=== PATIENT | male | born 1960 | race Caucasian/White ===

== ENCOUNTER 2023-06-11 11:56 | Emergency (ER) | payer BC, OTHER ==
--- OUTSIDE RECORDS SUMMARY | 2023-06-11 12:15 | XMS REPORT | Continuity of Care Document ---
:1960 Author Organization [facility] t Address [address] [place] [address] Care Team Providers Name Role Phone SCOTT VALLE Attending Clinician Unavailable NATHALIA HARRIS Attending Clinician Unavailable JORGE HANSON Attending Clinician Unavailable MD REYNA Attending Clinician Unavailable BETHANY PORTILLO Attending Clinician Unavailable CATRACHO VALADEZ Attending Clinician Unavailable FREDRICK CAMACHO Attending Clinician Unavailable IJEOMA VIZCARRA Attending Clinician Unavailable [id number] Attending Clinician Unavailable [id number] Attending Clinician Unavailable NERET Attending Clinician Unavailable Myrna Rucker Attending Clinician Maximiliano Connolly Attending Clinician NERET Admitting Clinician Unavailable Maximiliano Connolly Admitting Clinician Payers Payer Name Policy Type Policy Number Effective Date Expiration Date S karthik AETNA MP CVS 9 [id number] 2022 BRONZE: HMO ON 00:00:00 [place] [id number] 2016 [place] (PPO) 00:00:00 [facility] [id number] Problems Condition Condition Condition Status Onset Resolution Last Treating Co mments Source Name Details Category Date Date Treatment Clinician Date DANIELLE DANIELLE Disease Active Taty (obstructi (obstructi 5-31 Se ybold ve sleep ve sleep 00:00: - apnea) apnea) 00 Externa l H/O aortic H/O aortic Disease Active Overview : Taty valve valve 2-20 Formattin Seybold replacemen replacemen 00:00: g of note Externa might be l different from the original. 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 Surgery for removal of right testicle and Chemo. Chronic Chronic Disease Active Overview: Sally ey anticoagul anticoagul 2-20 Formattin Seybold ation ation 00:00: g of note Externa might be l different from the original. Xarelto Primary Primary Disease Active Taty hypertensi hypertensi 2-20 Se ybold on on 00:00: - 00 Externa l Seasonal Seasonal Disease Active Kelse y allergic allergic 2-20 Seybol d rhinitis rhinitis 00:00: - due to due to 00 Externa pollen pollen l Low Low Disease Active Taty testostero testostero 2-20 Se ybold ne in male ne in male 00:00: - 00 Externa l Class 3 Class 3 Disease Active Taty severe severe 2-20 Seybold obesity obesity 00:00: - due to due to 00 Externa excess excess l calories calories with with serious serious comorbidit comorbidit y and body y and body mass index mass index (BMI) of (BMI) of 40.0 to 40.0 to 44.9 in 44.9 in adult adult Essential Essential Problem Active Mat agor hypertensi Hypertensi 2-24 da on on 00:00: Medical 00 Group Atopic Atopic Problem Active Mat[place]or dermatitis Dermatitis 2-24 da 00:00: Medical 00 Group SEPTIC SEPTIC Diagnosis Active 2015-04-13 [facility] THROMBOPHL THROMBOPHL 04-07 21:58:00 l EBITIS EBITIS 00:00: [place] Active 00 04/07/2015 [facility] NECK NECK Diagnosis Active 2015-04-08 [facility] martha ABCANNEMARIE ABCESS 04-07 00:45:00 l Active 00:00: [place] 04/07/2015 00 [facility] History of History of Disease Active Overview : Taty surgical surgical 11-02 [place] bold removal of removal of 00:00: g of this - testicle 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 Right testicle removed Morbid Morbid Problem Active 2020-04-27 Danis steve obesity obesity 23:59:28 l (disorder) (disorder) He rmann Active Problem 04/27/2020 [facility] Malignant Malignant Problem Active 2020-04-27 Memoria tumor of tumor of 23:59:28 l testis testis Danie (disorder) (disorder) Active Problem 04/27/2020 [facility] THROMBOPHL THROMBOPH Diagnosis Active 2015-04-13 Memoria EBITIS NOS LEBITIS 21:58:00 l NOS Active Calderon lopez [facility] Hypertensi Hypertens Problem Resolve 2020-04-27 Memoria ve emerson d 23:59:28 l disorder, disorder, Herm césar systemic systemic arterial arterial (disorder) (disorder) Resolved Problem 04/27/2020 [facility] Allergies, Adverse Reactions, Alerts Allergy Allergy Status Severity Reaction(s) Onset Inactive Treating Comm ents Source Name Type Date Date Clinician Adhesive Propensi Active Rash Taty ty to 630 Seybold adverse 00:00: - reaction 00 Externa s l Buspiron Propensi Active Itching Kelse y e ty to 3-09 Seybold adverse 00:00: - reaction 00 Externa s l No Known No Known Active Memori a Medicati Medicati l on on [place] Allergie Allergie s s Social History Social Habit Start Date Stop Date Quantity Comments Source History SDOH Taty Echols ld Alcohol Binge - External Gender identity Taty de jesus - External Sexual orientation Taty Smith - External History of tobacco Snuff User Taty Seybold use - External History SDOH Taty ybo ld Alcohol Frequency - Exter nal History SDOH Taty Dupontybo ld Alcohol Std Drinks - Exte rnal Alcohol intake 2023-05-04 2023-05-04 Current drinker Sonya celestin Seybjoshua 00:00:00 00:00:00 of alcohol - External (finding) Alcohol Comment 2022-12-22 2022-12-22 rarely Taty de jesus 00:00:00 00:00:00 - External Education 2022-12-22 2022-12-22 15 Taty Dupontybold 00:00:00 00:00:00 - External Tobacco use and 2022-12-22 2022-12-22 User of smokeless Ke kyle Seybold exposure 00:00:00 00:00:00 tobacco - External History of Social 2022-12-22 2022-12-22 Taty Dupontybold function 00:00:00 00:00:00 - External Social History 2015-04-08 2015-04-08 [facility] 09:53:15 09:53:15 [place] Sex [birth year] At [birth year] Taty de jesus 00:00:00 00:00:00 - External Smoking Status Start Date Stop Date Source Never smoked tobacco Taty Dupontyb old - External Medications Ordered Filled Start Stop Current Ordering Indication Dosage Frequency Signature Comments Components Source Medication Medication Date Date Medication? Clinician (SIG) Name Name Azelastine 2022- No azelastine Taty HCl 0.1 % 05-04 137 mcg Seybol d nasal 13:50: 00:00 (0.1 %) - Solution 47 :00 nasal Externa spray l aerosol [place] 2 sprays twice a day by intranasal route. FLUTICASONE Yes 50ug QD Use 1 Kelse y PROPIONATE, 05-04 spray (50 Sey bold NASAL, 50 13:25: mcg total) - MCG/ACT 40 in each Externa nasal nostril l Suspension daily as needed Desoximetas Yes desoximeta Taty one 0.05 % 05-04 sone 0.05 Seyb old apply 13:25: % topical - externally 40 gel Apply Exte rna Gel 1 l applicatio n twice a day by topical route as directed for 30 days. Triamcinolo Yes triamcinol Taty ne 05-04 one Seybold Acetonide 13:25: acetonide - 0.1 % apply 40 0.1 % Externa externally topical l Cream cream Multiple Yes 1{tbl} Take 1 Kelse y Vitamin 7-03 tablet by Seybold (Daily 13:25: mouth - Vites) oral 40 daily Externa Tablet l Loratadine Yes daily Taty (CLARITIN) 05-04 Seybold 10 MG oral 13:25: - tablet 40 Externa l Amoxicillin Yes [id number] 1{tbl} Take 1 Taty -Pot 05-04 tablet by Seybold Clavulanate 00:00: mouth 2 - 875-125 MG 00 times Externa oral Tablet daily l Azelastine Yes [id number] azelastine Taty HCl 0.1 % 05-04 137 mcg Seybold nasal 00:00: (0.1 %) - Solution 00 nasal Externa spray l aerosol Wingate 2 sprays twice a day by intranasal route. FLUTICASONE Yes 50ug QD Use 1 Kelse y PROPIONATE, 6-26 spray (50 Sey bold NASAL, 50 13:38: mcg total) - MCG/ACT 44 in each Externa nasal nostril l Suspension daily as needed Azelastine Yes azelastine K elsey HCl 0.1 % - 137 mcg Seybold nasal 13:38: (0.1 %) - Solution 44 nasal Externa spray l aerosol Wingate 2 sprays twice a day by intranasal route. Desoximetas Yes desoximeta Taty one 0.05 % - sone 0.05 Seyb old apply 13:38: % topical - externally 44 gel Apply Exte rna Gel 1 l applicatio n twice a day by topical route as directed for 30 days. Triamcinolo Yes triamcinol Taty ne 6- one Seybold Acetonide 13:38: acetonide - 0.1 % apply 44 0.1 % Externa externally topical l Cream cream Multiple Yes 1{tbl} Take 1 Kelse y Vitamin 6-26 tablet by Seybjoshua (Daily 13:38: mouth - Vites) oral 44 daily Externa Tablet l Loratadine Yes daily Taty (CLARITIN) 6- Seybold 10 MG oral 13:38: - tablet 44 Externa l Testosteron 2022- Yes [id number] 200mg Taty e Cypionate 5-31 - Seybold (DEPO-TESTO 19:45: 20:44 - STERONE) 00 :00 Externa 200 mg/mL - l Every 14 Days Testosteron 2022- Yes [id number] 200mg Taty e Cypionate 5-31 10-28 Seybold (DEPO-TESTO 19:45: 20:44 - STERONE) 00 :00 Externa 200 mg/mL - l Every 14 Days Testosteron 2022- Yes [id number] 200mg 200 mg, Taty e Cypionate 5-31 10-28 intramuscu S eybold (DEPO-TESTO 19:45: 20:44 lar, EVERY - STERONE) 00 :00 14 DAYS, Externa 200 mg/mL - 15 doses, l Every 14 First dose Days on Thu04/01/23 at 1445, Last dose on Thu10/14/23 at 1445 FLUTICASONE Yes 50ug QD Use 1 Kelse y PROPIONATE, 5-31 spray (50 Sey bold NASAL, 50 13:37: mcg total) - MCG/ACT 48 in each Externa nasal nostril l Suspension daily as needed Triamcinolo Yes triamcinol Taty ne 5-31 one Seybold Acetonide 13:37: acetonide - 0.1 % apply 48 0.1 % Externa externally topical l Cream cream Multiple Yes 1{tbl} Take 1 Kelse y Vitamin 5-31 tablet by ybjoshua (Daily 13:37: mouth - Vites) oral 48 daily Externa Tablet l Loratadine Yes daily Taty (CLARITIN) 5-31 Seybold 10 MG oral 13:37: - tablet 48 Externa l Desoximetas Yes desoximeta Taty one 0.05 % 5-31 sone 0.05 Seyb old apply 13:37: % topical - externally 47 gel Apply Exte rna Gel 1 l applicatio n twice a day by topical route as directed for 30 days. Azelastine 0 Yes azelastine K elsey HCl 0.1 % 5-31 137 mcg Seybold nasal 13:37: (0.1 %) - Solution 47 nasal Externa spray l aerosol Wingate 2 sprays twice a day by intranasal route. LISINOPRIL- 2022-0 Yes 1{tbl} Take 1 Ke lsey HCTZ 4-14 tablet by Seybold 10-12.5 MG 00:00: mouth - oral Tablet 00 daily Exte rna DIRECTED l Metoprolol 2022-0 Yes 25mg Take 1 Kelse y Tartrate 4-14 tablet (25 Seybo ld (LOPRESSOR) 00:00: mg total) - 25 MG oral 00 by mouth 2 Ext liana Tablet times l daily LISINOPRIL- 2022-0 Yes 1{tbl} Take 1 Ke lsey HCTZ 4-14 tablet by Seybold 10-12.5 MG 00:00: mouth - oral Tablet 00 daily Exte rna DIRECTED l Metoprolol 2022-0 Yes 25mg Take 1 Kelse y Tartrate 4-14 tablet (25 Seybo ld (LOPRESSOR) 00:00: mg total) - 25 MG oral 00 by mouth 2 Ext liana Tablet times l daily LISINOPRIL- 2022-0 Yes 1{tbl} Take 1 Ke lsey HCTZ 4-14 tablet by Seybold 10-12.5 MG 00:00: mouth - oral Tablet 00 daily Exte rna DIRECTED l Metoprolol 2022-0 Yes 25mg Take 1 Kelse y Tartrate 4-14 tablet (25 Seybo ld (LOPRESSOR) 00:00: mg total) - 25 MG oral 00 by mouth 2 Ext liana Tablet times l daily FLUTICASONE 2022-0 Yes 50ug QD Use 1 Kelse y PROPIONATE, 4-07 spray (50 Sey bold NASAL, 50 11:01: mcg total) - MCG/ACT 32 in each Externa nasal nostril l Suspension daily as needed Alprazolam 2022-0 2023- No .25mg Take 0.25 Taty 0.25 MG 2-20 02-20 mg by Seybold oral Tablet 15:01: 00:00 mouth as - 06 :00 needed for Externa sleep Take l 1 tablet by mouth as needed. FLUTICASONE 2022-0 Yes 1{spray QD Use 1 Ke lsey PROPIONATE, 2-20 } spray in Seyb old NASAL, 50 14:53: each - MCG/ACT 08 nostril Externa nasal daily as l Suspension needed Rivaroxaban 2022-0 Yes [id number] 20mg Take 1 Taty 20 MG oral 2-20 tablet (20 Sey bold Tablet 00:00: mg total) - 00 by mouth Externa daily l Rivaroxaban 2022-0 Yes [id number] 20mg Take 1 Taty 20 MG oral 2-20 tablet (20 Sey bold Tablet 00:00: mg total) - 00 by mouth Externa daily l Rivaroxaban 2022-0 Yes [id number] 20mg Take 1 Taty 20 MG oral 2-20 tablet (20 Sey bold Tablet 00:00: mg total) - 00 by mouth Externa daily l Rivaroxaban 2022-0 Yes [id number] 20mg Take 1 Taty 20 MG oral 2-20 tablet (20 Sey bold Tablet 00:00: mg total) - 00 by mouth Externa daily l Rivaroxaban 2022-0 Yes [id number] 20mg Take 1 Taty 20 MG oral 2-20 tablet (20 Sey bold Tablet 00:00: mg total) - 00 by mouth Externa daily l LISINOPRIL- 3-0 Yes 1{tbl} Take 1 Ke lsey HCTZ 2-03 tablet by Seybold 10-12.5 MG 00:00: mouth - oral Tablet 00 daily Exte rna DIRECTED l LISINOPRIL- 3-0 Yes 1{tbl} Take 1 Ke lsey HCTZ 2-03 tablet by Seybold 10-12.5 MG 00:00: mouth - oral Tablet 00 daily Exte rna DIRECTED l Metoprolol 2022-0 Yes 1{tbl} Take 1 Sukhdev sey Tartrate 1-31 tablet by Seybol d (LOPRESSOR) 00:00: mouth 2 - 50 MG oral 00 times Externa Tablet daily l Metoprolol 3-0 Yes 50mg Take 1 Kelse y Tartrate 1-31 tablet (50 Seybo ld (LOPRESSOR) 00:00: mg total) - 50 MG oral 00 by mouth 2 Ext liana Tablet times l daily Rivaroxaban 0 2022- No 20mg Take 20 mg Taty 20 MG oral 11-04-20 by mouth Seyb old Tablet 00:00: 00:00 daily - 00 :00 Externa l Testosteron 2021-11 Yes deon reyes Cypionate 1-17 ne Seybold (DEPO-TESTO 00:00: cypionate - STERONE) 00 200 mg/mL 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 200 MG/ML intramuscu l intramuscul lar oil ar Solution INJECT 0.5 ML IN THE MUSCLE EVERY WEEK DIRECTED FOR 30 DAYS Testoster2021 Yes deon Posey e Cypionate 1-17 ne Seybold (DEPO-TESTO 00:00: cypionate - STERONE) 00 200 mg/mL 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 200 MG/ML intramuscu l intramuscul lar oil ar Solution INJECT 0.5 ML IN THE MUSCLE EVERY WEEK DIRECTED FOR 30 DAYS Testoster2021 Yes deon Posey e Cypionate 1-17 ne Seybold (DEPO-TESTO 00:00: cypionate - STERONE) 00 200 mg/mL 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 200 MG/ML intramuscu l intramuscul lar oil ar Solution INJECT 0.5 ML IN THE MUSCLE EVERY WEEK DIRECTED FOR 30 DAYS Fluorometho 2021-11 Yes 1[drp] 1 drop at Taty lone 0.1 % 0-17 bedtime Seybol d ophthalmic 00:00: - Suspension 00 Externa l Fluorometho 2021-11 Yes 1[drp] 1 drop at Taty lone 0.1 % 0-17 bedtime Seybol d ophthalmic 00:00: - Suspension 00 Externa l Fluorometho 2021-11 Yes 1[drp] 1 drop at Taty lone 0.1 % 0-17 bedtime Seybol d ophthalmic 00:00: - Suspension 00 Externa l Meclizine Yes meclizine Sukhdev sey HCl 25 MG 4-26 25 mg Seybold oral Tablet 00:00: tablet - 00 Externa l Meclizine 0 Yes meclizine Sukhdev sey HCl 25 MG 4-26 25 mg Seybold oral Tablet 00:00: tablet - 00 Externa l Meclizine 2021-0 Yes meclizine Sukhdev sey HCl 25 MG 4-26 25 mg Seybold oral Tablet 00:00: tablet - 00 Externa l Ciprofloxac 2019-0 Yes 4 drp, Danis steve in 3 MG/ML 6-24 Each l / 21:38: Affected Danie Dexamethaso 00 Ear, Q12H, ne 1 MG/ML X 5 day, # Otic 1 ea, 0 Suspension Refill(s), Pharmacy: [facility] #[id number], 182.88, cm, 04/25/20 13:07:00 CDT, Height, 122.727, kg, 04/25/20 13:22:00 CDT, Weight Ciprofloxac 2019-0 Yes 4 drp, Danis steve in 3 MG/ML 6-24 Each l / 21:38: Affected Danie Dexamethaso 00 Ear, Q12H, ne 1 MG/ML X 5 day, # Otic 1 ea, 0 Suspension Refill(s), Pharmacy: [facility] #[id number], 182.88, cm, 04/25/20 13:07:00 CDT, Height, 122.727, kg, 04/25/20 13:22:00 CDT, Weight Ciprofloxac 2019-0 Yes 4 drp, Danis steve in 3 MG/ML 6-24 Each l / :38: Affected [place] Dexamethaso 00 Ear, Q12H, ne 1 MG/ML X 5 day, # Otic 1 ea, 0 Suspension Refill(s), Pharmacy: [facility] #[id number], 182.88, cm, 04/25/20 13:07:00 CDT, Height, 122.727, kg, 04/25/20 13:22:00 CDT, Weight Ciprofloxac 2019-0 Yes 4 drp, Danis steve in 3 MG/ML 6-24 Each l / :38: Affected Danie Dexamethaso 00 Ear, Q12H, ne 1 MG/ML X 5 day, # Otic 1 ea, 0 Suspension Refill(s), Pharmacy: [facility] #[id number], 182.88, cm, 04/25/20 13:07:00 CDT, Height, 122.727, kg, 04/25/20 13:22:00 CDT, Weight Ciprofloxac 2020-0 Yes 4 drp, Danis steve in 3 MG/ML 6-24 Each l :38: Affected [place] Dexamethaso 00 Ear, Q12H, ne 1 MG/ML X 5 day, # Otic 1 ea, 0 Suspension Refill(s), Pharmacy: [facility] #[id number], 182.88, cm, 04/25/20 13:07:00 CDT, Height, 122.727, kg, 04/25/20 13:22:00 CDT, Weight Ciprofloxac 2019-0 Yes 4 drp, Danis steve in 3 MG/ML 6-24 Each l :38: Affected [place] Dexamethaso 00 Ear, Q12H, ne 1 MG/ML X 5 day, # Otic 1 ea, 0 Suspension Refill(s), Pharmacy: [facility] #[id number], 182.88, cm, 04/25/20 13:07:00 CDT, Height, 122.727, kg, 04/25/20 13:22:00 CDT, Weight Ciprofloxac 2019-0 Yes 4 drp, Danis steve in 3 MG/ML 6-24 Each l :38: Affected [place] Dexamethaso 00 Ear, Q12H, ne 1 MG/ML X 5 day, # Otic 1 ea, 0 Suspension Refill(s), Pharmacy: [facility] #[id number], 182.88, cm, 04/25/20 13:07:00 CDT, Height, 122.727, kg, 04/25/20 13:22:00 CDT, Weight Ciprofloxac 2019-0 Yes 4 drp, Danis steve in 3 MG/ML 6-24 Each l :38: Affected Danie Dexamethaso 00 Ear, Q12H, ne 1 MG/ML X 5 day, # Otic 1 ea, 0 Suspension Refill(s), Pharmacy: [facility] #[id number], 182.88, cm, 04/25/20 13:07:00 CDT, Height, 122.727, kg, 04/25/20 13:22:00 CDT, Weight Ciprofloxac 2020-0 Yes 4 drp, Danis steve in 3 MG/ML 6-24 Each l / 21:38: Affected [place] Dexamethaso 00 Ear, Q12H, ne 1 MG/ML X 5 day, # Otic 1 ea, 0 Suspension Refill(s), Pharmacy: [facility] #[id number], 182.88, cm, 04/25/20 13:07:00 CDT, Height, 122.727, kg, 04/25/20 13:22:00 CDT, Weight Ciprofloxac 2020-0 Yes 4 drp, Danis steve in 3 MG/ML 6-24 Each l / :38: Affected [place] Dexamethaso 00 Ear, Q12H, ne 1 MG/ML X 5 day, # Otic 1 ea, 0 Suspension Refill(s), Pharmacy: [facility] #[id number], 182.88, cm, 04/25/20 13:07:00 CDT, Height, 122.727, kg, 04/25/20 13:22:00 CDT, Weight Ciprofloxac 2020-0 Yes 4 drp, Danis steve in 3 MG/ML 6-24 Each l / :38: Affected [place] Dexamethaso 00 Ear, Q12H, ne 1 MG/ML X 5 day, # Otic 1 ea, 0 Suspension Refill(s), Pharmacy: [facility] #[id number], 182.88, cm, 04/25/20 13:07:00 CDT, Height, 122.727, kg, 04/25/20 13:22:00 CDT, Weight Fluticasone 2020-0 Yes NASAL, Danis steve propionate 6-24 Daily, 0 l 0.05 18:17: Refill(s) [place] MG/ACTUAT 00 Metered Dose Nasal Wing[place] [Flonase] Fluticasone 2020-0 Yes NASAL, Danis steve propionate 6-24 Daily, 0 l 0.05 18:17: Refill(s) [place] MG/ACTUAT 00 Metered Dose Nasal [place] [Flonase] Fluticasone 2020-0 Yes NASAL, Danis steve propionate 6-24 Daily, 0 l 0.05 18:17: Refill(s) [place] MG/ACTUAT 00 Metered Dose Nasal [place] [Flonase] Fluticasone 2020-0 Yes NASAL, Danis steve propionate 6-24 Daily, 0 l 0.05 18:17: Refill(s) [place] MG/ACTUAT 00 Metered Dose Nasal [place] [Flonase] Fluticasone 2020-0 Yes NASAL, Danis steve propionate 6-24 Daily, 0 l 0.05 18:17: Refill(s) [place] MG/ACTUAT 00 Metered Dose Nasal [place] [Flonase] Fluticasone 2020-0 Yes NASAL, Danis steve propionate 6-24 Daily, 0 l 0.05 18:17: Refill(s) Danie MG/ACTUAT 00 Metered Dose Nasal [place] [Flonase] Fluticasone 2020-0 Yes NASAL, Danis steve propionate 6-24 Daily, 0 l 0.05 18:17: Refill(s) Danie MG/ACTUAT 00 Metered Dose Nasal [place] [Flonase] Fluticasone 2020-0 Yes NASAL, Danis steve propionate 6-24 Daily, 0 l 0.05 18:17: Refill(s) Danie MG/ACTUAT 00 Metered Dose Nasal [place] [Flonase] Fluticasone 2020-0 Yes NASAL, Danis steve propionate 6-24 Daily, 0 l 0.05 18:17: Refill(s) Danie MG/ACTUAT 00 Metered Dose Nasal [place] [Flonase] Fluticasone 2020-0 Yes NASAL, Danis steve propionate 6-24 Daily, 0 l 0.05 18:17: Refill(s) [place] MG/ACTUAT 00 Metered Dose Nasal [place] [Flonase] Fluticasone 2020-0 Yes NASAL, Danis steve propionate 6-24 Daily, 0 l 0.05 18:17: Refill(s) [place] MG/ACTUAT 00 Metered Dose Nasal [place] [Flonase] heparin, No Notes: Memoria porcine 6- (Same as: l 21:23: Heparin Danie 00 Lock Flush) heparin, No Notes: Memoria porcine 6- (Same as: l 21:23: Heparin Danie 00 Lock Flush) heparin, No Notes: Memoria porcine 6-09 (Same as: l 21:23: Heparin Danie 00 Lock Flush) heparin, No Notes: Memoria porcine 6-09 (Same as: l 21:23: Heparin Danie 00 Lock Flush) heparin, No Notes: Memoria porcine 6-09 (Same as: l 21:23: Heparin Danie 00 Lock Flush) heparin, No Notes: Memoria porcine 6-09 (Same as: l 21:23: Heparin [place] 00 Lock Flush) heparin, No Notes: Memoria porcine 6-09 (Same as: l 21:23: Heparin Adnie 00 Lock Flush) heparin, No Notes: Memoria porcine 6-09 (Same as: l 21:23: Heparin [place] 00 Lock Flush) heparin, No Notes: Memoria porcine 6-09 (Same as: l 21:23: Heparin Danie 00 Lock Flush) heparin, No Notes: Memoria porcine 6-09 (Same as: l 21:23: Heparin Danie 00 Lock Flush) heparin, No Notes: Memoria porcine 6-09 (Same as: l 21:23: Heparin Danie 00 Lock Flush) {42 Yes Special Memoria (rivaroxaba - Instructio l n 15 MG 20:15: ns: Take Calderon n Oral Tablet 00 15 mg [Xarelto]) tablets / 9 twice (rivaroxaba daily with n 20 MG food for Oral Tablet 21 days. [Xarelto]) Beginning } day [Xarelto 22,take Kit] one 20 mg tablet daily with food for the remainder of therapy. Amoxicillin Yes 875 mg = 1 Memoria 875 MG / 04-10 tab, PO, l Clavulanate 20:15: Q12H, X 14 [place] 125 MG Oral 00 day, # 28 Tablet tab, 0 [Augmentin Refill(s) 875-mg] {42 Yes Special Memoria (rivaroxaba - Instructio l n 15 MG 20:15: ns: Take Calderon n Oral Tablet 00 15 mg [Xarelto]) tablets / 9 twice (rivaroxaba daily with n 20 MG food for Oral Tablet 21 days. [Xarelto]) Beginning } Pack day [Xarelto 22,take Kit] one 20 mg tablet daily with food for the remainder of therapy. Amoxicillin Yes 875 mg = 1 Memoria 875 MG / 6-09 tab, PO, l Clavulanate 20:15: Q12H, X 14 [place] 125 MG Oral 00 day, # 28 Tablet tab, 0 [Augmentin Refill(s) 875-mg] { Yes Special Memoria (rivaroxaba 6-09 Instructio l n 15 MG 20:15: ns: Take Calderon n Oral Tablet 00 15 mg [Xarelto]) tablets / 9 twice (rivaroxaba daily with n 20 MG food for Oral Tablet 21 days. [Xarelto]) Beginning } Pack day [Xarelto 22,take Kit] one 20 mg tablet daily with food for the remainder of therapy. Amoxicillin Yes 875 mg = 1 Memoria 875 MG / 6-09 tab, PO, l Clavulanate 20:15: Q12H, X 14 [place] 125 MG Oral 00 day, # 28 Tablet tab, 0 [Augmentin Refill(s) 875-mg] { Yes Special Memoria (rivaroxaba 6-09 Instructio l n 15 MG 20:15: ns: Take Calderon n Oral Tablet 00 15 mg [Xarelto]) tablets / 9 twice (rivaroxaba daily with n 20 MG food for Oral Tablet 21 days. [Xarelto]) Beginning } Pack day [Xarelto 22,take Kit] one 20 mg tablet daily with food for the remainder of therapy. { Yes Special Memoria (rivaroxaba 6-09 Instructio l n 15 MG 20:15: ns: Take Calderon n Oral Tablet 00 15 mg [Xarelto]) tablets / 9 twice (rivaroxaba daily with n 20 MG food for Oral Tablet 21 days. [Xarelto]) Beginning } Pack day [Xarelto 22,take Kit] one 20 mg tablet daily with food for the remainder of therapy. Amoxicillin Yes 875 mg = 1 Memoria 875 MG / 6-09 tab, PO, l Clavulanate 20:15: Q12H, X 14 Danie 125 MG Oral 00 day, # 28 Tablet tab, 0 [Augmentin Refill(s) 875-mg] Amoxicillin Yes 875 mg = 1 Memoria 875 MG / 6-09 tab, PO, l Clavulanate 20:15: Q12H, X 14 [place] 125 MG Oral 00 day, # 28 Tablet tab, 0 [Augmentin Refill(s) 875-mg] { Yes Special Memoria (rivaroxaba 6-09 Instructio l n 15 MG 20:15: ns: Take Calderon n Oral Tablet 00 15 mg [Xarelto]) tablets / 9 twice (rivaroxaba daily with n 20 MG food for Oral Tablet 21 days. [Xarelto]) Beginning } Pack day [Xarelto 22,take Kit] one 20 mg tablet daily with food for the remainder of therapy. Amoxicillin Yes 875 mg = 1 Memoria 875 MG / 6-09 tab, PO, l Clavulanate 20:15: Q12H, X 14 Danie 125 MG Oral 00 day, # 28 Tablet tab, 0 [Augmentin Refill(s) 875-mg] { Yes Special Memoria (rivaroxaba 6-09 Instructio l n 15 MG 20:15: ns: Take Calderon n Oral Tablet 00 15 mg [Xarelto]) tablets / 9 twice (rivaroxaba daily with n 20 MG food for Oral Tablet 21 days. [Xarelto]) Beginning } Pack day [Xarelto 22,take Kit] one 20 mg tablet daily with food for the remainder of therapy. Amoxicillin Yes 875 mg = 1 Memoria 875 MG / 6-09 tab, PO, l Clavulanate 20:15: Q12H, X 14 [place] 125 MG Oral 00 day, # 28 Tablet tab, 0 [Augmentin Refill(s) 875-mg] { Yes Special Memoria (rivaroxaba 6-09 Instructio l n 15 MG 20:15: ns: Take Calderon n Oral Tablet 00 15 mg [Xarelto]) tablets / 9 twice (rivaroxaba daily with n 20 MG food for Oral Tablet 21 days. [Xarelto]) Beginning } Pack day [Xarelto 22,take Kit] one 20 mg tablet daily with food for the remainder of therapy. Amoxicillin Yes 875 mg = 1 Memoria 875 MG / 6-09 tab, PO, l Clavulanate 20:15: Q12H, X 14 [place] 125 MG Oral 00 day, # 28 Tablet tab, 0 [Augmentin Refill(s) 875-mg] { Yes Special Memoria (rivaroxaba 6-09 Instructio l n 15 MG 20:15: ns: Take Calderon n Oral Tablet 00 15 mg [Xarelto]) tablets / 9 twice (rivaroxaba daily with n 20 MG food for Oral Tablet 21 days. [Xarelto]) Beginning } Pack day [Xarelto 22,take Kit] one 20 mg tablet daily with food for the remainder of therapy. Amoxicillin Yes 875 mg = 1 Memoria 875 MG / 6-09 tab, PO, l Clavulanate 20:15: Q12H, X 14 [place] 125 MG Oral 00 day, # 28 Tablet tab, 0 [Augmentin Refill(s) 875-mg] { Yes Special Memoria (rivaroxaba 6-09 Instructio l n 15 MG 20:15: ns: Take Calderon n Oral Tablet 00 15 mg [Xarelto]) tablets / 9 twice (rivaroxaba daily with n 20 MG food for Oral Tablet 21 days. [Xarelto]) Beginning } Pack day [Xarelto 22,take Kit] one 20 mg tablet daily with food for the remainder of therapy. Amoxicillin Yes 875 mg = 1 Memoria 875 MG / 6-09 tab, PO, l Clavulanate 20:15: Q12H, X 14 [place] 125 MG Oral 00 day, # 28 Tablet tab, 0 [Augmentin Refill(s) 875-mg] { Yes Special Memoria (rivaroxaba 6-09 Instructio l n 15 MG 20:15: ns: Take Calderon n Oral Tablet 00 15 mg [Xarelto]) tablets / 9 twice (rivaroxaba daily with n 20 MG food for Oral Tablet 21 days. [Xarelto]) Beginning } Pack day [Xarelto 22,take Kit] one 20 mg tablet daily with food for the remainder of therapy. Amoxicillin Yes 875 mg = 1 Memoria 875 MG / 6-09 tab, PO, l Clavulanate 20:15: Q12H, X 14 Danie 125 MG Oral 00 day, # 28 Tablet tab, 0 [Augmentin Refill(s) 875-mg] Protonix No Notes: Memoria 6-08 Tablet l 16:30: should not [place] 00 be chewed or crushed. (Same as: Protonix) Protonix No Notes: Memoria 6-08 Tablet l 16:30: should not [place] 00 be chewed or crushed. (Same as: Protonix) Protonix No Notes: Memoria 6-08 Tablet l 16:30: should not [place] 00 be chewed or crushed. (Same as: Protonix) Protonix No Notes: Memoria 6-08 Tablet l 16:30: should not [place] 00 be chewed or crushed. (Same as: Protonix) Protonix No Notes: Memoria 6-08 Tablet l 16:30: should not [place] 00 be chewed or crushed. (Same as: Protonix) Protonix No Notes: Memoria 6-08 Tablet l 16:30: should not [place] 00 be chewed or crushed. (Same as: Protonix) Protonix No Notes: Memoria 6-08 Tablet l 16:30: should not [place] 00 be chewed or crushed. (Same as: Protonix) Protonix No Notes: Memoria 6-08 Tablet l 16:30: should not [place] 00 be chewed or crushed. (Same as: Protonix) Protonix No Notes: Memoria 6-08 Tablet l 16:30: should not [place] 00 be chewed or crushed. (Same as: Protonix) Protonix No Notes: Memoria 6-08 Tablet l 16:30: should not [place] 00 be chewed or crushed. (Same as: Protonix) Protonix No Notes: Memoria 6-08 Tablet l 16:30: should not [place] 00 be chewed or crushed. (Same as: Protonix) heparin No Route: Memoria sodium, 6-07 IVP, PRN, l porcine 23:13: 3,700 [place] 1000 UNT/ML 00 unit, 3.7 Injectable mL, Drug Solution form: INJ, PRN, Heparin Protocol, Start date: 04/08/15 18:13:00 Stop date: 05/08/15 18:12:00, 30 day heparin 0 No 500 mL, Memoria additive 6-07 Rate: l 25,000 unit 23:13: 33.65 Shaina nn [18 00 ml/hr, unit/kg/hr] Infuse + Premix over: 14.9 Diluent hr, Route: Dextrose 5% IV, Dosing 500 mL Weight 93.47 kg, Total Volume: 500 mL, Start date: 04/08/15 18:13:00, Duration: 30 day, Stop date: 05/08/15 18:12:00 heparin 0 No Route: Mem[facility] sodium, 6-07 IVP, PRN, l porcine 23:13: 3,700 [place] 1000 UNT/ML 00 unit, 3.7 Injectable mL, Drug Solution form: INJ, PRN, Heparin Protocol, Start date: 04/08/15 18:13:00 Stop date: 05/08/15 18:12:00, 30 day heparin 0 No 500 mL, Memoria additive 6-07 Rate: l 25,000 unit 23:13: 33.65 Shaina nn [18 00 ml/hr, unit/kg/hr] Infuse + Premix over: 14.9 Diluent hr, Route: Dextrose 5% IV, Dosing 500 mL Weight 93.47 kg, Total Volume: 500 mL, Start date: 04/08/15 18:13:00, Duration: 30 day, Stop date: 05/08/15 18:12:00 heparin 0 No Route: Memoria sodium, 6-07 IVP, PRN, l porcine 23:13: 3,700 [place] 1000 UNT/ML 00 unit, 3.7 Injectable mL, Drug Solution form: INJ, PRN, Heparin Protocol, Start date: 04/08/15 18:13:00 Stop date: 05/08/15 18:12:00, 30 day heparin 0 No 500 mL, Memoria additive 6-07 Rate: l 25,000 unit 23:13: 33.65 Shaina nn [18 00 ml/hr, unit/kg/hr] Infuse + Premix over: 14.9 Diluent hr, Route: Dextrose 5% IV, Dosing 500 mL Weight 93.47 kg, Total Volume: 500 mL, Start date: 04/08/15 18:13:00, Duration: 30 day, Stop date: 05/08/15 18:12:00 heparin No Route: [facility] sodium, 6-07 IVP, PRN, l porcine 23:13: 3,700 [place] 1000 UNT/ML 00 unit, 3.7 Injectable mL, Drug Solution form: INJ, PRN, Heparin Protocol, Start date: 04/08/15 18:13:00 Stop date: 05/08/15 18:12:00, 30 day heparin No 500 mL, Mem[facility] additive 6-07 Rate: l 25,000 unit 23:13: 33.65 Shaina nn [18 00 ml/hr, unit/kg/hr] Infuse + Premix over: 14.9 Diluent hr, Route: Dextrose 5% IV, Dosing 500 mL Weight 93.47 kg, Total Volume: 500 mL, Start date: 04/08/15 18:13:00, Duration: 30 day, Stop date: 05/08/15 18:12:00 heparin No Route: Mem[facility] sodium, 6-07 IVP, PRN, l porcine 23:13: 3,700 [place] 1000 UNT/ML 00 unit, 3.7 Injectable mL, Drug Solution form: INJ, PRN, Heparin Protocol, Start date: 04/08/15 18:13:00 Stop date: 05/08/15 18:12:00, 30 day heparin 0 No 500 mL, Mem[facility] additive 6-07 Rate: l 25,000 unit 23:13: 33.65 Shaina nn [18 00 ml/hr, unit/kg/hr] Infuse + Premix over: 14.9 Diluent hr, Route: Dextrose 5% IV, Dosing 500 mL Weight 93.47 kg, Total Volume: 500 mL, Start date: 04/08/15 18:13:00, Duration: 30 day, Stop date: 05/08/15 18:12:00 heparin No Route: Mem[facility] sodium, 6-07 IVP, PRN, l porcine 23:13: 3,700 [place] 1000 UNT/ML 00 unit, 3.7 Injectable mL, Drug Solution form: INJ, PRN, Heparin Protocol, Start date: 04/08/15 18:13:00 Stop date: 05/08/15 18:12:00, 30 day heparin 2014-0 No 500 mL, [facility] additive 6-07 Rate: l 25,000 unit 23:13: 33.65 Shaina nn [18 00 ml/hr, unit/kg/hr] Infuse + Premix over: 14.9 Diluent hr, Route: Dextrose 5% IV, Dosing 500 mL Weight 93.47 kg, Total Volume: 500 mL, Start date: 04/08/15 18:13:00, Duration: 30 day, Stop date: 05/08/15 18:12:00 heparin 2015-0 No Route: [facility] sodium, 6-07 IVP, PRN, l porcine 23:13: 3,700 [place] 1000 UNT/ML 00 unit, 3.7 Injectable mL, Drug Solution form: INJ, PRN, Heparin Protocol, Start date: 04/08/15 18:13:00 Stop date: 05/08/15 18:12:00, 30 day heparin 2014-0 No 500 mL, [facility] additive 6-07 Rate: l 25,000 unit 23:13: 33.65 Shaina nn [18 00 ml/hr, unit/kg/hr] Infuse + Premix over: 14.9 Diluent hr, Route: Dextrose 5% IV, Dosing 500 mL Weight 93.47 kg, Total Volume: 500 mL, Start date: 04/08/15 18:13:00, Duration: 30 day, Stop date: 05/08/15 18:12:00 heparin 2015-0 No Route: [facility] sodium, 6-07 IVP, PRN, l porcine 23:13: 3,700 [place] 1000 UNT/ML 00 unit, 3.7 Injectable mL, Drug Solution form: INJ, PRN, Heparin Protocol, Start date: 04/08/15 18:13:00 Stop date: 05/08/15 18:12:00, 30 day heparin 2015-0 No 500 mL, Mem[facility] additive 6-07 Rate: l 25,000 unit 23:13: 33.65 Shaina nn [18 00 ml/hr, unit/kg/hr] Infuse + Premix over: 14.9 Diluent hr, Route: Dextrose 5% IV, Dosing 500 mL Weight 93.47 kg, Total Volume: 500 mL, Start date: 04/08/15 18:13:00, Duration: 30 day, Stop date: 05/08/15 18:12:00 heparin No Route: [facility] sodium, 6-07 IVP, PRN, l porcine 23:13: 3,700 [place] 1000 UNT/ML 00 unit, 3.7 Injectable mL, Drug Solution form: INJ, PRN, Heparin Protocol, Start date: 04/08/15 18:13:00 Stop date: 05/08/15 18:12:00, 30 day heparin No 500 mL, [facility] additive 6-07 Rate: l 25,000 unit 23:13: 33.65 Shaina nn [18 00 ml/hr, unit/kg/hr] Infuse + Premix over: 14.9 Diluent hr, Route: Dextrose 5% IV, Dosing 500 mL Weight 93.47 kg, Total Volume: 500 mL, Start date: 04/08/15 18:13:00, Duration: 30 day, Stop date: 05/08/15 18:12:00 heparin No Route: [facility] sodium, 6-07 IVP, PRN, l porcine 23:13: 3,700 [place] 1000 UNT/ML 00 unit, 3.7 Injectable mL, Drug Solution form: INJ, PRN, Heparin Protocol, Start date: 04/08/15 18:13:00 Stop date: 05/08/15 18:12:00, 30 day heparin 0 No 500 mL, Mem[facility] additive 6-07 Rate: l 25,000 unit 23:13: 33.65 Shaina nn [18 00 ml/hr, unit/kg/hr] Infuse + Premix over: 14.9 Diluent hr, Route: Dextrose 5% IV, Dosing 500 mL Weight 93.47 kg, Total Volume: 500 mL, Start date: 04/08/15 18:13:00, Duration: 30 day, Stop date: 05/08/15 18:12:00 heparin 0 No Route: [facility] sodium, 6-07 IVP, PRN, l porcine 23:13: 3,700 [place] 1000 UNT/ML 00 unit, 3.7 Injectable mL, Drug Solution form: INJ, PRN, Heparin Protocol, Start date: 04/08/15 18:13:00 Stop date: 05/08/15 18:12:00, 30 day heparin 2014-0 No 500 mL, Memoria additive 6 Rate: l 25,000 unit 23:13: 33.65 Shaina nn [18 00 ml/hr, unit/kg/hr] Infuse + Premix over: 14.9 Diluent hr, Route: Dextrose 5% IV, Dosing 500 mL Weight 93.47 kg, Total Volume: 500 mL, Start date: 04/08/15 18:13:00, Duration: 30 day, Stop date: 05/08/15 18:12:00 lisinopril 2014-0 Yes 5 mg = 1 Mem oria 5 mg oral 6-07 tab, PO, l tablet 17:53: Daily, # Danie 00 30 tab, 0 Refill(s) cephalexin 2014-0 No 250 mg = 1 M emoria 250 mg oral 6-07 cap, PO, l capsule 17:53: QID, # 56 Shaina nn 00 cap, 0 Refill(s) Hydrochloro 2014-0 Yes 25 mg, PO, Memoria thiazide 6-07 Daily, 0 l 17:53: Refill(s) [place] 00 lisinopril 2014-0 Yes 5 mg = 1 Mem oria 5 mg oral 6-07 tab, PO, l tablet 17:53: Daily, # Danie 00 30 tab, 0 Refill(s) cephalexin 2014-0 No 250 mg = 1 M emoria 250 mg oral 6-07 cap, PO, l capsule 17:53: QID, # 56 Shaina nn 00 cap, 0 Refill(s) Hydrochloro 2014-0 Yes 25 mg, PO, Memoria thiazide 6-07 Daily, 0 l 17:53: Refill(s) [place] 00 lisinopril 2014-0 Yes 5 mg = 1 Mem oria 5 mg oral 6-07 tab, PO, l tablet 17:53: Daily, # Danie 00 30 tab, 0 Refill(s) cephalexin 2014-0 No 250 mg = 1 M emoria 250 mg oral 6-07 cap, PO, l capsule 17:53: QID, # 56 Shaina nn 00 cap, 0 Refill(s) Hydrochloro 2014-0 Yes 25 mg, PO, Memoria thiazide 6-07 Daily, 0 l 17:53: Refill(s) Danie 00 lisinopril Yes 5 mg = 1 Mem oria 5 mg oral 6-07 tab, PO, l tablet 17:53: Daily, # [place] 00 30 tab, 0 Refill(s) cephalexin No 250 mg = 1 M emoria 250 mg oral 6-07 cap, PO, l capsule 17:53: QID, # 56 Shaina nn 00 cap, 0 Refill(s) Hydrochloro 2014-0 Yes 25 mg, PO, Memoria thiazide 607 Daily, 0 l 17:53: Refill(s) [place]ie 00 lisinopril Yes 5 mg = 1 Mem oria 5 mg oral 6-07 tab, PO, l tablet 17:53: Daily, # Danie 00 30 tab, 0 Refill(s) cephalexin No 250 mg = 1 M emoria 250 mg oral 6-07 cap, PO, l capsule 17:53: QID, # 56 Shaina nn 00 cap, 0 Refill(s) Hydrochloro Yes 25 mg, PO, Memoria thiazide 607 Daily, 0 l 17:53: Refill(s) Danie 00 lisinopril Yes 5 mg = 1 Mem oria 5 mg oral 6-07 tab, PO, l tablet 17:53: Daily, # Danie 00 30 tab, 0 Refill(s) cephalexin No 250 mg = 1 M emoria 250 mg oral 6-07 cap, PO, l capsule 17:53: QID, # 56 Shaina nn 00 cap, 0 Refill(s) Hydrochloro 2014-0 Yes 25 mg, PO, Memoria thiazide 607 Daily, 0 l 17:53: Refill(s) [place] 00 lisinopril 0 Yes 5 mg = 1 Mem oria 5 mg oral 6-07 tab, PO, l tablet 17:53: Daily, # [place] 00 30 tab, 0 Refill(s) cephalexin No 250 mg = 1 M emoria 250 mg oral 6-07 cap, PO, l capsule 17:53: QID, # 56 Shaina nn 00 cap, 0 Refill(s) Hydrochloro 2014-0 Yes 25 mg, PO, [facility] thiazide 6-07 Daily, 0 l 17:53: Refill(s) [place] 00 lisinopril Yes 5 mg = 1 Mem oria 5 mg oral 6-07 tab, PO, l tablet 17:53: Daily, # [place] 00 30 tab, 0 Refill(s) cephalexin No 250 mg = 1 M emoria 250 mg oral 6-07 cap, PO, l capsule 17:53: QID, # 56 Shaina nn 00 cap, 0 Refill(s) Hydrochloro Yes 25 mg, PO, [facility] thiazide 6-07 Daily, 0 l 17:53: Refill(s) Danie 00 lisinopril Yes 5 mg = 1 Mem oria 5 mg oral 6-07 tab, PO, l tablet 17:53: Daily, # Danie 00 30 tab, 0 Refill(s) cephalexin No 250 mg = 1 M emoria 250 mg oral 6-07 cap, PO, l capsule 17:53: QID, # 56 Shaina nn 00 cap, 0 Refill(s) Hydrochloro Yes 25 mg, PO, [facility] thiazide 6-07 Daily, 0 l 17:53: Refill(s) [place] 00 lisinopril Yes 5 mg = 1 Mem oria 5 mg oral 6-07 tab, PO, l tablet 17:53: Daily, # Danie 00 30 tab, 0 Refill(s) cephalexin No 250 mg = 1 M emoria 250 mg oral 6-07 cap, PO, l capsule 17:53: QID, # 56 Shaina nn 00 cap, 0 Refill(s) Hydrochloro Yes 25 mg, PO, [facility] thiazide 6-07 Daily, 0 l 17:53: Refill(s) [place] 00 lisinopril Yes 5 mg = 1 Mem oria 5 mg oral 6-07 tab, PO, l tablet 17:53: Daily, # [place] 00 30 tab, 0 Refill(s) cephalexin No 250 mg = 1 M emoria 250 mg oral 6-07 cap, PO, l capsule 17:53: QID, # 56 Shaina nn 00 cap, 0 Refill(s) Hydrochloro Yes 25 mg, PO, [facility] thiazide 6-07 Daily, 0 l 17:53: Refill(s) [place] 00 Simethicone No Notes: Danis steve 6-07 (Same as: l 15:33: Mylicon, Danie 00 Phazyme, Genasyme) Codeine No Notes: Memoria Phosphate 2 6-07 (Same As: l MG/ML / 15:33: Robitussin Herm césar Guaifenesin 00 AC) 20 MG/ML Oral Solution Diphenhydra No Notes: Danis steve mine 6-07 (Same as: l 15:33: Benadryl) Temazepam No Notes: Memori a 6-07 (Same As: l 15:33: Restoril) [place] Milk of No Notes: Memoria Magnesia 6-07 (Same as: l 15:33: Milk of [place] 00 Magnesia, MOM) Simethicone No Notes: Danis steve 6-07 (Same as: l 15:33: Mylicon, [place] 00 Phazyme, Genasyme) Codeine No Notes: [facility] Phosphate 2 6-07 (Same As: l MG/ML / 15:33: Robitussin Herm césar Guaifenesin 00 AC) 20 MG/ML Oral Solution Diphenhydra No Notes: Danis steve mine 6-07 (Same as: l 15:33: Benadryl) Temazepam No Notes: Memori a 6-07 (Same As: l 15:33: Restoril) Danie Milk of No Notes: Memoria Magnesia 6-07 (Same as: l 15:33: Milk of Danie 00 Magnesia, MOM) Simethicone No Notes: Danis steve 6-07 (Same as: l 15:33: Mylicon, [place] 00 Phazyme, Genasyme) Codeine No Notes: [facility] Phosphate 2 6-07 (Same As: l MG/ML / 15:33: Robitussin Herm césar Guaifenesin 00 AC) 20 MG/ML Oral Solution Diphenhydra No Notes: Danis steve mine 6-07 (Same as: l 15:33: Benadryl) [place] 00 Temazepam No Notes: Memori a 6-07 (Same As: l 15:33: Restoril) Danie Milk of No Notes: Memoria Magnesia 6-07 (Same as: l 15:33: Milk of [place] 00 Magnesia, MOM) Simethicone No Notes: Danis steve 6-07 (Same as: l 15:33: Mylicon, [place] 00 Phazyme, Genasyme) Codeine No Notes: [facility] Phosphate 2 6-07 (Same As: l MG/ML / 15:33: Robitussin Herm césar Guaifenesin 00 AC) 20 MG/ML Oral Solution Diphenhydra No Notes: Danis steve mine 6-07 (Same as: l 15:33: Benadryl) Temazepam No Notes: Memori a 6-07 (Same As: l 15:33: Restoril) [place] Milk of No Notes: Memoria Magnesia 6-07 (Same as: l 15:33: Milk of Danie 00 Magnesia, MOM) Simethicone No Notes: Danis steve 6-07 (Same as: l 15:33: Mylicon, [place] 00 Phazyme, Genasyme) Codeine No Notes: [facility] Phosphate 2 6-07 (Same As: l MG/ML / 15:33: Robitussin Herm césar Guaifenesin 00 AC) 20 MG/ML Oral Solution Diphenhydra No Notes: Danis steve mine 6-07 (Same as: l 15:33: Benadryl) [place] 00 Simethicone No Notes: Danis steve 6-07 (Same as: l 15:33: Mylicon, [place] 00 Phazyme, Genasyme) Temazepam No Notes: Memori a 6-07 (Same As: l 15:33: Restoril) [place] Milk of No Notes: Memoria Magnesia 6-07 (Same as: l 15:33: Milk of Danie 00 Magnesia, MOM) Codeine No Notes: [facility] Phosphate 2 6-07 (Same As: l MG/ML / 15:33: Robitussin Herm césar Guaifenesin 00 AC) 20 MG/ML Oral Solution Diphenhydra No Notes: Danis steve mine 6-07 (Same as: l 15:33: Benadryl) [place]ie 00 Temazepam No Notes: Memori a 6-07 (Same As: l 15:33: Restoril) [place] 00 Milk of No Notes: Memoria Magnesia 6-07 (Same as: l 15:33: Milk of [place]ie 00 Magnesia, MOM) Simethicone No Notes: Danis steve 6-07 (Same as: l 15:33: Mylicon, [place] 00 Phazyme, Genasyme) Codeine No Notes: [facility] Phosphate 2 6-07 (Same As: l MG/ML / 15:33: Robitussin Herm césar Guaifenesin 00 AC) 20 MG/ML Oral Solution Diphenhydra No Notes: Danis steve mine 6-07 (Same as: l 15:33: Benadryl) [place] 00 Temazepam No Notes: Memori a 6-07 (Same As: l 15:33: Restoril) [place] 00 Milk of No Notes: Memoria Magnesia 6-07 (Same as: l 15:33: Milk of [place] 00 Magnesia, MOM) Simethicone No Notes: Danis steve 6-07 (Same as: l 15:33: Mylicon, Danie 00 Phazyme, Genasyme) Codeine No Notes: [facility] Phosphate 2 6-07 (Same As: l MG/ML / 15:33: Robitussin Herm césar Guaifenesin 00 AC) 20 MG/ML Oral Solution Diphenhydra No Notes: Danis steve mine 6-07 (Same as: l 15:33: Benadryl) Danie Temazepam No Notes: Memori a 6-07 (Same As: l 15:33: Restoril) Danie 00 Milk of No Notes: Memoria Magnesia 6-07 (Same as: l 15:33: Milk of Danie 00 Magnesia, MOM) Simethicone No Notes: Danis steve 6-07 (Same as: l 15:33: Mylicon, [place] 00 Phazyme, Genasyme) Codeine No Notes: [facility] Phosphate 2 6-07 (Same As: l MG/ML / 15:33: Robitussin Herm césar Guaifenesin 00 AC) 20 MG/ML Oral Solution Diphenhydra No Notes: Danis steve mine 6-07 (Same as: l 15:33: Benadryl) [place] Temazepam No Notes: Memori a 6-07 (Same As: l 15:33: Restoril) [place]ie 00 Milk of No Notes: Memoria Magnesia 6-07 (Same as: l 15:33: Milk of [place] 00 Magnesia, MOM) Simethicone No Notes: Danis steve 6-07 (Same as: l 15:33: Mylicon, [place] 00 Phazyme, Genasyme) Codeine No Notes: [facility] Phosphate 2 6-07 (Same As: l MG/ML / 15:33: Robitussin Herm césar Guaifenesin 00 AC) 20 MG/ML Oral Solution Diphenhydra No Notes: Danis steve mine 6-07 (Same as: l 15:33: Benadryl) Danie Temazepam No Notes: Memori a 6-07 (Same As: l 15:33: Restoril) Danie Milk of No Notes: Memoria Magnesia 6-07 (Same as: l 15:33: Milk of Danie 00 Magnesia, MOM) Simethicone No Notes: Danis steve 6-07 (Same as: l 15:33: Mylicon, Danie 00 Phazyme, Genasyme) Codeine No Notes: [facility] Phosphate 2 6-07 (Same As: l MG/ML / 15:33: Robitussin Herm césar Guaifenesin 00 AC) 20 MG/ML Oral Solution Diphenhydra No Notes: Danis steve mine 6-07 (Same as: l 15:33: Benadryl) [place] Temazepam No Notes: Memori a 6-07 (Same As: l 15:33: Restoril) [place] 00 Milk of 2015-0 No Notes: Memoria Magnesia 6-07 (Same as: l 15:33: Milk of [place], MOM) Zofran 2015-0 No 4 mg, Memoria 6-07 Route: IV, l 15:32: Drug form: Danie 00 INJ, Q8H, Dosing Weight 117.273, kg, PRN Nausea, Start date: 04/08/15 10:32:00, Duration: 30 day, Stop date: 05/08/15 10:31:00 Zofran 2015-0 No 4 mg, Memoria 6- Route: IV, l 15:32: Drug form: [place] 00 INJ, Q8H, Dosing Weight 117.273, kg, PRN Nausea, Start date: 04/08/15 10:32:00, Duration: 30 day, Stop date: 05/08/15 10:31:00 Zofran 2015-0 No 4 mg, Memoria 6- Route: IV, l 15:32: Drug form: Danie 00 INJ, Q8H, Dosing Weight 117.273, kg, PRN Nausea, Start date: 04/08/15 10:32:00, Duration: 30 day, Stop date: 05/08/15 10:31:00 Zofran 2015-0 No 4 mg, Memoria 6- Route: IV, l 15:32: Drug form: [place]ie 00 INJ, Q8H, Dosing Weight 117.273, kg, PRN Nausea, Start date: 04/08/15 10:32:00, Duration: 30 day, Stop date: 05/08/15 10:31:00 Zofran 2015-0 No 4 mg, Memoria 6-07 Route: IV, l 15:32: Drug form: [place] 00 INJ, Q8H, Dosing Weight 117.273, kg, PRN Nausea, Start date: 04/08/15 10:32:00, Duration: 30 day, Stop date: 05/08/15 10:31:00 Zofran 2015-0 No 4 mg, Memoria 6-07 Route: IV, l 15:32: Drug form: [place] 00 INJ, Q8H, Dosing Weight 117.273, kg, PRN Nausea, Start date: 04/08/15 10:32:00, Duration: 30 day, Stop date: 05/08/15 10:31:00 Zofran 2015-0 No 4 mg, Memoria 6-07 Route: IV, l 15:32: Drug form: [place] 00 INJ, Q8H, Dosing Weight 117.273, kg, PRN Nausea, Start date: 04/08/15 10:32:00, Duration: 30 day, Stop date: 05/08/15 10:31:00 Zofran 2015-0 No 4 mg, Memoria 6-07 Route: IV, l 15:32: Drug form: [place] 00 INJ, Q8H, Dosing Weight 117.273, kg, PRN Nausea, Start date: 04/08/15 10:32:00, Duration: 30 day, Stop date: 05/08/15 10:31:00 Zofran 2015-0 No 4 mg, Memoria 6-07 Route: IV, l 15:32: Drug form: [place] 00 INJ, Q8H, Dosing Weight 117.273, kg, PRN Nausea, Start date: 04/08/15 10:32:00, Duration: 30 day, Stop date: 05/08/15 10:31:00 Zofran 2015-0 No 4 mg, Memoria 6-07 Route: IV, l 15:32: Drug form: [place]ie 00 INJ, Q8H, Dosing Weight 117.273, kg, PRN Nausea, Start date: 04/08/15 10:32:00, Duration: 30 day, Stop date: 05/08/15 10:31:00 Zofran 2015-0 No 4 mg, Memoria 6-07 Route: IV, l 15:32: Drug form: Danie 00 INJ, Q8H, Dosing Weight 117.273, kg, PRN Nausea, Start date: 04/08/15 10:32:00, Duration: 30 day, Stop date: 05/08/15 10:31:00 Morphine 2015-0 No Notes: Memoria 6-07 (Same l 15:16: as:MORPhin [place] 00 e Sulfate) Morphine 2014-0 No Notes: Memoria 6-07 (Same l 15:16: as:MORPhin Danie 00 e Sulfate) Morphine 2014-0 No Notes: [facility] 6-07 (Same l 15:16: as:MORPhin [place] 00 e Sulfate) Morphine 2015-0 No Notes: [facility] 6-07 (Same l 15:16: as:MORPhin [place] 00 e Sulfate) Morphine No Notes: [facility]oria 6-07 (Same l 15:16: as:MORPhin [place]ie 00 e Sulfate) Morphine No Notes: [facility] 6-07 (Same l 15:16: as:MORPhin [place] 00 e Sulfate) Morphine No Notes: [facility] 6-07 (Same l 15:16: as:MORPhin [place] 00 e Sulfate) Morphine No Notes: [facility] 6-07 (Same l 15:16: as:MORPhin [place] 00 e Sulfate) Morphine No Notes: [facility]oria 6-07 (Same l 15:16: as:MORPhin [place] 00 e Sulfate) Morphine No Notes: [facility] 6-07 (Same l 15:16: as:MORPhin [place] 00 e Sulfate) Morphine No Notes: [facility] 6-07 (Same l 15:16: as:MORPhin [place] 00 e Sulfate) Zosyn No = 20 Memoria 6-07 ml/min l 15:00: infuse [place] 00 over 4 hours, Start date: 04/08/15 10:00:00, Duration: 30 day, Stop date: 05/08/15 2:00:00 Zosyn 2014-0 No = 20 Memoria 6-07 ml/min l 15:00: infuse [place] 00 over 4 hours, Start date: 04/08/15 10:00:00, Duration: 30 day, Stop date: 05/08/15 2:00:00 Zosyn 2014-0 No = 20 Memoria 6-07 ml/min l 15:00: infuse [place] 00 over 4 hours, Start date: 04/08/15 10:00:00, Duration: 30 day, Stop date: 05/08/15 2:00:00 Zosyn 2014-0 No = 20 Memoria 6-07 ml/min l 15:00: infuse [place] 00 over 4 hours, Start date: 04/08/15 10:00:00, Duration: 30 day, Stop date: 05/08/15 2:00:00 Zosyn 2014-0 No = 20 Memoria 6-07 ml/min l 15:00: infuse [place] 00 over 4 hours, Start date: 04/08/15 10:00:00, Duration: 30 day, Stop date: 05/08/15 2:00:00 Zosyn 2015-0 No = 20 Memoria 6-07 ml/min l 15:00: infuse [place] 00 over 4 hours, Start date: 04/08/15 10:00:00, Duration: 30 day, Stop date: 05/08/15 2:00:00 Zosyn 2014-0 No = 20 Memoria 6-07 ml/min l 15:00: infuse [place] 00 over 4 hours, Start date: 04/08/15 10:00:00, Duration: 30 day, Stop date: 05/08/15 2:00:00 Zosyn 2014-0 No = 20 Memoria 6-07 ml/min l 15:00: infuse [place] 00 over 4 hours, Start date: 04/08/15 10:00:00, Duration: 30 day, Stop date: 05/08/15 2:00:00 Zosyn 2014-0 No = 20 Memoria 6-07 ml/min l 15:00: infuse [place] 00 over 4 hours, Start date: 04/08/15 10:00:00, Duration: 30 day, Stop date: 05/08/15 2:00:00 Zosyn 2014-0 No = 20 [place] 6-07 ml/min l 15:00: infuse [place] 00 over 4 hours, Start date: 04/08/15 10:00:00, Duration: 30 day, Stop date: 05/08/15 2:00:00 Zosyn 2014-0 No = 20 Memoria 6-07 ml/min l 15:00: infuse [place] 00 over 4 hours, Start date: 04/08/15 10:00:00, Duration: 30 day, Stop date: 05/08/15 2:00:00 Acetaminoph 2014-0 No Notes: Do M emoria en 325 MG / 04-08 not exceed l Hydrocodone 13:26: 4gm/day of [place]ie Bitartrate 00 acetaminop 10 MG Oral hen. (Same Tablet as: [place] [[place] 325/10) 10325] Acetaminoph 2015-0 No Notes: Do M emoria en 325 MG / 6-07 not exceed l Hydrocodone 13:26: 4gm/day of [place] Bitartrate 00 acetaminop 10 MG Oral hen. (Same Tablet as: [place] [[place] 325/10) 10/325] Acetaminoph No Notes: Do M emoria en 325 MG / 6-07 not exceed l Hydrocodone 13:26: 4gm/day of [place] Bitartrate 00 acetaminop 10 MG Oral hen. (Same Tablet as: [place] [[place] 325/10) 10/325] Acetaminoph No Notes: Do M emoria en 325 MG / 6-07 not exceed l Hydrocodone 13:26: 4gm/day of [place] Bitartrate 00 acetaminop 10 MG Oral hen. (Same Tablet as: [place] [[place] 325/10) 10/325] Acetaminoph No Notes: Do M emoria en 325 MG / 6-07 not exceed l Hydrocodone 13:26: 4gm/day of [place] Bitartrate 00 acetaminop 10 MG Oral hen. (Same Tablet as: [place] [[place] 325/10) 10/325] Acetaminoph No Notes: Do M emoria en 325 MG / 6-07 not exceed l Hydrocodone 13:26: 4gm/day of [place] Bitartrate 00 acetaminop 10 MG Oral hen. (Same Tablet as: [place] [[place] 325/10) 10/325] Acetaminoph No Notes: Do M emoria en 325 MG / 6-07 not exceed l Hydrocodone 13:26: 4gm/day of [place] Bitartrate 00 acetaminop 10 MG Oral hen. (Same Tablet as: [place] [[place] 325/10) 10/325] Acetaminoph No Notes: Do M emoria en 325 MG / 6-07 not exceed l Hydrocodone 13:26: 4gm/day of [place] Bitartrate 00 acetaminop 10 MG Oral hen. (Same Tablet as: [place] [[place] 325/10) 10/325] Acetaminoph No Notes: Do M emoria en 325 MG / 6-07 not exceed l Hydrocodone 13:26: 4gm/day of [place] Bitartrate 00 acetaminop 10 MG Oral hen. (Same Tablet as: [place] [[place] 325/10) 10/325] Acetaminoph No Notes: Do M emoria en 325 MG / 607 not exceed l Hydrocodone 13:26: 4gm/day of [place] Bitartrate 00 acetaminop 10 MG Oral hen. (Same Tablet as: [place] [[place] 325/10) 10325] Acetaminoph No Notes: Do M emoria en 325 MG / 6 not exceed l Hydrocodone 13:26: 4gm/day of [place] Bitartrate 00 acetaminop 10 MG Oral hen. (Same Tablet as: [place] [[place] 325/10) 10/325] heparin No Notes: Memoria 6-07 porcine l 13:00: heparin [place] vancomycin No 2001 mg: Me moria 6-07 infuse l 13:00: over 2.5 [place] 00 hours methylPREDN No Notes: Danis steve ISolone 6-07 (Same l SODium 13:00: as:Solu-ME Shaina nn SUCCinate 00 DROL, A-Methapre d) heparin No Notes: Memoria 6-07 porcine l 13:00: heparin [place] 00 vancomycin No 2001 mg: Me moria 6-07 infuse l 13:00: over 2.5 [place] 00 hours methylPREDN No Notes: Danis steve ISolone 6-07 (Same l SODium 13:00: as:Solu-ME Shaina nn SUCCinate 00 DROL, A-Methapre d) heparin No Notes: Memoria 6-07 porcine l 13:00: heparin [place] 00 vancomycin No 2001 mg: Me moria 6-07 infuse l 13:00: over 2.5 [place] 00 hours methylPREDN No Notes: Danis steve ISolone 6-07 (Same l SODium 13:00: as:Solu-ME Shaina nn SUCCinate 00 DROL, A-Methapre d) heparin No Notes: Memoria 6-07 porcine l 13:00: heparin [place] 00 vancomycin No 2001 mg: Me moria 6-07 infuse l 13:00: over 2.5 [place] 00 hours methylPREDN No Notes: Danis steve ISolone 6-07 (Same l SODium 13:00: as:Solu-ME Shaina nn SUCCinate 00 DROL, A-Methapre d) heparin No Notes: Memoria 6-07 porcine l 13:00: heparin [place] 00 vancomycin No 2001 mg: Me moria 6-07 infuse l 13:00: over 2.5 [place] 00 hours methylPREDN No Notes: Danis steve ISolone 6-07 (Same l SODium 13:00: as:Solu-ME Shaina nn SUCCinate 00 DROL, A-Methapre d) heparin No Notes: Memoria 6-07 porcine l 13:00: heparin [place] vancomycin No 2001 mg: Me moria 6-07 infuse l 13:00: over 2.5 [place] 00 hours methylPREDN No Notes: Danis steve ISolone 6-07 (Same l SODium 13:00: as:Solu-ME Shaina nn SUCCinate 00 DROL, A-Methapre d) heparin No Notes: Memoria 6-07 porcine l 13:00: heparin [place] vancomycin No 2001 mg: Me moria 6-07 infuse l 13:00: over 2.5 [place] 00 hours methylPREDN No Notes: Danis steve ISolone 6-07 (Same l SODium 13:00: as:Solu-ME Shaina nn SUCCinate 00 DROL, A-Methapre d) heparin No Notes: Memoria 6-07 porcine l 13:00: heparin [place] 00 vancomycin No 2001 mg: Me moria 6-07 infuse l 13:00: over 2.5 [place] 00 hours methylPREDN No Notes: Danis steve ISolone 6-07 (Same l SODium 13:00: as:Solu-ME Shaina nn SUCCinate 00 DROL, A-Methapre d) heparin No Notes: Memoria 6-07 porcine l 13:00: heparin [place] 00 vancomycin No 2001 mg: Me moria 6-07 infuse l 13:00: over 2.5 [place] 00 hours methylPREDN No Notes: Danis steve ISolone 6-07 (Same l SODium 13:00: as:Solu-ME Shaina nn SUCCinate 00 DROL, A-Methapre d) heparin No Notes: Memoria 6-07 porcine l 13:00: heparin [place] vancomycin No 2000 mg: Me moria 6-07 infuse l 13:00: over 2.5 [place] 00 hours methylPREDN No Notes: Danis steve ISolone 6-07 (Same l SODium 13:00: as:Solu-ME Shaina nn SUCCinate 00 DROL, A-Methapre d) heparin No Notes: Memoria 6-07 porcine l 13:00: heparin [place] vancomycin No 2000 mg: Me moria 6-07 infuse l 13:00: over 2.5 [place] 00 hours methylPREDN No Notes: Danis steve ISolone 6-07 (Same l SODium 13:00: as:Solu-ME Shaina nn SUCCinate 00 DROL, A-Methapre d) normal No 1,000 mL, Memori a saline 0.9% 6-07 Rate: 125 l IV 1,000 mL 09:20: ml/hr, Herm césar 00 Infuse over: 8 hr, Route: IV, Dosing Weight 117.273 kg, Total Volume: 1,000, Start date: 04/08/15 4:20:00, Duration: 30 day, Stop date: 05/08/15 4:19:00 normal 2014-0 No 1,000 mL, Memori a saline 0.9% 6-07 Rate: 125 l IV 1,000 mL 09:20: ml/hr, Herm césar 00 Infuse over: 8 hr, Route: IV, Dosing Weight 117.273 kg, Total Volume: 1,000, Start date: 04/08/15 4:20:00, Duration: 30 day, Stop date: 05/08/15 4:19:00 normal 2014-0 No 1,000 mL, Memori a saline 0.9% 6-07 Rate: 125 l IV 1,000 mL 09:20: ml/hr, Herm césar 00 Infuse over: 8 hr, Route: IV, Dosing Weight 117.273 kg, Total Volume: 1,000, Start date: 04/08/15 4:20:00, Duration: 30 day, Stop date: 05/08/15 4:19:00 normal 2015-0 No 1,000 mL, Memori a saline 0.9% 6-07 Rate: 125 l IV 1,000 mL 09:20: ml/hr, Herm césar 00 Infuse over: 8 hr, Route: IV, Dosing Weight 117.273 kg, Total Volume: 1,000, Start date: 04/08/15 4:20:00, Duration: 30 day, Stop date: 05/08/15 4:19:00 normal 2015-0 No 1,000 mL, Memori a saline 0.9% 6-07 Rate: 125 l IV 1,000 mL 09:20: ml/hr, Herm césar 00 Infuse over: 8 hr, Route: IV, Dosing Weight 117.273 kg, Total Volume: 1,000, Start date: 04/08/15 4:20:00, Duration: 30 day, Stop date: 05/08/15 4:19:00 normal 2015-0 No 1,000 mL, Memori a saline 0.9% 6-07 Rate: 125 l IV 1,000 mL 09:20: ml/hr, Herm césar 00 Infuse over: 8 hr, Route: IV, Dosing Weight 117.273 kg, Total Volume: 1,000, Start date: 04/08/15 4:20:00, Duration: 30 day, Stop date: 05/08/15 4:19:00 normal 2015-0 No 1,000 mL, Memori a saline 0.9% 6-07 Rate: 125 l IV 1,000 mL 09:20: ml/hr, Herm césar 00 Infuse over: 8 hr, Route: IV, Dosing Weight 117.273 kg, Total Volume: 1,000, Start date: 04/08/15 4:20:00, Duration: 30 day, Stop date: 05/08/15 4:19:00 normal 2015-0 No 1,000 mL, Memori a saline 0.9% 6-07 Rate: 125 l IV 1,000 mL 09:20: ml/hr, Herm césar 00 Infuse over: 8 hr, Route: IV, Dosing Weight 117.273 kg, Total Volume: 1,000, Start date: 04/08/15 4:20:00, Duration: 30 day, Stop date: 05/08/15 4:19:00 normal 2014-0 No 1,000 mL, Memori a saline 0.9% 6-07 Rate: 125 l IV 1,000 mL 09:20: ml/hr, Herm césar 00 Infuse over: 8 hr, Route: IV, Dosing Weight 117.273 kg, Total Volume: 1,000, Start date: 04/08/15 4:20:00, Duration: 30 day, Stop date: 05/08/15 4:19:00 normal 2014-0 No 1,000 mL, Memori a saline 0.9% 6-07 Rate: 125 l IV 1,000 mL 09:20: ml/hr, Herm césar 00 Infuse over: 8 hr, Route: IV, Dosing Weight 117.273 kg, Total Volume: 1,000, Start date: 04/08/15 4:20:00, Duration: 30 day, Stop date: 05/08/15 4:19:00 normal 2014-0 No 1,000 mL, Memori a saline 0.9% 6-07 Rate: 125 l IV 1,000 mL 09:20: ml/hr, Herm césar 00 Infuse over: 8 hr, Route: IV, Dosing Weight 117.273 kg, Total Volume: 1,000, Start date: 04/08/15 4:20:00, Duration: 30 day, Stop date: 05/08/15 4:19:00 Acetaminoph No Notes: Do M emoria en 04-08 not exceed l 08:36: 4 gm/day. Danie 00 (Same as: Tylenol) Ondansetron No Notes: Danis steve 04-08 (Same as: l 08:36: Zofran) [place]ie 00 MEDICATION WASTE Product Size: 4 mg Product Wasted: ___ mg Docusate No Notes: Memoria 04-08 (Same as: l 08:36: Colace) [place] 00 (Do Not Crush) Acetaminoph No Notes: Do M emoria en 04-08 not exceed l 08:36: 4 gm/day. [place] 00 (Same as: Tylenol) Ondansetron No Notes: Danis steve - (Same as: l 08:36: Zofran) [place] 00 MEDICATION WASTE Product Size: 4 mg Product Wasted: ___ mg Docusate No Notes: Memoria 6- (Same as: l 08:36: Colace) [place] 00 (Do Not Crush) Acetaminoph No Notes: Do M emoria en 04-08 not exceed l 08:36: 4 gm/day. [place] 00 (Same as: Tylenol) Ondansetron No Notes: Danis steve 6- (Same as: l 08:36: Zofran) [place] 00 MEDICATION WASTE Product Size: 4 mg Product Wasted: ___ mg Docusate No Notes: Memoria 04-08 (Same as: l 08:36: Colace) [place] 00 (Do Not Crush) Acetaminoph No Notes: Do M emoria en 04-08 not exceed l 08:36: 4 gm/day. [place] 00 (Same as: Tylenol) Ondansetron No Notes: Danis steve 04-08 (Same as: l 08:36: Zofran) [place] 00 MEDICATION WASTE Product Size: 4 mg Product Wasted: ___ mg Docusate No Notes: Memoria 04-08 (Same as: l 08:36: Colace) [place] 00 (Do Not Crush) Acetaminoph No Notes: Do M emoria en 04-08 not exceed l 08:36: 4 gm/day. [place] 00 (Same as: Tylenol) Ondansetron No Notes: Danis steve - (Same as: l 08:36: Zofran) [place] 00 MEDICATION WASTE Product Size: 4 mg Product Wasted: ___ mg Docusate No Notes: Memoria 6 (Same as: l 08:36: Colace) [place] 00 (Do Not Crush) Acetaminoph No Notes: Do M emoria en 04-08 not exceed l 08:36: 4 gm/day. [place] 00 (Same as: Tylenol) Ondansetron No Notes: Danis steve 6- (Same as: l 08:36: Zofran) [place] 00 MEDICATION WASTE Product Size: 4 mg Product Wasted: ___ mg Docusate No Notes: Memoria 6- (Same as: l 08:36: Colace) [place] 00 (Do Not Crush) Acetaminoph No Notes: Do M emoria en 04-08 not exceed l 08:36: 4 gm/day. [place] 00 (Same as: Tylenol) Ondansetron No Notes: Danis steve 6 (Same as: l 08:36: Zofran) [place] 00 MEDICATION WASTE Product Size: 4 mg Product Wasted: ___ mg Docusate No Notes: Memoria 04-08 (Same as: l 08:36: Colace) [place] 00 (Do Not Crush) Acetaminoph No Notes: Do M emoria en 04-08 not exceed l 08:36: 4 gm/day. [place] 00 (Same as: Tylenol) Ondansetron No Notes: Danis steve 04-08 (Same as: l 08:36: Zofran) [place] 00 MEDICATION WASTE Product Size: 4 mg Product Wasted: ___ mg Docusate No Notes: Memoria 04-08 (Same as: l 08:36: Colace) [place] 00 (Do Not Crush) Acetaminoph No Notes: Do M emoria en 04-08 not exceed l 08:36: 4 gm/day. [place] 00 (Same as: Tylenol) Ondansetron No Notes: Danis steve 6- (Same as: l 08:36: Zofran) [place] 00 MEDICATION WASTE Product Size: 4 mg Product Wasted: ___ mg Docusate No Notes: Memoria 6 (Same as: l 08:36: Colace) [place] 00 (Do Not Crush) Acetaminoph No Notes: Do M emoria en 04-08 not exceed l 08:36: 4 gm/day. [place] 00 (Same as: Tylenol) Ondansetron No Notes: Danis steve 04-08 (Same as: l 08:36: Zofran) [place] 00 MEDICATION WASTE Product Size: 4 mg Product Wasted: ___ mg Docusate No Notes: Memoria 04-08 (Same as: l 08:36: Colace) [place] 00 (Do Not Crush) Acetaminoph No Notes: Do M emoria en 04-08 not exceed l 08:36: 4 gm/day. [place] 00 (Same as: Tylenol) Ondansetron No Notes: Danis steve 04-08 (Same as: l 08:36: Zofran) [place] 00 MEDICATION WASTE Product Size: 4 mg Product Wasted: ___ mg Docusate No Notes: Memoria 04-08 (Same as: l 08:36: Colace) [place] 00 (Do Not Crush) Zofran No Notes: Memoria 04-08 (Same as: l 07:06: Zofran) [place] 00 MEDICATION WASTE Product Size: 4 mg Product Wasted: ___ mg Zofran No Notes: Memoria 04-08 (Same as: l 07:06: Zofran) [place] 00 MEDICATION WASTE Product Size: 4 mg Product Wasted: ___ mg Zofran No Notes: Memoria 04-08 (Same as: l 07:06: Zofran) [place] 00 MEDICATION WASTE Product Size: 4 mg Product Wasted: ___ mg Zofran No Notes: Memoria 04-08 (Same as: l 07:06: Zofran) [place] 00 MEDICATION WASTE Product Size: 4 mg Product Wasted: ___ mg Zofran No Notes: Memoria 04-08 (Same as: l 07:06: Zofran) [place] 00 MEDICATION WASTE Product Size: 4 mg Product Wasted: ___ mg Zofran No Notes: Memoria 04-08 (Same as: l 07:06: Zofran) [place] 00 MEDICATION WASTE Product Size: 4 mg Product Wasted: ___ mg Zofran No Notes: Memoria 04-08 (Same as: l 07:06: Zofran) [place] 00 MEDICATION WASTE Product Size: 4 mg Product Wasted: ___ mg Zofran No Notes: Memoria 04-08 (Same as: l 07:06: Zofran) [place] 00 MEDICATION WASTE Product Size: 4 mg Product Wasted: ___ mg Zofran No Notes: Memoria 04-08 (Same as: l 07:06: Zofran) [place] 00 MEDICATION WASTE Product Size: 4 mg Product Wasted: ___ mg Zofran No Notes: Memoria 04-08 (Same as: l 07:06: Zofran) [place] 00 MEDICATION WASTE Product Size: 4 mg Product Wasted: ___ mg Zofran No Notes: Memoria 04-08 (Same as: l 07:06: Zofran) [place] 00 MEDICATION WASTE Product Size: 4 mg Product Wasted: ___ mg Acetaminoph No 2 tab, Danis steve en 325 MG / 04-08 Route: PO, l Hydrocodone 06:46: Dosing Herm césar Bitartrate 00 Weight 5 MG Oral 118.182, Tablet kg, ONCE, [[place] Start 5/325] date: 04/08/15 1:46:00, Stop date: 04/08/15 1:46:00 Acetaminoph 2014-0 No 2 tab, Danis steve en 325 MG / 04-08 Route: PO, l Hydrocodone 06:46: Dosing Herm césar Bitartrate 00 Weight 5 MG Oral 118.182, Tablet kg, ONCE, [[place] Start 5/325] date: 04/08/15 1:46:00, Stop date: 04/08/15 1:46:00 Acetaminoph 2014-0 No 2 tab, Danis steve en 325 MG / 04-08 Route: PO, l Hydrocodone 06:46: Dosing Herm césar Bitartrate 00 Weight 5 MG Oral 118.182, Tablet kg, ONCE, [[place] Start 5/325] date: 04/08/15 1:46:00, Stop date: 04/08/15 1:46:00 Acetaminoph 2014-0 No 2 tab, Danis steve en 325 MG / 04-08 Route: PO, l Hydrocodone 06:46: Dosing Herm césar Bitartrate 00 Weight 5 MG Oral 118.182, Tablet kg, ONCE, [[place] Start 5/325] date: 04/08/15 1:46:00, Stop date: 04/08/15 1:46:00 Acetaminoph 2014-0 No 2 tab, Danis steve en 325 MG / 04-08 Route: PO, l Hydrocodone 06:46: Dosing Herm césar Bitartrate 00 Weight 5 MG Oral 118.182, Tablet kg, ONCE, [[place] Start 5/325] date: 04/08/15 1:46:00, Stop date: 04/08/15 1:46:00 Acetaminoph 2014-0 No 2 tab, Danis steve en 325 MG / 04-08 Route: PO, l Hydrocodone 06:46: Dosing Herm césar Bitartrate 00 Weight 5 MG Oral 118.182, Tablet kg, ONCE, [[place] Start 5/325] date: 04/08/15 1:46:00, Stop date: 04/08/15 1:46:00 Acetaminoph 2014-0 No 2 tab, Danis steve en 325 MG / 04-08 Route: PO, l Hydrocodone 06:46: Dosing Herm césar Bitartrate 00 Weight 5 MG Oral 118.182, Tablet kg, ONCE, [[place] Start 5/325] date: 04/08/15 1:46:00, Stop date: 04/08/15 1:46:00 Acetaminoph 2014-0 No 2 tab, Danis steve en 325 MG / 04-08 Route: PO, l Hydrocodone 06:46: Dosing Herm césar Bitartrate 00 Weight 5 MG Oral 118.182, Tablet kg, ONCE, [[place] Start 5/325] date: 04/08/15 1:46:00, Stop date: 04/08/15 1:46:00 Acetaminoph 2014-0 No 2 tab, Danis steve en 325 MG / 04-08 Route: PO, l Hydrocodone 06:46: Dosing Herm césar Bitartrate 00 Weight 5 MG Oral 118.182, Tablet kg, ONCE, [[place] Start 5/325] date: 04/08/15 1:46:00, Stop date: 04/08/15 1:46:00 Acetaminoph 2015-0 No 2 tab, Danis steve en 325 MG / 04-08 Route: PO, l Hydrocodone 06:46: Dosing Herm césar Bitartrate 00 Weight 5 MG Oral 118.182, Tablet kg, ONCE, [[place] Start 5325] date: 04/08/15 1:46:00, Stop date: 04/08/15 1:46:00 Acetaminoph 2015-0 No 2 tab, Danis steve en 325 MG / 04-08 Route: PO, l Hydrocodone 06:46: Dosing Herm césar Bitartrate 00 Weight 5 MG Oral 118.182, Tablet kg, ONCE, [[place] Start 5325] date: 04/08/15 1:46:00, Stop date: 04/08/15 1:46:00 Vancomycin 2014-0 No 2000 mg: Me moria 6-07 infuse l 05:56: over 2.5 [place] 00 hours MEDICATION WASTE Product Size: 1000 mg Product Wasted: ___ mg Vancomycin 2014-0 No 2000 mg: Me moria 6-07 infuse l 05:56: over 2.5 [place] 00 hours MEDICATION WASTE Product Size: 1000 mg Product Wasted: ___ mg Vancomycin 2014-0 No 2000 mg: Me moria 6-07 infuse l 05:56: over 2.5 [place] 00 hours MEDICATION WASTE Product Size: 1000 mg Product Wasted: ___ mg Vancomycin 2014-0 No 2000 mg: Me moria 6-07 infuse l 05:56: over 2.5 [place] 00 hours MEDICATION WASTE Product Size: 1000 mg Product Wasted: ___ mg Vancomycin 2014-0 No 2000 mg: Me moria 6-07 infuse l 05:56: over 2.5 [place] 00 hours MEDICATION WASTE Product Size: 1000 mg Product Wasted: ___ mg Vancomycin 2014-0 No 2000 mg: Me moria 6-07 infuse l 05:56: over 2.5 [place] 00 hours MEDICATION WASTE Product Size: 1000 mg Product Wasted: ___ mg Vancomycin No 2001 mg: Me moria 6-07 infuse l 05:56: over 2.5 [place] 00 hours MEDICATION WASTE Product Size: 1000 mg Product Wasted: ___ mg Vancomycin No 2000 mg: Me moria 6 infuse l 05:56: over 2.5 [place] 00 hours MEDICATION WASTE Product Size: 1000 mg Product Wasted: ___ mg Vancomycin No 2001 mg: Me moria 6 infuse l 05:56: over 2.5 [place] 00 hours MEDICATION WASTE Product Size: 1000 mg Product Wasted: ___ mg Vancomycin No 2000 mg: Me moria 6 infuse l 05:56: over 2.5 [place] 00 hours MEDICATION WASTE Product Size: 1000 mg Product Wasted: ___ mg Vancomycin No 2000 mg: Me moria 04-08 infuse l 05:56: over 2.5 [place] 00 hours MEDICATION WASTE Product Size: 1000 mg Product Wasted: ___ mg Zosyn No Notes: Memoria 04-08 (Same as: l 05:55: Zosyn) [place] 00 Dosing based on Piperacill in component MEDICATION WASTE Product Size: 4500 mg Product Wasted: ___ mg Zosyn No Notes: Memoria - (Same as: l 05:55: Zosyn) [place] 00 Dosing based on Piperacill in component MEDICATION WASTE Product Size: 4500 mg Product Wasted: ___ mg Zosyn No Notes: Memoria - (Same as: l 05:55: Zosyn) [place] 00 Dosing based on Piperacill in component MEDICATION WASTE Product Size: 4500 mg Product Wasted: ___ mg Zosyn No Notes: Memoria 04-08 (Same as: l 05:55: Zosyn) [place] 00 Dosing based on Piperacill in component MEDICATION WASTE Product Size: 4500 mg Product Wasted: ___ mg Zosyn No Notes: Memoria 04-08 (Same as: l 05:55: Zosyn) [place] 00 Dosing based on Piperacill in component MEDICATION WASTE Product Size: 4500 mg Product Wasted: ___ mg Zosyn No Notes: Memoria 04-08 (Same as: l 05:55: Zosyn) [place] 00 Dosing based on Piperacill in component MEDICATION WASTE Product Size: 4500 mg Product Wasted: ___ mg Zosyn No Notes: Memoria 04-08 (Same as: l 05:55: Zosyn) [place] 00 Dosing based on Piperacill in component MEDICATION WASTE Product Size: 4500 mg Product Wasted: ___ mg Zosyn No Notes: Memoria 04-08 (Same as: l 05:55: Zosyn) [place] 00 Dosing based on Piperacill in component MEDICATION WASTE Product Size: 4500 mg Product Wasted: ___ mg Zosyn No Notes: Memoria 04-08 (Same as: l 05:55: Zosyn) [place] 00 Dosing based on Piperacill in component MEDICATION WASTE Product Size: 4500 mg Product Wasted: ___ mg Zosyn No Notes: Memoria 04-08 (Same as: l 05:55: Zosyn) [place] 00 Dosing based on Piperacill in component MEDICATION WASTE Product Size: 4500 mg Product Wasted: ___ mg Zosyn No Notes: Memoria 04-08 (Same as: l 05:55: Zosyn) [place] 00 Dosing based on Piperacill in component MEDICATION WASTE Product Size: 4500 mg Product Wasted: ___ mg Zofran No 4 mg, Memoria 04-08 Route: l 04:48: IVP, Drug [place] 00 form: INJ, ONCE, Dosing Weight 118.182, kg, Priority: STAT, Start date: 04/07/15 23:48:00, Stop date: 04/07/15 23:48:00 Zofran 2015-0 No 4 mg, Memoria 6-07 Route: l 04:48: IVP, Drug [place] 00 form: INJ, ONCE, Dosing Weight 118.182, kg, Priority: STAT, Start date: 04/07/15 23:48:00, Stop date: 04/07/15 23:48:00 Zofran 2015-0 No 4 mg, Memoria 6-07 Route: l 04:48: IVP, Drug [place] 00 form: INJ, ONCE, Dosing Weight 118.182, kg, Priority: STAT, Start date: 04/07/15 23:48:00, Stop date: 04/07/15 23:48:00 Zofran 2015-0 No 4 mg, Memoria 6-07 Route: l 04:48: IVP, Drug [place] 00 form: INJ, ONCE, Dosing Weight 118.182, kg, Priority: STAT, Start date: 04/07/15 23:48:00, Stop date: 04/07/15 23:48:00 Zofran 2015-0 No 4 mg, Memoria 6-07 Route: l 04:48: IVP, Drug [place] 00 form: INJ, ONCE, Dosing Weight 118.182, kg, Priority: STAT, Start date: 04/07/15 23:48:00, Stop date: 04/07/15 23:48:00 Zofran 2015-0 No 4 mg, Memoria 6-07 Route: l 04:48: IVP, Drug [place] 00 form: INJ, ONCE, Dosing Weight 118.182, kg, Priority: STAT, Start date: 04/07/15 23:48:00, Stop date: 04/07/15 23:48:00 Zofran 2015-0 No 4 mg, Memoria 6-07 Route: l 04:48: IVP, Drug [place] 00 form: INJ, ONCE, Dosing Weight 118.182, kg, Priority: STAT, Start date: 04/07/15 23:48:00, Stop date: 04/07/15 23:48:00 Zofran 2015-0 No 4 mg, Memoria 6-07 Route: l 04:48: IVP, Drug [place] 00 form: INJ, ONCE, Dosing Weight 118.182, kg, Priority: STAT, Start date: 04/07/15 23:48:00, Stop date: 04/07/15 23:48:00 Zofran 2015-0 No 4 mg, Memoria 6-07 Route: l 04:48: IVP, Drug [place] 00 form: INJ, ONCE, Dosing Weight 118.182, kg, Priority: STAT, Start date: 04/07/15 23:48:00, Stop date: 04/07/15 23:48:00 Zofran 2015-0 No 4 mg, Memoria 6-07 Route: l 04:48: IVP, Drug [place] 00 form: INJ, ONCE, Dosing Weight 118.182, kg, Priority: STAT, Start date: 04/07/15 23:48:00, Stop date: 04/07/15 23:48:00 Zofran 2015-0 No 4 mg, Memoria 6-07 Route: l 04:48: IVP, Drug [place] 00 form: INJ, ONCE, Dosing Weight 118.182, kg, Priority: STAT, Start date: 04/07/15 23:48:00, Stop date: 04/07/15 23:48:00 ibuprofen ibuprofen No ibuprofen [facility] lisinopril lisinopril No lisinopril [facility] 10 10 da mg-hydrochl mg-hydrochl mg-hydroch Medical orothiazide orothiazide [facility] 12.5 mg 12.5 mg de 12.5 mg tablet Take tablet Take tablet 1 tablet(s) 1 tablet(s) Take 1 every day every day tablet(s) by oral by oral every day route as route as by oral directed directed route as for 90 for 90 directed days. days. for 90 days. Immunizations Ordered Immunization Filled Immunization Date Status Commen ts Source Name Name Tdap- (Boostrix, 2013-08-02 Completed Taty Moncada) 00:00:00 - External Tdap- (Boostrix, 2013-08-02 Completed Taty Moncada) 00:00:00 - External Vital Signs Vital Name Observation Time Observation Value Comments Source Systolic blood 2023-05-04 18:23:00 112 mm[Hg] Taty Smith - pressure External Diastolic blood 2023-05-04 18:23:00 64 mm[Hg] Sukhdevse y Seybold - pressure External Heart rate 2023-05-04 18:23:00 56 /min Taty S eybold - External Body temperature 2023-05-04 18:23:00 36.28 Olga Sally ey Seybold - External Respiratory rate 2023-05-04 18:23:00 15 /min Sally ey Seybold - External Body height 2023-05-04 18:23:00 182.9 cm Taty S eybold - External Body weight 2023-05-04 18:23:00 136.986 kg Taty S eybold - External BMI 2023-05-04 18:23:00 40.96 kg/m2 Taty S eybold - External Systolic blood 2023-04-27 18:43:00 130 mm[Hg] Taty Seybold - pressure External Diastolic blood 2023-04-27 18:43:00 84 mm[Hg] Sonya y Seybold - pressure External Heart rate 2023-04-27 18:43:00 61 /min Taty S eybold - External Body temperature 2023-04-27 18:43:00 36.06 Olga Sally ey Seybold - External Respiratory rate 2023-04-27 18:43:00 16 /min Sally ey Seybold - External Body height 2023-04-27 18:43:00 182.9 cm Taty S eybold - External Body weight 2023-04-27 18:43:00 132.904 kg Taty S eybold - External BMI 2023-04-27 18:43:00 39.74 kg/m2 Taty S eybold - External Heart rate 2023-04-01 18:32:00 72 /min Taty S eybold - External Body temperature 2023-04-01 18:32:00 36.61 Olga Sally ey Seybold - External Respiratory rate 2023-04-01 18:32:00 20 /min Sally ey Seybold - External Body height 2023-04-01 18:32:00 182.9 cm Taty S eybold - External Body weight 2023-04-01 18:32:00 131.09 kg Taty S eybold - External BMI 2023-04-01 18:32:00 39.20 kg/m2 Taty S eybold - External Systolic blood 2023-04-01 18:32:00 130 mm[Hg] Taty Seybold - pressure External Diastolic blood 2023-04-01 18:32:00 64 mm[Hg] Sonya y Seybold - pressure External Systolic blood 2023-02-06 16:49:00 124 mm[Hg] Taty Seybold - pressure External Diastolic blood 2023-02-06 16:49:00 78 mm[Hg] Sonya y Seybold - pressure External Heart rate 2023-02-06 16:01:00 51 /min Taty S eybold - External Body temperature 2023-02-06 16:01:00 36.5 Olga Sally ey Seybold - External Respiratory rate 2023-02-06 16:01:00 18 /min Sally ey Seybold - External Body height 2023-02-06 16:01:00 182.9 cm Taty Rodriguez eybold - External Body weight 2023-02-06 16:01:00 133.267 kg Taty Rodriguez eybold - External BMI 2023-02-06 16:01:00 39.85 kg/m2 Taty S eybold - External Oxygen saturation in 2023-02-06 16:01:00 98 /min Taty Smith - Arterial blood by External Pulse oximetry Systolic blood 2022-12-22 20:50:00 118 mm[Hg] Taty Seybold - pressure External Diastolic blood 2022-12-22 20:50:00 58 mm[Hg] Sonya celestin Seybold - pressure External Heart rate 2022-12-22 20:50:00 60 /min Taty S eybold - External Body temperature 2022-12-22 20:50:00 36.44 Olga Sally ey Seybold - External Respiratory rate 2022-12-22 20:50:00 20 /min Sally ey Seybold - External Body height 2022-12-22 20:50:00 182.9 cm Taty Rodriguez eybold - External Body weight 2022-12-22 20:50:00 135.444 kg Taty S eybold - External BMI 2022-12-22 20:50:00 40.50 kg/m2 Taty S eybold - External Oxygen saturation in 2022-12-22 20:50:00 97 /min Taty Aminjoshua - Arterial blood by External Pulse oximetry BP Diastolic 2019-05-19 00:00:00 80 mm[Hg] [facility] Height 2019-05-19 00:00:00 72 [in_i] [facility] BMI (Body Mass 2019-05-19 00:00:00 37.6 kg/m2 [facility] [employer] [facility] BP Systolic 2019-05-19 00:00:00 139 mm[Hg] [facility] Body Weight 2019-05-19 00:00:00 277 [lb_av] [facility] Height 2018-08-26 00:00:00 72 [in_i] [facility] BMI (Body Mass 2018-08-26 00:00:00 37.6 kg/m2 [facility] [employer] [facility] Body Weight 2018-08-26 00:00:00 277 [lb_av] [facility] Systolic (mm Hg) 2020-04-25 18:07:00 Danis rial [place] Diastolic (mm Hg) 2020-04-25 18:07:00 Mem orial Danie Heart Rate 2020-04-25 18:07:00 [facility] Height 2020-04-25 18:07:00 182.88 cm [facility] Weight 2020-04-25 18:07:00 [facility] BMI Calculated 2020-04-25 18:07:00 [facility] Weight 2018-12-13 19:20:00 [facility] Height 2018-12-13 19:20:00 182.88 cm [facility] Heart Rate 2018-12-13 19:20:00 [facility] Temperature Oral (F) 2018-12-13 19:20:00 98.1 F [facility] Systolic (mm Hg) 2018-12-13 19:20:00 [facility] [place] Diastolic (mm Hg) 2018-12-13 19:20:00 [facility] [place] BMI Calculated 2018-12-13 19:20:00 [facility] Heart Rate 2015-04-10 20:58:00 [facility] Temperature Oral (F) 2015-04-10 20:58:00 97.6 F [facility] Respitory Rate 2015-04-10 20:58:00 [facility] Systolic (mm Hg) 2015-04-10 20:58:00 [facility] Diastolic (mm Hg) 2015-04-10 20:58:00 [facility] [place] Respitory Rate 2015-04-10 17:15:00 [facility] Temperature Oral (F) 2015-04-10 17:15:00 97 F [facility] Systolic (mm Hg) 2015-04-10 17:15:00 [facility] Diastolic (mm Hg) 2015-04-10 17:15:00 [facility] Heart Rate 2015-04-10 17:15:00 [facility] Heart Rate 2015-04-10 13:00:00 [facility] Respitory Rate 2015-04-10 13:00:00 [facility] Systolic (mm Hg) 2015-04-10 13:00:00 [facility] Diastolic (mm Hg) 2015-04-10 13:00:00 [facility] Temperature Oral (F) 2015-04-10 13:00:00 97.6 F [facility] Height 2015-04-08 09:12:00 182.88 cm [facility] Weight 2015-04-08 09:12:00 [facility] Height 2015-04-08 08:58:00 182.88 cm [facility] Weight 2015-04-08 08:57:00 [facility] BMI Calculated 2015-04-08 08:57:00 [facility] Height 2015-04-08 08:57:00 182.88 cm [facility] BMI Calculated 2015-04-08 04:19:00 [facility] Weight 2015-04-08 04:19:00 [facility] Procedures Procedure Date / Time Performed Performing Clinician Sourc e Tympanostomy (requiring 2020-04-25 19:35:00 [facility] insertion of ventilating tube), local or topical anesthesia Encounters Start End Encounter Admission Attending Care Care Encounter Source Date/Time Date/Time Type Type Clinicians Facility Department ID 2023-10-01 2023-10-01 Outpatient TATY VALLE [id number] Cesar Posey 14:00:00 14:00:00 SCOTT gaytan 2023-08-06 2023-08-06 Outpatient TATY HARRIS [id number] Taty 15:00:00 15:00:00 NATHALIA Seybol d 2023-06-22 2023-06-22 Outpatient TATY POSEY [id number] Taty 11:00:00 11:00:00 Seybol d 2023-06-11 2023-06-11 Outpatient TATY HANSON [id number] Taty 00:00:00 00:00:00 JORGE Seybol d 2023-06-01 2023-06-01 Outpatient TATY HANSON [id number] Taty 00:00:00 00:00:00 JORGE Seybol d 2023-05-29 2023-05-29 Outpatient CARLEE POSEY [id number] [facility] 00:00:00 00:00:00 MD KAREN Seybol d 2023-05-18 2023-05-18 Outpatient BETHANY PORTILLO [id number] [facility] 10:00:00 10:00:00 Seybol d 2023-05-04 2023-05-04 Outpatient TATY VALADEZ [id number] Taty 14:00:00 14:00:00 CATRACHO Seybol d 2023-05-04 2023-05-04 Outpatient TATY HANSON [id number] Taty 00:00:00 00:00:00 JORGE Seybol d 2023-04-27 2023-04-27 Outpatient TATY CAMACHO [id number] Taty 13:45:00 13:45:00 FREDRICK Seybol d 2023-04-01 2023-04-01 Outpatient TATY VALLE [id number] Taty 13:45:00 13:45:00 SCOTT Seybo ld 2023-02-23 2023-02-23 Outpatient TATY POSEY [id number] Taty 14:30:00 14:30:00 Seybol d 2023-02-16 2023-02-16 Outpatient TATY VIZCARRA [id number] Taty 00:00:00 00:00:00 JINU Seybol d 2023-02-13 2023-02-13 Outpatient TRED45 TATY POSEY [id number] Taty 14:30:00 14:30:00 Seybol d 2023-02-13 2023-02-13 Outpatient CARMITA TATY POSEY [id number] Taty 13:00:00 13:00:00 JINU Seybol d 2023-02-06 2023-02-06 Outpatient LAB90 TATY POSEY [id number] Taty 13:45:00 13:45:00 Seybol d 2023-02-06 2023-02-06 Outpatient KIMBERLY, TATY POSEY [id number] Taty 11:00:00 11:00:00 NATHALIA Seybol d 2023-02-03 2023-02-03 Outpatient TATY HANSON [id number] Taty 00:00:00 00:00:00 JORGE Seybol d 2023-01-05 2023-01-05 Outpatient TATY HANSON [id number] Taty 00:00:00 00:00:00 JORGE Seybol d 2022-12-29 2022-12-29 Outpatient MYKELSEYONL TATY POSEY [id number] Taty 00:00:00 00:00:00 MD KAREN Seybol d 2022-12-26 2022-12-26 Outpatient TATY HANSON [id number] Taty 00:00:00 00:00:00 JORGE Seybol d 2022-12-25 2022-12-25 Outpatient LAB90 TATY POSEY [id number] Taty 09:35:00 09:35:00 Seybol d 2022-12-22 2022-12-22 Outpatient PREZATATY Rodriguez [id number] Taty 15:00:00 15:00:00 JORGE Seybol d 2021-08-03 2021-08-03 Outpatient PRIV PRIV [id number] [facility] 00:00:[facility] 00:00:00 [id number] [facility] 2021-08-03 2021-08-03 Outpatient PRIV PRIV [id number] [facility] 00:00:00 00:00:00 [id number] Medica l 2020-09-19 2020-09-19 Outpatient [facility] [id number] [place] 02:33:00 02:33:00 [id number] 2020-05-28 2020-05-28 Outpatient MHIE MHIE [id number] [facility] 13:15:00 13:15:00 [facility] [place] 2020-05-28 2020-05-28 Outpatient MHIE MHIE [id number] [facility] 13:15:00 13:15:00 [facility] [place] 2020-04-25 2020-04-26 [place] [id number] [facility] 18:45:00 04:59:59 r Otolaryngol 03 l ogy Sugar Calderon n [facility] 2020-04-25 2020-04-26 [place] [id number] [facility] 18:45:00 04:59:59 r Otolaryngol 03 l ogy Sugar Calderon n [facility] 2020-04-25 2020-04-26 Outpatient nullFlavo [facility] [id number] Mem[facility] 18:15:00 04:59:59 r Otolaryngol 02 l ogy Sugar Calderon n [facility] 2020-04-25 2020-04-26 [place] [id number] [facility] 18:15:00 04:59:59 r Otolaryngol 02 l ogy Sugar Calderon n [facility] 2020-04-25 2020-04-25 Outpatient Donepudi, MG [facility] [id number] 13:45:00 23:59:59 Sreekrishna 03 [facility] 2020-04-25 2020-04-25 Outpatient Donepudi, MG [facility] [id number] 13:15:00 23:59:59 Sreekrishna 02 [facility] 2020-04-25 2020-04-25 Outpatient MHIE MHIE [id number] [facility] 13:45:00 13:45:00 03 [facility] [place] 2020-04-25 2020-04-25 Outpatient MHIE MHIE [id number] [facility] 13:15:00 13:15:00 02 l [facility] 2019-05-19 [facility]05[facility] [place] [id number] 00:00:00 00:00:00 Discovery sancho Ellison MD: [address] [facility] [address] [place] [facility] [address], [place] [address] , Ph. 2018-12-30 2018-12-30 Ambulatory nullFlavo [facility] [id number] Mem[facility] 20:30:00 20:30:00 Pre-Reg r Otolaryngol 01 l gloria Bobby césar 2018-12-30 2018-12-30 [place] [id number] [facility] 20:30:00 20:30:00 Pre-Reg r Otolaryngol 01 l gloria Bobby césar 2018-12-30 2018-12-30 Outpatient MHIE MHIE [id number] [facility] 14:30:00 14:30:00 01 juan jose [place] 2018-12-30 2018-12-30 Outpatient Donepudi, MG [facility] [id number] 14:30:00 14:30:00 Sreekrishna [facility] 2018-12-13 2018-12-14 [place] [id number] [facility] 20:00:00 05:59:59 r Otolaryngol 00 l gloria Bobby [facility] 2018-12-13 2018-12-14 [place] [id number] [facility] 20:00:00 05:59:59 r Otolaryngol 00 l gloria Bobby [facility] 2018-12-13 2018-12-13 Outpatient Donepudi, MG [facility] [id number] 14:00:00 23:59:59 Sreekrishna [facility] 2018-12-13 2018-12-13 Outpatient MHIE IE [id number] [facility] 14:00:00 14:00:00 00 juan jose [place] 2018-08-26 2018-08-26 [facility] [place] - [id number] brian 00:00:00 00:00:00 Discovery sancho Ellison MD: [address] [facility] [address] [place] [address], [place] [address] , Ph. 2015-04-08 2015-04-10 Inpatient nullFlavo [facility] [id number] [facility] 04:19:00 22:15:00 robina Fernández [facility] 2015-04-08 2015-04-10 Inpatient nullFlavo [facility] [id number] [facility] 04:19:00 22:15:00 r [facility]ie [facility] 2015-04-07 2015-04-10 Outpatient Movva, [id number] 23:19:00 17:15:00 Maximiliano [id number] Results Test Description Test Time Test Comments Results Result Comments Source ELECTROLYTES 2015-04-10 08:31:00 Test Item Value Reference Range Interpretation Comme nts AGAP (test code = AGAP) 12.2 10.0-20.0 [facility]uxivawWEEBUJUZJYGU0794-06-90 08:31:00 Test Item Value Reference Range Interpretation Comments A/G Ratio (test code = A/G Ratio) 0.6 0.7-1.6 [facility]IijftfjYYQODVWHDPYG7109-73-96 08:31:00 Test Item Value Reference Range Interpretation Comments Globulin (test code = Globulin) 3.6 2.0-4.0 [facility] HospitalVkxzywiTVPNWJIHENEN4262-52-19 08:31:00 Test Item Value Reference Range Interpretation Comments B/C Ratio (test code = B/C Ratio) 14 04-26 [facility]TewlsqgAZZCFHCSFEYX0793-98-01 08:31:00 Test Item Value Reference Range Interpretation Comments eGFR (test code = eGFR) 84 [facility]VwfikhrRMYLXCIIRIGD7205-15-86 08:31:00 Test Item Value Reference Range Interpretation Comments AGAP (test code = AGAP) 12.2 10.0-20.0 [facility] HospitalJgqfscwSNKXDDUTJEFM5633-25-02 08:31:00 Test Item Value Reference Range Interpretation Comments A/G Ratio (test code = A/G Ratio) 0.6 0.7-1.6 [facility] HospitalXsgubkcYRTRECUXIWOB6044-87-31 08:31:00 Test Item Value Reference Range Interpretation Comments Globulin (test code = Globulin) 3.6 2.0-4.0 [facility] HospitalJonyxvzSIHNSURNDDZE3772-77-04 08:31:00 Test Item Value Reference Range Interpretation Comments B/C Ratio (test code = B/C Ratio) 14 04-26 [facility] HospitalDcboupwYMXWBABKIRZG5768-64-08 08:31:00 Test Item Value Reference Range Interpretation Comments Bili Total (test code = Bili Total) 0.3 0.2-1.3 [facility] HospitalUugessoDFOVRVXJCZIF6761-16-11 08:31:00 Test Item Value Reference Range Interpretation Comments eGFR (test code = eGFR) 84 [facility] HospitalSatsykvGWXLBVWXYTML4852-31-29 08:31:00 Test Item Value Reference Range Interpretation Comments Bili Total (test code = Bili Total) 0.3 0.2-1.3 [facility] HospitalSlxdgseJSJALWLSWMNK7904-43-08 08:31:00 Test Item Value Reference Range Interpretation Comments Alk Phos (test code = Alk Phos) 88 39-136 [facility] HospitalJnrutwkSCLQNELOXZEC2135-23-80 08:31:00 Test Item Value Reference Range Interpretation Comments Albumin Lvl (test code = Albumin Lvl) 2.2 3.5-5.0 [facility] HospitalKgyhwznHDEUSMLEPTJJ4545-66-00 08:31:00 Test Item Value Reference Range Interpretation Comments Total Protein (test code = Total 5.8 6.4-8.4 Protein) [facility] HospitalPfjcbkjYBPUTFCBKWZJ6792-71-87 08:31:00 Test Item Value Reference Range Interpretation Comments AST (test code = AST) 17 See_Comment [Auto mated message] The system which ge nerated this result transmit hazel reference range : <=37. The reference range was not used to interpr et this result as kasey l/abnormal. [facility] HospitalOulwtqoCNCPXMHMAEPY9450-88-07 08:31:00 Test Item Value Reference Range Interpretation Comments ALT (test code = ALT) 20 See_Comment [Auto mated message] The system which ge nerated this result transmit hazel reference range : <=65. The reference range was not used to interpr et this result as kasey l/abnormal. [facility] HospitalEredubkYTYFEYFIMIEQ0234-30-14 08:31:00 Test Item Value Reference Range Interpretation Comments Sodium Lvl (test code = Sodium Lvl) 138 135-145 [facility] HospitalChmygfmBQAROTQLSJQD4932-24-71 08:31:00 Test Item Value Reference Range Interpretation Comments Creatinine Lvl (test code = Creatinine 1.0 0.5-1.4 Lvl) [facility] HospitalAqrebteNSSAFGQVXKHB5876-62-42 08:31:00 Test Item Value Reference Range Interpretation Comments Calcium Lvl (test code = Calcium Lvl) 8.5 8.5-10.5 [facility] HospitalGeogqaqJABPJLBUYMKB3200-92-82 08:31:00 Test Item Value Reference Range Interpretation Comments Alk Phos (test code = Alk Phos) 88 39-136 [facility] HospitalNahjghlIQFBNVHBFMXZ8042-51-73 08:31:00 Test Item Value Reference Range Interpretation Comments CO2 (test code = CO2) 25 24-32 [facility] HospitalJaekfglXAIMFXGRXXUM8748-10-32 08:31:00 Test Item Value Reference Range Interpretation Comments Chloride Lvl (test code = Chloride Lvl) 105 95-109 [facility] HospitalLerxtrjKYMIYBQLLYIP6990-61-03 08:31:00 Test Item Value Reference Range Interpretation Comments Potassium Lvl (test code = Potassium 4.2 3.5-5.1 Lvl) [facility] HospitalMyqnvtmBDJYCERJHOMH0627-82-01 08:31:00 Test Item Value Reference Range Interpretation Comments BUN (test code = BUN) 14 7-22 [facility] HospitalGivcjrhUAJLXEHETGMQ8505-52-75 08:31:00 Test Item Value Reference Range Interpretation Comments Glucose Lvl (test code = Glucose Lvl) 159 70-99 [facility] CenterXghlphfJLJRTAASLE2114-98-63 08:31:00 Test Item Value Reference Range Interpretation Comments RBC Morph (test code = Normal (04/10/15 3:31 AM) RBC Morph) [facility] CenterWkmutifWTVWBCSTXI2778-57-10 08:31:00 Test Item Value Reference Range Interpretation Comments Plt Morph (test code = Normal (04/10/15 3:31 AM) Plt Morph) [facility] CenterYaipusfXXSWOWSOLO4769-19-62 08:31:00 Test Item Value Reference Range Interpretation Comments Metamyelocytes (test code 3.0 See_Comment [ Automated message] = Metamyelocytes) The system which generated this result transmitted ref erence range: <=1.0. T he reference range was not used to int erpret this result as normal/abnormal . [facility] CenterVqnyubxCFBSGNVPAP0047-82-69 08:31:00 Test Item Value Reference Range Interpretation Comments Atypical Lymphs (test code = Atypical 0.0 Lymphs) [facility] CenterNzuexwbJHARGSPVLM7980-27-92 08:31:00 Test Item Value Reference Range Interpretation Comments Monocytes (test code = Monocytes) 8.0 2.0-12.0 [facility]KjttbxpDSTUKZUYIPCB5056-00-66 08:31:00 Test Item Value Reference Range Interpretation Comments Albumin Lvl (test code = Albumin Lvl) 2.2 3.5-5.0 [facility] CenterJcgmoymWYABEPSXJF7675-91-69 08:31:00 Test Item Value Reference Range Interpretation Comments Lymphocytes (test code = Lymphocytes) 2.0 20.0-40.0 [facility] CenterDwdcpbjJLPJKUPKOH6791-57-08 08:31:00 Test Item Value Reference Range Interpretation Comments Monocytes # (test code 2.5 See_Comment [Aut omated message] The = Monocytes #) system which generated this result tra nsmitted reference range : <=0.8. The reference r marce was not used to int erpret this result as normal/abnormal . [facility] CenterTcwzfceFBCRHDOEXH8073-34-07 08:31:00 Test Item Value Reference Range Interpretation Comments Lymphocytes # (test code = Lymphocytes 0.6 1.0-5.5 #) [facility] CenterKzfwzfrUYDWXTOXSC6877-20-61 08:31:00 Test Item Value Reference Range Interpretation Comments Segs-Bands # (test code = Segs-Bands #) 27.3 1.5-8.1 [facility] CenterEiatbpzJLJSLSWLVO2016-95-56 08:31:00 Test Item Value Reference Range Interpretation Comments Bands (test code = 6.0 See_Comment [Automat ed message] The Bands) system which ge nerated this result transmit hazel reference range : <=11.0. The reference r marce was not used to interpr et this result as kasey l/abnormal. [facility] CenterTwhezmeOTIMPXODFM5222-61-02 08:31:00 Test Item Value Reference Range Interpretation Comments Segs (test code = Segs) 81.0 45.0-75.0 [facility] CenterGikhbobVLBYXXRXLF2774-10-00 08:31:00 Test Item Value Reference Range Interpretation Comments MPV (test code = MPV) 7.4 7.4-10.4 [facility] CenterIndfukoJEHTFCGWTG2628-69-61 08:31:00 Test Item Value Reference Range Interpretation Comments Hct (test code = Hct) 33.3 42.0-54.0 [facility] CenterEqrsvhxOPCXVCCXIW9671-14-48 08:31:00 Test Item Value Reference Range Interpretation Comments Platelet (test code = Platelet) 227 133-450 [facility] CenterZahmplrDUXGXYARKP6361-37-32 08:31:00 Test Item Value Reference Range Interpretation Comments Hgb (test code = Hgb) 11.3 14.0-18.0 [facility] HospitalGnwnvkdPKDOQWUUEGVA3502-85-67 08:31:00 Test Item Value Reference Range Interpretation Comments Total Protein (test code = Total 5.8 6.4-8.4 Protein) [facility] CenterRfuuqqfBPMZCRXAJP0845-31-85 08:31:00 Test Item Value Reference Range Interpretation Comments RBC (test code = RBC) 3.71 4.70-6.10 [facility] CenterVetedzeSYUMHTVPJY5634-82-20 08:31:00 Test Item Value Reference Range Interpretation Comments WBC (test code = WBC) 31.4 3.7-10.4 [facility] CenterVfidqsfERNIMKKEZP6951-03-50 08:31:00 Test Item Value Reference Range Interpretation Comments MCH (test code = MCH) 30.4 pg 27.0-31.0 [facility] CenterHkrfpqkOZWMITWGEB3080-67-87 08:31:00 Test Item Value Reference Range Interpretation Comments MCHC (test code = MCHC) 33.9 32.0-36.0 [facility] CenterOejndqqOUZHAOKDPX7786-97-03 08:31:00 Test Item Value Reference Range Interpretation Comments MCV (test code = MCV) 89.7 80.0-94.0 [facility] CenterYtikvnaHBMUFFUBAE2446-87-25 08:31:00 Test Item Value Reference Range Interpretation Comments RDW (test code = RDW) 15.6 11.5-14.5 [facility] CenterHvrdrgyAUDOPTGZME8190-50-62 08:31:00 Test Item Value Reference Range Interpretation Comments PTT (test code = PTT) 66.8 s 22.9-35.8 [facility] HospitalCnjxhkgJUVJYKNWWJBH0810-35-42 08:31:00 Test Item Value Reference Range Interpretation Comments AST (test code = AST) 17 See_Comment [Auto mated message] The system which ge nerated this result transmit hazel reference range : <=37. The reference range was not used to interpr et this result as kasey l/abnormal. [place] 181395-06-09 08:31:00 Test Item Value Reference Range Interpretation Comments ALT (test code = ALT) 20 See_Comment [Auto mated message] The system which ge nerated this result transmit hazel reference range : <=65. The reference range was not used to interpr et this result as kasey l/abnormal. [facility] HospitalLbgsabjGSYXVLAAOTNI6169-68-50 08:31:00 Test Item Value Reference Range Interpretation Comments Sodium Lvl (test code = Sodium Lvl) 138 135-145 [facility] HospitalLzcjfulSJZYCURFFKDO5674-27-26 08:31:00 Test Item Value Reference Range Interpretation Comments Creatinine Lvl (test code = Creatinine 1.0 0.5-1.4 Lvl) [facility] HospitalEqhhjvpAAYNPRFGCRRP7971-59-82 08:31:00 Test Item Value Reference Range Interpretation Comments Calcium Lvl (test code = Calcium Lvl) 8.5 8.5-10.5 [facility] HospitalGblwemeYKOVAFEHHMDY0983-65-97 08:31:00 Test Item Value Reference Range Interpretation Comments CO2 (test code = CO2) 25 24-32 [facility] HospitalMsquegfUXFFASCUTDAH4952-23-57 08:31:00 Test Item Value Reference Range Interpretation Comments Chloride Lvl (test code = Chloride Lvl) 105 95-109 [facility] HospitalXlrpnqeILZPCXWRKQAO3506-89-00 08:31:00 Test Item Value Reference Range Interpretation Comments Potassium Lvl (test code = Potassium 4.2 3.5-5.1 Lvl) [facility] HospitalLpcsrnuQQZGUAIFLLEI6807-16-44 08:31:00 Test Item Value Reference Range Interpretation Comments BUN (test code = BUN) 14 7-22 [facility] HospitalUemarghMTTLRQEMSZJM1394-22-43 08:31:00 Test Item Value Reference Range Interpretation Comments Glucose Lvl (test code = Glucose Lvl) 159 70-99 [facility] CenterRbpxcgyWTIPZEHVZW1727-08-59 08:31:00 Test Item Value Reference Range Interpretation Comments RBC Morph (test code = Normal (04/10/15 3:31 AM) RBC Morph) [facility] CenterRmfzkhpBTAVYQSAXX0943-02-72 08:31:00 Test Item Value Reference Range Interpretation Comments Plt Morph (test code = Normal (04/10/15 3:31 AM) Plt Morph) [facility] CenterTibhmuiBLJGEYAKVN9858-67-27 08:31:00 Test Item Value Reference Range Interpretation Comments Metamyelocytes (test code 3.0 See_Comment [ Automated message] = Metamyelocytes) The system which generated this result transmitted ref erence range: <=1.0. T he reference range was not used to int erpret this result as normal/abnormal . [facility] CenterHxrbtxhJJZQVUQXUM1067-12-02 08:31:00 Test Item Value Reference Range Interpretation Comments Atypical Lymphs (test code = Atypical 0.0 Lymphs) [facility] CenterAwtyxkxKEZBJKJOKT2605-91-39 08:31:00 Test Item Value Reference Range Interpretation Comments Monocytes (test code = Monocytes) 8.0 2.0-12.0 [place] 558395-06-09 08:31:00 Test Item Value Reference Range Interpretation Comments Lymphocytes (test code = Lymphocytes) 2.0 20.0-40.0 [facility] CenterIplubwlJYFWWEKDFS2672-71-86 08:31:00 Test Item Value Reference Range Interpretation Comments Monocytes # (test code 2.5 See_Comment [Aut omated message] The = Monocytes #) system which generated this result tra nsmitted reference range : <=0.8. The reference r marce was not used to int erpret this result as normal/abnormal . [facility] CenterOqxknikKLMJZVTTQK3057-43-27 08:31:00 Test Item Value Reference Range Interpretation Comments Lymphocytes # (test code = Lymphocytes 0.6 1.0-5.5 #) [facility] CenterCgbxyktXAMAGLXBVL1291-93-45 08:31:00 Test Item Value Reference Range Interpretation Comments Segs-Bands # (test code = Segs-Bands #) 27.3 1.5-8.1 [facility] CenterVrtzxzzZWZRXOZMCX4475-06-31 08:31:00 Test Item Value Reference Range Interpretation Comments Bands (test code = 6.0 See_Comment [Automat ed message] The Bands) system which ge nerated this result transmit hazel reference range : <=11.0. The reference r marce was not used to interpr et this result as kasey l/abnormal. [facility] CenterOzwpkneUHQKXEICHL9288-10-71 08:31:00 Test Item Value Reference Range Interpretation Comments Segs (test code = Segs) 81.0 45.0-75.0 [facility] CenterTuhogjnZUTTHESTXV4474-25-02 08:31:00 Test Item Value Reference Range Interpretation Comments MPV (test code = MPV) 7.4 7.4-10.4 [facility] CenterPywdvmrMMJNVMFUII4436-39-99 08:31:00 Test Item Value Reference Range Interpretation Comments Hct (test code = Hct) 33.3 42.0-54.0 [facility] CenterRhprbltHGBFVUIEZC2436-61-26 08:31:00 Test Item Value Reference Range Interpretation Comments Platelet (test code = Platelet) 227 133-450 [facility] CenterHdiatelQKVGDFFKFQ1978-05-47 08:31:00 Test Item Value Reference Range Interpretation Comments Hgb (test code = Hgb) 11.3 14.0-18.0 [facility] CenterRjpqnztWCFDHKMUFU8310-06-36 08:31:00 Test Item Value Reference Range Interpretation Comments RBC (test code = RBC) 3.71 4.70-6.10 [facility] CenterFbunlnnFYAJNCNEER4454-58-06 08:31:00 Test Item Value Reference Range Interpretation Comments WBC (test code = WBC) 31.4 3.7-10.4 [facility] CenterPnunpftGMRLQODVTS8921-42-08 08:31:00 Test Item Value Reference Range Interpretation Comments MCH (test code = MCH) 30.4 pg 27.0-31.0 [facility] CenterPkekhcnTAHMQGXXOP7191-66-81 08:31:00 Test Item Value Reference Range Interpretation Comments MCHC (test code = MCHC) 33.9 32.0-36.0 [facility] CenterKsgduqlZHIUKTVKYO0717-61-14 08:31:00 Test Item Value Reference Range Interpretation Comments MCV (test code = MCV) 89.7 80.0-94.0 [facility] CenterLjqleqyIBKSVWCRUB5022-50-82 08:31:00 Test Item Value Reference Range Interpretation Comments RDW (test code = RDW) 15.6 11.5-14.5 [facility] CenterVrnapolIVCGDVJIRP7627-34-76 08:31:00 Test Item Value Reference Range Interpretation Comments PTT (test code = PTT) 66.8 s 22.9-35.8 [facility]ZgkyabeXQFAZTLMRGHJ5122-80-00 08:31:00 Test Item Value Reference Range Interpretation Comments AGAP (test code = AGAP) 12.2 10.0-20.0 [facility]MgrlxncYRBYEURXCTNA7459-89-37 08:31:00 Test Item Value Reference Range Interpretation Comments A/G Ratio (test code = A/G Ratio) 0.6 0.7-1.6 [facility] HospitalLpaowjwYAAWXKOPMPDU1231-03-43 08:31:00 Test Item Value Reference Range Interpretation Comments Globulin (test code = Globulin) 3.6 2.0-4.0 [id number] 08:31:00 Test Item Value Reference Range Interpretation Comments B/C Ratio (test code = B/C Ratio) 14 6-25 [id number] 08:31:00 Test Item Value Reference Range Interpretation Comments eGFR (test code = eGFR) 84 [facility] HospitalSibtcsjZZZNVYOCXTUV4091-42-31 08:31:00 Test Item Value Reference Range Interpretation Comments Bili Total (test code = Bili Total) 0.3 0.2-1.3 [facility] HospitalEgbmbyhMSARVBNQNQQG2745-95-65 08:31:00 Test Item Value Reference Range Interpretation Comments Alk Phos (test code = Alk Phos) 88 39-136 [facility] HospitalMqiksobWKPZMYDCFQCQ5856-56-67 08:31:00 Test Item Value Reference Range Interpretation Comments Albumin Lvl (test code = Albumin Lvl) 2.2 3.5-5.0 [facility] HospitalUnwqwiwXXJLLQCRUFEG4473-32-65 08:31:00 Test Item Value Reference Range Interpretation Comments Total Protein (test code = Total 5.8 6.4-8.4 Protein) [facility] HospitalMyirvnwJUKJIDYITDUN3540-86-88 08:31:00 Test Item Value Reference Range Interpretation Comments AST (test code = AST) 17 See_Comment [Auto mated message] The system which ge nerated this result transmit hazel reference range : <=37. The reference range was not used to interpr et this result as kasey l/abnormal. [facility] HospitalJmcygeaPJMLFLMKZIZQ5219-10-62 08:31:00 Test Item Value Reference Range Interpretation Comments ALT (test code = ALT) 20 See_Comment [Auto mated message] The system which ge nerated this result transmit hazel reference range : <=65. The reference range was not used to interpr et this result as kasey l/abnormal. [facility] HospitalPxzkekjIXBODSJWGDFW0684-73-37 08:31:00 Test Item Value Reference Range Interpretation Comments Sodium Lvl (test code = Sodium Lvl) 138 135-145 [facility] HospitalCgvffgbTRTVUTSNWUHL7802-59-72 08:31:00 Test Item Value Reference Range Interpretation Comments Creatinine Lvl (test code = Creatinine 1.0 0.5-1.4 Lvl) [facility] HospitalQnwmpkzSPNWQUROVIWX9906-54-34 08:31:00 Test Item Value Reference Range Interpretation Comments Calcium Lvl (test code = Calcium Lvl) 8.5 8.5-10.5 [facility] HospitalHdyywooRQBEFGVZKJRZ4273-09-36 08:31:00 Test Item Value Reference Range Interpretation Comments CO2 (test code = CO2) 25 24-32 [facility] HospitalHjxlnbgBTTSCECTQIBP5680-31-09 08:31:00 Test Item Value Reference Range Interpretation Comments Chloride Lvl (test code = Chloride Lvl) 105 95-109 [facility] HospitalVicfiqmMBJDCJTCPEMU6372-96-13 08:31:00 Test Item Value Reference Range Interpretation Comments Potassium Lvl (test code = Potassium 4.2 3.5-5.1 Lvl) [facility] HospitalYpbtbooBFEPZORALTMA9303-28-89 08:31:00 Test Item Value Reference Range Interpretation Comments BUN (test code = BUN) 14 7-22 [facility] HospitalOdvtqwsJVHXRRDDQCUH6259-03-03 08:31:00 Test Item Value Reference Range Interpretation Comments Glucose Lvl (test code = Glucose Lvl) 159 70-99 [facility] CenterGjaysewKZKXXENWCH3063-70-62 08:31:00 Test Item Value Reference Range Interpretation Comments RBC Morph (test code = Normal (04/10/15 3:31 AM) RBC Morph) [facility] CenterTkmzllxLOQVQHDHRC1921-40-82 08:31:00 Test Item Value Reference Range Interpretation Comments Plt Morph (test code = Normal (04/10/15 3:31 AM) Plt Morph) [facility] CenterXkznccnIMTNLHTJRA9541-57-40 08:31:00 Test Item Value Reference Range Interpretation Comments Metamyelocytes (test code 3.0 See_Comment [ Automated message] = Metamyelocytes) The system which generated this result transmitted ref erence range: <=1.0. T he reference range was not used to int erpret this result as normal/abnormal . [facility] CenterEqakfahJDDUULHDPF6726-15-75 08:31:00 Test Item Value Reference Range Interpretation Comments Atypical Lymphs (test code = Atypical 0.0 Lymphs) [facility] CenterKlzlfizUMJNTUWWLR4232-41-54 08:31:00 Test Item Value Reference Range Interpretation Comments Monocytes (test code = Monocytes) 8.0 2.0-12.0 [facility] CenterIwkteloGHRMPZPHZZ1053-96-13 08:31:00 Test Item Value Reference Range Interpretation Comments Lymphocytes (test code = Lymphocytes) 2.0 20.0-40.0 [facility] CenterGdfzlwgLPHHQIYDJB7109-85-70 08:31:00 Test Item Value Reference Range Interpretation Comments Monocytes # (test code 2.5 See_Comment [Aut omated message] The = Monocytes #) system which generated this result tra nsmitted reference range : <=0.8. The reference r marce was not used to int erpret this result as normal/abnormal . [facility] CenterDkmenzsTDSBJIVUKK1782-98-58 08:31:00 Test Item Value Reference Range Interpretation Comments Lymphocytes # (test code = Lymphocytes 0.6 1.0-5.5 #) [facility] CenterEnfgvzoDOMJSNQVJO0879-23-82 08:31:00 Test Item Value Reference Range Interpretation Comments Segs-Bands # (test code = Segs-Bands #) 27.3 1.5-8.1 [facility] CenterZkxlmesTSVPISCZIQ4995-21-30 08:31:00 Test Item Value Reference Range Interpretation Comments Bands (test code = 6.0 See_Comment [Automat ed message] The Bands) system which ge nerated this result transmit hazel reference range : <=11.0. The reference r marce was not used to interpr et this result as kasey l/abnormal. [facility] CenterJxqxbffFPNAPQUPTI5782-93-64 08:31:00 Test Item Value Reference Range Interpretation Comments Segs (test code = Segs) 81.0 45.0-75.0 [facility] CenterKevtsoeMUEYNUMTQN8582-35-12 08:31:00 Test Item Value Reference Range Interpretation Comments MPV (test code = MPV) 7.4 7.4-10.4 [facility] CenterWqdlfqnTNIOKFJTNI8568-15-84 08:31:00 Test Item Value Reference Range Interpretation Comments Hct (test code = Hct) 33.3 42.0-54.0 [facility] CenterXyujmenROSOWVQJBN1739-70-37 08:31:00 Test Item Value Reference Range Interpretation Comments Platelet (test code = Platelet) 227 133-450 [facility] CenterZcueffvWVWBDVMGTI2345-54-55 08:31:00 Test Item Value Reference Range Interpretation Comments Hgb (test code = Hgb) 11.3 14.0-18.0 [facility] CenterSsfsddcRWENDCZPFP1228-29-75 08:31:00 Test Item Value Reference Range Interpretation Comments RBC (test code = RBC) 3.71 4.70-6.10 [facility] CenterEwkkwblROQRJTPZTU6290-57-71 08:31:00 Test Item Value Reference Range Interpretation Comments WBC (test code = WBC) 31.4 3.7-10.4 [facility] CenterHpdzdyrCPGURRVVTA3496-37-57 08:31:00 Test Item Value Reference Range Interpretation Comments MCH (test code = MCH) 30.4 pg 27.0-31.0 [facility] CenterNfgqfwaGPBGYQJPLQ3108-31-36 08:31:00 Test Item Value Reference Range Interpretation Comments MCHC (test code = MCHC) 33.9 32.0-36.0 [facility] CenterJrsdawcVHOVGMIGQH3151-48-88 08:31:00 Test Item Value Reference Range Interpretation Comments MCV (test code = MCV) 89.7 80.0-94.0 [facility] CenterAzjkfluQZMFOFLAZU5138-55-68 08:31:00 Test Item Value Reference Range Interpretation Comments RDW (test code = RDW) 15.6 11.5-14.5 [facility] CenterEvkbbkoJNLRTYCZSR0971-31-43 08:31:00 Test Item Value Reference Range Interpretation Comments PTT (test code = PTT) 66.8 s 22.9-35.8 [facility] HospitalWjmorbxGKIXSJWXOIWX5256-84-22 08:31:00 Test Item Value Reference Range Interpretation Comments AGAP (test code = AGAP) 12.2 10.0-20.0 [facility] HospitalHmaijypWRXVLGPCTKEA4973-70-41 08:31:00 Test Item Value Reference Range Interpretation Comments A/G Ratio (test code = A/G Ratio) 0.6 0.7-1.6 [facility]XgqlbemCHTHLACLRIAY2320-69-71 08:31:00 Test Item Value Reference Range Interpretation Comments Globulin (test code = Globulin) 3.6 2.0-4.0 [facility] HospitalDeifgmqWWACKZFJXNXR3093-26-66 08:31:00 Test Item Value Reference Range Interpretation Comments B/C Ratio (test code = B/C Ratio) 14 6-25 [facility] HospitalDfwlvzhDBBGYBUJOHNH4205-87-07 08:31:00 Test Item Value Reference Range Interpretation Comments eGFR (test code = eGFR) 84 [facility] HospitalSmyityyEORRFLRMFBJT8985-23-38 08:31:00 Test Item Value Reference Range Interpretation Comments Bili Total (test code = Bili Total) 0.3 0.2-1.3 [facility] HospitalEsiflqfVAHFZRZOIQYF4856-97-59 08:31:00 Test Item Value Reference Range Interpretation Comments Alk Phos (test code = Alk Phos) 88 39-136 [facility] HospitalVgmunobXODIAAWJAAIQ0851-02-53 08:31:00 Test Item Value Reference Range Interpretation Comments Albumin Lvl (test code = Albumin Lvl) 2.2 3.5-5.0 [facility] HospitalUqahaphAGJXRWDASPQA4240-51-28 08:31:00 Test Item Value Reference Range Interpretation Comments Total Protein (test code = Total 5.8 6.4-8.4 Protein) [facility] HospitalMnkgvunXOVIXXGLIMQC3503-36-02 08:31:00 Test Item Value Reference Range Interpretation Comments AST (test code = AST) 17 See_Comment [Auto mated message] The system which ge nerated this result transmit hazel reference range : <=37. The reference range was not used to interpr et this result as kasey l/abnormal. [facility] HospitalPditgfxFOBCRFVBLBTX4496-17-24 08:31:00 Test Item Value Reference Range Interpretation Comments ALT (test code = ALT) 20 See_Comment [Auto mated message] The system which ge nerated this result transmit hazel reference range : <=65. The reference range was not used to interpr et this result as kasey l/abnormal. [facility] HospitalHrtbrldAXMYFRSFKIEY7650-71-91 08:31:00 Test Item Value Reference Range Interpretation Comments Sodium Lvl (test code = Sodium Lvl) 138 135-145 [facility] HospitalKxwmamzASZQOUREXXOF5907-97-88 08:31:00 Test Item Value Reference Range Interpretation Comments Creatinine Lvl (test code = Creatinine 1.0 0.5-1.4 Lvl) [facility] HospitalPamefxiGYXFEJPFKLGH7091-70-66 08:31:00 Test Item Value Reference Range Interpretation Comments Calcium Lvl (test code = Calcium Lvl) 8.5 8.5-10.5 [facility] HospitalOfcxbzsRIDWHBMNCGRI0642-33-96 08:31:00 Test Item Value Reference Range Interpretation Comments CO2 (test code = CO2) 25 24-32 [facility]PtdxcztNVJIKRDBQXJR9921-66-91 08:31:00 Test Item Value Reference Range Interpretation Comments Chloride Lvl (test code = Chloride Lvl) 105 95-109 [facility] HospitalZzecyigTNHIFJQTXYYV1329-12-31 08:31:00 Test Item Value Reference Range Interpretation Comments Potassium Lvl (test code = Potassium 4.2 3.5-5.1 Lvl) [facility] HospitalTrvimsqAUANFBIGXUYW5966-34-22 08:31:00 Test Item Value Reference Range Interpretation Comments BUN (test code = BUN) 14 7-22 [facility]EegplzeIAOOYTXJPIUF4633-16-94 08:31:00 Test Item Value Reference Range Interpretation Comments Glucose Lvl (test code = Glucose Lvl) 159 70-99 [facility] CenterAihvlrpWMQRZGOSMQ8051-02-53 08:31:00 Test Item Value Reference Range Interpretation Comments RBC Morph (test code = Normal (04/10/15 3:31 AM) RBC Morph) [facility] CenterMvhihxjZKTNDOHEUW0731-27-69 08:31:00 Test Item Value Reference Range Interpretation Comments Plt Morph (test code = Normal (04/10/15 3:31 AM) Plt Morph) [facility] CenterHafwqytQUBBQUXJGT7579-23-96 08:31:00 Test Item Value Reference Range Interpretation Comments Metamyelocytes (test code 3.0 See_Comment [ Automated message] = Metamyelocytes) The system which generated this result transmitted ref erence range: <=1.0. T he reference range was not used to int erpret this result as normal/abnormal . [facility] CenterDaynsudQTMFQAYHZU6324-40-31 08:31:00 Test Item Value Reference Range Interpretation Comments Atypical Lymphs (test code = Atypical 0.0 Lymphs) [facility] CenterDnkiaikQUHHPNOLCN8164-09-25 08:31:00 Test Item Value Reference Range Interpretation Comments Monocytes (test code = Monocytes) 8.0 2.0-12.0 [facility] CenterTrrotomKQNPPKDRBH9293-12-80 08:31:00 Test Item Value Reference Range Interpretation Comments Lymphocytes (test code = Lymphocytes) 2.0 20.0-40.0 [facility] CenterBjrzoymNPTUYJDSRH1047-81-89 08:31:00 Test Item Value Reference Range Interpretation Comments Monocytes # (test code 2.5 See_Comment [Aut omated message] The = Monocytes #) system which generated this result tra nsmitted reference range : <=0.8. The reference r marce was not used to int erpret this result as normal/abnormal . [facility] CenterUvystzhYXMCULDAVX8442-69-73 08:31:00 Test Item Value Reference Range Interpretation Comments Lymphocytes # (test code = Lymphocytes 0.6 1.0-5.5 #) [facility] CenterBhfilrtLKBXQNZVNG4219-08-64 08:31:00 Test Item Value Reference Range Interpretation Comments Segs-Bands # (test code = Segs-Bands #) 27.3 1.5-8.1 [facility] CenterWuvhfnsCZDRNGUQYG6233-33-02 08:31:00 Test Item Value Reference Range Interpretation Comments Bands (test code = 6.0 See_Comment [Automat ed message] The Bands) system which ge nerated this result transmit hazel reference range : <=11.0. The reference r marce was not used to interpr et this result as kasey l/abnormal. [facility] CenterNafluhqNKFLVKORPM5000-26-86 08:31:00 Test Item Value Reference Range Interpretation Comments Segs (test code = Segs) 81.0 45.0-75.0 [facility] CenterNkwjjwfKHDGSFRPCR8655-66-79 08:31:00 Test Item Value Reference Range Interpretation Comments MPV (test code = MPV) 7.4 7.4-10.4 [facility] CenterIdrdzplRLCGBRLSML8651-97-87 08:31:00 Test Item Value Reference Range Interpretation Comments Hct (test code = Hct) 33.3 42.0-54.0 [facility] CenterOwyykbbVSJHPXNGAC4581-79-22 08:31:00 Test Item Value Reference Range Interpretation Comments Platelet (test code = Platelet) 227 133-450 [facility] CenterYaxgnctJNLQFCECRQ9180-27-59 08:31:00 Test Item Value Reference Range Interpretation Comments Hgb (test code = Hgb) 11.3 14.0-18.0 [facility] CenterIokzciaJNNYLLPCBF9504-95-82 08:31:00 Test Item Value Reference Range Interpretation Comments RBC (test code = RBC) 3.71 4.70-6.10 [facility] CenterIrndbgjLVOFZFCRZB7200-50-44 08:31:00 Test Item Value Reference Range Interpretation Comments WBC (test code = WBC) 31.4 3.7-10.4 [facility] CenterCbeoovpOZWMGMNTXY4303-75-19 08:31:00 Test Item Value Reference Range Interpretation Comments MCH (test code = MCH) 30.4 pg 27.0-31.0 [facility] CenterUgoppovVUAZMJXYAW0218-06-65 08:31:00 Test Item Value Reference Range Interpretation Comments MCHC (test code = MCHC) 33.9 32.0-36.0 [facility] CenterOanzybjFAVXDQDBQF4530-90-79 08:31:00 Test Item Value Reference Range Interpretation Comments MCV (test code = MCV) 89.7 80.0-94.0 [facility] CenterLxosetbSUXOSHXRXG6752-28-71 08:31:00 Test Item Value Reference Range Interpretation Comments RDW (test code = RDW) 15.6 11.5-14.5 [facility] CenterBpwuwbuTKWGLFQJXU1350-60-15 08:31:00 Test Item Value Reference Range Interpretation Comments PTT (test code = PTT) 66.8 s 22.9-35.8 [facility] HospitalLsxeufdZPRUHQPOHSDP3915-36-49 08:31:00 Test Item Value Reference Range Interpretation Comments AGAP (test code = AGAP) 12.2 10.0-20.0 [facility] HospitalVzsjautFLRUBMYICNHC3028-53-51 08:31:00 Test Item Value Reference Range Interpretation Comments A/G Ratio (test code = A/G Ratio) 0.6 0.7-1.6 [facility] HospitalYzlqwlpKZRWEDXPBYSE7737-39-58 08:31:00 Test Item Value Reference Range Interpretation Comments Globulin (test code = Globulin) 3.6 2.0-4.0 [facility] HospitalQdkycvhMNZOUMATMAQF2370-28-08 08:31:00 Test Item Value Reference Range Interpretation Comments B/C Ratio (test code = B/C Ratio) 14 6-25 [facility] HospitalCfycycqHCSSEURWNXYT4313-99-17 08:31:00 Test Item Value Reference Range Interpretation Comments eGFR (test code = eGFR) 84 [facility] HospitalIxtifoeOYMVMSHZKZCT4628-43-03 08:31:00 Test Item Value Reference Range Interpretation Comments Bili Total (test code = Bili Total) 0.3 0.2-1.3 [facility] HospitalYrdfurnSIMYRLQNRLIP7448-41-03 08:31:00 Test Item Value Reference Range Interpretation Comments Alk Phos (test code = Alk Phos) 88 39-136 [facility] HospitalUkjwzauKDTVNNMLFYVF6996-62-45 08:31:00 Test Item Value Reference Range Interpretation Comments Albumin Lvl (test code = Albumin Lvl) 2.2 3.5-5.0 [facility] HospitalDzhcjzlTJTUDZVAOQPC3627-35-29 08:31:00 Test Item Value Reference Range Interpretation Comments Total Protein (test code = Total 5.8 6.4-8.4 Protein) [facility] HospitalJvkszeaTMVUGOMHQGZB3984-86-54 08:31:00 Test Item Value Reference Range Interpretation Comments AST (test code = AST) 17 See_Comment [Auto mated message] The system which ge nerated this result transmit hazel reference range : <=37. The reference range was not used to interpr et this result as kasey l/abnormal. [facility] HospitalVhmpohsHUWQHUEZITMI9291-02-89 08:31:00 Test Item Value Reference Range Interpretation Comments ALT (test code = ALT) 20 See_Comment [Auto mated message] The system which ge nerated this result transmit hazel reference range : <=65. The reference range was not used to interpr et this result as kasey l/abnormal. [facility] HospitalMhjsfkyOOQYFLIRDMUK2240-55-51 08:31:00 Test Item Value Reference Range Interpretation Comments Sodium Lvl (test code = Sodium Lvl) 138 135-145 [facility]NoqflmaVYNISFIOZJMO0843-77-09 08:31:00 Test Item Value Reference Range Interpretation Comments Creatinine Lvl (test code = Creatinine 1.0 0.5-1.4 Lvl) [facility] HospitalIckekypWTRAOPGAOSLL4531-36-99 08:31:00 Test Item Value Reference Range Interpretation Comments Calcium Lvl (test code = Calcium Lvl) 8.5 8.5-10.5 [facility] HospitalMeyuozaYCIACYKUQEDD4162-20-88 08:31:00 Test Item Value Reference Range Interpretation Comments CO2 (test code = CO2) 25 24-32 [facility] HospitalGwilfwwUSHSIYBRGPHC1575-42-84 08:31:00 Test Item Value Reference Range Interpretation Comments Chloride Lvl (test code = Chloride Lvl) 105 95-109 [facility] HospitalKcyieyeQKGPYRUQDJYR7996-29-20 08:31:00 Test Item Value Reference Range Interpretation Comments Potassium Lvl (test code = Potassium 4.2 3.5-5.1 Lvl) [facility] HospitalSsmrzfvDRFYQDDJUKSM3054-61-10 08:31:00 Test Item Value Reference Range Interpretation Comments BUN (test code = BUN) 14 7-22 [facility] HospitalSbmrwrjSMHJAGIGJTZX3496-28-77 08:31:00 Test Item Value Reference Range Interpretation Comments Glucose Lvl (test code = Glucose Lvl) 159 70-99 [facility] CenterZmmvcwfYDYJJZGWGY8978-31-43 08:31:00 Test Item Value Reference Range Interpretation Comments RBC Morph (test code = Normal (04/10/15 3:31 AM) RBC Morph) [facility] CenterPlnaiypUKTEKTYROW2124-75-26 08:31:00 Test Item Value Reference Range Interpretation Comments Plt Morph (test code = Normal (04/10/15 3:31 AM) Plt Morph) [facility] CenterIvytvozMKDXNLPUHS6522-67-15 08:31:00 Test Item Value Reference Range Interpretation Comments Metamyelocytes (test code 3.0 See_Comment [ Automated message] = Metamyelocytes) The system which generated this result transmitted ref erence range: <=1.0. T he reference range was not used to int erpret this result as normal/abnormal . [facility] CenterXeluicbJLXVIKJJWX4800-89-02 08:31:00 Test Item Value Reference Range Interpretation Comments Atypical Lymphs (test code = Atypical 0.0 Lymphs) [facility] CenterTwzjtauEOHMVMTHWC2529-60-12 08:31:00 Test Item Value Reference Range Interpretation Comments Monocytes (test code = Monocytes) 8.0 2.0-12.0 [place] 558395-06-09 08:31:00 Test Item Value Reference Range Interpretation Comments Lymphocytes (test code = Lymphocytes) 2.0 20.0-40.0 [facility] CenterYxshoeeTOHMKULBTQ3480-29-97 08:31:00 Test Item Value Reference Range Interpretation Comments Monocytes # (test code 2.5 See_Comment [Aut omated message] The = Monocytes #) system which generated this result tra nsmitted reference range : <=0.8. The reference r marce was not used to int erpret this result as normal/abnormal . [facility] CenterNlrtzgcHPRCAQKAZO2793-31-56 08:31:00 Test Item Value Reference Range Interpretation Comments Lymphocytes # (test code = Lymphocytes 0.6 1.0-5.5 #) [facility] CenterJvjxedsQHNRTVVRYQ8892-87-45 08:31:00 Test Item Value Reference Range Interpretation Comments Segs-Bands # (test code = Segs-Bands #) 27.3 1.5-8.1 [facility] CenterRbboyonNISGNEAJDS3045-38-74 08:31:00 Test Item Value Reference Range Interpretation Comments Bands (test code = 6.0 See_Comment [Automat ed message] The Bands) system which ge nerated this result transmit hazel reference range : <=11.0. The reference r marce was not used to interpr et this result as kasey l/abnormal. [facility] CenterNihlvxgAEYOVGLPIQ3154-13-52 08:31:00 Test Item Value Reference Range Interpretation Comments Segs (test code = Segs) 81.0 45.0-75.0 [facility] CenterIovcavsFSXAJPWSGV2094-35-38 08:31:00 Test Item Value Reference Range Interpretation Comments MPV (test code = MPV) 7.4 7.4-10.4 [facility] CenterTwjthowZPNHUTOKSV2501-52-16 08:31:00 Test Item Value Reference Range Interpretation Comments Hct (test code = Hct) 33.3 42.0-54.0 [facility] CenterVjlsnunKMMANMHVCK6197-56-06 08:31:00 Test Item Value Reference Range Interpretation Comments Platelet (test code = Platelet) 227 133-450 [facility] CenterShsburjEMBXDKKESQ4934-98-67 08:31:00 Test Item Value Reference Range Interpretation Comments Hgb (test code = Hgb) 11.3 14.0-18.0 [facility] CenterLzwlevfLYJUQBYEQG5523-45-85 08:31:00 Test Item Value Reference Range Interpretation Comments RBC (test code = RBC) 3.71 4.70-6.10 [facility] CenterPkvkshzNWXQUYXBFU4764-04-65 08:31:00 Test Item Value Reference Range Interpretation Comments WBC (test code = WBC) 31.4 3.7-10.4 [facility] CenterXrdypueJLJEJDSLBF3934-20-90 08:31:00 Test Item Value Reference Range Interpretation Comments MCH (test code = MCH) 30.4 pg 27.0-31.0 [facility] CenterSsrxglhFZSVSLCTBW8530-19-57 08:31:00 Test Item Value Reference Range Interpretation Comments MCHC (test code = MCHC) 33.9 32.0-36.0 [facility] CenterJmatesmUNHQUNWBOY2527-62-76 08:31:00 Test Item Value Reference Range Interpretation Comments MCV (test code = MCV) 89.7 80.0-94.0 [facility] CenterRuviwbiTRVCUDMYCD3602-09-25 08:31:00 Test Item Value Reference Range Interpretation Comments RDW (test code = RDW) 15.6 11.5-14.5 [facility] CenterHykwhzuFXRJNAMSNS9401-66-11 08:31:00 Test Item Value Reference Range Interpretation Comments PTT (test code = PTT) 66.8 s 22.9-35.8 [facility] CenterZsfoctaWSFNCDZPPKQI6769-07-86 08:31:00 Test Item Value Reference Range Interpretation Comments AGAP (test code = AGAP) 12.2 10.0-20.0 [facility] HospitalOaqdhukZYYVTMRIBGCN6791-09-60 08:31:00 Test Item Value Reference Range Interpretation Comments A/G Ratio (test code = A/G Ratio) 0.6 0.7-1.6 [facility] HospitalMnxgqavJFLEMUKBCJMV1398-42-47 08:31:00 Test Item Value Reference Range Interpretation Comments Globulin (test code = Globulin) 3.6 2.0-4.0 [facility] HospitalVbtrmfiFWGEUFBZWXVI9132-08-40 08:31:00 Test Item Value Reference Range Interpretation Comments B/C Ratio (test code = B/C Ratio) 14 6-25 [facility] HospitalXygiodkHHNSXUTORRLF6608-01-21 08:31:00 Test Item Value Reference Range Interpretation Comments eGFR (test code = eGFR) 84 [facility] HospitalHobxyglQYTTNYUPEVZV4598-11-12 08:31:00 Test Item Value Reference Range Interpretation Comments Bili Total (test code = Bili Total) 0.3 0.2-1.3 [facility] HospitalCxhofxyCHVKBHDASNMK6663-76-65 08:31:00 Test Item Value Reference Range Interpretation Comments Alk Phos (test code = Alk Phos) 88 39-136 [facility] HospitalFqkwzsfLJESMLBQNBNE8607-63-81 08:31:00 Test Item Value Reference Range Interpretation Comments Albumin Lvl (test code = Albumin Lvl) 2.2 3.5-5.0 [facility] HospitalRtyzyxeMCHNMOOKQNXH4386-35-36 08:31:00 Test Item Value Reference Range Interpretation Comments Total Protein (test code = Total 5.8 6.4-8.4 Protein) [facility] HospitalJmwyvqiDCBXITMYJGGB7896-26-22 08:31:00 Test Item Value Reference Range Interpretation Comments AST (test code = AST) 17 See_Comment [Auto mated message] The system which ge nerated this result transmit hazel reference range : <=37. The reference range was not used to interpr et this result as kasey l/abnormal. [facility] [facility]ppceomATDUOOJBORVF5786-93-56 08:31:00 Test Item Value Reference Range Interpretation Comments ALT (test code = ALT) 20 See_Comment [Auto mated message] The system which ge nerated this result transmit hazel reference range : <=65. The reference range was not used to interpr et this result as kasey l/abnormal. [facility] HospitalCfbzjdzFXCVLDWLQIDO0874-89-51 08:31:00 Test Item Value Reference Range Interpretation Comments Sodium Lvl (test code = Sodium Lvl) 138 135-145 [facility] HospitalKzvdpwjIVXUYWFSXTNP2301-29-98 08:31:00 Test Item Value Reference Range Interpretation Comments Creatinine Lvl (test code = Creatinine 1.0 0.5-1.4 Lvl) [facility] HospitalGyyerjhZIXGGNBEAQYS8752-87-52 08:31:00 Test Item Value Reference Range Interpretation Comments Calcium Lvl (test code = Calcium Lvl) 8.5 8.5-10.5 [facility] HospitalAdhxxxyLXNKGYRRSZXT1502-98-62 08:31:00 Test Item Value Reference Range Interpretation Comments CO2 (test code = CO2) 25 24-32 [facility] HospitalLvqfepjFIAGQCOMXBZX9575-82-35 08:31:00 Test Item Value Reference Range Interpretation Comments Chloride Lvl (test code = Chloride Lvl) 105 95-109 [facility] HospitalSepuzefROFWCLJGUIKW1854-06-42 08:31:00 Test Item Value Reference Range Interpretation Comments Potassium Lvl (test code = Potassium 4.2 3.5-5.1 Lvl) [facility] HospitalIbcaacnPACMNXDSOIYZ9966-69-67 08:31:00 Test Item Value Reference Range Interpretation Comments BUN (test code = BUN) 14 7-22 [facility] HospitalYtgiaiaUMRXKTFXFQKM5935-86-58 08:31:00 Test Item Value Reference Range Interpretation Comments Glucose Lvl (test code = Glucose Lvl) 159 70-99 [facility] CenterNdmpmjzIFUROJHGHK0014-36-13 08:31:00 Test Item Value Reference Range Interpretation Comments RBC Morph (test code = Normal (04/10/15 3:31 AM) RBC Morph) [facility] CenterMlmgqoyUUFBLMBAEO8972-87-09 08:31:00 Test Item Value Reference Range Interpretation Comments Plt Morph (test code = Normal (04/10/15 3:31 AM) Plt Morph) [facility] CenterBizpddkEYMXAQWGBP5241-19-88 08:31:00 Test Item Value Reference Range Interpretation Comments Metamyelocytes (test code 3.0 See_Comment [ Automated message] = Metamyelocytes) The system which generated this result transmitted ref erence range: <=1.0. T he reference range was not used to int erpret this result as normal/abnormal . [facility] CenterWcwsozxRYBEIINRUW2798-94-94 08:31:00 Test Item Value Reference Range Interpretation Comments Atypical Lymphs (test code = Atypical 0.0 Lymphs) [facility] CenterAenapxgDDGNTVPTQU1539-88-30 08:31:00 Test Item Value Reference Range Interpretation Comments Monocytes (test code = Monocytes) 8.0 2.0-12.0 [place] 558395-06-09 08:31:00 Test Item Value Reference Range Interpretation Comments Lymphocytes (test code = Lymphocytes) 2.0 20.0-40.0 [facility] CenterAuxolifJDMTKDTHPC6449-64-69 08:31:00 Test Item Value Reference Range Interpretation Comments Monocytes # (test code 2.5 See_Comment [Aut omated message] The = Monocytes #) system which generated this result tra nsmitted reference range : <=0.8. The reference r marce was not used to int erpret this result as normal/abnormal . [facility] CenterSrrnkdkTZSOAFGGJF6024-86-03 08:31:00 Test Item Value Reference Range Interpretation Comments Lymphocytes # (test code = Lymphocytes 0.6 1.0-5.5 #) [facility] CenterQaecjmtSTTBVALXHI4592-71-55 08:31:00 Test Item Value Reference Range Interpretation Comments Segs-Bands # (test code = Segs-Bands #) 27.3 1.5-8.1 [facility] CenterHifndrnDUWGTMVRPH6344-90-82 08:31:00 Test Item Value Reference Range Interpretation Comments Bands (test code = 6.0 See_Comment [Automat ed message] The Bands) system which ge nerated this result transmit hazel reference range : <=11.0. The reference r marce was not used to interpr et this result as kasey l/abnormal. [facility] CenterOemvrqgPGQOUKMOEA5334-50-63 08:31:00 Test Item Value Reference Range Interpretation Comments Segs (test code = Segs) 81.0 45.0-75.0 [facility] CenterTvtktgoDVOQJICSNC2046-29-60 08:31:00 Test Item Value Reference Range Interpretation Comments MPV (test code = MPV) 7.4 7.4-10.4 [facility] CenterTttroxpEYLWMFSVIC1181-24-39 08:31:00 Test Item Value Reference Range Interpretation Comments Hct (test code = Hct) 33.3 42.0-54.0 [facility] CenterPzgnyvsBNDEZBPWVO4341-09-49 08:31:00 Test Item Value Reference Range Interpretation Comments Platelet (test code = Platelet) 227 133-450 [facility] CenterMezrvkaONJNPDFYVK9043-16-73 08:31:00 Test Item Value Reference Range Interpretation Comments Hgb (test code = Hgb) 11.3 14.0-18.0 [facility] CenterZcsngmkUWXZCWMXHS8731-93-02 08:31:00 Test Item Value Reference Range Interpretation Comments RBC (test code = RBC) 3.71 4.70-6.10 [facility] CenterOvizpmgJSJCHOPCUY5042-95-94 08:31:00 Test Item Value Reference Range Interpretation Comments WBC (test code = WBC) 31.4 3.7-10.4 [facility] CenterAqjwpfzWNSRXUAPUB2737-99-14 08:31:00 Test Item Value Reference Range Interpretation Comments MCH (test code = MCH) 30.4 pg 27.0-31.0 [facility] CenterVyhvxnaJADJTKJIUA2658-81-65 08:31:00 Test Item Value Reference Range Interpretation Comments MCHC (test code = MCHC) 33.9 32.0-36.0 [facility] CenterGhiiqrjIJZQUHYJKF1323-20-33 08:31:00 Test Item Value Reference Range Interpretation Comments MCV (test code = MCV) 89.7 80.0-94.0 [facility] CenterWpuurttPTSHNCOAKT6595-05-55 08:31:00 Test Item Value Reference Range Interpretation Comments RDW (test code = RDW) 15.6 11.5-14.5 [facility] CenterTiijfcyIEUHGUBLSM2860-17-63 08:31:00 Test Item Value Reference Range Interpretation Comments PTT (test code = PTT) 66.8 s 22.9-35.8 [facility] HospitalQsxkiztAATATVQSEQRA8333-21-54 08:31:00 Test Item Value Reference Range Interpretation Comments AGAP (test code = AGAP) 12.2 10.0-20.0 [facility] HospitalLlagvkmOSRIGRWOZFSU1786-25-15 08:31:00 Test Item Value Reference Range Interpretation Comments A/G Ratio (test code = A/G Ratio) 0.6 0.7-1.6 [facility] HospitalRlhlpxyOQVONBBGARGP6513-09-01 08:31:00 Test Item Value Reference Range Interpretation Comments Globulin (test code = Globulin) 3.6 2.0-4.0 [facility] HospitalKfuhzgmNMTCKZEEONOX2032-36-28 08:31:00 Test Item Value Reference Range Interpretation Comments B/C Ratio (test code = B/C Ratio) 14 6-25 [facility] HospitalNcwzidzMADBRHGKITQL9634-96-80 08:31:00 Test Item Value Reference Range Interpretation Comments eGFR (test code = eGFR) 84 [facility] HospitalAczntslYVQPTTITRJMD0969-25-01 08:31:00 Test Item Value Reference Range Interpretation Comments Bili Total (test code = Bili Total) 0.3 0.2-1.3 [facility] HospitalMzkazswKSIFCHURTAGD1514-97-35 08:31:00 Test Item Value Reference Range Interpretation Comments Alk Phos (test code = Alk Phos) 88 39-136 [facility] HospitalRupwtspZRLVKMUMQFLR8132-91-11 08:31:00 Test Item Value Reference Range Interpretation Comments Albumin Lvl (test code = Albumin Lvl) 2.2 3.5-5.0 [facility] HospitalVfuxwnqPKALZSBQEMOC3669-66-85 08:31:00 Test Item Value Reference Range Interpretation Comments Total Protein (test code = Total 5.8 6.4-8.4 Protein) [facility] HospitalMninsxmVBGQIGOKFMHT2543-76-03 08:31:00 Test Item Value Reference Range Interpretation Comments AST (test code = AST) 17 See_Comment [Auto mated message] The system which ge nerated this result transmit hazel reference range : <=37. The reference range was not used to interpr et this result as kasey l/abnormal. [facility] HospitalYovwygaAJFRFYSXHYOC4749-40-68 08:31:00 Test Item Value Reference Range Interpretation Comments ALT (test code = ALT) 20 See_Comment [Auto mated message] The system which ge nerated this result transmit hazel reference range : <=65. The reference range was not used to interpr et this result as kasey l/abnormal. [facility] HospitalNmxjrrcDSRJQTOJAZCH0266-88-19 08:31:00 Test Item Value Reference Range Interpretation Comments Sodium Lvl (test code = Sodium Lvl) 138 135-145 [facility] HospitalJrlybdrFGYORJGROFLM1978-60-64 08:31:00 Test Item Value Reference Range Interpretation Comments Creatinine Lvl (test code = Creatinine 1.0 0.5-1.4 Lvl) [facility] HospitalOvikzbySAQENDORAJMM6500-96-74 08:31:00 Test Item Value Reference Range Interpretation Comments Calcium Lvl (test code = Calcium Lvl) 8.5 8.5-10.5 [facility] HospitalYmwedsvIDPVIQLFOFXZ1138-30-24 08:31:00 Test Item Value Reference Range Interpretation Comments CO2 (test code = CO2) 25 24-32 [facility] HospitalPojjgcaJSCAPIOPMEGF8024-53-04 08:31:00 Test Item Value Reference Range Interpretation Comments Chloride Lvl (test code = Chloride Lvl) 105 95-109 [facility] HospitalBydaslvRYUQJOFSUFWX5198-71-62 08:31:00 Test Item Value Reference Range Interpretation Comments Potassium Lvl (test code = Potassium 4.2 3.5-5.1 Lvl) [facility] HospitalNmedkyyQCUUNQVEFAJW3712-82-83 08:31:00 Test Item Value Reference Range Interpretation Comments BUN (test code = BUN) 14 7-22 [facility] HospitalBburjiaGAOLJCKRITHV9594-91-19 08:31:00 Test Item Value Reference Range Interpretation Comments Glucose Lvl (test code = Glucose Lvl) 159 70-99 [facility] CenterLjiwbyqPDPVSZSRIL8798-50-93 08:31:00 Test Item Value Reference Range Interpretation Comments RBC Morph (test code = Normal (04/10/15 3:31 AM) RBC Morph) [facility] CenterJoboejbESLXMAYCHW7546-21-21 08:31:00 Test Item Value Reference Range Interpretation Comments Plt Morph (test code = Normal (04/10/15 3:31 AM) Plt Morph) [facility] CenterNnduljwSMLTIAGZGY4556-95-63 08:31:00 Test Item Value Reference Range Interpretation Comments Metamyelocytes (test code 3.0 See_Comment [ Automated message] = Metamyelocytes) The system which generated this result transmitted ref erence range: <=1.0. T he reference range was not used to int erpret this result as normal/abnormal . [facility] CenterUbatbgoJKFXGGNHYR7384-43-77 08:31:00 Test Item Value Reference Range Interpretation Comments Atypical Lymphs (test code = Atypical 0.0 Lymphs) [facility] CenterMjojxgwJEOZEJENJO9802-01-68 08:31:00 Test Item Value Reference Range Interpretation Comments Monocytes (test code = Monocytes) 8.0 2.0-12.0 [facility] CenterAgfirkeLAMCEHJBUR5946-24-11 08:31:00 Test Item Value Reference Range Interpretation Comments Lymphocytes (test code = Lymphocytes) 2.0 20.0-40.0 [facility] CenterCvssffuGNVGPZTAJR6060-00-88 08:31:00 Test Item Value Reference Range Interpretation Comments Monocytes # (test code 2.5 See_Comment [Aut omated message] The = Monocytes #) system which generated this result tra nsmitted reference range : <=0.8. The reference r marce was not used to int erpret this result as normal/abnormal . [facility] CenterNpmzmfhIDQFXMOYAI1841-57-70 08:31:00 Test Item Value Reference Range Interpretation Comments Lymphocytes # (test code = Lymphocytes 0.6 1.0-5.5 #) [facility] CenterOwrkmpkPHYVXXEPCY5378-37-13 08:31:00 Test Item Value Reference Range Interpretation Comments Segs-Bands # (test code = Segs-Bands #) 27.3 1.5-8.1 [facility] CenterPikynttZVXTMEUQTX3388-96-95 08:31:00 Test Item Value Reference Range Interpretation Comments Bands (test code = 6.0 See_Comment [Automat ed message] The Bands) system which ge nerated this result transmit hazel reference range : <=11.0. The reference r marce was not used to interpr et this result as kasey l/abnormal. [facility] CenterJzkmvkjNVZTQXPNUD6202-32-65 08:31:00 Test Item Value Reference Range Interpretation Comments Segs (test code = Segs) 81.0 45.0-75.0 [facility] CenterHwvudwoTTMLKPDECB2722-23-72 08:31:00 Test Item Value Reference Range Interpretation Comments MPV (test code = MPV) 7.4 7.4-10.4 [facility] CenterZfwomzfYNGTGKPMNM5475-65-78 08:31:00 Test Item Value Reference Range Interpretation Comments Hct (test code = Hct) 33.3 42.0-54.0 [facility] CenterWohzlvtMQKYIZBRLO9945-71-48 08:31:00 Test Item Value Reference Range Interpretation Comments Platelet (test code = Platelet) 227 133-450 [facility] CenterOarydcrWEDPIKRSUK8841-96-13 08:31:00 Test Item Value Reference Range Interpretation Comments Hgb (test code = Hgb) 11.3 14.0-18.0 [facility] CenterZwzqvxoFMHXUCNPMM6988-82-90 08:31:00 Test Item Value Reference Range Interpretation Comments RBC (test code = RBC) 3.71 4.70-6.10 [facility] CenterZbdfzjfDWFGYPBXFZ9588-59-69 08:31:00 Test Item Value Reference Range Interpretation Comments WBC (test code = WBC) 31.4 3.7-10.4 [facility] CenterIvixecoYQXVJSXUUB5413-60-67 08:31:00 Test Item Value Reference Range Interpretation Comments MCH (test code = MCH) 30.4 pg 27.0-31.0 [facility] CenterTvhnquhSWBYCTRTJJ3452-85-31 08:31:00 Test Item Value Reference Range Interpretation Comments MCHC (test code = MCHC) 33.9 32.0-36.0 [facility] CenterHzfljbhRPEOZPBFTN8394-58-20 08:31:00 Test Item Value Reference Range Interpretation Comments MCV (test code = MCV) 89.7 80.0-94.0 [facility] CenterUsiuxtnBKZGGLNQGD7463-24-82 08:31:00 Test Item Value Reference Range Interpretation Comments RDW (test code = RDW) 15.6 11.5-14.5 [facility] CenterHbddffwEDLHHKAYUW0232-65-25 08:31:00 Test Item Value Reference Range Interpretation Comments PTT (test code = PTT) 66.8 s 22.9-35.8 [facility] HospitalRysdhpqMOYQEXPUZUGB0217-03-00 08:31:00 Test Item Value Reference Range Interpretation Comments AGAP (test code = AGAP) 12.2 10.0-20.0 [facility] HospitalAzkxiqdKXRLBPLEVPMA4894-55-67 08:31:00 Test Item Value Reference Range Interpretation Comments A/G Ratio (test code = A/G Ratio) 0.6 0.7-1.6 [facility] HospitalKuhqarcLOWCEELLQHBT0703-33-30 08:31:00 Test Item Value Reference Range Interpretation Comments Globulin (test code = Globulin) 3.6 2.0-4.0 [facility] HospitalVfpbcosJUHQEHFABQYZ7715-96-42 08:31:00 Test Item Value Reference Range Interpretation Comments B/C Ratio (test code = B/C Ratio) 14 6-25 [facility] HospitalCztxnouTUCAWJXYZGCB8391-02-05 08:31:00 Test Item Value Reference Range Interpretation Comments eGFR (test code = eGFR) 84 [facility] HospitalLfrcvyiUVCHMIPMTJYB6758-66-29 08:31:00 Test Item Value Reference Range Interpretation Comments Bili Total (test code = Bili Total) 0.3 0.2-1.3 [facility] HospitalJghddnxEGDJZHTGHXSK0250-83-06 08:31:00 Test Item Value Reference Range Interpretation Comments AGAP (test code = AGAP) 12.2 10.0-20.0 [facility] HospitalRzhylckDPKAMNMQHEKN8727-17-84 08:31:00 Test Item Value Reference Range Interpretation Comments Alk Phos (test code = Alk Phos) 88 39-136 [facility] HospitalXyvsgrmQVLNHCVCQVBA4515-02-93 08:31:00 Test Item Value Reference Range Interpretation Comments Albumin Lvl (test code = Albumin Lvl) 2.2 3.5-5.0 [facility] HospitalCstkdagNLWXCEJGNIPH8353-83-26 08:31:00 Test Item Value Reference Range Interpretation Comments Total Protein (test code = Total 5.8 6.4-8.4 Protein) [facility] HospitalFryatsdOFBHOBQIZPGL9252-01-45 08:31:00 Test Item Value Reference Range Interpretation Comments AST (test code = AST) 17 See_Comment [Auto mated message] The system which ge nerated this result transmit hazel reference range : <=37. The reference range was not used to interpr et this result as kasey l/abnormal. [facility] HospitalMdfzeylYMAHLRQINHNU8182-13-15 08:31:00 Test Item Value Reference Range Interpretation Comments ALT (test code = ALT) 20 See_Comment [Auto mated message] The system which ge nerated this result transmit hazel reference range : <=65. The reference range was not used to interpr et this result as kasey l/abnormal. [facility] HospitalIvewjsjENFVRUTUNXSM0562-06-31 08:31:00 Test Item Value Reference Range Interpretation Comments Sodium Lvl (test code = Sodium Lvl) 138 135-145 [facility] HospitalMjwxxwzVLDQONGSEFKR5291-12-49 08:31:00 Test Item Value Reference Range Interpretation Comments Creatinine Lvl (test code = Creatinine 1.0 0.5-1.4 Lvl) [facility] HospitalUhnkrolLUHPFCOIWRFC2077-65-72 08:31:00 Test Item Value Reference Range Interpretation Comments Calcium Lvl (test code = Calcium Lvl) 8.5 8.5-10.5 [facility] HospitalCamjgctNYRJRCMXPMLI9608-51-75 08:31:00 Test Item Value Reference Range Interpretation Comments CO2 (test code = CO2) 25 24-32 [facility] HospitalAeitquuYDJJLHAHXSHF1880-01-57 08:31:00 Test Item Value Reference Range Interpretation Comments Chloride Lvl (test code = Chloride Lvl) 105 95-109 [facility] HospitalQsnzptzNLZYMFMRSJAO3110-45-94 08:31:00 Test Item Value Reference Range Interpretation Comments A/G Ratio (test code = A/G Ratio) 0.6 0.7-1.6 [facility] HospitalKgvywzsCQDIODCDBQAX7000-75-65 08:31:00 Test Item Value Reference Range Interpretation Comments Potassium Lvl (test code = Potassium 4.2 3.5-5.1 Lvl) [facility] HospitalLwxzsszMEOCVJWFYUBU6991-52-61 08:31:00 Test Item Value Reference Range Interpretation Comments BUN (test code = BUN) 14 7-22 [facility] HospitalWhppsigLJKQLPFWOFYR4932-16-13 08:31:00 Test Item Value Reference Range Interpretation Comments Glucose Lvl (test code = Glucose Lvl) 159 70-99 [facility] CenterDayiujuPKKRVQZGWL1245-88-87 08:31:00 Test Item Value Reference Range Interpretation Comments RBC Morph (test code = Normal (04/10/15 3:31 AM) RBC Morph) [facility] CenterSucktlkMAYDIQJXKL5978-88-12 08:31:00 Test Item Value Reference Range Interpretation Comments Plt Morph (test code = Normal (04/10/15 3:31 AM) Plt Morph) [facility] CenterYbzmfgvHSKLIWKJYZ4984-63-61 08:31:00 Test Item Value Reference Range Interpretation Comments Metamyelocytes (test code 3.0 See_Comment [ Automated message] = Metamyelocytes) The system which generated this result transmitted ref erence range: <=1.0. T he reference range was not used to int erpret this result as normal/abnormal . [facility] CenterRlslodgCNGIRNALDV5909-69-38 08:31:00 Test Item Value Reference Range Interpretation Comments Atypical Lymphs (test code = Atypical 0.0 Lymphs) [facility] CenterOuwqermONAIUHYBWN2411-33-18 08:31:00 Test Item Value Reference Range Interpretation Comments Monocytes (test code = Monocytes) 8.0 2.0-12.0 [facility] CenterTxfemmkHYOCQKQUPM9267-20-09 08:31:00 Test Item Value Reference Range Interpretation Comments Lymphocytes (test code = Lymphocytes) 2.0 20.0-40.0 [facility] CenterFuvzdlyVJGNWBNDAN5758-01-72 08:31:00 Test Item Value Reference Range Interpretation Comments Monocytes # (test code 2.5 See_Comment [Aut omated message] The = Monocytes #) system which generated this result tra nsmitted reference range : <=0.8. The reference r marec was not used to int erpret this result as normal/abnormal . [facility]OzevpqtSRHMLZDORKDM2062-69-75 08:31:00 Test Item Value Reference Range Interpretation Comments Globulin (test code = Globulin) 3.6 2.0-4.0 [facility] CenterYgsbeuuZHYEVGPUGC1241-44-91 08:31:00 Test Item Value Reference Range Interpretation Comments Lymphocytes # (test code = Lymphocytes 0.6 1.0-5.5 #) [facility] CenterMchuojbUEYEVPTHAC7094-89-94 08:31:00 Test Item Value Reference Range Interpretation Comments Segs-Bands # (test code = Segs-Bands #) 27.3 1.5-8.1 [facility] CenterIloxlmsZWXMSGUMYF7975-98-00 08:31:00 Test Item Value Reference Range Interpretation Comments Bands (test code = 6.0 See_Comment [Automat ed message] The Bands) system which ge nerated this result transmit hazel reference range : <=11.0. The reference r marce was not used to interpr et this result as kasey l/abnormal. [facility] CenterNxbtzhqEVEUXRJWZF7016-71-91 08:31:00 Test Item Value Reference Range Interpretation Comments Segs (test code = Segs) 81.0 45.0-75.0 [facility] CenterUohlmzeVAMWHTJQBC8555-19-38 08:31:00 Test Item Value Reference Range Interpretation Comments MPV (test code = MPV) 7.4 7.4-10.4 [facility] CenterSqiibjtBTHJFWZGDI2957-61-41 08:31:00 Test Item Value Reference Range Interpretation Comments Hct (test code = Hct) 33.3 42.0-54.0 [facility] CenterTygeydvMLPQAQJXAO1874-32-36 08:31:00 Test Item Value Reference Range Interpretation Comments Platelet (test code = Platelet) 227 133-450 [facility] CenterAinjxgdUDDNSXVHWC2079-45-33 08:31:00 Test Item Value Reference Range Interpretation Comments Hgb (test code = Hgb) 11.3 14.0-18.0 [facility] CenterAwupvmwLFBRCJFBVX5151-70-84 08:31:00 Test Item Value Reference Range Interpretation Comments RBC (test code = RBC) 3.71 4.70-6.10 [facility] CenterPcjdadhGUPVXKIJMY3411-22-93 08:31:00 Test Item Value Reference Range Interpretation Comments WBC (test code = WBC) 31.4 3.7-10.4 [facility] HospitalOgtjfnaHFVTZFGQZJLW5521-68-51 08:31:00 Test Item Value Reference Range Interpretation Comments B/C Ratio (test code = B/C Ratio) 14 6-25 [facility] CenterSuqbezxCHGHWRKQGS5794-10-48 08:31:00 Test Item Value Reference Range Interpretation Comments MCH (test code = MCH) 30.4 pg 27.0-31.0 [facility] CenterWeexoyhGTCJCIVDMB4698-22-18 08:31:00 Test Item Value Reference Range Interpretation Comments MCHC (test code = MCHC) 33.9 32.0-36.0 [facility] CenterTmvrrnvQWIDOSUNVP5174-33-21 08:31:00 Test Item Value Reference Range Interpretation Comments MCV (test code = MCV) 89.7 80.0-94.0 [facility] CenterOndxasxPZOABBPKLO2660-18-73 08:31:00 Test Item Value Reference Range Interpretation Comments RDW (test code = RDW) 15.6 11.5-14.5 [facility] CenterVrbkdrpHXNPUMQGTR1162-36-12 08:31:00 Test Item Value Reference Range Interpretation Comments PTT (test code = PTT) 66.8 s 22.9-35.8 [facility] HospitalMpuiitwKALTCGWVWFLT9104-19-16 08:31:00 Test Item Value Reference Range Interpretation Comments eGFR (test code = eGFR) 84 [facility] HospitalLrpooduAYXWJOLNGAHD4932-68-57 08:31:00 Test Item Value Reference Range Interpretation Comments Bili Total (test code = Bili Total) 0.3 0.2-1.3 [facility] HospitalNqiejspTTQZVIZDTFBG4516-13-79 08:31:00 Test Item Value Reference Range Interpretation Comments Alk Phos (test code = Alk Phos) 88 39-136 [facility] HospitalFumhmqqYYSWVXIPHOMG8572-39-74 08:31:00 Test Item Value Reference Range Interpretation Comments Albumin Lvl (test code = Albumin Lvl) 2.2 3.5-5.0 [facility] HospitalPclhpzrLIYTTNKPBRGM1311-19-89 08:31:00 Test Item Value Reference Range Interpretation Comments Total Protein (test code = Total 5.8 6.4-8.4 Protein) [facility] HospitalSphpythWEVQNFDVEODT1228-16-04 08:31:00 Test Item Value Reference Range Interpretation Comments AST (test code = AST) 17 See_Comment [Auto mated message] The system which ge nerated this result transmit hazel reference range : <=37. The reference range was not used to interpr et this result as kasey l/abnormal. [facility] HospitalBxzbpnlDWYFEXNEKSOU6508-77-05 08:31:00 Test Item Value Reference Range Interpretation Comments ALT (test code = ALT) 20 See_Comment [Auto mated message] The system which ge nerated this result transmit hazel reference range : <=65. The reference range was not used to interpr et this result as kasey l/abnormal. [facility] HospitalZfbroanTPZFEQBTDKMS2649-44-36 08:31:00 Test Item Value Reference Range Interpretation Comments Sodium Lvl (test code = Sodium Lvl) 138 135-145 [facility] HospitalPlfenpkUFZKCBDBOLHW1146-76-78 08:31:00 Test Item Value Reference Range Interpretation Comments Creatinine Lvl (test code = Creatinine 1.0 0.5-1.4 Lvl) [facility] HospitalZgbhywzKGABAMYHVLPX4776-52-00 08:31:00 Test Item Value Reference Range Interpretation Comments Calcium Lvl (test code = Calcium Lvl) 8.5 8.5-10.5 [facility] HospitalUxgjrswFGINKRAEPRYU4648-92-22 08:31:00 Test Item Value Reference Range Interpretation Comments CO2 (test code = CO2) 25 24-32 [facility] HospitalRpqcjwxVSBZWMVJFMEN2391-11-74 08:31:00 Test Item Value Reference Range Interpretation Comments Chloride Lvl (test code = Chloride Lvl) 105 95-109 [facility]BehxuvjNJDYJRMNOOVR6341-69-43 08:31:00 Test Item Value Reference Range Interpretation Comments Potassium Lvl (test code = Potassium 4.2 3.5-5.1 Lvl) [facility] HospitalYuyheacEYNAHFMILNKC6174-88-51 08:31:00 Test Item Value Reference Range Interpretation Comments BUN (test code = BUN) 14 7-22 [facility] HospitalFqlmdjqXMAOSQWUJSCV0989-98-27 08:31:00 Test Item Value Reference Range Interpretation Comments AGAP (test code = AGAP) 12.2 10.0-20.0 [facility] HospitalHcifxxsVJWMDSNFIPTA1358-75-67 08:31:00 Test Item Value Reference Range Interpretation Comments Glucose Lvl (test code = Glucose Lvl) 159 70-99 [facility] HospitalMsvaquyGWFGVBPDKPUW1723-95-74 08:31:00 Test Item Value Reference Range Interpretation Comments A/G Ratio (test code = A/G Ratio) 0.6 0.7-1.6 [facility] HospitalHogwotyIKBRWICVNEXN2824-62-86 08:31:00 Test Item Value Reference Range Interpretation Comments Globulin (test code = Globulin) 3.6 2.0-4.0 [facility] HospitalVkrbnmeFGJKMHCOOHEA4848-12-31 08:31:00 Test Item Value Reference Range Interpretation Comments B/C Ratio (test code = B/C Ratio) 14 6-25 [facility] HospitalYbapmrjUGLSXOYGOLVZ0361-71-81 08:31:00 Test Item Value Reference Range Interpretation Comments eGFR (test code = eGFR) 84 [facility] HospitalDzmigsjNIQBEGGQHXQF6446-97-30 08:31:00 Test Item Value Reference Range Interpretation Comments Bili Total (test code = Bili Total) 0.3 0.2-1.3 [facility] HospitalMiqrpzqPDVVYJZUTSXQ3683-39-00 08:31:00 Test Item Value Reference Range Interpretation Comments Alk Phos (test code = Alk Phos) 88 39-136 [facility] HospitalQsjztmzPURFOKJCLCGW0651-63-94 08:31:00 Test Item Value Reference Range Interpretation Comments Albumin Lvl (test code = Albumin Lvl) 2.2 3.5-5.0 [facility] HospitalVtykobfZAHXMGHBTJSP2680-82-80 08:31:00 Test Item Value Reference Range Interpretation Comments Total Protein (test code = Total 5.8 6.4-8.4 Protein) [facility] HospitalNubmbemUXIRXUVKQOTD7017-85-14 08:31:00 Test Item Value Reference Range Interpretation Comments AST (test code = AST) 17 See_Comment [Auto mated message] The system which ge nerated this result transmit hazel reference range : <=37. The reference range was not used to interpr et this result as kasey l/abnormal. [facility] HospitalTbftscbKTJIBETBMFOI0951-44-62 08:31:00 Test Item Value Reference Range Interpretation Comments ALT (test code = ALT) 20 See_Comment [Auto mated message] The system which ge nerated this result transmit hazel reference range : <=65. The reference range was not used to interpr et this result as kasey l/abnormal. [facility]OvxlicxEKWNQVHRTG3842-64-94 08:31:00 Test Item Value Reference Range Interpretation Comments RBC Morph (test code = Normal (04/10/15 3:31 AM) RBC Morph) [facility] HospitalTjnfeqrQRCUEFGOMLCL9960-03-54 08:31:00 Test Item Value Reference Range Interpretation Comments Sodium Lvl (test code = Sodium Lvl) 138 135-145 [facility] HospitalHjdhrhzFGGJFHONEOCK0112-69-90 08:31:00 Test Item Value Reference Range Interpretation Comments Creatinine Lvl (test code = Creatinine 1.0 0.5-1.4 Lvl) [facility] HospitalVfkmxgnINORJDZCKAMV4168-28-90 08:31:00 Test Item Value Reference Range Interpretation Comments Calcium Lvl (test code = Calcium Lvl) 8.5 8.5-10.5 [facility] HospitalMhmdcfdHRYHTYYKBDKK2984-91-63 08:31:00 Test Item Value Reference Range Interpretation Comments CO2 (test code = CO2) 25 24-32 [facility] HospitalJejgtaxMACSCOZCXMTC1469-99-89 08:31:00 Test Item Value Reference Range Interpretation Comments Chloride Lvl (test code = Chloride Lvl) 105 95-109 [facility] HospitalIexgrrpXEEUKOTKXQJE3418-93-00 08:31:00 Test Item Value Reference Range Interpretation Comments Potassium Lvl (test code = Potassium 4.2 3.5-5.1 Lvl) [facility] HospitalZfmysqpVPZEPSWKNSZI5659-01-38 08:31:00 Test Item Value Reference Range Interpretation Comments BUN (test code = BUN) 14 7-22 [facility] HospitalFsrigjaRUEFKBDGQLUH7538-33-76 08:31:00 Test Item Value Reference Range Interpretation Comments Glucose Lvl (test code = Glucose Lvl) 159 70-99 [facility] CenterBtmlxgjZQYRGPSCDH4782-27-71 08:31:00 Test Item Value Reference Range Interpretation Comments RBC Morph (test code = Normal (04/10/15 3:31 AM) RBC Morph) [facility] CenterPpklubyIGICHKXPRD8874-87-39 08:31:00 Test Item Value Reference Range Interpretation Comments Plt Morph (test code = Normal (04/10/15 3:31 AM) Plt Morph) [facility] CenterYnafalrPLBHMEDNCH5099-76-10 08:31:00 Test Item Value Reference Range Interpretation Comments Plt Morph (test code = Normal (04/10/15 3:31 AM) Plt Morph) [facility] CenterBspchklIKYNVYDCIN3464-75-59 08:31:00 Test Item Value Reference Range Interpretation Comments Metamyelocytes (test code 3.0 See_Comment [ Automated message] = Metamyelocytes) The system which generated this result transmitted ref erence range: <=1.0. T he reference range was not used to int erpret this result as normal/abnormal . [facility] CenterUqqobiwMUHTIONFMR0800-61-93 08:31:00 Test Item Value Reference Range Interpretation Comments Atypical Lymphs (test code = Atypical 0.0 Lymphs) [facility] CenterBdlqewfROVZVTQMQM5171-36-30 08:31:00 Test Item Value Reference Range Interpretation Comments Monocytes (test code = Monocytes) 8.0 2.0-12.0 [facility] CenterGgvmwytRBKRRYALJD8361-51-08 08:31:00 Test Item Value Reference Range Interpretation Comments Lymphocytes (test code = Lymphocytes) 2.0 20.0-40.0 [facility] CenterEniygheESYGWKWPMA9582-32-03 08:31:00 Test Item Value Reference Range Interpretation Comments Monocytes # (test code 2.5 See_Comment [Aut omated message] The = Monocytes #) system which generated this result tra nsmitted reference range : <=0.8. The reference r marce was not used to int erpret this result as normal/abnormal . [facility] CenterQmedkmaHMYSDGQYUY1277-58-59 08:31:00 Test Item Value Reference Range Interpretation Comments Lymphocytes # (test code = Lymphocytes 0.6 1.0-5.5 #) [facility] CenterOezygnfMSOGVPMRMQ1215-70-18 08:31:00 Test Item Value Reference Range Interpretation Comments Segs-Bands # (test code = Segs-Bands #) 27.3 1.5-8.1 [facility] CenterZyyyeycJPRVFTRIRK9908-84-44 08:31:00 Test Item Value Reference Range Interpretation Comments Bands (test code = 6.0 See_Comment [Automat ed message] The Bands) system which ge nerated this result transmit hazel reference range : <=11.0. The reference r marce was not used to interpr et this result as kasey l/abnormal. [facility] CenterUboeszhQJZSFZCDIW8633-50-53 08:31:00 Test Item Value Reference Range Interpretation Comments Segs (test code = Segs) 81.0 45.0-75.0 [facility] CenterAkooxdxBGBHFMYUND2438-98-08 08:31:00 Test Item Value Reference Range Interpretation Comments MPV (test code = MPV) 7.4 7.4-10.4 [facility] CenterXqbzgzxFCFCBNTHYM5407-83-33 08:31:00 Test Item Value Reference Range Interpretation Comments Metamyelocytes (test code 3.0 See_Comment [ Automated message] = Metamyelocytes) The system which generated this result transmitted ref erence range: <=1.0. T he reference range was not used to int erpret this result as normal/abnormal . [facility] CenterMacomraYHCMZCMJRM2504-54-92 08:31:00 Test Item Value Reference Range Interpretation Comments Hct (test code = Hct) 33.3 42.0-54.0 [facility] CenterHldavolQCVBQWIYZC8840-43-55 08:31:00 Test Item Value Reference Range Interpretation Comments Platelet (test code = Platelet) 227 133-450 [facility] CenterCytsgajOHZDZXWTCW7589-23-47 08:31:00 Test Item Value Reference Range Interpretation Comments Hgb (test code = Hgb) 11.3 14.0-18.0 [facility] CenterCgcaikfHEGHJYVWGG9351-80-84 08:31:00 Test Item Value Reference Range Interpretation Comments RBC (test code = RBC) 3.71 4.70-6.10 [facility] CenterOvlfauvCNIHBCOVJD1756-91-93 08:31:00 Test Item Value Reference Range Interpretation Comments WBC (test code = WBC) 31.4 3.7-10.4 [facility] CenterRxxtvhlABEKFCRWXW7611-65-09 08:31:00 Test Item Value Reference Range Interpretation Comments MCH (test code = MCH) 30.4 pg 27.0-31.0 [facility] CenterMbqwwovTZKYKZKKBM2481-72-20 08:31:00 Test Item Value Reference Range Interpretation Comments MCHC (test code = MCHC) 33.9 32.0-36.0 [facility] CenterWvpdoyfRFGXCYBBBB6061-69-04 08:31:00 Test Item Value Reference Range Interpretation Comments MCV (test code = MCV) 89.7 80.0-94.0 [facility] CenterTdkmiseTKYILOQEGS2590-64-30 08:31:00 Test Item Value Reference Range Interpretation Comments RDW (test code = RDW) 15.6 11.5-14.5 [facility] CenterTeliudrQISWUEJERA1356-19-99 08:31:00 Test Item Value Reference Range Interpretation Comments PTT (test code = PTT) 66.8 s 22.9-35.8 [facility] CenterAtmankuZCXEFCSIJU8188-54-54 08:31:00 Test Item Value Reference Range Interpretation Comments Atypical Lymphs (test code = Atypical 0.0 Lymphs) [facility] CenterCpfhujzWKEGXRFSIQ8688-43-74 08:31:00 Test Item Value Reference Range Interpretation Comments Monocytes (test code = Monocytes) 8.0 2.0-12.0 [place] 558395-06-09 08:31:00 Test Item Value Reference Range Interpretation Comments Lymphocytes (test code = Lymphocytes) 2.0 20.0-40.0 [facility] CenterOtqwfqsXLSKAVYCSX9450-86-08 08:31:00 Test Item Value Reference Range Interpretation Comments Monocytes # (test code 2.5 See_Comment [Aut omated message] The = Monocytes #) system which generated this result tra nsmitted reference range : <=0.8. The reference r marce was not used to int erpret this result as normal/abnormal . [facility] CenterPwqcdbwDLUCPYLUTH8778-41-03 08:31:00 Test Item Value Reference Range Interpretation Comments Lymphocytes # (test code = Lymphocytes 0.6 1.0-5.5 #) [facility] CenterAdjlstmWKNZHMSLJL0121-60-99 08:31:00 Test Item Value Reference Range Interpretation Comments Segs-Bands # (test code = Segs-Bands #) 27.3 1.5-8.1 [facility] CenterPckhaleYAJMQGCIPA9824-36-77 08:31:00 Test Item Value Reference Range Interpretation Comments Bands (test code = 6.0 See_Comment [Automat ed message] The Bands) system which ge nerated this result transmit hazel reference range : <=11.0. The reference r marce was not used to interpr et this result as kasey l/abnormal. [facility] CenterBefnrrwOZVKSYPSFX8087-94-21 08:31:00 Test Item Value Reference Range Interpretation Comments Segs (test code = Segs) 81.0 45.0-75.0 [facility] CenterBebpwhrTZAGOJYWAX7974-56-34 08:31:00 Test Item Value Reference Range Interpretation Comments MPV (test code = MPV) 7.4 7.4-10.4 [facility] CenterKethyqgRPQZXSOFDP3974-49-38 08:31:00 Test Item Value Reference Range Interpretation Comments Hct (test code = Hct) 33.3 42.0-54.0 [facility] CenterBxnhygaPJUCDSFQKV8644-54-02 08:31:00 Test Item Value Reference Range Interpretation Comments Platelet (test code = Platelet) 227 133-450 [facility] CenterXkpqaytYAVCQOQFXE2247-24-09 08:31:00 Test Item Value Reference Range Interpretation Comments Hgb (test code = Hgb) 11.3 14.0-18.0 [facility] CenterRlazkyzQPSEXSCITI0166-98-04 08:31:00 Test Item Value Reference Range Interpretation Comments RBC (test code = RBC) 3.71 4.70-6.10 [facility] CenterXmwjizhAFAEGOCOLB4627-63-17 08:31:00 Test Item Value Reference Range Interpretation Comments WBC (test code = WBC) 31.4 3.7-10.4 [facility] CenterKvyqkspVSNCGRWABC7522-64-11 08:31:00 Test Item Value Reference Range Interpretation Comments MCH (test code = MCH) 30.4 pg 27.0-31.0 [facility] HospitalPmjhlrwGCQZWATAOAOM0996-56-93 08:31:00 Test Item Value Reference Range Interpretation Comments AGAP (test code = AGAP) 12.2 10.0-20.0 [facility] HospitalZhnnkbsTAVIYPXPNNCA5637-79-91 08:31:00 Test Item Value Reference Range Interpretation Comments A/G Ratio (test code = A/G Ratio) 0.6 0.7-1.6 [facility] HospitalUjowhlpQEWNRHRGLDDQ8568-53-42 08:31:00 Test Item Value Reference Range Interpretation Comments Globulin (test code = Globulin) 3.6 2.0-4.0 [facility] HospitalIitlzabYREQLPEQGVNS8827-84-54 08:31:00 Test Item Value Reference Range Interpretation Comments B/C Ratio (test code = B/C Ratio) 14 6-25 [facility] HospitalZnazimeHBBLHLQDAKUT5626-34-49 08:31:00 Test Item Value Reference Range Interpretation Comments eGFR (test code = eGFR) 84 [facility] HospitalAevmnyhMFWDCGWISDHF9732-92-04 08:31:00 Test Item Value Reference Range Interpretation Comments Bili Total (test code = Bili Total) 0.3 0.2-1.3 [facility] CenterVqykfctAUUIHGIDQM9230-96-67 08:31:00 Test Item Value Reference Range Interpretation Comments MCHC (test code = MCHC) 33.9 32.0-36.0 [facility] HospitalJgcxmhjEPVIZMSKYFQD4706-88-37 08:31:00 Test Item Value Reference Range Interpretation Comments Alk Phos (test code = Alk Phos) 88 39-136 [facility]ZnftepaAXKECVLJJXGP2192-17-95 08:31:00 Test Item Value Reference Range Interpretation Comments Albumin Lvl (test code = Albumin Lvl) 2.2 3.5-5.0 [facility] HospitalWytbwgpAXKYUEKMABUE8609-97-73 08:31:00 Test Item Value Reference Range Interpretation Comments Total Protein (test code = Total 5.8 6.4-8.4 Protein) [facility] HospitalWmvibxoWUBNXEDUCTGY7159-89-27 08:31:00 Test Item Value Reference Range Interpretation Comments AST (test code = AST) 17 See_Comment [Auto mated message] The system which ge nerated this result transmit hazel reference range : <=37. The reference range was not used to interpr et this result as kasey l/abnormal. [facility] HospitalQordfsdLGIMXTIIBWLD2820-28-76 08:31:00 Test Item Value Reference Range Interpretation Comments ALT (test code = ALT) 20 See_Comment [Auto mated message] The system which ge nerated this result transmit hazel reference range : <=65. The reference range was not used to interpr et this result as kasey l/abnormal. [facility] HospitalWkmwnkeLSZUIHQYPLQV0758-93-92 08:31:00 Test Item Value Reference Range Interpretation Comments Sodium Lvl (test code = Sodium Lvl) 138 135-145 [facility] HospitalIrraegdHGLXBMIUXTLU4206-49-41 08:31:00 Test Item Value Reference Range Interpretation Comments Creatinine Lvl (test code = Creatinine 1.0 0.5-1.4 Lvl) [facility] HospitalTladtqkAABSXBFLDDNU2178-61-11 08:31:00 Test Item Value Reference Range Interpretation Comments Calcium Lvl (test code = Calcium Lvl) 8.5 8.5-10.5 [facility] HospitalAfjtcbmCUEJLKEOFWEB8267-03-81 08:31:00 Test Item Value Reference Range Interpretation Comments CO2 (test code = CO2) 25 24-32 [facility] HospitalKpmuyseQCCROMKMGJIG8253-08-80 08:31:00 Test Item Value Reference Range Interpretation Comments Chloride Lvl (test code = Chloride Lvl) 105 95-109 [facility] HospitalLeqhtvuVCMSLUCOSW7839-92-49 08:31:00 Test Item Value Reference Range Interpretation Comments MCV (test code = MCV) 89.7 80.0-94.0 [facility]XtcsrqzPMUVNVXPTYAR3308-44-11 08:31:00 Test Item Value Reference Range Interpretation Comments Potassium Lvl (test code = Potassium 4.2 3.5-5.1 Lvl) [facility] HospitalYeffwuqSEOGOOXPONFK1924-09-77 08:31:00 Test Item Value Reference Range Interpretation Comments BUN (test code = BUN) 14 7-22 [facility] HospitalOgxlwrbRUANOSELGPPC8961-78-43 08:31:00 Test Item Value Reference Range Interpretation Comments Glucose Lvl (test code = Glucose Lvl) 159 70-99 [facility] CenterIpafxutLKUBTKVPFD5335-55-59 08:31:00 Test Item Value Reference Range Interpretation Comments RBC Morph (test code = Normal (04/10/15 3:31 AM) RBC Morph) [facility] CenterDptjbhhUJMUADWYAW6523-98-92 08:31:00 Test Item Value Reference Range Interpretation Comments Plt Morph (test code = Normal (04/10/15 3:31 AM) Plt Morph) [facility] CenterWehddrwDRXQXLVVZL7865-35-97 08:31:00 Test Item Value Reference Range Interpretation Comments Metamyelocytes (test code 3.0 See_Comment [ Automated message] = Metamyelocytes) The system which generated this result transmitted ref erence range: <=1.0. T he reference range was not used to int erpret this result as normal/abnormal . [facility] CenterJntbtliQLWFALDLPP8523-54-72 08:31:00 Test Item Value Reference Range Interpretation Comments Atypical Lymphs (test code = Atypical 0.0 Lymphs) [facility] CenterWwxjnfpPJZNIDZRRN7323-14-08 08:31:00 Test Item Value Reference Range Interpretation Comments Monocytes (test code = Monocytes) 8.0 2.0-12.0 [facility] CenterEcgrcmlEQUBCJRFDC7491-77-76 08:31:00 Test Item Value Reference Range Interpretation Comments Lymphocytes (test code = Lymphocytes) 2.0 20.0-40.0 [facility] CenterKukeycoNQTCKPGPSL1093-12-79 08:31:00 Test Item Value Reference Range Interpretation Comments Monocytes # (test code 2.5 See_Comment [Aut omated message] The = Monocytes #) system which generated this result tra nsmitted reference range : <=0.8. The reference r marce was not used to int erpret this result as normal/abnormal . [facility] CenterEzuwwfwBSDQCZDDGB6933-60-83 08:31:00 Test Item Value Reference Range Interpretation Comments RDW (test code = RDW) 15.6 11.5-14.5 [facility] CenterDbkbnrrUBLXOCYEAT5994-95-42 08:31:00 Test Item Value Reference Range Interpretation Comments Lymphocytes # (test code = Lymphocytes 0.6 1.0-5.5 #) [facility] CenterYcsksdcCRZMGFUBWC9920-33-09 08:31:00 Test Item Value Reference Range Interpretation Comments Segs-Bands # (test code = Segs-Bands #) 27.3 1.5-8.1 [facility] CenterMnmgsxuZBDJCIOSWU7881-13-54 08:31:00 Test Item Value Reference Range Interpretation Comments Bands (test code = 6.0 See_Comment [Automat ed message] The Bands) system which ge nerated this result transmit hazel reference range : <=11.0. The reference r marce was not used to interpr et this result as kasey l/abnormal. [facility] CenterNturmzdWEHTTULHFK9408-59-18 08:31:00 Test Item Value Reference Range Interpretation Comments Segs (test code = Segs) 81.0 45.0-75.0 [facility] CenterCvivhedQNOEBZEUGL0829-49-67 08:31:00 Test Item Value Reference Range Interpretation Comments MPV (test code = MPV) 7.4 7.4-10.4 [facility] CenterZdxzyouYOCZUHLZTO0761-32-79 08:31:00 Test Item Value Reference Range Interpretation Comments Hct (test code = Hct) 33.3 42.0-54.0 [facility] CenterOoiokreJSEXWPXDNC5071-07-75 08:31:00 Test Item Value Reference Range Interpretation Comments Platelet (test code = Platelet) 227 133-450 [facility] CenterLdachgtCAJNTFQLOF0461-28-87 08:31:00 Test Item Value Reference Range Interpretation Comments Hgb (test code = Hgb) 11.3 14.0-18.0 [facility] CenterBojaofwENTCGTHFLR2584-17-60 08:31:00 Test Item Value Reference Range Interpretation Comments RBC (test code = RBC) 3.71 4.70-6.10 [facility] CenterLebfkrqMBYQBROVFE7997-60-77 08:31:00 Test Item Value Reference Range Interpretation Comments WBC (test code = WBC) 31.4 3.7-10.4 [facility] CenterKnxphdbROXJIESNOV6796-28-03 08:31:00 Test Item Value Reference Range Interpretation Comments PTT (test code = PTT) 66.8 s 22.9-35.8 [facility] CenterEmxrgszIOOSPDMGOQ6856-80-57 08:31:00 Test Item Value Reference Range Interpretation Comments MCH (test code = MCH) 30.4 pg 27.0-31.0 [facility] CenterAdgfeavUWRGSKWKLP5915-65-86 08:31:00 Test Item Value Reference Range Interpretation Comments MCHC (test code = MCHC) 33.9 32.0-36.0 [facility] CenterBbfzefqLGOTNZVIEE0903-72-14 08:31:00 Test Item Value Reference Range Interpretation Comments MCV (test code = MCV) 89.7 80.0-94.0 [facility] CenterNalmkktLSIOTFPYMC4684-93-52 08:31:00 Test Item Value Reference Range Interpretation Comments RDW (test code = RDW) 15.6 11.5-14.5 [facility] CenterWnoyeikUXRWAKQHWS0892-55-92 08:31:00 Test Item Value Reference Range Interpretation Comments PTT (test code = PTT) 66.8 s 22.9-35.8 [place] 05703015-06-08 23:31:00 Test Item Value Reference Range Interpretation Comments Vanco Tr TND (test code = Vanco Tr TND) [facility]00 [facility]WkxuuyfVVGMJNWPXF0083-86-50 23:31:00 Test Item Value Reference Range Interpretation Comments Vanco Tr (test code = Vanco Tr) 9.2 [facility]LzpgcijWCVVYUNCCB1198-83-68 23:31:00 Test Item Value Reference Range Interpretation Comments Vanco Tr TND (test code = Vanco Tr TND) 1700 [facility] TaylorYxkgvkmXIMJVFCEBQ1596-29-02 23:31:00 Test Item Value Reference Range Interpretation Comments Vanco Tr (test code = Vanco Tr) 9.2 [facility] HospitalHvkcoevOXLARJJWZP0273-94-16 23:31:00 Test Item Value Reference Range Interpretation Comments Vanco Tr TND (test code = Vanco Tr TND) 1700 [facility]IuagcrgAAQNOWAKGG3195-03-18 23:31:00 Test Item Value Reference Range Interpretation Comments Vanco Tr (test code = Vanco Tr) 9.2 [facility] HospitalOsbbyyeLKALPVHEJA0075-72-26 23:31:00 Test Item Value Reference Range Interpretation Comments Vanco Tr TND (test code = Vanco Tr TND) 1700 [facility]YiimluzFDCRPKDPVP6926-88-60 23:31:00 Test Item Value Reference Range Interpretation Comments Vanco Tr (test code = Vanco Tr) 9.2 [facility] CenterXrcmcleSYBMVZRVLX4400-79-58 23:31:00 Test Item Value Reference Range Interpretation Comments Vanco Tr TND (test code = Vanco Tr TND) 170 [facility] CenterWvkwoixOFGOADTQZM9888-98-86 23:31:00 Test Item Value Reference Range Interpretation Comments Vanco Tr (test code = Vanco Tr) 9.2 [facility] CenterMtalbitPJQIOKYHKX0501-26-98 23:31:00 Test Item Value Reference Range Interpretation Comments Vanco Tr TND (test code = Vanco Tr TND) 170 [facility] TaylorNrflpmpHTNVTTDWIJ7391-63-60 23:31:00 Test Item Value Reference Range Interpretation Comments Vanco Tr (test code = Vanco Tr) 9.2 [facility] HospitalUvqdwjmJYYMXNXCZW8415-44-05 23:31:00 Test Item Value Reference Range Interpretation Comments Vanco Tr TND (test code = Vanco Tr TND) 170 [facility] HospitalHyrbhfsHCLOFDGABH6239-29-83 23:31:00 Test Item Value Reference Range Interpretation Comments Vanco Tr (test code = Vanco Tr) 9.2 [facility] HospitalAgrsgazPOCCASKYQT6236-24-88 23:31:00 Test Item Value Reference Range Interpretation Comments Vanco Tr TND (test code = Vanco Tr TND) 170 [facility] HospitalUdncxveDHLQIRKJUV9035-65-78 23:31:00 Test Item Value Reference Range Interpretation Comments Vanco Tr (test code = Vanco Tr) 9.2 [facility] CenterNztpppfOWYARGPIRP3111-76-17 23:31:00 Test Item Value Reference Range Interpretation Comments Vanco Tr TND (test code = Vanco Tr TND) 170 [facility] HospitalIqhknpgUYISOGPKSR3494-96-10 23:31:00 Test Item Value Reference Range Interpretation Comments Vanco Tr (test code = Vanco Tr) 9.2 [facility] HospitalSyqisgbKDVQHLZZRZ5217-41-35 23:31:00 Test Item Value Reference Range Interpretation Comments Vanco Tr TND (test code = Vanco Tr TND) 1700 [facility] TaylorJjokaucOBSGEEEUSQ3178-60-01 23:31:00 Test Item Value Reference Range Interpretation Comments Vanco Tr (test code = Vanco Tr) 9.2 [facility] HospitalGbohgcoCJOJIGHHVN8073-04-86 23:31:00 Test Item Value Reference Range Interpretation Comments Vanco Tr TND (test code = Vanco Tr TND) 1700 [facility] HospitalYtvecklDYZRADGRID1458-02-45 23:31:00 Test Item Value Reference Range Interpretation Comments Vanco Tr (test code = Vanco Tr) 9.2 [facility] CenterTwlmwwtTGZUWZQEPQ5335-62-35 13:55:00 Test Item Value Reference Range Interpretation Comments INR (test code = INR) 1.23 0.85-1.17 [facility] [facility]PeiitqzQFKVTTMKMM5357-48-35 13:55:00 Test Item Value Reference Range Interpretation Comments PT (test code = PT) 15.6 s 12.0-14.7 [facility] CenterTxlwplsSXVOJMTMKT0223-53-04 13:55:00 Test Item Value Reference Range Interpretation Comments PTT (test code = PTT) 71.6 s 22.9-35.8 [facility]VebajglTSXVITZNVH5913-92-35 13:55:00 Test Item Value Reference Range Interpretation Comments Vanco Tr TND (test code = Vanco Tr TND) 07:30 [place] [id number] 13:55:00 Test Item Value Reference Range Interpretation Comments Vanco Tr (test code = Vanco Tr) 12.4 [facility] CenterJbmkbzmYXRRPTGMSA1299-68-05 13:55:00 Test Item Value Reference Range Interpretation Comments INR (test code = INR) 1.23 0.85-1.17 [facility] CenterSanniohTQEWBULPYI8352-19-22 13:55:00 Test Item Value Reference Range Interpretation Comments PT (test code = PT) 15.6 s 12.0-14.7 [facility] CenterPzfsswyNCJSKLDCCM6247-31-01 13:55:00 Test Item Value Reference Range Interpretation Comments PTT (test code = PTT) 71.6 s 22.9-35.8 [facility] HospitalJuzksbkLJMOTXVKSR4478-14-25 13:55:00 Test Item Value Reference Range Interpretation Comments Vanco Tr TND (test code = Vanco Tr TND) 07:30 [place] [id number] 13:55:00 Test Item Value Reference Range Interpretation Comments Vanco Tr (test code = Vanco Tr) 12.4 [place] [id number] 13:55:00 Test Item Value Reference Range Interpretation Comments Vanco Tr (test code = Vanco Tr) 12.4 [facility] CenterYqcavztUFWRYNESQT0633-93-15 13:55:00 Test Item Value Reference Range Interpretation Comments INR (test code = INR) 1.23 0.85-1.17 [facility] CenterKktsqmhSVNXXGGUDF5984-39-18 13:55:00 Test Item Value Reference Range Interpretation Comments PT (test code = PT) 15.6 s 12.0-14.7 [facility] CenterUlxkhivMQBZPTBDHJ5279-19-34 13:55:00 Test Item Value Reference Range Interpretation Comments PTT (test code = PTT) 71.6 s 22.9-35.8 [place] [id number] 13:55:00 Test Item Value Reference Range Interpretation Comments Vanco Tr TND (test code = Vanco Tr TND) 07:30 [facility] CenterTdqfctaFSTXPOIZOR9391-17-19 13:55:00 Test Item Value Reference Range Interpretation Comments INR (test code = INR) 1.23 0.85-1.17 [facility] CenterCbyxiszXDDDCTRTMK8430-08-99 13:55:00 Test Item Value Reference Range Interpretation Comments PT (test code = PT) 15.6 s 12.0-14.7 [facility] CenterIuulnpqMFETVHJNOY3733-77-03 13:55:00 Test Item Value Reference Range Interpretation Comments PTT (test code = PTT) 71.6 s 22.9-35.8 [place] [id number] 13:55:00 Test Item Value Reference Range Interpretation Comments Vanco Tr TND (test code = Vanco Tr TND) 07:30 [place] [id number] 13:55:00 Test Item Value Reference Range Interpretation Comments Vanco Tr (test code = Vanco Tr) 12.4 [facility] CenterLactqckVJCSDUIHPL3243-47-14 13:55:00 Test Item Value Reference Range Interpretation Comments INR (test code = INR) 1.23 0.85-1.17 [facility] CenterLujgwfhAFVIWEJSCD8123-77-91 13:55:00 Test Item Value Reference Range Interpretation Comments PT (test code = PT) 15.6 s 12.0-14.7 [facility] CenterPoljahjJSTWQDIDGK4444-49-72 13:55:00 Test Item Value Reference Range Interpretation Comments PTT (test code = PTT) 71.6 s 22.9-35.8 [place] [id number] 13:55:00 Test Item Value Reference Range Interpretation Comments Vanco Tr TND (test code = Vanco Tr TND) 07:30 [place] [id number] 13:55:00 Test Item Value Reference Range Interpretation Comments Vanco Tr (test code = Vanco Tr) 12.4 [facility] CenterKusfmuwRBKXKPIHRP5539-17-73 13:55:00 Test Item Value Reference Range Interpretation Comments INR (test code = INR) 1.23 0.85-1.17 [facility] CenterDzowvpdTFZNSLFZWT6457-64-56 13:55:00 Test Item Value Reference Range Interpretation Comments PT (test code = PT) 15.6 s 12.0-14.7 [facility] CenterDkryngdLBCTAQEMGE6668-00-83 13:55:00 Test Item Value Reference Range Interpretation Comments PTT (test code = PTT) 71.6 s 22.9-35.8 [place] [id number] 13:55:00 Test Item Value Reference Range Interpretation Comments Vanco Tr TND (test code = Vanco Tr TND) 07:30 [place] [id number] 13:55:00 Test Item Value Reference Range Interpretation Comments Vanco Tr (test code = Vanco Tr) 12.4 [facility] CenterHgzydrgIFSCVAAJFV7888-91-07 13:55:00 Test Item Value Reference Range Interpretation Comments INR (test code = INR) 1.23 0.85-1.17 [facility] CenterOczvwfsLWZJEXRXKD3754-76-49 13:55:00 Test Item Value Reference Range Interpretation Comments PT (test code = PT) 15.6 s 12.0-14.7 [facility] CenterZtgzupxMVEUHAJWJK3529-07-95 13:55:00 Test Item Value Reference Range Interpretation Comments PTT (test code = PTT) 71.6 s 22.9-35.8 [place] [id number] 13:55:00 Test Item Value Reference Range Interpretation Comments Vanco Tr TND (test code = Vanco Tr TND) 07:30 [place] [id number] 13:55:00 Test Item Value Reference Range Interpretation Comments Vanco Tr (test code = Vanco Tr) 12.4 [facility] CenterAgokkmdWLRLWNQDWK8992-20-88 13:55:00 Test Item Value Reference Range Interpretation Comments INR (test code = INR) 1.23 0.85-1.17 [facility] CenterRfsweehMYORVEPOCU7492-55-00 13:55:00 Test Item Value Reference Range Interpretation Comments PT (test code = PT) 15.6 s 12.0-14.7 [facility] CenterZooefjoZWCYCOTCQV4058-58-10 13:55:00 Test Item Value Reference Range Interpretation Comments PTT (test code = PTT) 71.6 s 22.9-35.8 [place] [id number] 13:55:00 Test Item Value Reference Range Interpretation Comments Vanco Tr TND (test code = Vanco Tr TND) 07:30 [place] 05703015-06-08 13:55:00 Test Item Value Reference Range Interpretation Comments Vanco Tr (test code = Vanco Tr) 12.4 [facility] CenterTlqefnqUBCUHZTAYB3655-53-82 13:55:00 Test Item Value Reference Range Interpretation Comments INR (test code = INR) 1.23 0.85-1.17 [facility] CenterPqisetrSXLXMFHZCG1975-61-00 13:55:00 Test Item Value Reference Range Interpretation Comments PT (test code = PT) 15.6 s 12.0-14.7 [facility] CenterOpsrbxgNWFWFTCQSA0717-37-21 13:55:00 Test Item Value Reference Range Interpretation Comments PTT (test code = PTT) 71.6 s 22.9-35.8 [place] 05703015-06-08 13:55:00 Test Item Value Reference Range Interpretation Comments Vanco Tr TND (test code = Vanco Tr TND) 07:30 [place] 05703015-06-08 13:55:00 Test Item Value Reference Range Interpretation Comments Vanco Tr (test code = Vanco Tr) 12.4 [facility] CenterKpgtmsqPDGUYFOTVK8615-23-70 13:55:00 Test Item Value Reference Range Interpretation Comments INR (test code = INR) 1.23 0.85-1.17 [facility] CenterSnhpcydCRCONPMQCK3768-17-00 13:55:00 Test Item Value Reference Range Interpretation Comments PT (test code = PT) 15.6 s 12.0-14.7 [facility] CenterJbhylliBKBDKFWTGF7247-69-27 13:55:00 Test Item Value Reference Range Interpretation Comments PTT (test code = PTT) 71.6 s 22.9-35.8 [place] [id number] 13:55:00 Test Item Value Reference Range Interpretation Comments Vanco Tr TND (test code = Vanco Tr TND) 07:30 [place] [id number] 13:55:00 Test Item Value Reference Range Interpretation Comments Vanco Tr (test code = Vanco Tr) 12.4 [facility] CenterTfrbidkMRMXWCUXHJ0247-86-17 13:55:00 Test Item Value Reference Range Interpretation Comments INR (test code = INR) 1.23 0.85-1.17 [facility] CenterVjjgmhoOAIOAATXLX0575-56-91 13:55:00 Test Item Value Reference Range Interpretation Comments PT (test code = PT) 15.6 s 12.0-14.7 [facility] CenterRznsglqOKSOYTHDQH8662-12-26 13:55:00 Test Item Value Reference Range Interpretation Comments PTT (test code = PTT) 71.6 s 22.9-35.8 [place] 05703015-06-08 13:55:00 Test Item Value Reference Range Interpretation Comments Vanco Tr TND (test code = Vanco Tr TND) 07:30 [place] [id number] 13:55:00 Test Item Value Reference Range Interpretation Comments Vanco Tr (test code = Vanco Tr) 12.4 [facility]SK [facility] MIZKN8480-30-91 07:19:00 Test Item Value Reference Range Interpretation Comments eGFR (test code = eGFR) 75 [facility] OHSES2527-04-41 07:19:00 Test Item Value Reference Range Interpretation Comments Bili Total (test code = Bili Total) 0.5 0.2-1.3 [facility] FYYSW9390-24-78 07:19:00 Test Item Value Reference Range Interpretation Comments Alk Phos (test code = Alk Phos) 109 39-136 [facility]VoyageByMeDU[facility] UNIVERS[facility] HOSPITALPCQRN1724-48-59 07:19:00 Test Item Value Reference Range Interpretation Comments ALT (test code = ALT) 18 See_Comment [Auto mated message] The system which ge nerated this result transmit hazel reference range : <=65. The reference range was not used to interpr et this result as kasey l/abnormal. [facility] CenterVoyageByMeDUKE UNIVERSITY HOSPITALTTGCI1859-52-96 07:19:00 Test Item Value Reference Range Interpretation Comments AST (test code = AST) 13 See_Comment [Auto mated message] The system which ge nerated this result transmit hazel reference range : <=37. The reference range was not used to interpr et this result as kasey l/abnormal. [facility] CenterOutline App [id number] 07:19:00 Test Item Value Reference Range Interpretation Comments Total Protein (test code = Total 6.4 6.4-8.4 Protein) [facility]2015-06-08 07:19:00 Test Item Value Reference Range Interpretation Comments Albumin Lvl (test code = Albumin Lvl) 2.5 3.5-5.0 [facility] CenterVoyageByMeDUKE UNIVERS[facility] HOSPITALXKBDP5169-92-21 07:19:00 Test Item Value Reference Range Interpretation Comments Chloride Lvl (test code = Chloride Lvl) 103 95-109 [facility] CenterOut[facility] [id number] 07:19:00 Test Item Value Reference Range Interpretation Comments CO2 (test code = CO2) 27 24-32 [facility] CenterVoyageByMeDUKE UNIVERSITY HOSPITALZYCLW7631-47-30 07:19:00 Test Item Value Reference Range Interpretation Comments Calcium Lvl (test code = Calcium Lvl) 8.5 8.5-10.5 [facility] [id number] 07:19:00 Test Item Value Reference Range Interpretation Comments BUN (test code = BUN) 13 7-22 [facility] CenterVoyageByMeDU[facility] UNIVERSITY HOSPITALSHESH1633-56-11 07:19:00 Test Item Value Reference Range Interpretation Comments Glucose Lvl (test code = Glucose Lvl) 165 70-99 [facility]2015-06-08 07:19:00 Test Item Value Reference Range Interpretation Comments Creatinine Lvl (test code = Creatinine 1.1 0.5-1.4 Lvl) [facility] CenterVoyageByMeDUKE UNIVERSITY HOSPITALCVSFF8269-70-45 07:19:00 Test Item Value Reference Range Interpretation Comments Potassium Lvl (test code = Potassium 3.9 3.5-5.1 Lvl) [facility]2015-06-08 07:19:00 Test Item Value Reference Range Interpretation Comments Sodium Lvl (test code = Sodium Lvl) 140 135-145 [facility] CenterBwncwmmUKDCGHJNSI4549-20-06 07:19:00 Test Item Value Reference Range Interpretation Comments Atypical Lymphs (test code = Atypical 0.0 Lymphs) [facility] CenterZtzhbmxGQBJEMYLTF5179-54-95 07:19:00 Test Item Value Reference Range Interpretation Comments Polychrom (test code = Polychrom) Slight [facility] CenterAkfcdcvZEFMPSVYVA7455-53-09 07:19:00 Test Item Value Reference Range Interpretation Comments Segs-Bands # (test code = Segs-Bands #) 26.2 1.5-8.1 [facility] CenterJydilqbCJTGPQDBLO6441-55-38 07:19:00 Test Item Value Reference Range Interpretation Comments Myelocytes (test code = Myelocytes) 2.0 [facility] CenterVljvdwaTMVCHDAWEP9146-84-24 07:19:00 Test Item Value Reference Range Interpretation Comments Metamyelocytes (test code 4.0 See_Comment [ Automated message] = Metamyelocytes) The system which generated this result transmitted ref erence range: <=1.0. T he reference range was not used to int erpret this result as normal/abnormal . [facility] CenterTafxrdcVRLVETJOKM9747-50-95 07:19:00 Test Item Value Reference Range Interpretation Comments Lymphocytes # (test code = Lymphocytes 1.7 1.0-5.5 #) [facility] CenterIpokrpfPCKBSRJJVZ5420-59-94 07:19:00 Test Item Value Reference Range Interpretation Comments Monocytes (test code = Monocytes) 12.0 2.0-12.0 [facility] CenterEstruhuTOLWMLPEBJ2295-37-06 07:19:00 Test Item Value Reference Range Interpretation Comments Lymphocytes (test code = Lymphocytes) 5.0 20.0-40.0 [facility] CenterHelweboIJKMLUIFMJ2191-29-43 07:19:00 Test Item Value Reference Range Interpretation Comments Bands (test code = 3.0 See_Comment [Automat ed message] The Bands) system which ge nerated this result transmit hazel reference range : <=11.0. The reference r marce was not used to interpr et this result as kasey l/abnormal. [facility] CenterVwfmlzdVHRIFSTBLF6666-47-12 07:19:00 Test Item Value Reference Range Interpretation Comments Segs (test code = Segs) 74.0 45.0-75.0 [facility] CenterOpjxxkbUZJLHMWORV4258-09-83 07:19:00 Test Item Value Reference Range Interpretation Comments Monocytes # (test code 4.1 See_Comment [Aut omated message] The = Monocytes #) system which generated this result tra nsmitted reference range : <=0.8. The reference r marce was not used to int erpret this result as normal/abnormal . [facility] CenterHrewbxoPNIFHQPZTU4208-14-27 07:19:00 Test Item Value Reference Range Interpretation Comments PTT (test code = PTT) 85.8 s 22.9-35.8 [facility] CenterGkchihsRNXZXRCSGQ4722-14-95 07:19:00 Test Item Value Reference Range Interpretation Comments MCV (test code = MCV) 89.5 80.0-94.0 [facility] CenterNogbprhVKLTRHPDGY5823-71-82 07:19:00 Test Item Value Reference Range Interpretation Comments RBC (test code = RBC) 3.70 4.70-6.10 [facility] CenterEfhgbatQKJMZFTZQP9786-07-06 07:19:00 Test Item Value Reference Range Interpretation Comments Hct (test code = Hct) 33.1 42.0-54.0 [facility] CenterZxfedvjGQBXOTWBSN0858-26-51 07:19:00 Test Item Value Reference Range Interpretation Comments WBC (test code = WBC) 34.0 3.7-10.4 [facility] CenterZxvzxddPEVADJRDAN2874-45-51 07:19:00 Test Item Value Reference Range Interpretation Comments Hgb (test code = Hgb) 11.2 14.0-18.0 [facility] CenterPikebfmVNDIBIPDKZ3283-99-17 07:19:00 Test Item Value Reference Range Interpretation Comments MPV (test code = MPV) 7.4 7.4-10.4 [facility] CenterWafbcnqWELJTBLDHL4779-35-87 07:19:00 Test Item Value Reference Range Interpretation Comments MCH (test code = MCH) 30.3 pg 27.0-31.0 [facility] CenterTcylgzjIFUZETTEUT9161-77-92 07:19:00 Test Item Value Reference Range Interpretation Comments MCHC (test code = MCHC) 33.9 32.0-36.0 [facility] CenterShjlmflPPKAUAIYBO1795-95-30 07:19:00 Test Item Value Reference Range Interpretation Comments RDW (test code = RDW) 15.6 11.5-14.5 [facility] CenterQnnibnwCMHASTLGJQ7526-55-65 07:19:00 Test Item Value Reference Range Interpretation Comments Platelet (test code = Platelet) 244 133-450 [facility]2015-06-08 07:19:00 Test Item Value Reference Range Interpretation Comments Globulin (test code = Globulin) 3.9 2.0-4.0 [facility]2015-06-08 07:19:00 Test Item Value Reference Range Interpretation Comments AGAP (test code = AGAP) 13.9 10.0-20.0 [facility]2015-06-08 07:19:00 Test Item Value Reference Range Interpretation Comments B/C Ratio (test code = B/C Ratio) 12 6-25 [facility]2015-06-08 07:19:00 Test Item Value Reference Range Interpretation Comments A/G Ratio (test code = A/G Ratio) 0.6 0.7-1.6 [place] 319495-06-08 07:19:00 Test Item Value Reference Range Interpretation Comments eGFR (test code = eGFR) 75 [facility]2015-06-08 07:19:00 Test Item Value Reference Range Interpretation Comments Bili Total (test code = Bili Total) 0.5 0.2-1.3 [facility]2015-06-08 07:19:00 Test Item Value Reference Range Interpretation Comments Alk Phos (test code = Alk Phos) 109 39-136 [facility]2015-06-08 07:19:00 Test Item Value Reference Range Interpretation Comments ALT (test code = ALT) 18 See_Comment [Auto mated message] The system which ge nerated this result transmit hazel reference range : <=65. The reference range was not used to interpr et this result as kasey l/abnormal. [place] 319495-06-08 07:19:00 Test Item Value Reference Range Interpretation Comments AST (test code = AST) 13 See_Comment [Auto mated message] The system which ge nerated this result transmit hazel reference range : <=37. The reference range was not used to interpr et this result as kasey l/abnormal. [place] 319495-06-08 07:19:00 Test Item Value Reference Range Interpretation Comments Total Protein (test code = Total 6.4 6.4-8.4 Protein) [facility]2015-06-08 07:19:00 Test Item Value Reference Range Interpretation Comments Albumin Lvl (test code = Albumin Lvl) 2.5 3.5-5.0 [facility]2015-06-08 07:19:00 Test Item Value Reference Range Interpretation Comments Chloride Lvl (test code = Chloride Lvl) 103 95-109 [facility]2015-06-08 07:19:00 Test Item Value Reference Range Interpretation Comments CO2 (test code = CO2) 27 24-32 [facility]2015-06-08 07:19:00 Test Item Value Reference Range Interpretation Comments Calcium Lvl (test code = Calcium Lvl) 8.5 8.5-10.5 [facility]2015-06-08 07:19:00 Test Item Value Reference Range Interpretation Comments BUN (test code = BUN) 13 7-22 [facility]2015-06-08 07:19:00 Test Item Value Reference Range Interpretation Comments Glucose Lvl (test code = Glucose Lvl) 165 70-99 [facility]2015-06-08 07:19:00 Test Item Value Reference Range Interpretation Comments Creatinine Lvl (test code = Creatinine 1.1 0.5-1.4 Lvl) [facility]2015-06-08 07:19:00 Test Item Value Reference Range Interpretation Comments Potassium Lvl (test code = Potassium 3.9 3.5-5.1 Lvl) [facility]2015-06-08 07:19:00 Test Item Value Reference Range Interpretation Comments Sodium Lvl (test code = Sodium Lvl) 140 135-145 [facility] CenterOlunsjqZCEOPIVQLE2191-75-69 07:19:00 Test Item Value Reference Range Interpretation Comments Atypical Lymphs (test code = Atypical 0.0 Lymphs) [facility] CenterIhhbfrfHLYWTGWDHT4239-56-51 07:19:00 Test Item Value Reference Range Interpretation Comments Polychrom (test code = Polychrom) Slight [facility] CenterRwtklemDFIAYSEILN8736-25-81 07:19:00 Test Item Value Reference Range Interpretation Comments Segs-Bands # (test code = Segs-Bands #) 26.2 1.5-8.1 [facility] CenterFrfanbcQZQYKZKHSV9884-37-64 07:19:00 Test Item Value Reference Range Interpretation Comments Myelocytes (test code = Myelocytes) 2.0 [facility] CenterGhpyiogFGPBVLOTTO5999-41-73 07:19:00 Test Item Value Reference Range Interpretation Comments Metamyelocytes (test code 4.0 See_Comment [ Automated message] = Metamyelocytes) The system which generated this result transmitted ref erence range: <=1.0. T he reference range was not used to int erpret this result as normal/abnormal . [facility] CenterFpcaudmGMVJDJZKTS4933-68-14 07:19:00 Test Item Value Reference Range Interpretation Comments Lymphocytes # (test code = Lymphocytes 1.7 1.0-5.5 #) [facility] CenterOkanoapPMMHRUCDGI5785-59-10 07:19:00 Test Item Value Reference Range Interpretation Comments Monocytes (test code = Monocytes) 12.0 2.0-12.0 [facility] CenterFajxdjtFDQFRGXNAJ4157-29-26 07:19:00 Test Item Value Reference Range Interpretation Comments Lymphocytes (test code = Lymphocytes) 5.0 20.0-40.0 [facility] CenterFdwwjklBFRQLRWAZO1845-46-21 07:19:00 Test Item Value Reference Range Interpretation Comments Bands (test code = 3.0 See_Comment [Automat ed message] The Bands) system which ge nerated this result transmit hazel reference range : <=11.0. The reference r marce was not used to interpr et this result as kasey l/abnormal. [facility] CenterLoupacsWOQCMMPBSK8100-47-62 07:19:00 Test Item Value Reference Range Interpretation Comments Segs (test code = Segs) 74.0 45.0-75.0 [facility] CenterGtpizhoCRGWEORGPE9464-27-13 07:19:00 Test Item Value Reference Range Interpretation Comments Monocytes # (test code 4.1 See_Comment [Aut omated message] The = Monocytes #) system which generated this result tra nsmitted reference range : <=0.8. The reference r marce was not used to int erpret this result as normal/abnormal . [facility] CenterJdwwtmfKABSIDGWAE5857-06-76 07:19:00 Test Item Value Reference Range Interpretation Comments PTT (test code = PTT) 85.8 s 22.9-35.8 [facility] CenterCwcsoqbFTLUKRYBJF9794-07-98 07:19:00 Test Item Value Reference Range Interpretation Comments MCV (test code = MCV) 89.5 80.0-94.0 [facility] CenterTvuducgDSXJRJUPOS7385-77-77 07:19:00 Test Item Value Reference Range Interpretation Comments RBC (test code = RBC) 3.70 4.70-6.10 [facility] CenterHwbyktkQRYAFADLFO9306-79-19 07:19:00 Test Item Value Reference Range Interpretation Comments Hct (test code = Hct) 33.1 42.0-54.0 [facility] CenterUhesyaaXQEYECOLMP6727-87-30 07:19:00 Test Item Value Reference Range Interpretation Comments WBC (test code = WBC) 34.0 3.7-10.4 [facility] CenterAfnoufkNESTFSXELC5777-94-45 07:19:00 Test Item Value Reference Range Interpretation Comments Hgb (test code = Hgb) 11.2 14.0-18.0 [facility] CenterOrmyenxGBKIUKMPEV7157-83-83 07:19:00 Test Item Value Reference Range Interpretation Comments MPV (test code = MPV) 7.4 7.4-10.4 [facility] CenterBdkovuyAKBDOZFAWA2710-12-67 07:19:00 Test Item Value Reference Range Interpretation Comments MCH (test code = MCH) 30.3 pg 27.0-31.0 [facility] CenterIiuzwlcASRKLMKPHF0988-21-06 07:19:00 Test Item Value Reference Range Interpretation Comments MCHC (test code = MCHC) 33.9 32.0-36.0 [facility] CenterGifunzwVWXUFOEGKO2376-84-60 07:19:00 Test Item Value Reference Range Interpretation Comments RDW (test code = RDW) 15.6 11.5-14.5 [facility] CenterCyuqxyjRCMUKWOYIE4544-71-53 07:19:00 Test Item Value Reference Range Interpretation Comments Platelet (test code = Platelet) 244 133-450 [facility]CHEM [id number] 07:19:00 Test Item Value Reference Range Interpretation Comments Globulin (test code = Globulin) 3.9 2.0-4.0 [facility] HospitalCHEM UUNEU1745-41-77 07:19:00 Test Item Value Reference Range Interpretation Comments AGAP (test code = AGAP) 13.9 10.0-20.0 [facility] HospitalCHEM JFWLI0048-88-10 07:19:00 Test Item Value Reference Range Interpretation Comments B/C Ratio (test code = B/C Ratio) 12 - [facility]2015-06-08 07:19:00 Test Item Value Reference Range Interpretation Comments A/G Ratio (test code = A/G Ratio) 0.6 0.7-1.6 [facility]2015-06-08 07:19:00 Test Item Value Reference Range Interpretation Comments eGFR (test code = eGFR) 75 [facility]2015-06-08 07:19:00 Test Item Value Reference Range Interpretation Comments Bili Total (test code = Bili Total) 0.5 0.2-1.3 [facility]2015-06-08 07:19:00 Test Item Value Reference Range Interpretation Comments Globulin (test code = Globulin) 3.9 2.0-4.0 [facility]2015-06-08 07:19:00 Test Item Value Reference Range Interpretation Comments AGAP (test code = AGAP) 13.9 10.0-20.0 [facility]2015-06-08 07:19:00 Test Item Value Reference Range Interpretation Comments B/C Ratio (test code = B/C Ratio) 12 04-26 [facility]2015-06-08 07:19:00 Test Item Value Reference Range Interpretation Comments A/G Ratio (test code = A/G Ratio) 0.6 0.7-1.6 [facility]2015-06-08 07:19:00 Test Item Value Reference Range Interpretation Comments eGFR (test code = eGFR) 75 [facility]2015-06-08 07:19:00 Test Item Value Reference Range Interpretation Comments Bili Total (test code = Bili Total) 0.5 0.2-1.3 [facility]2015-06-08 07:19:00 Test Item Value Reference Range Interpretation Comments Alk Phos (test code = Alk Phos) 109 39-136 [facility]2015-06-08 07:19:00 Test Item Value Reference Range Interpretation Comments ALT (test code = ALT) 18 See_Comment [Auto mated message] The system which ge nerated this result transmit hazel reference range : <=65. The reference range was not used to interpr et this result as kasey l/abnormal. [facility]2015-06-08 07:19:00 Test Item Value Reference Range Interpretation Comments AST (test code = AST) 13 See_Comment [Auto mated message] The system which ge nerated this result transmit hazel reference range : <=37. The reference range was not used to interpr et this result as kasey l/abnormal. [facility]2015-06-08 07:19:00 Test Item Value Reference Range Interpretation Comments Total Protein (test code = Total 6.4 6.4-8.4 Protein) [facility]2015-06-08 07:19:00 Test Item Value Reference Range Interpretation Comments Albumin Lvl (test code = Albumin Lvl) 2.5 3.5-5.0 [facility]2015-06-08 07:19:00 Test Item Value Reference Range Interpretation Comments Chloride Lvl (test code = Chloride Lvl) 103 95-109 [facility]2015-06-08 07:19:00 Test Item Value Reference Range Interpretation Comments CO2 (test code = CO2) 27 24-32 [facility]2015-06-08 07:19:00 Test Item Value Reference Range Interpretation Comments Calcium Lvl (test code = Calcium Lvl) 8.5 8.5-10.5 [facility]2015-06-08 07:19:00 Test Item Value Reference Range Interpretation Comments BUN (test code = BUN) 13 7-22 [facility]2015-06-08 07:19:00 Test Item Value Reference Range Interpretation Comments Glucose Lvl (test code = Glucose Lvl) 165 70-99 [facility]2015-06-08 07:19:00 Test Item Value Reference Range Interpretation Comments Creatinine Lvl (test code = Creatinine 1.1 0.5-1.4 Lvl) [facility]2015-06-08 07:19:00 Test Item Value Reference Range Interpretation Comments Potassium Lvl (test code = Potassium 3.9 3.5-5.1 Lvl) [facility]2015-06-08 07:19:00 Test Item Value Reference Range Interpretation Comments Sodium Lvl (test code = Sodium Lvl) 140 135-145 [facility] CenterTfatgfpMDNBRUOBZE5356-01-17 07:19:00 Test Item Value Reference Range Interpretation Comments Atypical Lymphs (test code = Atypical 0.0 Lymphs) [facility] CenterJqroxsrZZWQOGMGYM4579-20-91 07:19:00 Test Item Value Reference Range Interpretation Comments Polychrom (test code = Polychrom) Slight [facility] CenterCzajvdqFSCXMGVHDF0951-88-14 07:19:00 Test Item Value Reference Range Interpretation Comments Segs-Bands # (test code = Segs-Bands #) 26.2 1.5-8.1 [facility] CenterPezmvcoHMQCPYQHKS0539-49-76 07:19:00 Test Item Value Reference Range Interpretation Comments Myelocytes (test code = Myelocytes) 2.0 [facility] CenterXulrevxHOMFPMPAGN6963-85-08 07:19:00 Test Item Value Reference Range Interpretation Comments Metamyelocytes (test code 4.0 See_Comment [ Automated message] = Metamyelocytes) The system which generated this result transmitted ref erence range: <=1.0. T he reference range was not used to int erpret this result as normal/abnormal . [facility] CenterMhsrmdrYGLVOXYDBW0786-68-94 07:19:00 Test Item Value Reference Range Interpretation Comments Lymphocytes # (test code = Lymphocytes 1.7 1.0-5.5 #) [facility] CenterTkciyziYOVHLMBWBE1529-69-70 07:19:00 Test Item Value Reference Range Interpretation Comments Monocytes (test code = Monocytes) 12.0 2.0-12.0 [facility] CenterWjbsvjlICMUHVVCTF7259-09-66 07:19:00 Test Item Value Reference Range Interpretation Comments Lymphocytes (test code = Lymphocytes) 5.0 20.0-40.0 [facility] CenterVmzmoyeMJULYCUYXO1243-35-11 07:19:00 Test Item Value Reference Range Interpretation Comments Bands (test code = 3.0 See_Comment [Automat ed message] The Bands) system which ge nerated this result transmit hazel reference range : <=11.0. The reference r marce was not used to interpr et this result as kasey l/abnormal. [facility] CenterInyjfmkCYSJJJURLR7439-48-96 07:19:00 Test Item Value Reference Range Interpretation Comments Segs (test code = Segs) 74.0 45.0-75.0 [facility] CenterOcncullCNELCGZGXD1278-43-86 07:19:00 Test Item Value Reference Range Interpretation Comments Monocytes # (test code 4.1 See_Comment [Aut omated message] The = Monocytes #) system which generated this result tra nsmitted reference range : <=0.8. The reference r marce was not used to int erpret this result as normal/abnormal . [facility] CenterXeeafqeVIXSKLVSBX0031-63-68 07:19:00 Test Item Value Reference Range Interpretation Comments PTT (test code = PTT) 85.8 s 22.9-35.8 [facility] CenterNkkryquIUZWLXJQRW9396-17-94 07:19:00 Test Item Value Reference Range Interpretation Comments MCV (test code = MCV) 89.5 80.0-94.0 [facility] CenterYssrafpJLXZPBLASD7016-19-17 07:19:00 Test Item Value Reference Range Interpretation Comments RBC (test code = RBC) 3.70 4.70-6.10 [facility] CenterKbfzdmfGNAQGHSSQL9222-48-33 07:19:00 Test Item Value Reference Range Interpretation Comments Hct (test code = Hct) 33.1 42.0-54.0 [facility] CenterJncjcmbDFHLBVUXHC1873-60-25 07:19:00 Test Item Value Reference Range Interpretation Comments WBC (test code = WBC) 34.0 3.7-10.4 [facility] CenterZttocpmWJNFYUZPYY2554-48-80 07:19:00 Test Item Value Reference Range Interpretation Comments Hgb (test code = Hgb) 11.2 14.0-18.0 [facility] CenterBxoqfhlXFAXQESMHS1813-92-55 07:19:00 Test Item Value Reference Range Interpretation Comments MPV (test code = MPV) 7.4 7.4-10.4 [facility] CenterOphpmttHMQJXFSXDT6691-17-69 07:19:00 Test Item Value Reference Range Interpretation Comments MCH (test code = MCH) 30.3 pg 27.0-31.0 [facility] CenterVxhdnxsUSFIOYCUHC7379-23-88 07:19:00 Test Item Value Reference Range Interpretation Comments MCHC (test code = MCHC) 33.9 32.0-36.0 [facility] CenterLcmofswZZPJDQXVUG4743-12-79 07:19:00 Test Item Value Reference Range Interpretation Comments RDW (test code = RDW) 15.6 11.5-14.5 [facility]AugjkieXFVXBAEDIM2223-37-26 07:19:00 Test Item Value Reference Range Interpretation Comments Platelet (test code = Platelet) 244 133-450 [facility]2015-06-08 07:19:00 Test Item Value Reference Range Interpretation Comments Alk Phos (test code = Alk Phos) 109 39-136 [facility] [id number] 07:19:00 Test Item Value Reference Range Interpretation Comments ALT (test code = ALT) 18 See_Comment [Auto mated message] The system which ge nerated this result transmit hazel reference range : <=65. The reference range was not used to interpr et this result as kasey l/abnormal. [facility] [id number] 07:19:00 Test Item Value Reference Range Interpretation Comments AST (test code = AST) 13 See_Comment [Auto mated message] The system which ge nerated this result transmit hazel reference range : <=37. The reference range was not used to interpr et this result as kasey l/abnormal. [facility] [id number] 07:19:00 Test Item Value Reference Range Interpretation Comments Total Protein (test code = Total 6.4 6.4-8.4 Protein) [facility] [id number] 07:19:00 Test Item Value Reference Range Interpretation Comments Albumin Lvl (test code = Albumin Lvl) 2.5 3.5-5.0 [facility] [id number] 07:19:00 Test Item Value Reference Range Interpretation Comments Chloride Lvl (test code = Chloride Lvl) 103 95-109 [facility] [id number] 07:19:00 Test Item Value Reference Range Interpretation Comments Globulin (test code = Globulin) 3.9 2.0-4.0 [facility] [id number] 07:19:00 Test Item Value Reference Range Interpretation Comments AGAP (test code = AGAP) 13.9 10.0-20.0 [facility] [id number] 07:19:00 Test Item Value Reference Range Interpretation Comments B/C Ratio (test code = B/C Ratio) 12 6-25 [facility] [id number] 07:19:00 Test Item Value Reference Range Interpretation Comments CO2 (test code = CO2) 27 24-32 [facility] [id number] 07:19:00 Test Item Value Reference Range Interpretation Comments A/G Ratio (test code = A/G Ratio) 0.6 0.7-1.6 [facility] [id number] 07:19:00 Test Item Value Reference Range Interpretation Comments eGFR (test code = eGFR) 75 [facility]2015-06-08 07:19:00 Test Item Value Reference Range Interpretation Comments Bili Total (test code = Bili Total) 0.5 0.2-1.3 [place] [id number] 07:19:00 Test Item Value Reference Range Interpretation Comments Alk Phos (test code = Alk Phos) 109 39-136 [facility]2015-06-08 07:19:00 Test Item Value Reference Range Interpretation Comments ALT (test code = ALT) 18 See_Comment [Auto mated message] The system which ge nerated this result transmit hazel reference range : <=65. The reference range was not used to interpr et this result as kasey l/abnormal. [facility]2015-06-08 07:19:00 Test Item Value Reference Range Interpretation Comments AST (test code = AST) 13 See_Comment [Auto mated message] The system which ge nerated this result transmit hazel reference range : <=37. The reference range was not used to interpr et this result as kasey l/abnormal. [facility]2015-06-08 07:19:00 Test Item Value Reference Range Interpretation Comments Total Protein (test code = Total 6.4 6.4-8.4 Protein) [facility]2015-06-08 07:19:00 Test Item Value Reference Range Interpretation Comments Albumin Lvl (test code = Albumin Lvl) 2.5 3.5-5.0 [facility]2015-06-08 07:19:00 Test Item Value Reference Range Interpretation Comments Chloride Lvl (test code = Chloride Lvl) 103 95-109 [facility]2015-06-08 07:19:00 Test Item Value Reference Range Interpretation Comments CO2 (test code = CO2) 27 24-32 [facility]2015-06-08 07:19:00 Test Item Value Reference Range Interpretation Comments Calcium Lvl (test code = Calcium Lvl) 8.5 8.5-10.5 [facility]2015-06-08 07:19:00 Test Item Value Reference Range Interpretation Comments Calcium Lvl (test code = Calcium Lvl) 8.5 8.5-10.5 [facility]2015-06-08 07:19:00 Test Item Value Reference Range Interpretation Comments BUN (test code = BUN) 05-23 [facility]2015-06-08 07:19:00 Test Item Value Reference Range Interpretation Comments Glucose Lvl (test code = Glucose Lvl) 165 70-99 [facility]2015-06-08 07:19:00 Test Item Value Reference Range Interpretation Comments Creatinine Lvl (test code = Creatinine 1.1 0.5-1.4 Lvl) [facility]2015-06-08 07:19:00 Test Item Value Reference Range Interpretation Comments Potassium Lvl (test code = Potassium 3.9 3.5-5.1 Lvl) [facility]2015-06-08 07:19:00 Test Item Value Reference Range Interpretation Comments Sodium Lvl (test code = Sodium Lvl) 140 135-145 [facility] CenterPyoviioBWZHCWDXPD7430-13-83 07:19:00 Test Item Value Reference Range Interpretation Comments Atypical Lymphs (test code = Atypical 0.0 Lymphs) [facility] CenterPykslksRJUXRDDDZY4420-25-89 07:19:00 Test Item Value Reference Range Interpretation Comments Polychrom (test code = Polychrom) Slight [facility] C[id number] 07:19:00 Test Item Value Reference Range Interpretation Comments Segs-Bands # (test code = Segs-Bands #) 26.2 1.5-8.1 [facility] CenterFlkkhooPOMZKJWOVQ7407-92-55 07:19:00 Test Item Value Reference Range Interpretation Comments Myelocytes (test code = Myelocytes) 2.0 [facility]2015-06-08 07:19:00 Test Item Value Reference Range Interpretation Comments BUN (test code = BUN) 13 05-23 [facility] CenterIoskwljXIMYWIONJB5358-10-85 07:19:00 Test Item Value Reference Range Interpretation Comments Metamyelocytes (test code 4.0 See_Comment [ Automated message] = Metamyelocytes) The system which generated this result transmitted ref erence range: <=1.0. T he reference range was not used to int erpret this result as normal/abnormal . [place] [id number] 07:19:00 Test Item Value Reference Range Interpretation Comments Lymphocytes # (test code = Lymphocytes 1.7 1.0-5.5 #) [facility] CenterQuzkwjnXEJBZMLJMV3845-92-65 07:19:00 Test Item Value Reference Range Interpretation Comments Monocytes (test code = Monocytes) 12.0 2.0-12.0 [facility] CenterZzjnyenKHOTCAYZNV6842-64-43 07:19:00 Test Item Value Reference Range Interpretation Comments Lymphocytes (test code = Lymphocytes) 5.0 20.0-40.0 [facility] CenterJsxaqhwYFNXQNXDYQ7766-85-49 07:19:00 Test Item Value Reference Range Interpretation Comments Bands (test code = 3.0 See_Comment [Automat ed message] The Bands) system which ge nerated this result transmit hazel reference range : <=11.0. The reference r marce was not used to interpr et this result as kasey l/abnormal. [facility] CenterPkdjgrbWFXHAUHWBJ6539-58-24 07:19:00 Test Item Value Reference Range Interpretation Comments Segs (test code = Segs) 74.0 45.0-75.0 [facility] CenterFbtwowcQBZIUDRMPM7366-28-19 07:19:00 Test Item Value Reference Range Interpretation Comments Monocytes # (test code 4.1 See_Comment [Aut omated message] The = Monocytes #) system which generated this result tra nsmitted reference range : <=0.8. The reference r marce was not used to int erpret this result as normal/abnormal . [facility] CenterVgwnhnpMKRIEEYFRN8040-49-11 07:19:00 Test Item Value Reference Range Interpretation Comments PTT (test code = PTT) 85.8 s 22.9-35.8 [facility] CenterRasbwtkKBHGZFJZUB7371-61-00 07:19:00 Test Item Value Reference Range Interpretation Comments MCV (test code = MCV) 89.5 80.0-94.0 [facility] CenterAdevgwgTJCBIDEUYD0800-52-02 07:19:00 Test Item Value Reference Range Interpretation Comments RBC (test code = RBC) 3.70 4.70-6.10 [facility]2015-06-08 07:19:00 Test Item Value Reference Range Interpretation Comments Glucose Lvl (test code = Glucose Lvl) 165 70-99 [facility] CenterXbgzwjvPBVGTDYACF7465-43-32 07:19:00 Test Item Value Reference Range Interpretation Comments Hct (test code = Hct) 33.1 42.0-54.0 [facility] CenterVfeswhuSXTDTHWLBE1877-27-40 07:19:00 Test Item Value Reference Range Interpretation Comments WBC (test code = WBC) 34.0 3.7-10.4 [facility] CenterCyiwthjRXRHNFIRNP0535-25-92 07:19:00 Test Item Value Reference Range Interpretation Comments Hgb (test code = Hgb) 11.2 14.0-18.0 [facility] CenterNtehjfpYGVVOCRYUA7049-71-66 07:19:00 Test Item Value Reference Range Interpretation Comments MPV (test code = MPV) 7.4 7.4-10.4 [facility] CenterXupmljyLCYSFJLLZI7517-21-76 07:19:00 Test Item Value Reference Range Interpretation Comments MCH (test code = MCH) 30.3 pg 27.0-31.0 [facility] CenterMvqvgqdBFDUULKPYB1610-26-37 07:19:00 Test Item Value Reference Range Interpretation Comments MCHC (test code = MCHC) 33.9 32.0-36.0 [facility] CenterEvtvzvzOAOVAUZTAB9486-61-06 07:19:00 Test Item Value Reference Range Interpretation Comments RDW (test code = RDW) 15.6 11.5-14.5 [facility] CenterMvansohKAJVFCZOGA5412-05-40 07:19:00 Test Item Value Reference Range Interpretation Comments Platelet (test code = Platelet) 244 133-450 [facility]2015-06-08 07:19:00 Test Item Value Reference Range Interpretation Comments Creatinine Lvl (test code = Creatinine 1.1 0.5-1.4 Lvl) [facility]2015-06-08 07:19:00 Test Item Value Reference Range Interpretation Comments Potassium Lvl (test code = Potassium 3.9 3.5-5.1 Lvl) [facility]2015-06-08 07:19:00 Test Item Value Reference Range Interpretation Comments Sodium Lvl (test code = Sodium Lvl) 140 135-145 [facility] CenterMfxaeimWTYMPATHNK6870-85-91 07:19:00 Test Item Value Reference Range Interpretation Comments Atypical Lymphs (test code = Atypical 0.0 Lymphs) [facility] CenterWqoqzxjAGFOEKUSIF1467-83-34 07:19:00 Test Item Value Reference Range Interpretation Comments Polychrom (test code = Polychrom) Slight [facility] CenterXfbcsdsEUCSYXELRF2633-15-53 07:19:00 Test Item Value Reference Range Interpretation Comments Segs-Bands # (test code = Segs-Bands #) 26.2 1.5-8.1 [facility] CenterYunqnosFDUUJTAPZX3412-11-62 07:19:00 Test Item Value Reference Range Interpretation Comments Myelocytes (test code = Myelocytes) 2.0 [facility] CenterDanoqbiUSFMQXJXZR8330-58-67 07:19:00 Test Item Value Reference Range Interpretation Comments Metamyelocytes (test code 4.0 See_Comment [ Automated message] = Metamyelocytes) The system which generated this result transmitted ref erence range: <=1.0. T he reference range was not used to int erpret this result as normal/abnormal . [facility] CenterHtsmiajXJIQPMWQDG7403-66-62 07:19:00 Test Item Value Reference Range Interpretation Comments Lymphocytes # (test code = Lymphocytes 1.7 1.0-5.5 #) [facility] CenterWqqiedaLVXEPAABTA8929-15-03 07:19:00 Test Item Value Reference Range Interpretation Comments Monocytes (test code = Monocytes) 12.0 2.0-12.0 [facility] CenterGttedzdUFBGBYFAVV0642-18-66 07:19:00 Test Item Value Reference Range Interpretation Comments Lymphocytes (test code = Lymphocytes) 5.0 20.0-40.0 [facility] CenterEmpphzwSOPTVRUNTW8065-15-97 07:19:00 Test Item Value Reference Range Interpretation Comments Bands (test code = 3.0 See_Comment [Automat ed message] The Bands) system which ge nerated this result transmit hazel reference range : <=11.0. The reference r marce was not used to interpr et this result as kasey l/abnormal. [facility] CenterFysxmdmGJWLNYEIOE9730-56-56 07:19:00 Test Item Value Reference Range Interpretation Comments Segs (test code = Segs) 74.0 45.0-75.0 [facility] CenterQerldjnCNRRDCMTJE2148-59-39 07:19:00 Test Item Value Reference Range Interpretation Comments Monocytes # (test code 4.1 See_Comment [Aut omated message] The = Monocytes #) system which generated this result tra nsmitted reference range : <=0.8. The reference r marce was not used to int erpret this result as normal/abnormal . [facility] CenterZxwjrtfHREGXCOFMP9993-85-08 07:19:00 Test Item Value Reference Range Interpretation Comments PTT (test code = PTT) 85.8 s 22.9-35.8 [facility]2015-06-08 07:19:00 Test Item Value Reference Range Interpretation Comments Globulin (test code = Globulin) 3.9 2.0-4.0 [facility]2015-06-08 07:19:00 Test Item Value Reference Range Interpretation Comments AGAP (test code = AGAP) 13.9 10.0-20.0 [facility]2015-06-08 07:19:00 Test Item Value Reference Range Interpretation Comments B/C Ratio (test code = B/C Ratio) 12 6-25 [facility]2015-06-08 07:19:00 Test Item Value Reference Range Interpretation Comments A/G Ratio (test code = A/G Ratio) 0.6 0.7-1.6 [place] [id number] 07:19:00 Test Item Value Reference Range Interpretation Comments eGFR (test code = eGFR) 75 [facility]2015-06-08 07:19:00 Test Item Value Reference Range Interpretation Comments Bili Total (test code = Bili Total) 0.5 0.2-1.3 [place] [id number] 07:19:00 Test Item Value Reference Range Interpretation Comments Alk Phos (test code = Alk Phos) 109 39-136 [facility]2015-06-08 07:19:00 Test Item Value Reference Range Interpretation Comments ALT (test code = ALT) 18 See_Comment [Auto mated message] The system which ge nerated this result transmit hazel reference range : <=65. The reference range was not used to interpr et this result as kasey l/abnormal. [facility] CenterHycofsjUXIUJYOOSX7248-05-08 07:19:00 Test Item Value Reference Range Interpretation Comments MCV (test code = MCV) 89.5 80.0-94.0 [facility]2015-06-08 07:19:00 Test Item Value Reference Range Interpretation Comments AST (test code = AST) 13 See_Comment [Auto mated message] The system which ge nerated this result transmit hazel reference range : <=37. The reference range was not used to interpr et this result as kasey l/abnormal. [facility]2015-06-08 07:19:00 Test Item Value Reference Range Interpretation Comments Total Protein (test code = Total 6.4 6.4-8.4 Protein) [facility]2015-06-08 07:19:00 Test Item Value Reference Range Interpretation Comments Albumin Lvl (test code = Albumin Lvl) 2.5 3.5-5.0 [place] [id number] 07:19:00 Test Item Value Reference Range Interpretation Comments Chloride Lvl (test code = Chloride Lvl) 103 95-109 [facility]2015-06-08 07:19:00 Test Item Value Reference Range Interpretation Comments CO2 (test code = CO2) 27 24-32 [place] [id number] 07:19:00 Test Item Value Reference Range Interpretation Comments Calcium Lvl (test code = Calcium Lvl) 8.5 8.5-10.5 [facility]2015-06-08 07:19:00 Test Item Value Reference Range Interpretation Comments BUN (test code = BUN) 13 7-22 [facility]2015-06-08 07:19:00 Test Item Value Reference Range Interpretation Comments Glucose Lvl (test code = Glucose Lvl) 165 70-99 [facility]2015-06-08 07:19:00 Test Item Value Reference Range Interpretation Comments Creatinine Lvl (test code = Creatinine 1.1 0.5-1.4 Lvl) [facility]2015-06-08 07:19:00 Test Item Value Reference Range Interpretation Comments Potassium Lvl (test code = Potassium 3.9 3.5-5.1 Lvl) [facility] CenterIkyrxmeVHKAZZLVWA4902-39-26 07:19:00 Test Item Value Reference Range Interpretation Comments RBC (test code = RBC) 3.70 4.70-6.10 [facility]2015-06-08 07:19:00 Test Item Value Reference Range Interpretation Comments Sodium Lvl (test code = Sodium Lvl) 140 135-145 [facility] CenterNeupmtaGNUBNPCWDF5827-87-45 07:19:00 Test Item Value Reference Range Interpretation Comments Atypical Lymphs (test code = Atypical 0.0 Lymphs) [facility] CenterKkzompmCMPQUTMFFT4447-72-00 07:19:00 Test Item Value Reference Range Interpretation Comments Polychrom (test code = Polychrom) Slight [facility] CenterYjtwaiwQWMPQBIMKS0980-77-17 07:19:00 Test Item Value Reference Range Interpretation Comments Segs-Bands # (test code = Segs-Bands #) 26.2 1.5-8.1 [facility] CenterSuajttmLHCWYDEKKB1740-05-43 07:19:00 Test Item Value Reference Range Interpretation Comments Myelocytes (test code = Myelocytes) 2.0 [facility] CenterNpstfymEBISNOXKUC5610-34-81 07:19:00 Test Item Value Reference Range Interpretation Comments Metamyelocytes (test code 4.0 See_Comment [ Automated message] = Metamyelocytes) The system which generated this result transmitted ref erence range: <=1.0. T he reference range was not used to int erpret this result as normal/abnormal . [facility] CenterTccsaxlAMXWKYMTWC9546-86-75 07:19:00 Test Item Value Reference Range Interpretation Comments Lymphocytes # (test code = Lymphocytes 1.7 1.0-5.5 #) [facility] CenterSklyhqlYDYZIJNARI4616-52-91 07:19:00 Test Item Value Reference Range Interpretation Comments Monocytes (test code = Monocytes) 12.0 2.0-12.0 [facility] CenterOzhgiduKGTEPMBMOY3735-40-59 07:19:00 Test Item Value Reference Range Interpretation Comments Lymphocytes (test code = Lymphocytes) 5.0 20.0-40.0 [facility] CenterSvcwmbfNFNZNVUPDW8088-83-26 07:19:00 Test Item Value Reference Range Interpretation Comments Bands (test code = 3.0 See_Comment [Automat ed message] The Bands) system which ge nerated this result transmit hazel reference range : <=11.0. The reference r marce was not used to interpr et this result as kasey l/abnormal. [facility] CenterScqsclmHTWMAVCYEK5152-98-74 07:19:00 Test Item Value Reference Range Interpretation Comments Hct (test code = Hct) 33.1 42.0-54.0 [facility] CenterPrxjjahGHAHVUYGZK7426-30-08 07:19:00 Test Item Value Reference Range Interpretation Comments Segs (test code = Segs) 74.0 45.0-75.0 [facility] CenterZjtmggaYZRGHQEFJA4745-96-90 07:19:00 Test Item Value Reference Range Interpretation Comments Monocytes # (test code 4.1 See_Comment [Aut omated message] The = Monocytes #) system which generated this result tra nsmitted reference range : <=0.8. The reference r marce was not used to int erpret this result as normal/abnormal . [facility] CenterQhgbaufIGGPRGRITW6423-61-29 07:19:00 Test Item Value Reference Range Interpretation Comments PTT (test code = PTT) 85.8 s 22.9-35.8 [facility] CenterHchnnpxPKADIQSXGF5893-66-75 07:19:00 Test Item Value Reference Range Interpretation Comments MCV (test code = MCV) 89.5 80.0-94.0 [facility] CenterSysofjlKKVSIKYDYI8539-04-25 07:19:00 Test Item Value Reference Range Interpretation Comments RBC (test code = RBC) 3.70 4.70-6.10 [facility] CenterLbpoaexQGKXEYPLMH7732-43-77 07:19:00 Test Item Value Reference Range Interpretation Comments Hct (test code = Hct) 33.1 42.0-54.0 [facility] CenterRqyjdzzVPGVZOGQTL4917-99-26 07:19:00 Test Item Value Reference Range Interpretation Comments WBC (test code = WBC) 34.0 3.7-10.4 [facility] CenterGtvqmecHVSNJJIWRD6643-92-90 07:19:00 Test Item Value Reference Range Interpretation Comments Hgb (test code = Hgb) 11.2 14.0-18.0 [facility] CenterCyegwwaSOTOIQUPID8424-31-36 07:19:00 Test Item Value Reference Range Interpretation Comments MPV (test code = MPV) 7.4 7.4-10.4 [facility] CenterSbnunabVPLMYSLCDL2616-07-52 07:19:00 Test Item Value Reference Range Interpretation Comments MCH (test code = MCH) 30.3 pg 27.0-31.0 [facility] CenterOypxnalIHZHVQBEZH9915-37-45 07:19:00 Test Item Value Reference Range Interpretation Comments WBC (test code = WBC) 34.0 3.7-10.4 [facility] CenterWvqroucRCSHMEEJKU1757-31-97 07:19:00 Test Item Value Reference Range Interpretation Comments MCHC (test code = MCHC) 33.9 32.0-36.0 [facility] CenterQqixifhTIHCONGXKW5253-43-33 07:19:00 Test Item Value Reference Range Interpretation Comments RDW (test code = RDW) 15.6 11.5-14.5 [facility] CenterJlegotaRFYFDEDDZO4917-47-20 07:19:00 Test Item Value Reference Range Interpretation Comments Platelet (test code = Platelet) 244 133-450 [facility] CenterKcqhymyXLNMFCXCSC9099-52-37 07:19:00 Test Item Value Reference Range Interpretation Comments Hgb (test code = Hgb) 11.2 14.0-18.0 [facility] CenterKmzxxkeSTVBKWZCGE9759-92-26 07:19:00 Test Item Value Reference Range Interpretation Comments MPV (test code = MPV) 7.4 7.4-10.4 [facility] CenterRfndhrrHHEYXKBKPO7853-40-94 07:19:00 Test Item Value Reference Range Interpretation Comments MCH (test code = MCH) 30.3 pg 27.0-31.0 [facility] CenterUabqcjsDBWQZDLHMK1355-09-37 07:19:00 Test Item Value Reference Range Interpretation Comments MCHC (test code = MCHC) 33.9 32.0-36.0 [facility] CenterNtoecolZKRNYVMSGL7951-12-17 07:19:00 Test Item Value Reference Range Interpretation Comments RDW (test code = RDW) 15.6 11.5-14.5 [facility] CenterZaydskdIWGZXEKHSI0000-18-30 07:19:00 Test Item Value Reference Range Interpretation Comments Platelet (test code = Platelet) 244 650-687 [facility]2015-06-08 07:19:00 Test Item Value Reference Range Interpretation Comments Globulin (test code = Globulin) 3.9 2.0-4.0 [facility]2015-06-08 07:19:00 Test Item Value Reference Range Interpretation Comments AGAP (test code = AGAP) 13.9 10.0-20.0 [facility]2015-06-08 07:19:00 Test Item Value Reference Range Interpretation Comments B/C Ratio (test code = B/C Ratio) 12 6-25 [facility]2015-06-08 07:19:00 Test Item Value Reference Range Interpretation Comments A/G Ratio (test code = A/G Ratio) 0.6 0.7-1.6 [facility]2015-06-08 07:19:00 Test Item Value Reference Range Interpretation Comments eGFR (test code = eGFR) 75 [facility]2015-06-08 07:19:00 Test Item Value Reference Range Interpretation Comments Bili Total (test code = Bili Total) 0.5 0.2-1.3 [facility]2015-06-08 07:19:00 Test Item Value Reference Range Interpretation Comments Alk Phos (test code = Alk Phos) 109 39-136 [facility]2015-06-08 07:19:00 Test Item Value Reference Range Interpretation Comments ALT (test code = ALT) 18 See_Comment [Auto mated message] The system which ge nerated this result transmit hazel reference range : <=65. The reference range was not used to interpr et this result as kasey l/abnormal. [facility]2015-06-08 07:19:00 Test Item Value Reference Range Interpretation Comments AST (test code = AST) 13 See_Comment [Auto mated message] The system which ge nerated this result transmit hazel reference range : <=37. The reference range was not used to interpr et this result as kasey l/abnormal. [facility]2015-06-08 07:19:00 Test Item Value Reference Range Interpretation Comments Total Protein (test code = Total 6.4 6.4-8.4 Protein) [facility]2015-06-08 07:19:00 Test Item Value Reference Range Interpretation Comments Albumin Lvl (test code = Albumin Lvl) 2.5 3.5-5.0 [facility]2015-06-08 07:19:00 Test Item Value Reference Range Interpretation Comments Chloride Lvl (test code = Chloride Lvl) 103 95-109 [facility]2015-06-08 07:19:00 Test Item Value Reference Range Interpretation Comments CO2 (test code = CO2) 27 24-32 [facility]2015-06-08 07:19:00 Test Item Value Reference Range Interpretation Comments Calcium Lvl (test code = Calcium Lvl) 8.5 8.5-10.5 [place] [id number] 07:19:00 Test Item Value Reference Range Interpretation Comments BUN (test code = BUN) 13 7-22 [facility]2015-06-08 07:19:00 Test Item Value Reference Range Interpretation Comments Glucose Lvl (test code = Glucose Lvl) 165 70-99 [place] 319495-06-08 07:19:00 Test Item Value Reference Range Interpretation Comments Creatinine Lvl (test code = Creatinine 1.1 0.5-1.4 Lvl) [place] 319495-06-08 07:19:00 Test Item Value Reference Range Interpretation Comments Potassium Lvl (test code = Potassium 3.9 3.5-5.1 Lvl) [facility] BBDGR7440-02-38 07:19:00 Test Item Value Reference Range Interpretation Comments Sodium Lvl (test code = Sodium Lvl) 140 135-145 [facility] CenterScjjvmqFYVCDBAFBS8657-09-55 07:19:00 Test Item Value Reference Range Interpretation Comments Atypical Lymphs (test code = Atypical 0.0 Lymphs) [facility] CenterQjrweyhWMTBULEVWM4747-99-31 07:19:00 Test Item Value Reference Range Interpretation Comments Polychrom (test code = Polychrom) Slight [facility] CenterBxikukhSKFVXYFDFI6207-91-90 07:19:00 Test Item Value Reference Range Interpretation Comments Segs-Bands # (test code = Segs-Bands #) 26.2 1.5-8.1 [facility] CenterKmfqgzoNBRKPZZVZK3029-93-75 07:19:00 Test Item Value Reference Range Interpretation Comments Myelocytes (test code = Myelocytes) 2.0 [facility] CenterIehahbjOWVQATKMTD5551-63-29 07:19:00 Test Item Value Reference Range Interpretation Comments Metamyelocytes (test code 4.0 See_Comment [ Automated message] = Metamyelocytes) The system which generated this result transmitted ref erence range: <=1.0. T he reference range was not used to int erpret this result as normal/abnormal . [facility] CenterOlewxwhQRCXQBANAZ0697-37-67 07:19:00 Test Item Value Reference Range Interpretation Comments Lymphocytes # (test code = Lymphocytes 1.7 1.0-5.5 #) [facility] CenterFxkdngvBGUMHGYVWE5666-26-53 07:19:00 Test Item Value Reference Range Interpretation Comments Monocytes (test code = Monocytes) 12.0 2.0-12.0 [facility] CenterYlcdvqwYVKNZCDXPH6888-65-43 07:19:00 Test Item Value Reference Range Interpretation Comments Lymphocytes (test code = Lymphocytes) 5.0 20.0-40.0 [facility] CenterCaypfxyTZXOHLBSLV6490-01-64 07:19:00 Test Item Value Reference Range Interpretation Comments Bands (test code = 3.0 See_Comment [Automat ed message] The Bands) system which ge nerated this result transmit hazel reference range : <=11.0. The reference r marce was not used to interpr et this result as kasey l/abnormal. [facility] CenterVdsxowjVWCEMJWESA1491-88-51 07:19:00 Test Item Value Reference Range Interpretation Comments Segs (test code = Segs) 74.0 45.0-75.0 [facility] CenterNpbgdynNCTUZUUOVR5002-88-83 07:19:00 Test Item Value Reference Range Interpretation Comments Monocytes # (test code 4.1 See_Comment [Aut omated message] The = Monocytes #) system which generated this result tra nsmitted reference range : <=0.8. The reference r marce was not used to int erpret this result as normal/abnormal . [facility] CenterQaoujqyPOQBNETPUV1377-70-01 07:19:00 Test Item Value Reference Range Interpretation Comments PTT (test code = PTT) 85.8 s 22.9-35.8 [facility] CenterPgaadwoPVAGKRKXJK4293-29-25 07:19:00 Test Item Value Reference Range Interpretation Comments MCV (test code = MCV) 89.5 80.0-94.0 [facility] CenterLzrhevyUYEYYNQHTQ8967-69-03 07:19:00 Test Item Value Reference Range Interpretation Comments RBC (test code = RBC) 3.70 4.70-6.10 [facility] CenterCufspqrKNGXOLRDNB9477-89-11 07:19:00 Test Item Value Reference Range Interpretation Comments Hct (test code = Hct) 33.1 42.0-54.0 [facility] CenterDqzbnwcGLFQWTZWZT3797-58-73 07:19:00 Test Item Value Reference Range Interpretation Comments WBC (test code = WBC) 34.0 3.7-10.4 [facility] CenterLfwxoxqYIICSPIVOI2313-84-58 07:19:00 Test Item Value Reference Range Interpretation Comments Hgb (test code = Hgb) 11.2 14.0-18.0 [facility] CenterXorxkvnUCMVRZSITB5869-74-11 07:19:00 Test Item Value Reference Range Interpretation Comments MPV (test code = MPV) 7.4 7.4-10.4 [facility] CenterYlkgqhfXQIIYIOJCW1509-98-12 07:19:00 Test Item Value Reference Range Interpretation Comments MCH (test code = MCH) 30.3 pg 27.0-31.0 [facility] CenterFgnouofKYGCWFXAWH0612-41-12 07:19:00 Test Item Value Reference Range Interpretation Comments MCHC (test code = MCHC) 33.9 32.0-36.0 [facility] CenterOmplnwiVFBRMDXPIZ3532-05-87 07:19:00 Test Item Value Reference Range Interpretation Comments RDW (test code = RDW) 15.6 11.5-14.5 [facility] CenterQstnltcDPUBRVZOAP0519-76-90 07:19:00 Test Item Value Reference Range Interpretation Comments Platelet (test code = Platelet) 244 133-450 [facility]2015-06-08 07:19:00 Test Item Value Reference Range Interpretation Comments Globulin (test code = Globulin) 3.9 2.0-4.0 [facility]2015-06-08 07:19:00 Test Item Value Reference Range Interpretation Comments AGAP (test code = AGAP) 13.9 10.0-20.0 [place] 319495-06-08 07:19:00 Test Item Value Reference Range Interpretation Comments B/C Ratio (test code = B/C Ratio) 12 6-25 [place] 319495-06-08 07:19:00 Test Item Value Reference Range Interpretation Comments A/G Ratio (test code = A/G Ratio) 0.6 0.7-1.6 [place] 319495-06-08 07:19:00 Test Item Value Reference Range Interpretation Comments eGFR (test code = eGFR) 75 [facility]2015-06-08 07:19:00 Test Item Value Reference Range Interpretation Comments Bili Total (test code = Bili Total) 0.5 0.2-1.3 [facility]2015-06-08 07:19:00 Test Item Value Reference Range Interpretation Comments Alk Phos (test code = Alk Phos) 109 39-136 [facility]2015-06-08 07:19:00 Test Item Value Reference Range Interpretation Comments ALT (test code = ALT) 18 See_Comment [Auto mated message] The system which ge nerated this result transmit hazel reference range : <=65. The reference range was not used to interpr et this result as kasey l/abnormal. [facility]2015-06-08 07:19:00 Test Item Value Reference Range Interpretation Comments AST (test code = AST) 13 See_Comment [Auto mated message] The system which ge nerated this result transmit hazel reference range : <=37. The reference range was not used to interpr et this result as kasey l/abnormal. [facility]2015-06-08 07:19:00 Test Item Value Reference Range Interpretation Comments Total Protein (test code = Total 6.4 6.4-8.4 Protein) [facility]2015-06-08 07:19:00 Test Item Value Reference Range Interpretation Comments Albumin Lvl (test code = Albumin Lvl) 2.5 3.5-5.0 [facility]2015-06-08 07:19:00 Test Item Value Reference Range Interpretation Comments Chloride Lvl (test code = Chloride Lvl) 103 95-109 [facility]2015-06-08 07:19:00 Test Item Value Reference Range Interpretation Comments CO2 (test code = CO2) 27 24-32 [facility]2015-06-08 07:19:00 Test Item Value Reference Range Interpretation Comments Calcium Lvl (test code = Calcium Lvl) 8.5 8.5-10.5 [facility]2015-06-08 07:19:00 Test Item Value Reference Range Interpretation Comments BUN (test code = BUN) 13 7-22 [facility]2015-06-08 07:19:00 Test Item Value Reference Range Interpretation Comments Glucose Lvl (test code = Glucose Lvl) 165 70-99 [facility]2015-06-08 07:19:00 Test Item Value Reference Range Interpretation Comments Creatinine Lvl (test code = Creatinine 1.1 0.5-1.4 Lvl) [facility]2015-06-08 07:19:00 Test Item Value Reference Range Interpretation Comments Potassium Lvl (test code = Potassium 3.9 3.5-5.1 Lvl) [facility]2015-06-08 07:19:00 Test Item Value Reference Range Interpretation Comments Sodium Lvl (test code = Sodium Lvl) 140 135-145 [facility] CenterMtkfaskNYHKUGADKW9856-78-59 07:19:00 Test Item Value Reference Range Interpretation Comments Atypical Lymphs (test code = Atypical 0.0 Lymphs) [place] 558395-06-08 07:19:00 Test Item Value Reference Range Interpretation Comments Polychrom (test code = Polychrom) Slight [facility] CenterLuztijrQVXCMUPXQH9781-08-23 07:19:00 Test Item Value Reference Range Interpretation Comments Segs-Bands # (test code = Segs-Bands #) 26.2 1.5-8.1 [facility] CenterBqivzxxVYKEMNFJHY1790-74-16 07:19:00 Test Item Value Reference Range Interpretation Comments Myelocytes (test code = Myelocytes) 2.0 [facility] CenterNjujmbhWLHZRMDRTV7763-28-74 07:19:00 Test Item Value Reference Range Interpretation Comments Metamyelocytes (test code 4.0 See_Comment [ Automated message] = Metamyelocytes) The system which generated this result transmitted ref erence range: <=1.0. T he reference range was not used to int erpret this result as normal/abnormal . [facility] CenterVfjpuqzQTEUGJNOMY5507-66-46 07:19:00 Test Item Value Reference Range Interpretation Comments Lymphocytes # (test code = Lymphocytes 1.7 1.0-5.5 #) [facility] CenterWshjiisESIYIJJHIX8295-41-12 07:19:00 Test Item Value Reference Range Interpretation Comments Monocytes (test code = Monocytes) 12.0 2.0-12.0 [facility] CenterPqfqbhjFWAPRYUWMY9295-77-27 07:19:00 Test Item Value Reference Range Interpretation Comments Lymphocytes (test code = Lymphocytes) 5.0 20.0-40.0 [facility] CenterEfydsydDJOGDATXDY7039-82-68 07:19:00 Test Item Value Reference Range Interpretation Comments Bands (test code = 3.0 See_Comment [Automat ed message] The Bands) system which ge nerated this result transmit hazel reference range : <=11.0. The reference r marce was not used to interpr et this result as kasey l/abnormal. [facility] CenterMfbmzfnHNCCMUTAMT4787-95-58 07:19:00 Test Item Value Reference Range Interpretation Comments Segs (test code = Segs) 74.0 45.0-75.0 [facility] CenterBrptgevLGXTZROMIW8449-92-54 07:19:00 Test Item Value Reference Range Interpretation Comments Monocytes # (test code 4.1 See_Comment [Aut omated message] The = Monocytes #) system which generated this result tra nsmitted reference range : <=0.8. The reference r marce was not used to int erpret this result as normal/abnormal . [facility] CenterJrztovwGORABWNNIF3999-37-09 07:19:00 Test Item Value Reference Range Interpretation Comments PTT (test code = PTT) 85.8 s 22.9-35.8 [facility]DuafyywOFZEWLLCLK1233-36-[facility] 07:19:00 Test Item Value Reference Range Interpretation Comments MCV (test code = MCV) 89.5 80.0-94.0 [facility] CenterEsryakuKSCHVJKVQV7159-79-76 07:19:00 Test Item Value Reference Range Interpretation Comments RBC (test code = RBC) 3.70 4.70-6.10 [facility] CenterVthlnvpONAGINMZDL3336-15-20 07:19:00 Test Item Value Reference Range Interpretation Comments Hct (test code = Hct) 33.1 42.0-54.0 [facility] CenterSrhmwttUYIHSXXDHW7878-81-14 07:19:00 Test Item Value Reference Range Interpretation Comments WBC (test code = WBC) 34.0 3.7-10.4 [facility] CenterNcqvkmoRKZUIMXHSZ3592-20-62 07:19:00 Test Item Value Reference Range Interpretation Comments Hgb (test code = Hgb) 11.2 14.0-18.0 [facility] CenterLbxitztEVPINJJTNG7671-22-87 07:19:00 Test Item Value Reference Range Interpretation Comments MPV (test code = MPV) 7.4 7.4-10.4 [facility] CenterIkzquvpJWTRQSVRWJ6942-43-79 07:19:00 Test Item Value Reference Range Interpretation Comments MCH (test code = MCH) 30.3 pg 27.0-31.0 [facility] CenterDdumzyjRCMKJKHDMS2385-14-10 07:19:00 Test Item Value Reference Range Interpretation Comments MCHC (test code = MCHC) 33.9 32.0-36.0 [facility] CenterAhzsbmyLEJBDZSUNQ3248-38-80 07:19:00 Test Item Value Reference Range Interpretation Comments RDW (test code = RDW) 15.6 11.5-14.5 [facility] HospitalRpdgahcRBZVOOHLAO3095-16-47 07:19:00 Test Item Value Reference Range Interpretation Comments Platelet (test code = Platelet) 244 133-450 [facility] DNZWV4304-52-34 07:19:00 Test Item Value Reference Range Interpretation Comments Globulin (test code = Globulin) 3.9 2.0-4.0 [facility] ZMRHS9036-87-72 07:19:00 Test Item Value Reference Range Interpretation Comments AGAP (test code = AGAP) 13.9 10.0-20.0 [facility]2015-06-08 07:19:00 Test Item Value Reference Range Interpretation Comments B/C Ratio (test code = B/C Ratio) 12 6-25 [facility]2015-06-08 07:19:00 Test Item Value Reference Range Interpretation Comments A/G Ratio (test code = A/G Ratio) 0.6 0.7-1.6 [place] 319495-06-08 07:19:00 Test Item Value Reference Range Interpretation Comments eGFR (test code = eGFR) 75 [facility]2015-06-08 07:19:00 Test Item Value Reference Range Interpretation Comments Bili Total (test code = Bili Total) 0.5 0.2-1.3 [facility]2015-06-08 07:19:00 Test Item Value Reference Range Interpretation Comments Alk Phos (test code = Alk Phos) 109 39-136 [facility]2015-06-08 07:19:00 Test Item Value Reference Range Interpretation Comments ALT (test code = ALT) 18 See_Comment [Auto mated message] The system which ge nerated this result transmit hazel reference range : <=65. The reference range was not used to interpr et this result as kasey l/abnormal. [facility]2015-06-08 07:19:00 Test Item Value Reference Range Interpretation Comments AST (test code = AST) 13 See_Comment [Auto mated message] The system which ge nerated this result transmit hazel reference range : <=37. The reference range was not used to interpr et this result as kasey l/abnormal. [facility]2015-06-08 07:19:00 Test Item Value Reference Range Interpretation Comments Total Protein (test code = Total 6.4 6.4-8.4 Protein) [facility]2015-06-08 07:19:00 Test Item Value Reference Range Interpretation Comments Albumin Lvl (test code = Albumin Lvl) 2.5 3.5-5.0 [facility]2015-06-08 07:19:00 Test Item Value Reference Range Interpretation Comments Chloride Lvl (test code = Chloride Lvl) 103 95-109 [place] 319495-06-08 07:19:00 Test Item Value Reference Range Interpretation Comments CO2 (test code = CO2) 27 24-32 [facility]2015-06-08 07:19:00 Test Item Value Reference Range Interpretation Comments Calcium Lvl (test code = Calcium Lvl) 8.5 8.5-10.5 [facility]2015-06-08 07:19:00 Test Item Value Reference Range Interpretation Comments BUN (test code = BUN) 13 7-22 [facility]2015-06-08 07:19:00 Test Item Value Reference Range Interpretation Comments Glucose Lvl (test code = Glucose Lvl) 165 70-99 [facility]2015-06-08 07:19:00 Test Item Value Reference Range Interpretation Comments Creatinine Lvl (test code = Creatinine 1.1 0.5-1.4 Lvl) [facility]2015-06-08 07:19:00 Test Item Value Reference Range Interpretation Comments Potassium Lvl (test code = Potassium 3.9 3.5-5.1 Lvl) [facility]2015-06-08 07:19:00 Test Item Value Reference Range Interpretation Comments Sodium Lvl (test code = Sodium Lvl) 140 135-145 [facility] CenterTshdustTGAQFUGSKM9840-14-32 07:19:00 Test Item Value Reference Range Interpretation Comments Atypical Lymphs (test code = Atypical 0.0 Lymphs) [facility] CenterLdtljggPVOZHLNMKZ0596-29-78 07:19:00 Test Item Value Reference Range Interpretation Comments Polychrom (test code = Polychrom) Slight [facility] CenterOrztsdpHSODKZRJRF7491-44-22 07:19:00 Test Item Value Reference Range Interpretation Comments Segs-Bands # (test code = Segs-Bands #) 26.2 1.5-8.1 [facility] CenterMvzhsciXZZKDDVZRN7475-78-09 07:19:00 Test Item Value Reference Range Interpretation Comments Myelocytes (test code = Myelocytes) 2.0 [facility] CenterDnhppylAJLPCXOUWA7085-02-52 07:19:00 Test Item Value Reference Range Interpretation Comments Metamyelocytes (test code 4.0 See_Comment [ Automated message] = Metamyelocytes) The system which generated this result transmitted ref erence range: <=1.0. T he reference range was not used to int erpret this result as normal/abnormal . [facility] CenterBditlktOOTNULAAIB7391-34-69 07:19:00 Test Item Value Reference Range Interpretation Comments Lymphocytes # (test code = Lymphocytes 1.7 1.0-5.5 #) [facility] CenterDkfmfkmZLIABHPYFA7222-57-90 07:19:00 Test Item Value Reference Range Interpretation Comments Monocytes (test code = Monocytes) 12.0 2.0-12.0 [facility] CenterLgdqqgcTVCWZNENWS8756-85-41 07:19:00 Test Item Value Reference Range Interpretation Comments Lymphocytes (test code = Lymphocytes) 5.0 20.0-40.0 [facility] CenterNnvamreXGHTHQRNAQ2347-93-84 07:19:00 Test Item Value Reference Range Interpretation Comments Bands (test code = 3.0 See_Comment [Automat ed message] The Bands) system which ge nerated this result transmit hazel reference range : <=11.0. The reference r marce was not used to interpr et this result as kasey l/abnormal. [facility] CenterOytaaftIDDNCEGQKC6434-25-06 07:19:00 Test Item Value Reference Range Interpretation Comments Segs (test code = Segs) 74.0 45.0-75.0 [facility] CenterGenzfygKUQRRZQVNT6811-71-15 07:19:00 Test Item Value Reference Range Interpretation Comments Monocytes # (test code 4.1 See_Comment [Aut omated message] The = Monocytes #) system which generated this result tra nsmitted reference range : <=0.8. The reference r marce was not used to int erpret this result as normal/abnormal . [facility] CenterGjrdithMWCXZERTGX4163-92-42 07:19:00 Test Item Value Reference Range Interpretation Comments PTT (test code = PTT) 85.8 s 22.9-35.8 [facility] CenterDslgmxiEBQERSHRLG4653-68-97 07:19:00 Test Item Value Reference Range Interpretation Comments MCV (test code = MCV) 89.5 80.0-94.0 [facility] CenterIvxnosdFDXCYEGBSY8057-57-08 07:19:00 Test Item Value Reference Range Interpretation Comments RBC (test code = RBC) 3.70 4.70-6.10 [facility] CenterEqxsqcqZJLLUJYRLL6476-20-51 07:19:00 Test Item Value Reference Range Interpretation Comments Hct (test code = Hct) 33.1 42.0-54.0 [place] [id number] 07:19:00 Test Item Value Reference Range Interpretation Comments WBC (test code = WBC) 34.0 3.7-10.4 [facility] CenterCzkxqcdZHVMYFEEWB0721-94-05 07:19:00 Test Item Value Reference Range Interpretation Comments Hgb (test code = Hgb) 11.2 14.0-18.0 [facility] CenterSdaccjtQWIADOBDGJ7428-13-02 07:19:00 Test Item Value Reference Range Interpretation Comments MPV (test code = MPV) 7.4 7.4-10.4 [facility] CenterKpmrfqcMGGEWNRFAC6076-13-24 07:19:00 Test Item Value Reference Range Interpretation Comments MCH (test code = MCH) 30.3 pg 27.0-31.0 [facility] CenterOwcgnwdBJPJBIRDJD3442-73-81 07:19:00 Test Item Value Reference Range Interpretation Comments MCHC (test code = MCHC) 33.9 32.0-36.0 [facility] CenterYohgtwhCYLWJAAKBJ8092-22-58 07:19:00 Test Item Value Reference Range Interpretation Comments RDW (test code = RDW) 15.6 11.5-14.5 [facility] CenterElahzvtJOSXDBIKYV9215-70-85 07:19:00 Test Item Value Reference Range Interpretation Comments Platelet (test code = Platelet) 244 133-450 [facility]2015-06-08 07:19:00 Test Item Value Reference Range Interpretation Comments Globulin (test code = Globulin) 3.9 2.0-4.0 [facility]2015-06-08 07:19:00 Test Item Value Reference Range Interpretation Comments AGAP (test code = AGAP) 13.9 10.0-20.0 [facility]2015-06-08 07:19:00 Test Item Value Reference Range Interpretation Comments B/C Ratio (test code = B/C Ratio) 12 6-25 [facility]2015-06-08 07:19:00 Test Item Value Reference Range Interpretation Comments A/G Ratio (test code = A/G Ratio) 0.6 0.7-1.6 [facility]2015-06-08 07:19:00 Test Item Value Reference Range Interpretation Comments eGFR (test code = eGFR) 75 [facility]2015-06-08 07:19:00 Test Item Value Reference Range Interpretation Comments Bili Total (test code = Bili Total) 0.5 0.2-1.3 [place] [id number] 07:19:00 Test Item Value Reference Range Interpretation Comments Alk Phos (test code = Alk Phos) 109 39-136 [facility]2015-06-08 07:19:00 Test Item Value Reference Range Interpretation Comments ALT (test code = ALT) 18 See_Comment [Auto mated message] The system which ge nerated this result transmit hazel reference range : <=65. The reference range was not used to interpr et this result as kasey l/abnormal. [facility]2015-06-08 07:19:00 Test Item Value Reference Range Interpretation Comments AST (test code = AST) 13 See_Comment [Auto mated message] The system which ge nerated this result transmit hazel reference range : <=37. The reference range was not used to interpr et this result as kasey l/abnormal. [facility]2015-06-08 07:19:00 Test Item Value Reference Range Interpretation Comments Total Protein (test code = Total 6.4 6.4-8.4 Protein) [place] 319495-06-08 07:19:00 Test Item Value Reference Range Interpretation Comments Albumin Lvl (test code = Albumin Lvl) 2.5 3.5-5.0 [place] [id number] 07:19:00 Test Item Value Reference Range Interpretation Comments Chloride Lvl (test code = Chloride Lvl) 103 95-109 [facility]2015-06-08 07:19:00 Test Item Value Reference Range Interpretation Comments CO2 (test code = CO2) 27 24-32 [facility]2015-06-08 07:19:00 Test Item Value Reference Range Interpretation Comments Calcium Lvl (test code = Calcium Lvl) 8.5 8.5-10.5 [facility]2015-06-08 07:19:00 Test Item Value Reference Range Interpretation Comments BUN (test code = BUN) 13 7-22 [facility]2015-06-08 07:19:00 Test Item Value Reference Range Interpretation Comments Glucose Lvl (test code = Glucose Lvl) 165 70-99 [facility]2015-06-08 07:19:00 Test Item Value Reference Range Interpretation Comments Creatinine Lvl (test code = Creatinine 1.1 0.5-1.4 Lvl) [place] 319495-06-08 07:19:00 Test Item Value Reference Range Interpretation Comments Potassium Lvl (test code = Potassium 3.9 3.5-5.1 Lvl) [facility]2015-06-08 07:19:00 Test Item Value Reference Range Interpretation Comments Sodium Lvl (test code = Sodium Lvl) 140 135-145 [facility] CenterGrukfgkXTTBNJWLLV0133-69-26 07:19:00 Test Item Value Reference Range Interpretation Comments Atypical Lymphs (test code = Atypical 0.0 Lymphs) [facility] CenterRxoydvmTFZNZZJPIG4192-35-01 07:19:00 Test Item Value Reference Range Interpretation Comments Polychrom (test code = Polychrom) Slight [facility] CenterKhcfdfbVLYFMQSWMN6496-59-96 07:19:00 Test Item Value Reference Range Interpretation Comments Segs-Bands # (test code = Segs-Bands #) 26.2 1.5-8.1 [facility] CenterYphadxrMOHKZXLBHQ7910-52-30 07:19:00 Test Item Value Reference Range Interpretation Comments Myelocytes (test code = Myelocytes) 2.0 [facility] CenterOnpgsojRCDWRYZZEP9061-13-04 07:19:00 Test Item Value Reference Range Interpretation Comments Metamyelocytes (test code 4.0 See_Comment [ Automated message] = Metamyelocytes) The system which generated this result transmitted ref erence range: <=1.0. T he reference range was not used to int erpret this result as normal/abnormal . [facility] CenterGdwobmlXPWSQKGPWH8444-92-98 07:19:00 Test Item Value Reference Range Interpretation Comments Lymphocytes # (test code = Lymphocytes 1.7 1.0-5.5 #) [facility] CenterAwbcmfyBWIJDMZHMA1703-52-91 07:19:00 Test Item Value Reference Range Interpretation Comments Monocytes (test code = Monocytes) 12.0 2.0-12.0 [facility] CenterGhsboscZATQFHEXRP3960-01-19 07:19:00 Test Item Value Reference Range Interpretation Comments Lymphocytes (test code = Lymphocytes) 5.0 20.0-40.0 [facility] CenterQmujvrzDHFGEIJPWS9877-80-96 07:19:00 Test Item Value Reference Range Interpretation Comments Bands (test code = 3.0 See_Comment [Automat ed message] The Bands) system which ge nerated this result transmit hazel reference range : <=11.0. The reference r marce was not used to interpr et this result as kasey l/abnormal. [facility] CenterHfnpqtuRMDZKFPVFD9175-09-81 07:19:00 Test Item Value Reference Range Interpretation Comments Segs (test code = Segs) 74.0 45.0-75.0 [facility] CenterPztgdtoUNAXDPUCBO0227-79-11 07:19:00 Test Item Value Reference Range Interpretation Comments Monocytes # (test code 4.1 See_Comment [Aut omated message] The = Monocytes #) system which generated this result tra nsmitted reference range : <=0.8. The reference r marce was not used to int erpret this result as normal/abnormal . [facility] CenterBxdcbqhEXGDWJGAVS4296-89-33 07:19:00 Test Item Value Reference Range Interpretation Comments PTT (test code = PTT) 85.8 s 22.9-35.8 [facility] CenterOlvxyegHQCDMTSTRT9036-06-71 07:19:00 Test Item Value Reference Range Interpretation Comments MCV (test code = MCV) 89.5 80.0-94.0 [facility] CenterYybmbjkVUHURADFCE1835-04-12 07:19:00 Test Item Value Reference Range Interpretation Comments RBC (test code = RBC) 3.70 4.70-6.10 [facility] CenterGeozmgvVKVULEQSON2807-71-57 07:19:00 Test Item Value Reference Range Interpretation Comments Hct (test code = Hct) 33.1 42.0-54.0 [facility] CenterTctqbhqDUZHFKYWND1859-85-26 07:19:00 Test Item Value Reference Range Interpretation Comments WBC (test code = WBC) 34.0 3.7-10.4 [facility] CenterPcasvbgISOUQECJHP5739-57-39 07:19:00 Test Item Value Reference Range Interpretation Comments Hgb (test code = Hgb) 11.2 14.0-18.0 [facility] CenterOdrsmxdVRFPVMSOMJ6675-27-14 07:19:00 Test Item Value Reference Range Interpretation Comments MPV (test code = MPV) 7.4 7.4-10.4 [facility] CenterIivxjgiPIDCYDCKVS3440-31-33 07:19:00 Test Item Value Reference Range Interpretation Comments MCH (test code = MCH) 30.3 pg 27.0-31.0 [facility] CenterPnojavjQKSOHBEIZG0534-53-82 07:19:00 Test Item Value Reference Range Interpretation Comments MCHC (test code = MCHC) 33.9 32.0-36.0 [facility] CenterKvqmitaMQQWIRWANN7439-60-87 07:19:00 Test Item Value Reference Range Interpretation Comments RDW (test code = RDW) 15.6 11.5-14.5 [facility] CenterGymebbsMOAMMMPKIU8916-12-60 07:19:00 Test Item Value Reference Range Interpretation Comments Platelet (test code = Platelet) 244 133-450 [facility]2015-06-08 07:19:00 Test Item Value Reference Range Interpretation Comments Globulin (test code = Globulin) 3.9 2.0-4.0 [place] 319495-06-08 07:19:00 Test Item Value Reference Range Interpretation Comments AGAP (test code = AGAP) 13.9 10.0-20.0 [facility]2015-06-08 07:19:00 Test Item Value Reference Range Interpretation Comments B/C Ratio (test code = B/C Ratio) 12 6-25 [facility]2015-06-08 07:19:00 Test Item Value Reference Range Interpretation Comments A/G Ratio (test code = A/G Ratio) 0.6 0.7-1.6 [facility]2015-06-08 07:19:00 Test Item Value Reference Range Interpretation Comments eGFR (test code = eGFR) 75 [facility]2015-06-08 07:19:00 Test Item Value Reference Range Interpretation Comments Bili Total (test code = Bili Total) 0.5 0.2-1.3 [facility]2015-06-08 07:19:00 Test Item Value Reference Range Interpretation Comments Alk Phos (test code = Alk Phos) 109 39-136 [facility]2015-06-08 07:19:00 Test Item Value Reference Range Interpretation Comments ALT (test code = ALT) 18 See_Comment [Auto mated message] The system which ge nerated this result transmit hazel reference range : <=65. The reference range was not used to interpr et this result as kasey l/abnormal. [place] 319495-06-08 07:19:00 Test Item Value Reference Range Interpretation Comments AST (test code = AST) 13 See_Comment [Auto mated message] The system which ge nerated this result transmit hazel reference range : <=37. The reference range was not used to interpr et this result as kasey l/abnormal. [facility]2015-06-08 07:19:00 Test Item Value Reference Range Interpretation Comments Total Protein (test code = Total 6.4 6.4-8.4 Protein) [facility]2015-06-08 07:19:00 Test Item Value Reference Range Interpretation Comments Albumin Lvl (test code = Albumin Lvl) 2.5 3.5-5.0 [place] 319495-06-08 07:19:00 Test Item Value Reference Range Interpretation Comments Chloride Lvl (test code = Chloride Lvl) 103 95-109 [facility]2015-06-08 07:19:00 Test Item Value Reference Range Interpretation Comments CO2 (test code = CO2) 27 24-32 [facility]2015-06-08 07:19:00 Test Item Value Reference Range Interpretation Comments Calcium Lvl (test code = Calcium Lvl) 8.5 8.5-10.5 [facility]2015-06-08 07:19:00 Test Item Value Reference Range Interpretation Comments BUN (test code = BUN) 13 7-22 [facility]2015-06-08 07:19:00 Test Item Value Reference Range Interpretation Comments Glucose Lvl (test code = Glucose Lvl) 165 70-99 [facility]2015-06-08 07:19:00 Test Item Value Reference Range Interpretation Comments Creatinine Lvl (test code = Creatinine 1.1 0.5-1.4 Lvl) [facility]2015-06-08 07:19:00 Test Item Value Reference Range Interpretation Comments Potassium Lvl (test code = Potassium 3.9 3.5-5.1 Lvl) [facility]2015-06-08 07:19:00 Test Item Value Reference Range Interpretation Comments Sodium Lvl (test code = Sodium Lvl) 140 135-145 [facility] CenterGwcuyrsXLFNCBEFFU9313-89-05 07:19:00 Test Item Value Reference Range Interpretation Comments Atypical Lymphs (test code = Atypical 0.0 Lymphs) [facility] CenterQvbqskxUEIGIUAZIP7994-53-39 07:19:00 Test Item Value Reference Range Interpretation Comments Polychrom (test code = Polychrom) Slight [facility] CenterOiavqfwOPPTQLEPQD8814-66-69 07:19:00 Test Item Value Reference Range Interpretation Comments Segs-Bands # (test code = Segs-Bands #) 26.2 1.5-8.1 [facility] CenterLuhunjnJNVYYRPPRT1975-75-35 07:19:00 Test Item Value Reference Range Interpretation Comments Myelocytes (test code = Myelocytes) 2.0 [facility] CenterTydgqpaWXAYTFTCHM7253-26-41 07:19:00 Test Item Value Reference Range Interpretation Comments Metamyelocytes (test code 4.0 See_Comment [ Automated message] = Metamyelocytes) The system which generated this result transmitted ref erence range: <=1.0. T he reference range was not used to int erpret this result as normal/abnormal . [facility] CenterBwlrxloXNKAMMIUNN4948-18-74 07:19:00 Test Item Value Reference Range Interpretation Comments Lymphocytes # (test code = Lymphocytes 1.7 1.0-5.5 #) [facility] CenterXivrsvvEWQPPRIPDX0485-52-72 07:19:00 Test Item Value Reference Range Interpretation Comments Monocytes (test code = Monocytes) 12.0 2.0-12.0 [facility] CenterQeonyxbEJHKKPNOTA1328-08-73 07:19:00 Test Item Value Reference Range Interpretation Comments Lymphocytes (test code = Lymphocytes) 5.0 20.0-40.0 [facility] CenterDkbdrqiPPACYRZOQD2958-62-37 07:19:00 Test Item Value Reference Range Interpretation Comments Bands (test code = 3.0 See_Comment [Automat ed message] The Bands) system which ge nerated this result transmit hazel reference range : <=11.0. The reference r marce was not used to interpr et this result as kasey l/abnormal. [facility] CenterDyiivjnOUEWSDAXDW6726-24-29 07:19:00 Test Item Value Reference Range Interpretation Comments Segs (test code = Segs) 74.0 45.0-75.0 [facility] CenterVsitqjfVBBDQUXRPW6053-36-33 07:19:00 Test Item Value Reference Range Interpretation Comments Monocytes # (test code 4.1 See_Comment [Aut omated message] The = Monocytes #) system which generated this result tra nsmitted reference range : <=0.8. The reference r marce was not used to int erpret this result as normal/abnormal . [facility] CenterRuqugmnFREMPLCHZY3425-59-92 07:19:00 Test Item Value Reference Range Interpretation Comments PTT (test code = PTT) 85.8 s 22.9-35.8 [facility] CenterKcppsifMVMBENTIKZ5858-45-93 07:19:00 Test Item Value Reference Range Interpretation Comments MCV (test code = MCV) 89.5 80.0-94.0 [facility] CenterLrzaspyIOOOZKMTYJ1985-56-60 07:19:00 Test Item Value Reference Range Interpretation Comments RBC (test code = RBC) 3.70 4.70-6.10 [facility] CenterMuwcfeqIWMGIJJSRI2741-60-70 07:19:00 Test Item Value Reference Range Interpretation Comments Hct (test code = Hct) 33.1 42.0-54.0 [facility] CenterDpdzaatYJWOKMWZFR4625-39-25 07:19:00 Test Item Value Reference Range Interpretation Comments WBC (test code = WBC) 34.0 3.7-10.4 [facility] CenterYxrcclhUOURUWWFMY1110-71-61 07:19:00 Test Item Value Reference Range Interpretation Comments Hgb (test code = Hgb) 11.2 14.0-18.0 [facility] CenterLnyshxdJSPSQEALFM2774-06-64 07:19:00 Test Item Value Reference Range Interpretation Comments MPV (test code = MPV) 7.4 7.4-10.4 [facility] CenterIecbozfWXGXESAEJX1417-42-23 07:19:00 Test Item Value Reference Range Interpretation Comments MCH (test code = MCH) 30.3 pg 27.0-31.0 [facility] CenterKatlezxLFTCNUTZCX0141-16-73 07:19:00 Test Item Value Reference Range Interpretation Comments MCHC (test code = MCHC) 33.9 32.0-36.0 [facility] CenterCipttfsJUTLRSKVLC2030-74-33 07:19:00 Test Item Value Reference Range Interpretation Comments RDW (test code = RDW) 15.6 11.5-14.5 [facility] CenterAxclavcTPDDTASCKK9433-40-12 07:19:00 Test Item Value Reference Range Interpretation Comments Platelet (test code = Platelet) 244 133-450 [facility] GWWOH2768-18-80 07:19:00 Test Item Value Reference Range Interpretation Comments Globulin (test code = Globulin) 3.9 2.0-4.0 [facility] XIOTK5208-63-92 07:19:00 Test Item Value Reference Range Interpretation Comments AGAP (test code = AGAP) 13.9 10.0-20.0 [facility] LVLMO1818-32-99 07:19:00 Test Item Value Reference Range Interpretation Comments B/C Ratio (test code = B/C Ratio) 12 6-25 [facility] [id number] 07:19:00 Test Item Value Reference Range Interpretation Comments A/G Ratio (test code = A/G Ratio) 0.6 0.7-1.6 [facility] CenterFysruktWJBRTMYTNR9337-25-21 23:40:00 Test Item Value Reference Range Interpretation Comments Monocytes (test code = Monocytes) 4.0 2.0-12.0 [facility] CenterBnbpgkjRWHDXKSUTI6015-31-90 23:40:00 Test Item Value Reference Range Interpretation Comments Metamyelocytes (test code 2.0 See_Comment [ Automated message] = Metamyelocytes) The system which generated this result transmitted ref erence range: <=1.0. T he reference range was not used to int erpret this result as normal/abnormal . [facility] CenterJbbsffmSUDHIHHPIF3981-40-16 23:40:00 Test Item Value Reference Range Interpretation Comments Myelocytes (test code = Myelocytes) 4.0 [facility] CenterPlnwmatQSCIQCGGGR1473-01-66 23:40:00 Test Item Value Reference Range Interpretation Comments Promyelocytes (test code = 1.0 Promyelocytes) [facility] CenterAaetbynRAMENYZRAR5921-95-04 23:40:00 Test Item Value Reference Range Interpretation Comments Atypical Lymphs (test code = Atypical 2.0 Lymphs) [facility] CenterGghxwwpXXLDTWZHLH6276-94-17 23:40:00 Test Item Value Reference Range Interpretation Comments RBC Morph (test code = Normal (04/08/15 6:40 PM) RBC Morph) [facility] CenterViksubxCOTQFHMYNS2996-29-40 23:40:00 Test Item Value Reference Range Interpretation Comments Plt Morph (test code = Normal (04/08/15 6:40 PM) Plt Morph) [facility] CenterBjmqhweZXPPHKHHTW8014-58-28 23:40:00 Test Item Value Reference Range Interpretation Comments Toxic Gran (test code Moderate *ABN*(04/08/15 = Toxic Gran) 6:40 PM) [facility] CenterYcjnnthRFXVSNUWTB7688-52-34 23:40:00 Test Item Value Reference Range Interpretation Comments Dohle Bodies (test Moderate *ABN*(04/08/15 code = Dohle Bodies) 6:40 PM) [facility] CenterTmmptfbNIZCDQFPAW6682-63-96 23:40:00 Test Item Value Reference Range Interpretation Comments Bands (test code = 11.0 See_Comment [Automat ed message] The Bands) system which ge nerated this result transmit hazel reference range : <=11.0. The reference r marce was not used to interpr et this result as kasey l/abnormal. [facility] CenterUdyqvneYRIFUQNYDW4586-99-74 23:40:00 Test Item Value Reference Range Interpretation Comments Monocytes # (test code 1.3 See_Comment [Aut omated message] The = Monocytes #) system which generated this result tra nsmitted reference range : <=0.8. The reference r marce was not used to int erpret this result as normal/abnormal . [facility] CenterPbyhwyaSYSDKVWUTC4062-14-52 23:40:00 Test Item Value Reference Range Interpretation Comments Segs (test code = Segs) 70.0 45.0-75.0 [facility] CenterPrnigyxWRHZXAADET4147-04-10 23:40:00 Test Item Value Reference Range Interpretation Comments Lymphocytes # (test code = Lymphocytes 2.6 1.0-5.5 #) [facility] CenterDijijlkNZEHVLSSYA2383-38-21 23:40:00 Test Item Value Reference Range Interpretation Comments Lymphocytes (test code = Lymphocytes) 6.0 20.0-40.0 [facility] CenterBqrqwokIEZUOHDFQJ9792-37-48 23:40:00 Test Item Value Reference Range Interpretation Comments Segs-Bands # (test code = Segs-Bands #) 25.8 1.5-8.1 [facility] CenterMlssxqqOEYPRZNEZL7971-22-83 23:40:00 Test Item Value Reference Range Interpretation Comments MCV (test code = MCV) 88.6 80.0-94.0 [facility] CenterCoktutzPUJHROYVTB2204-91-48 23:40:00 Test Item Value Reference Range Interpretation Comments MCH (test code = MCH) 29.7 pg 27.0-31.0 [facility] CenterAnepeatKBOKPJDYBR5325-15-04 23:40:00 Test Item Value Reference Range Interpretation Comments MCHC (test code = MCHC) 33.5 32.0-36.0 [facility] CenterLtkzkbrMVXIEQMCHA5933-19-02 23:40:00 Test Item Value Reference Range Interpretation Comments RDW (test code = RDW) 15.7 11.5-14.5 [facility] CenterOynxkufYJCSIAEAYH4627-75-99 23:40:00 Test Item Value Reference Range Interpretation Comments Platelet (test code = Platelet) 224 133-450 [facility] CenterWeemsdsROAEGETRRM7656-95-06 23:40:00 Test Item Value Reference Range Interpretation Comments MPV (test code = MPV) 7.0 7.4-10.4 [facility] CenterLyqhitjEHOTKEXQYO9662-71-63 23:40:00 Test Item Value Reference Range Interpretation Comments WBC (test code = WBC) 31.9 3.7-10.4 [facility] CenterHfkhwpwJVSNWQKBGT7973-34-89 23:40:00 Test Item Value Reference Range Interpretation Comments Hgb (test code = Hgb) 11.0 14.0-18.0 [facility] CenterWpohtvqAHTTSPYOFS6926-80-69 23:40:00 Test Item Value Reference Range Interpretation Comments RBC (test code = RBC) 3.71 4.70-6.10 [facility] CenterPtcbkgpRQMTECAMPO9365-09-71 23:40:00 Test Item Value Reference Range Interpretation Comments Hct (test code = Hct) 32.9 42.0-54.0 [facility] CenterVhebgumLTHSLYKYND9612-24-84 23:40:00 Test Item Value Reference Range Interpretation Comments PT (test code = PT) 15.4 s 12.0-14.7 [facility] CenterZzgroicEZKMXLGHKD0532-02-26 23:40:00 Test Item Value Reference Range Interpretation Comments INR (test code = INR) 1.21 0.85-1.17 [facility] CenterWwxoeltPOEHLCEHWR1155-27-82 23:40:00 Test Item Value Reference Range Interpretation Comments Monocytes (test code = Monocytes) 4.0 2.0-12.0 [facility] CenterMeqydmsGEAPUTQVSH0151-67-21 23:40:00 Test Item Value Reference Range Interpretation Comments Metamyelocytes (test code 2.0 See_Comment [ Automated message] = Metamyelocytes) The system which generated this result transmitted ref erence range: <=1.0. T he reference range was not used to int erpret this result as normal/abnormal . [facility] CenterFczzrrfZBNMXIXHMV7472-70-61 23:40:00 Test Item Value Reference Range Interpretation Comments Myelocytes (test code = Myelocytes) 4.0 [facility] CenterJtjoglmQKAXJXJDRO1415-48-90 23:40:00 Test Item Value Reference Range Interpretation Comments Promyelocytes (test code = 1.0 Promyelocytes) [facility] CenterCmpraziSDZAHRKFHY9008-15-29 23:40:00 Test Item Value Reference Range Interpretation Comments Atypical Lymphs (test code = Atypical 2.0 Lymphs) [facility] CenterLcmhffjCPRMVHUOMT1525-26-30 23:40:00 Test Item Value Reference Range Interpretation Comments RBC Morph (test code = Normal (04/08/15 6:40 PM) RBC Morph) [facility] CenterBzyjqtbGCKUYETEAS2074-29-02 23:40:00 Test Item Value Reference Range Interpretation Comments Plt Morph (test code = Normal (04/08/15 6:40 PM) Plt Morph) [facility] CenterQzsbvnxGLPDPYKZNM4786-43-55 23:40:00 Test Item Value Reference Range Interpretation Comments Toxic Gran (test code Moderate *ABN*(04/08/15 = Toxic Gran) 6:40 PM) [facility] CenterQthhmbjRNZYDDXIWM0816-43-03 23:40:00 Test Item Value Reference Range Interpretation Comments Dohle Bodies (test Moderate *ABN*(04/08/15 code = Dohle Bodies) 6:40 PM) [facility] CenterCndrysaLLRTJZNXNJ9862-43-00 23:40:00 Test Item Value Reference Range Interpretation Comments Bands (test code = 11.0 See_Comment [Automat ed message] The Bands) system which ge nerated this result transmit hazel reference range : <=11.0. The reference r marce was not used to interpr et this result as kasey l/abnormal. [facility] CenterDmwlzkyYULGJEWXJM3061-68-13 23:40:00 Test Item Value Reference Range Interpretation Comments Monocytes # (test code 1.3 See_Comment [Aut omated message] The = Monocytes #) system which generated this result tra nsmitted reference range : <=0.8. The reference r marce was not used to int erpret this result as normal/abnormal . [facility] CenterKvanazdGMPGIEBXWX8118-42-90 23:40:00 Test Item Value Reference Range Interpretation Comments Segs (test code = Segs) 70.0 45.0-75.0 [facility] CenterRchyhroJEZBHIAMMU2883-43-70 23:40:00 Test Item Value Reference Range Interpretation Comments Lymphocytes # (test code = Lymphocytes 2.6 1.0-5.5 #) [facility] CenterBaogfgyULZHBZUWVT7336-54-46 23:40:00 Test Item Value Reference Range Interpretation Comments Lymphocytes (test code = Lymphocytes) 6.0 20.0-40.0 [facility] CenterIdzkwxhYLCOLDCUQM2078-98-29 23:40:00 Test Item Value Reference Range Interpretation Comments Segs-Bands # (test code = Segs-Bands #) 25.8 1.5-8.1 [facility] CenterMjvmzxbEHRYTXOWMP8659-28-81 23:40:00 Test Item Value Reference Range Interpretation Comments MCV (test code = MCV) 88.6 80.0-94.0 [facility] CenterDgnrqnqLWIBLJLOZD3389-31-28 23:40:00 Test Item Value Reference Range Interpretation Comments MCH (test code = MCH) 29.7 pg 27.0-31.0 [facility] CenterGroxpmaRKKFFTFUGC1657-47-52 23:40:00 Test Item Value Reference Range Interpretation Comments MCHC (test code = MCHC) 33.5 32.0-36.0 [facility] CenterYwtvxgzHKEZUKXUPU0701-96-97 23:40:00 Test Item Value Reference Range Interpretation Comments RDW (test code = RDW) 15.7 11.5-14.5 [facility] CenterOlkwenzGZHCCFTEEC4653-16-36 23:40:00 Test Item Value Reference Range Interpretation Comments Platelet (test code = Platelet) 224 133-450 [facility] CenterPcakerkBAXDJHMXEC3686-07-91 23:40:00 Test Item Value Reference Range Interpretation Comments MPV (test code = MPV) 7.0 7.4-10.4 [facility] CenterZuxpfszHRCNFPDAMA9727-07-42 23:40:00 Test Item Value Reference Range Interpretation Comments WBC (test code = WBC) 31.9 3.7-10.4 [facility] CenterJeandqkIKPLVLITNX1324-72-99 23:40:00 Test Item Value Reference Range Interpretation Comments Hgb (test code = Hgb) 11.0 14.0-18.0 [facility] CenterJovkeoeZOBMMTDAXT3577-93-13 23:40:00 Test Item Value Reference Range Interpretation Comments RBC (test code = RBC) 3.71 4.70-6.10 [facility] CenterPjtsyduDZQAFRWYIL2144-03-12 23:40:00 Test Item Value Reference Range Interpretation Comments Hct (test code = Hct) 32.9 42.0-54.0 [facility] CenterQmimvimKFJVYJRFFR9021-25-42 23:40:00 Test Item Value Reference Range Interpretation Comments PT (test code = PT) 15.4 s 12.0-14.7 [facility] CenterFdnatidNXUVNMIBVO9444-50-67 23:40:00 Test Item Value Reference Range Interpretation Comments INR (test code = INR) 1.21 0.85-1.17 [facility] CenterTpsxqoxUCMYQKESMB1597-64-74 23:40:00 Test Item Value Reference Range Interpretation Comments Monocytes (test code = Monocytes) 4.0 2.0-12.0 [facility] CenterSuiddviXKGYQBXKBT7539-13-00 23:40:00 Test Item Value Reference Range Interpretation Comments Metamyelocytes (test code 2.0 See_Comment [ Automated message] = Metamyelocytes) The system which generated this result transmitted ref erence range: <=1.0. T he reference range was not used to int erpret this result as normal/abnormal . [facility] CenterMlkpptkSGJTYPUMBV9112-10-74 23:40:00 Test Item Value Reference Range Interpretation Comments Myelocytes (test code = Myelocytes) 4.0 [facility] CenterZaerelaPMVSHGJKNX6986-93-39 23:40:00 Test Item Value Reference Range Interpretation Comments Promyelocytes (test code = 1.0 Promyelocytes) [facility] CenterZtjgsqjJSDTNCGSYI6841-29-25 23:40:00 Test Item Value Reference Range Interpretation Comments Atypical Lymphs (test code = Atypical 2.0 Lymphs) [facility] CenterFyxqkccLBPXSILEYY8360-25-27 23:40:00 Test Item Value Reference Range Interpretation Comments RBC Morph (test code = Normal (04/08/15 6:40 PM) RBC Morph) [facility] CenterZtgcukzDHAAPIQTAO3898-90-63 23:40:00 Test Item Value Reference Range Interpretation Comments Plt Morph (test code = Normal (04/08/15 6:40 PM) Plt Morph) [facility] CenterWfstktyHJIOXCZQOR1493-64-58 23:40:00 Test Item Value Reference Range Interpretation Comments Toxic Gran (test code Moderate *ABN*(04/08/15 = Toxic Gran) 6:40 PM) [facility] CenterWzamgdqNRHWCONXUA1520-72-26 23:40:00 Test Item Value Reference Range Interpretation Comments Dohle Bodies (test Moderate *ABN*(04/08/15 code = Dohle Bodies) 6:40 PM) [facility] CenterMmwforeWAQFSJTEDR9936-38-12 23:40:00 Test Item Value Reference Range Interpretation Comments Bands (test code = 11.0 See_Comment [Automat ed message] The Bands) system which ge nerated this result transmit hazel reference range : <=11.0. The reference r marce was not used to interpr et this result as kasey l/abnormal. [facility] CenterXksqavuBLPIFUTTPY8432-40-21 23:40:00 Test Item Value Reference Range Interpretation Comments Monocytes # (test code 1.3 See_Comment [Aut omated message] The = Monocytes #) system which generated this result tra nsmitted reference range : <=0.8. The reference r marce was not used to int erpret this result as normal/abnormal . [facility] CenterBazdufiANVAPCOWUD4301-77-86 23:40:00 Test Item Value Reference Range Interpretation Comments Segs (test code = Segs) 70.0 45.0-75.0 [facility] CenterScboidzTEIZNKAQHV7519-47-77 23:40:00 Test Item Value Reference Range Interpretation Comments Monocytes (test code = Monocytes) 4.0 2.0-12.0 [facility] CenterUqwazjnSHXWLWGPHV9355-81-21 23:40:00 Test Item Value Reference Range Interpretation Comments Metamyelocytes (test code 2.0 See_Comment [ Automated message] = Metamyelocytes) The system which generated this result transmitted ref erence range: <=1.0. T he reference range was not used to int erpret this result as normal/abnormal . [facility] CenterRbaqosvCSGTMIKHGO5325-77-38 23:40:00 Test Item Value Reference Range Interpretation Comments Lymphocytes # (test code = Lymphocytes 2.6 1.0-5.5 #) [facility] CenterBytlficWCMMKVVWMZ9581-75-08 23:40:00 Test Item Value Reference Range Interpretation Comments Myelocytes (test code = Myelocytes) 4.0 [facility] CenterYdvuibmFKATQOZIXE8908-57-21 23:40:00 Test Item Value Reference Range Interpretation Comments Promyelocytes (test code = 1.0 Promyelocytes) [facility] CenterBxscpxdXGCZXGDPOM3023-76-25 23:40:00 Test Item Value Reference Range Interpretation Comments Atypical Lymphs (test code = Atypical 2.0 Lymphs) [facility] CenterQcdffpqVSNPYCPFMJ4872-15-34 23:40:00 Test Item Value Reference Range Interpretation Comments RBC Morph (test code = Normal (04/08/15 6:40 PM) RBC Morph) [facility] CenterLdmqedoLMBFOAHDEB3052-98-90 23:40:00 Test Item Value Reference Range Interpretation Comments Plt Morph (test code = Normal (04/08/15 6:40 PM) Plt Morph) [facility] CenterYhonpejZXEUXDHHPQ3923-04-39 23:40:00 Test Item Value Reference Range Interpretation Comments Toxic Gran (test code Moderate *ABN*(04/08/15 = Toxic Gran) 6:40 PM) [facility] CenterShqqawtMQSXGXQFVR2802-69-13 23:40:00 Test Item Value Reference Range Interpretation Comments Dohle Bodies (test Moderate *ABN*(04/08/15 code = Dohle Bodies) 6:40 PM) [facility] CenterOewbffhGLVKZIEAWB0906-30-56 23:40:00 Test Item Value Reference Range Interpretation Comments Bands (test code = 11.0 See_Comment [Automat ed message] The Bands) system which ge nerated this result transmit hazel reference range : <=11.0. The reference r marce was not used to interpr et this result as kasey l/abnormal. [facility] CenterLitsylqMXXRSOVXJD3387-40-54 23:40:00 Test Item Value Reference Range Interpretation Comments Monocytes # (test code 1.3 See_Comment [Aut omated message] The = Monocytes #) system which generated this result tra nsmitted reference range : <=0.8. The reference r marce was not used to int erpret this result as normal/abnormal . [facility] CenterSaiinfyEHKADFIKNQ4522-12-32 23:40:00 Test Item Value Reference Range Interpretation Comments Segs (test code = Segs) 70.0 45.0-75.0 [facility] CenterSktzxryMTANXGFNHY5428-67-40 23:40:00 Test Item Value Reference Range Interpretation Comments Lymphocytes (test code = Lymphocytes) 6.0 20.0-40.0 [facility] CenterOinfxrlZDSHXTAQKN7995-98-90 23:40:00 Test Item Value Reference Range Interpretation Comments Lymphocytes # (test code = Lymphocytes 2.6 1.0-5.5 #) [facility] CenterOtusercVXGCRXYMFM4977-36-41 23:40:00 Test Item Value Reference Range Interpretation Comments Lymphocytes (test code = Lymphocytes) 6.0 20.0-40.0 [facility] CenterJmgdlklXYCVGINKJD2825-27-25 23:40:00 Test Item Value Reference Range Interpretation Comments Segs-Bands # (test code = Segs-Bands #) 25.8 1.5-8.1 [facility] CenterJuwftryYYXFOIVKFD3063-52-10 23:40:00 Test Item Value Reference Range Interpretation Comments MCV (test code = MCV) 88.6 80.0-94.0 [facility] CenterVqkmninGWRZUPUCIP1997-99-40 23:40:00 Test Item Value Reference Range Interpretation Comments MCH (test code = MCH) 29.7 pg 27.0-31.0 [facility] CenterUawqitmFTXCMQTVYA4128-96-78 23:40:00 Test Item Value Reference Range Interpretation Comments MCHC (test code = MCHC) 33.5 32.0-36.0 [facility] CenterHueeppsKFNRSAJOOE8784-57-35 23:40:00 Test Item Value Reference Range Interpretation Comments RDW (test code = RDW) 15.7 11.5-14.5 [facility] CenterKwccpapENBYEXEFJT5769-46-00 23:40:00 Test Item Value Reference Range Interpretation Comments Platelet (test code = Platelet) 224 133-450 [facility] CenterZyxzzfiGNZVTAMPSW8604-44-42 23:40:00 Test Item Value Reference Range Interpretation Comments MPV (test code = MPV) 7.0 7.4-10.4 [facility] CenterEzncmfqCCVVNNLERG6709-47-78 23:40:00 Test Item Value Reference Range Interpretation Comments WBC (test code = WBC) 31.9 3.7-10.4 [facility] CenterSnpgkklSAPGWHIEJD1784-12-95 23:40:00 Test Item Value Reference Range Interpretation Comments Segs-Bands # (test code = Segs-Bands #) 25.8 1.5-8.1 [facility] CenterBufyrfpELARJBJLGR7545-08-40 23:40:00 Test Item Value Reference Range Interpretation Comments Hgb (test code = Hgb) 11.0 14.0-18.0 [facility] CenterMcyqxrvCBGDTAHRLJ5369-77-53 23:40:00 Test Item Value Reference Range Interpretation Comments RBC (test code = RBC) 3.71 4.70-6.10 [facility] CenterAvsxbufFQMWIKZPBQ0370-18-88 23:40:00 Test Item Value Reference Range Interpretation Comments Hct (test code = Hct) 32.9 42.0-54.0 [facility] CenterRetmbniWCKVTGENJK2436-57-62 23:40:00 Test Item Value Reference Range Interpretation Comments PT (test code = PT) 15.4 s 12.0-14.7 [facility] CenterJtbmygqYCWAROUILF4220-34-09 23:40:00 Test Item Value Reference Range Interpretation Comments INR (test code = INR) 1.21 0.85-1.17 [facility] CenterOykgkqxWRKMDXHXON9265-74-17 23:40:00 Test Item Value Reference Range Interpretation Comments MCV (test code = MCV) 88.6 80.0-94.0 [facility] CenterGhxxnjuEWPPROVJIA2948-66-08 23:40:00 Test Item Value Reference Range Interpretation Comments MCH (test code = MCH) 29.7 pg 27.0-31.0 [facility] CenterEfsszwcZMLDKACIIO2205-27-93 23:40:00 Test Item Value Reference Range Interpretation Comments MCHC (test code = MCHC) 33.5 32.0-36.0 [facility] CenterFogioghPEBCCJIJAK0716-88-85 23:40:00 Test Item Value Reference Range Interpretation Comments RDW (test code = RDW) 15.7 11.5-14.5 [facility] CenterOvfazxtUCNCVMVBPK9150-37-53 23:40:00 Test Item Value Reference Range Interpretation Comments Platelet (test code = Platelet) 224 133-450 [facility] CenterFykgnqrNOVVRVLQOG1956-75-08 23:40:00 Test Item Value Reference Range Interpretation Comments MPV (test code = MPV) 7.0 7.4-10.4 [facility] CenterGrblethAFZZPDLXAN3771-19-09 23:40:00 Test Item Value Reference Range Interpretation Comments WBC (test code = WBC) 31.9 3.7-10.4 [facility] CenterDrbgxpmQHAVHTKXST1180-69-20 23:40:00 Test Item Value Reference Range Interpretation Comments Hgb (test code = Hgb) 11.0 14.0-18.0 [facility] CenterErhxwvzZEBCRKCOMA1146-82-01 23:40:00 Test Item Value Reference Range Interpretation Comments RBC (test code = RBC) 3.71 4.70-6.10 [facility] CenterIkpqnkmJELCVVFUAT2211-55-38 23:40:00 Test Item Value Reference Range Interpretation Comments Hct (test code = Hct) 32.9 42.0-54.0 [facility] CenterQrxdckdIOPBZTBFVW6155-46-94 23:40:00 Test Item Value Reference Range Interpretation Comments PT (test code = PT) 15.4 s 12.0-14.7 [facility] CenterNhmdfvhKEKYUHLFJR6640-81-99 23:40:00 Test Item Value Reference Range Interpretation Comments INR (test code = INR) 1.21 0.85-1.17 [facility] CenterUzydzwkVACVURUUFX4117-94-59 23:40:00 Test Item Value Reference Range Interpretation Comments Monocytes (test code = Monocytes) 4.0 2.0-12.0 [facility] CenterMxguytwNAGUWSRVCC7012-87-95 23:40:00 Test Item Value Reference Range Interpretation Comments Metamyelocytes (test code 2.0 See_Comment [ Automated message] = Metamyelocytes) The system which generated this result transmitted ref erence range: <=1.0. T he reference range was not used to int erpret this result as normal/abnormal . [facility] CenterOzmczmgHMZVUPKGQT7764-87-94 23:40:00 Test Item Value Reference Range Interpretation Comments Myelocytes (test code = Myelocytes) 4.0 [facility] CenterIsdetpzMWRFCMKBPY6571-72-85 23:40:00 Test Item Value Reference Range Interpretation Comments Promyelocytes (test code = 1.0 Promyelocytes) [facility] CenterSvshfjvUZIJGFHQXU8560-81-97 23:40:00 Test Item Value Reference Range Interpretation Comments Atypical Lymphs (test code = Atypical 2.0 Lymphs) [facility] CenterJpdeejnOZFICJGHOS1828-40-48 23:40:00 Test Item Value Reference Range Interpretation Comments RBC Morph (test code = Normal (04/08/15 6:40 PM) RBC Morph) [facility] CenterAmdtxdkLLLYJTGTCR8524-54-21 23:40:00 Test Item Value Reference Range Interpretation Comments Plt Morph (test code = Normal (04/08/15 6:40 PM) Plt Morph) [facility] CenterCrxfhccRLAHZYOIBK2996-89-32 23:40:00 Test Item Value Reference Range Interpretation Comments Toxic Gran (test code Moderate *ABN*(04/08/15 = Toxic Gran) 6:40 PM) [facility] CenterSvttxmlDWUJEJACEC5890-76-74 23:40:00 Test Item Value Reference Range Interpretation Comments Dohle Bodies (test Moderate *ABN*(04/08/15 code = Dohle Bodies) 6:40 PM) [facility] CenterTsgcboiVCPPXGFMBN1186-36-49 23:40:00 Test Item Value Reference Range Interpretation Comments Bands (test code = 11.0 See_Comment [Automat ed message] The Bands) system which ge nerated this result transmit hazel reference range : <=11.0. The reference r marce was not used to interpr et this result as kasey l/abnormal. [facility] CenterGkxwhdlHZTFQNYFGF3439-37-40 23:40:00 Test Item Value Reference Range Interpretation Comments Monocytes # (test code 1.3 See_Comment [Aut omated message] The = Monocytes #) system which generated this result tra nsmitted reference range : <=0.8. The reference r marce was not used to int erpret this result as normal/abnormal . [facility] CenterQwwohvpTVVLYGNVZG3715-78-32 23:40:00 Test Item Value Reference Range Interpretation Comments Segs (test code = Segs) 70.0 45.0-75.0 [facility] CenterIbamunbBMYDHSYZVF3853-06-08 23:40:00 Test Item Value Reference Range Interpretation Comments Lymphocytes # (test code = Lymphocytes 2.6 1.0-5.5 #) [facility] CenterNrnofgzXPOYOZTKQF0161-11-67 23:40:00 Test Item Value Reference Range Interpretation Comments Lymphocytes (test code = Lymphocytes) 6.0 20.0-40.0 [facility] CenterBepdtwiUVNGNIIVSE3890-21-61 23:40:00 Test Item Value Reference Range Interpretation Comments Segs-Bands # (test code = Segs-Bands #) 25.8 1.5-8.1 [facility] CenterIscsivfYIKWAXYPIF0413-07-73 23:40:00 Test Item Value Reference Range Interpretation Comments MCV (test code = MCV) 88.6 80.0-94.0 [facility] CenterTwodnjjNGUWFANORG4915-45-79 23:40:00 Test Item Value Reference Range Interpretation Comments MCH (test code = MCH) 29.7 pg 27.0-31.0 [facility] CenterGraiiuhJEUBDRUXVC6286-17-43 23:40:00 Test Item Value Reference Range Interpretation Comments MCHC (test code = MCHC) 33.5 32.0-36.0 [facility] CenterCjzgdeiIBJFRKHGEN9998-50-55 23:40:00 Test Item Value Reference Range Interpretation Comments RDW (test code = RDW) 15.7 11.5-14.5 [facility] CenterWdcjqlzMISZCKTPCQ9611-82-59 23:40:00 Test Item Value Reference Range Interpretation Comments Platelet (test code = Platelet) 224 133-450 [facility] CenterRhbcpnbVTCKTGHIWW8549-99-75 23:40:00 Test Item Value Reference Range Interpretation Comments MPV (test code = MPV) 7.0 7.4-10.4 [facility] CenterFamkhjzXUECRDPASD5004-28-40 23:40:00 Test Item Value Reference Range Interpretation Comments WBC (test code = WBC) 31.9 3.7-10.4 [facility] CenterCxtjpdoYPIKCLWWAU9117-91-90 23:40:00 Test Item Value Reference Range Interpretation Comments Hgb (test code = Hgb) 11.0 14.0-18.0 [facility] CenterRvatkjjMFLPGNFFOY5227-98-64 23:40:00 Test Item Value Reference Range Interpretation Comments RBC (test code = RBC) 3.71 4.70-6.10 [facility] CenterAwrfawhBIEKSOMWZS4236-91-98 23:40:00 Test Item Value Reference Range Interpretation Comments Hct (test code = Hct) 32.9 42.0-54.0 [facility] CenterAbqpnmkAORNFPSNEP8849-82-10 23:40:00 Test Item Value Reference Range Interpretation Comments PT (test code = PT) 15.4 s 12.0-14.7 [facility] CenterVtbagufRTKKVYAGDD0979-55-88 23:40:00 Test Item Value Reference Range Interpretation Comments INR (test code = INR) 1.21 0.85-1.17 [facility] CenterZfddtmkGQIVBXYLOK4993-83-45 23:40:00 Test Item Value Reference Range Interpretation Comments Monocytes (test code = Monocytes) 4.0 2.0-12.0 [facility] CenterOqmmbduBEXXVWGUTP1642-43-08 23:40:00 Test Item Value Reference Range Interpretation Comments Metamyelocytes (test code 2.0 See_Comment [ Automated message] = Metamyelocytes) The system which generated this result transmitted ref erence range: <=1.0. T he reference range was not used to int erpret this result as normal/abnormal . [facility] CenterTlrlbbtNRPLQNEQWR3946-19-77 23:40:00 Test Item Value Reference Range Interpretation Comments Myelocytes (test code = Myelocytes) 4.0 [facility] CenterSntqkzbFPCKTCYGBN1608-72-07 23:40:00 Test Item Value Reference Range Interpretation Comments Promyelocytes (test code = 1.0 Promyelocytes) [facility] CenterPrnsassCRBFEGMMLC4165-35-29 23:40:00 Test Item Value Reference Range Interpretation Comments Atypical Lymphs (test code = Atypical 2.0 Lymphs) [facility] CenterBfmxvljUPKBCIFFDW6612-89-69 23:40:00 Test Item Value Reference Range Interpretation Comments RBC Morph (test code = Normal (04/08/15 6:40 PM) RBC Morph) [facility] CenterIvzquayKYMDTZPOXK2401-43-68 23:40:00 Test Item Value Reference Range Interpretation Comments Plt Morph (test code = Normal (04/08/15 6:40 PM) Plt Morph) [facility] CenterMaszuagYMSOGEUSPS1269-50-67 23:40:00 Test Item Value Reference Range Interpretation Comments Toxic Gran (test code Moderate *ABN*(04/08/15 = Toxic Gran) 6:40 PM) [facility] [facility]IxwhwtdOVBACWRGWE6421-67-81 23:40:00 Test Item Value Reference Range Interpretation Comments Dohle Bodies (test Moderate *ABN*(04/08/15 code = Dohle Bodies) 6:40 PM) [facility] CenterVuuueefIHBUYHLCOX9020-98-18 23:40:00 Test Item Value Reference Range Interpretation Comments Bands (test code = 11.0 See_Comment [Automat ed message] The Bands) system which ge nerated this result transmit hazel reference range : <=11.0. The reference r marce was not used to interpr et this result as kasey l/abnormal. [facility] CenterEfmldpqMCMYLCRRWM9127-56-77 23:40:00 Test Item Value Reference Range Interpretation Comments Monocytes # (test code 1.3 See_Comment [Aut omated message] The = Monocytes #) system which generated this result tra nsmitted reference range : <=0.8. The reference r marce was not used to int erpret this result as normal/abnormal . [facility] CenterLehrdprWBIOTOVSXB6636-64-00 23:40:00 Test Item Value Reference Range Interpretation Comments Segs (test code = Segs) 70.0 45.0-75.0 [facility] CenterBfxvbwwTJZILXEPGY5536-18-93 23:40:00 Test Item Value Reference Range Interpretation Comments Lymphocytes # (test code = Lymphocytes 2.6 1.0-5.5 #) [facility] CenterCnnwtxjSXSABFCKMZ0790-67-64 23:40:00 Test Item Value Reference Range Interpretation Comments Lymphocytes (test code = Lymphocytes) 6.0 20.0-40.0 [facility] CenterIrjedrhFMYBCYSJNA5644-40-88 23:40:00 Test Item Value Reference Range Interpretation Comments Segs-Bands # (test code = Segs-Bands #) 25.8 1.5-8.1 [facility] CenterZcbsqhwEVJATXACIN8282-42-27 23:40:00 Test Item Value Reference Range Interpretation Comments MCV (test code = MCV) 88.6 80.0-94.0 [facility] CenterRvennblMHXQYCBKEH0043-01-54 23:40:00 Test Item Value Reference Range Interpretation Comments MCH (test code = MCH) 29.7 pg 27.0-31.0 [facility] CenterWckmsxzVMTZLJETMW7422-07-33 23:40:00 Test Item Value Reference Range Interpretation Comments MCHC (test code = MCHC) 33.5 32.0-36.0 [facility] CenterGrdzttjQCRCBPDJOJ6967-60-90 23:40:00 Test Item Value Reference Range Interpretation Comments RDW (test code = RDW) 15.7 11.5-14.5 [facility] CenterHcoddigDATHDMQARS7800-18-77 23:40:00 Test Item Value Reference Range Interpretation Comments Platelet (test code = Platelet) 224 133-450 [facility] CenterFhzzvayEFGRUUNCQK1917-15-85 23:40:00 Test Item Value Reference Range Interpretation Comments MPV (test code = MPV) 7.0 7.4-10.4 [facility] CenterLbivdvqIRPOKMDMNG7283-18-90 23:40:00 Test Item Value Reference Range Interpretation Comments WBC (test code = WBC) 31.9 3.7-10.4 [facility] CenterIpuzuivPTTHGAHZGO8631-09-04 23:40:00 Test Item Value Reference Range Interpretation Comments Hgb (test code = Hgb) 11.0 14.0-18.0 [facility] CenterUvslapsHEAHFMOJWZ9853-39-31 23:40:00 Test Item Value Reference Range Interpretation Comments RBC (test code = RBC) 3.71 4.70-6.10 [facility] CenterJmiaenpCJGNVOCLEJ4017-56-25 23:40:00 Test Item Value Reference Range Interpretation Comments Hct (test code = Hct) 32.9 42.0-54.0 [facility] CenterJiycxyiXMJDMMLNQW9777-96-19 23:40:00 Test Item Value Reference Range Interpretation Comments PT (test code = PT) 15.4 s 12.0-14.7 [facility] CenterVfvnurpUZSSYDDECO4865-30-57 23:40:00 Test Item Value Reference Range Interpretation Comments INR (test code = INR) 1.21 0.85-1.17 [facility] CenterYtqkdlbGRJSDSBRAP6805-69-55 23:40:00 Test Item Value Reference Range Interpretation Comments Monocytes (test code = Monocytes) 4.0 2.0-12.0 [facility] CenterBayofygKQKOZWCITN5805-56-61 23:40:00 Test Item Value Reference Range Interpretation Comments Metamyelocytes (test code 2.0 See_Comment [ Automated message] = Metamyelocytes) The system which generated this result transmitted ref erence range: <=1.0. T he reference range was not used to int erpret this result as normal/abnormal . [facility] CenterRbrvejuAFAJFEERYX3590-18-61 23:40:00 Test Item Value Reference Range Interpretation Comments Myelocytes (test code = Myelocytes) 4.0 [facility] CenterMpkbthaBISJDKDFPZ3368-19-49 23:40:00 Test Item Value Reference Range Interpretation Comments Promyelocytes (test code = 1.0 Promyelocytes) [facility] CenterMofjxrxMFETFPZFJF8752-18-29 23:40:00 Test Item Value Reference Range Interpretation Comments Atypical Lymphs (test code = Atypical 2.0 Lymphs) [facility] CenterArhygupIASFOYKTFZ6641-06-56 23:40:00 Test Item Value Reference Range Interpretation Comments RBC Morph (test code = Normal (04/08/15 6:40 PM) RBC Morph) [facility] CenterLfdipdbQPDJSPBKKQ1681-63-54 23:40:00 Test Item Value Reference Range Interpretation Comments Plt Morph (test code = Normal (04/08/15 6:40 PM) Plt Morph) [facility] CenterKxmqzlwWCWGNPOZCH3858-80-36 23:40:00 Test Item Value Reference Range Interpretation Comments Toxic Gran (test code Moderate *ABN*(04/08/15 = Toxic Gran) 6:40 PM) [facility] CenterUksfrovKJHGLUYFNZ9883-00-28 23:40:00 Test Item Value Reference Range Interpretation Comments Dohle Bodies (test Moderate *ABN*(04/08/15 code = Dohle Bodies) 6:40 PM) [facility] CenterFqhcjpeUDMVHZEQSV5946-61-40 23:40:00 Test Item Value Reference Range Interpretation Comments Bands (test code = 11.0 See_Comment [Automat ed message] The Bands) system which ge nerated this result transmit hazel reference range : <=11.0. The reference r marce was not used to interpr et this result as kasey l/abnormal. [facility] CenterLphrlccGCDLYRHDFV7417-80-36 23:40:00 Test Item Value Reference Range Interpretation Comments Monocytes # (test code 1.3 See_Comment [Aut omated message] The = Monocytes #) system which generated this result tra nsmitted reference range : <=0.8. The reference r marce was not used to int erpret this result as normal/abnormal . [facility] CenterKkelgpsLDJJXALVNM6092-88-22 23:40:00 Test Item Value Reference Range Interpretation Comments Segs (test code = Segs) 70.0 45.0-75.0 [facility] CenterIpajlemPXAZHXSEAX3593-22-96 23:40:00 Test Item Value Reference Range Interpretation Comments Lymphocytes # (test code = Lymphocytes 2.6 1.0-5.5 #) [facility] CenterFzyhrkgGOPQNZBICY2794-61-80 23:40:00 Test Item Value Reference Range Interpretation Comments Lymphocytes (test code = Lymphocytes) 6.0 20.0-40.0 [facility] CenterSrptbzlHCOGTXGUPA2886-91-17 23:40:00 Test Item Value Reference Range Interpretation Comments Segs-Bands # (test code = Segs-Bands #) 25.8 1.5-8.1 [facility] CenterMvvjfodMMHKHXTHQQ1308-90-85 23:40:00 Test Item Value Reference Range Interpretation Comments MCV (test code = MCV) 88.6 80.0-94.0 [facility] CenterIityseuNLNYUKUPMU8582-27-93 23:40:00 Test Item Value Reference Range Interpretation Comments MCH (test code = MCH) 29.7 pg 27.0-31.0 [facility] CenterZyyryvoNQZONJFJJD2019-29-02 23:40:00 Test Item Value Reference Range Interpretation Comments MCHC (test code = MCHC) 33.5 32.0-36.0 [facility] CenterMnpsiwxKEJEKHXQJC4168-84-76 23:40:00 Test Item Value Reference Range Interpretation Comments RDW (test code = RDW) 15.7 11.5-14.5 [facility] CenterIgtkzrcVAEHFCHAEC3013-47-02 23:40:00 Test Item Value Reference Range Interpretation Comments Platelet (test code = Platelet) 224 302-450 [facility] CenterJyytndjVBQLLAGMDU4505-73-61 23:40:00 Test Item Value Reference Range Interpretation Comments MPV (test code = MPV) 7.0 7.4-10.4 [facility] CenterQlmfcdnBYDXYAXVRA9223-57-25 23:40:00 Test Item Value Reference Range Interpretation Comments WBC (test code = WBC) 31.9 3.7-10.4 [facility] CenterNoosexaKUKVNSTKAU8510-89-56 23:40:00 Test Item Value Reference Range Interpretation Comments Hgb (test code = Hgb) 11.0 14.0-18.0 [facility] CenterCugvbtpVKNTEYCYCM6002-62-41 23:40:00 Test Item Value Reference Range Interpretation Comments RBC (test code = RBC) 3.71 4.70-6.10 [facility] CenterLmhaglbYQQJNHRDOR4644-53-56 23:40:00 Test Item Value Reference Range Interpretation Comments Hct (test code = Hct) 32.9 42.0-54.0 [facility] CenterJhliwinVSAYEANRCQ1803-36-87 23:40:00 Test Item Value Reference Range Interpretation Comments PT (test code = PT) 15.4 s 12.0-14.7 [facility] CenterWbpeicqDNTFZUBZZW7894-71-12 23:40:00 Test Item Value Reference Range Interpretation Comments INR (test code = INR) 1.21 0.85-1.17 [facility] CenterHnpbkgfHBQKFCEWNB9365-28-46 23:40:00 Test Item Value Reference Range Interpretation Comments Monocytes (test code = Monocytes) 4.0 2.0-12.0 [facility] CenterWqflpdpGKTLFMLWBC8980-79-06 23:40:00 Test Item Value Reference Range Interpretation Comments Metamyelocytes (test code 2.0 See_Comment [ Automated message] = Metamyelocytes) The system which generated this result transmitted ref erence range: <=1.0. T he reference range was not used to int erpret this result as normal/abnormal . [facility] CenterRubdhdqOVEYUQCOSF1255-68-35 23:40:00 Test Item Value Reference Range Interpretation Comments Myelocytes (test code = Myelocytes) 4.0 [facility] CenterVmvlicrAUXWZSOFOA8548-56-12 23:40:00 Test Item Value Reference Range Interpretation Comments Promyelocytes (test code = 1.0 Promyelocytes) [facility] CenterYjwfppsQEAPDULKBY8719-70-82 23:40:00 Test Item Value Reference Range Interpretation Comments Atypical Lymphs (test code = Atypical 2.0 Lymphs) [facility] CenterBtckqwcJLEBLPYOTK6533-65-50 23:40:00 Test Item Value Reference Range Interpretation Comments RBC Morph (test code = Normal (04/08/15 6:40 PM) RBC Morph) [facility] CenterErqfseyFQFRFEMKTW6673-63-12 23:40:00 Test Item Value Reference Range Interpretation Comments Plt Morph (test code = Normal (04/08/15 6:40 PM) Plt Morph) [facility] CenterXargamtOSRQOJQLLT2624-75-79 23:40:00 Test Item Value Reference Range Interpretation Comments Toxic Gran (test code Moderate *ABN*(04/08/15 = Toxic Gran) 6:40 PM) [facility] CenterMqkvyusLSHMJHDBNR5507-57-46 23:40:00 Test Item Value Reference Range Interpretation Comments Dohle Bodies (test Moderate *ABN*(04/08/15 code = Dohle Bodies) 6:40 PM) [facility] CenterPtbaxdlCJCXWHZAMW2280-33-34 23:40:00 Test Item Value Reference Range Interpretation Comments Bands (test code = 11.0 See_Comment [Automat ed message] The Bands) system which ge nerated this result transmit hazel reference range : <=11.0. The reference r marce was not used to interpr et this result as kasey l/abnormal. [facility] CenterFmqpcmfSDAMDHYGDC6217-44-61 23:40:00 Test Item Value Reference Range Interpretation Comments Monocytes # (test code 1.3 See_Comment [Aut omated message] The = Monocytes #) system which generated this result tra nsmitted reference range : <=0.8. The reference r marce was not used to int erpret this result as normal/abnormal . [facility] CenterSbxkyeuFOIUCETLYT8023-75-45 23:40:00 Test Item Value Reference Range Interpretation Comments Segs (test code = Segs) 70.0 45.0-75.0 [facility] CenterWvmadiwYJDIRIRKFV9169-57-23 23:40:00 Test Item Value Reference Range Interpretation Comments Lymphocytes # (test code = Lymphocytes 2.6 1.0-5.5 #) [facility] CenterWjbntqtLZHUAXFKSE2345-36-62 23:40:00 Test Item Value Reference Range Interpretation Comments Lymphocytes (test code = Lymphocytes) 6.0 20.0-40.0 [facility] CenterPqywifoBFBAFXWYYY0024-14-27 23:40:00 Test Item Value Reference Range Interpretation Comments Segs-Bands # (test code = Segs-Bands #) 25.8 1.5-8.1 [facility] CenterQulwlqiXGAHWBQLRB8837-64-84 23:40:00 Test Item Value Reference Range Interpretation Comments MCV (test code = MCV) 88.6 80.0-94.0 [facility] CenterZvmuqdcYVZEJWYSOG0533-41-56 23:40:00 Test Item Value Reference Range Interpretation Comments MCH (test code = MCH) 29.7 pg 27.0-31.0 [facility] CenterVaaxyzkXAXHLKWNDW0781-86-86 23:40:00 Test Item Value Reference Range Interpretation Comments MCHC (test code = MCHC) 33.5 32.0-36.0 [facility] CenterBzoartxBHGRVBTJQJ4927-83-89 23:40:00 Test Item Value Reference Range Interpretation Comments RDW (test code = RDW) 15.7 11.5-14.5 [facility] CenterUolszxiGNAIBFLAWP6446-65-66 23:40:00 Test Item Value Reference Range Interpretation Comments Platelet (test code = Platelet) 224 133-450 [facility] CenterDlmktyvYIEQKALLEX1808-92-26 23:40:00 Test Item Value Reference Range Interpretation Comments MPV (test code = MPV) 7.0 7.4-10.4 [facility] CenterEfstlpmVIVQYWUHTO4754-92-09 23:40:00 Test Item Value Reference Range Interpretation Comments WBC (test code = WBC) 31.9 3.7-10.4 [facility] CenterSjulnxvCYOJFNGWDX4056-86-15 23:40:00 Test Item Value Reference Range Interpretation Comments Hgb (test code = Hgb) 11.0 14.0-18.0 [facility] CenterQcfxlzqSCNXUWQQFF4498-70-55 23:40:00 Test Item Value Reference Range Interpretation Comments RBC (test code = RBC) 3.71 4.70-6.10 [facility] CenterOzcxctwIDGNPBNBTB7094-49-37 23:40:00 Test Item Value Reference Range Interpretation Comments Hct (test code = Hct) 32.9 42.0-54.0 [facility] CenterQjuivxcEAMXJPSHVD9889-24-22 23:40:00 Test Item Value Reference Range Interpretation Comments PT (test code = PT) 15.4 s 12.0-14.7 [facility] CenterOofestvWVPYZROFHN6823-80-61 23:40:00 Test Item Value Reference Range Interpretation Comments INR (test code = INR) 1.21 0.85-1.17 [facility] CenterFakkdemLBWEITWUED7063-13-54 23:40:00 Test Item Value Reference Range Interpretation Comments Monocytes (test code = Monocytes) 4.0 2.0-12.0 [facility] CenterQijssikJBNYXJIMFP5146-13-93 23:40:00 Test Item Value Reference Range Interpretation Comments Metamyelocytes (test code 2.0 See_Comment [ Automated message] = Metamyelocytes) The system which generated this result transmitted ref erence range: <=1.0. T he reference range was not used to int erpret this result as normal/abnormal . [facility] CenterIesjllbGVVXDCIRIW1751-92-88 23:40:00 Test Item Value Reference Range Interpretation Comments Myelocytes (test code = Myelocytes) 4.0 [facility] CenterZcpenarMLCBMZCDMU2560-83-23 23:40:00 Test Item Value Reference Range Interpretation Comments Promyelocytes (test code = 1.0 Promyelocytes) [facility] CenterWbecpjzBAJIYWGZAO5501-53-67 23:40:00 Test Item Value Reference Range Interpretation Comments Atypical Lymphs (test code = Atypical 2.0 Lymphs) [facility] CenterFmqsovoRVBQDPBSRK8510-15-64 23:40:00 Test Item Value Reference Range Interpretation Comments RBC Morph (test code = Normal (04/08/15 6:40 PM) RBC Morph) [facility] CenterRdljpihYOVGZORBNA5664-42-36 23:40:00 Test Item Value Reference Range Interpretation Comments Plt Morph (test code = Normal (04/08/15 6:40 PM) Plt Morph) [facility] CenterAbndppfHGVJRLTWJN6509-68-13 23:40:00 Test Item Value Reference Range Interpretation Comments Toxic Gran (test code Moderate *ABN*(04/08/15 = Toxic Gran) 6:40 PM) [facility] CenterXcwhhosNLCSHOUXMP8486-98-44 23:40:00 Test Item Value Reference Range Interpretation Comments Dohle Bodies (test Moderate *ABN*(04/08/15 code = Dohle Bodies) 6:40 PM) [facility] CenterXvimxhuYWRDJDWAWB4167-66-59 23:40:00 Test Item Value Reference Range Interpretation Comments Bands (test code = 11.0 See_Comment [Automat ed message] The Bands) system which ge nerated this result transmit hazel reference range : <=11.0. The reference r marce was not used to interpr et this result as kasey l/abnormal. [facility] CenterIefnwxdXAZBOOMVCO3741-86-24 23:40:00 Test Item Value Reference Range Interpretation Comments Monocytes # (test code 1.3 See_Comment [Aut omated message] The = Monocytes #) system which generated this result tra nsmitted reference range : <=0.8. The reference r marce was not used to int erpret this result as normal/abnormal . [facility] CenterBnssjskRTXGTLTRIY2325-82-15 23:40:00 Test Item Value Reference Range Interpretation Comments Segs (test code = Segs) 70.0 45.0-75.0 [facility] CenterGrxezgoHKLCFELGWD1005-94-96 23:40:00 Test Item Value Reference Range Interpretation Comments Lymphocytes # (test code = Lymphocytes 2.6 1.0-5.5 #) [facility] CenterOoglwahICOVZKFNWQ6490-58-28 23:40:00 Test Item Value Reference Range Interpretation Comments Lymphocytes (test code = Lymphocytes) 6.0 20.0-40.0 [facility] CenterSkdylhzDYRZAWLYDB9350-26-87 23:40:00 Test Item Value Reference Range Interpretation Comments Segs-Bands # (test code = Segs-Bands #) 25.8 1.5-8.1 [facility] CenterNjsipklCAWOQKCDRX7549-42-10 23:40:00 Test Item Value Reference Range Interpretation Comments MCV (test code = MCV) 88.6 80.0-94.0 [facility] CenterNobwdpfEKLVVZAOER6648-84-91 23:40:00 Test Item Value Reference Range Interpretation Comments MCH (test code = MCH) 29.7 pg 27.0-31.0 [facility] CenterQfnjaheVGSQMPLQRP4648-55-28 23:40:00 Test Item Value Reference Range Interpretation Comments MCHC (test code = MCHC) 33.5 32.0-36.0 [facility] CenterEzivuffYPGIDMMCSU3817-90-45 23:40:00 Test Item Value Reference Range Interpretation Comments RDW (test code = RDW) 15.7 11.5-14.5 [facility] CenterDcujoloQLEDCFSBQP9504-37-58 23:40:00 Test Item Value Reference Range Interpretation Comments Platelet (test code = Platelet) 224 133-450 [facility] CenterVkzvqlbUXUPZAMPGX7867-06-21 23:40:00 Test Item Value Reference Range Interpretation Comments MPV (test code = MPV) 7.0 7.4-10.4 [facility] CenterBdbwmdlANOFFOWPQJ6513-52-02 23:40:00 Test Item Value Reference Range Interpretation Comments WBC (test code = WBC) 31.9 3.7-10.4 [facility] CenterQblitteCCSEPBHHPT1675-23-03 23:40:00 Test Item Value Reference Range Interpretation Comments Hgb (test code = Hgb) 11.0 14.0-18.0 [facility] CenterZjdtcjoDRFNXAXAZE9996-04-67 23:40:00 Test Item Value Reference Range Interpretation Comments RBC (test code = RBC) 3.71 4.70-6.10 [facility] CenterLzlklssHJOOMJJLNR7556-45-96 23:40:00 Test Item Value Reference Range Interpretation Comments Hct (test code = Hct) 32.9 42.0-54.0 [facility] CenterNailidoKXPORBBHAG3924-26-23 23:40:00 Test Item Value Reference Range Interpretation Comments PT (test code = PT) 15.4 s 12.0-14.7 [facility] CenterJzfufiyPKFOCSBFBM0011-60-46 23:40:00 Test Item Value Reference Range Interpretation Comments INR (test code = INR) 1.21 0.85-1.17 [facility] CenterHwijjeyAJGWWFTLQQ6858-51-49 23:40:00 Test Item Value Reference Range Interpretation Comments Monocytes (test code = Monocytes) 4.0 2.0-12.0 [facility] CenterAvjpwneKZQVMUBVTH7300-62-89 23:40:00 Test Item Value Reference Range Interpretation Comments Metamyelocytes (test code 2.0 See_Comment [ Automated message] = Metamyelocytes) The system which generated this result transmitted ref erence range: <=1.0. T he reference range was not used to int erpret this result as normal/abnormal . [facility] CenterAyqvsyfCATOCHSJIK9748-45-39 23:40:00 Test Item Value Reference Range Interpretation Comments Myelocytes (test code = Myelocytes) 4.0 [facility] CenterGobxkahWWCISRVXGM6767-90-73 23:40:00 Test Item Value Reference Range Interpretation Comments Promyelocytes (test code = 1.0 Promyelocytes) [facility] CenterYrlebvuRJXMQRSHTN1487-68-02 23:40:00 Test Item Value Reference Range Interpretation Comments Atypical Lymphs (test code = Atypical 2.0 Lymphs) [facility] CenterCytjmbzNHVVHNROZM6233-61-66 23:40:00 Test Item Value Reference Range Interpretation Comments RBC Morph (test code = Normal (04/08/15 6:40 PM) RBC Morph) [facility] CenterQtslivkSTAWLBMAWQ6346-39-35 23:40:00 Test Item Value Reference Range Interpretation Comments Plt Morph (test code = Normal (04/08/15 6:40 PM) Plt Morph) [facility] CenterYxqkpxpLMIFDAXKLA6830-55-71 23:40:00 Test Item Value Reference Range Interpretation Comments Toxic Gran (test code Moderate *ABN*(04/08/15 = Toxic Gran) 6:40 PM) [facility] CenterBierjmzHMQPDMDUBN6077-85-27 23:40:00 Test Item Value Reference Range Interpretation Comments Dohle Bodies (test Moderate *ABN*(04/08/15 code = Dohle Bodies) 6:40 PM) [facility] CenterZjxgzqxJFXEJUKHKF6294-58-88 23:40:00 Test Item Value Reference Range Interpretation Comments Bands (test code = 11.0 See_Comment [Automat ed message] The Bands) system which ge nerated this result transmit hazel reference range : <=11.0. The reference r marce was not used to interpr et this result as kasey l/abnormal. [facility] CenterNgansamJGTGEMGCCL8154-34-08 23:40:00 Test Item Value Reference Range Interpretation Comments Monocytes # (test code 1.3 See_Comment [Aut omated message] The = Monocytes #) system which generated this result tra nsmitted reference range : <=0.8. The reference r marce was not used to int erpret this result as normal/abnormal . [facility] CenterUnnektvEKLGXESQSO4716-45-48 23:40:00 Test Item Value Reference Range Interpretation Comments Segs (test code = Segs) 70.0 45.0-75.0 [facility] CenterDjqimlsDUCUHTHFXP9682-07-40 23:40:00 Test Item Value Reference Range Interpretation Comments Lymphocytes # (test code = Lymphocytes 2.6 1.0-5.5 #) [facility] CenterJhmbfyiPHYACITBKR4849-99-52 23:40:00 Test Item Value Reference Range Interpretation Comments Lymphocytes (test code = Lymphocytes) 6.0 20.0-40.0 [facility] CenterEtaadrpMFICPOIYNP4939-58-94 23:40:00 Test Item Value Reference Range Interpretation Comments Segs-Bands # (test code = Segs-Bands #) 25.8 1.5-8.1 [facility] CenterPxwftswNHCEDWCDQW9949-15-73 23:40:00 Test Item Value Reference Range Interpretation Comments MCV (test code = MCV) 88.6 80.0-94.0 [facility] CenterEqvaicpJTJSYKJECZ4813-68-86 23:40:00 Test Item Value Reference Range Interpretation Comments MCH (test code = MCH) 29.7 pg 27.0-31.0 [facility] CenterJcxjikvTPKRGLQIFP0799-95-86 23:40:00 Test Item Value Reference Range Interpretation Comments MCHC (test code = MCHC) 33.5 32.0-36.0 [facility] CenterSqbftpvEAVVYCZJNU6824-81-90 23:40:00 Test Item Value Reference Range Interpretation Comments RDW (test code = RDW) 15.7 11.5-14.5 [facility] CenterHhvuielDVZKNBVFNM3191-06-21 23:40:00 Test Item Value Reference Range Interpretation Comments Platelet (test code = Platelet) 224 133-450 [facility] CenterUyndhaxDUFLBZHMPF8453-99-21 23:40:00 Test Item Value Reference Range Interpretation Comments MPV (test code = MPV) 7.0 7.4-10.4 [facility] CenterLilnwczCENOOUFPAY0226-54-37 23:40:00 Test Item Value Reference Range Interpretation Comments WBC (test code = WBC) 31.9 3.7-10.4 [facility] CenterBdvetfxOYJCSINOBA4131-03-31 23:40:00 Test Item Value Reference Range Interpretation Comments Hgb (test code = Hgb) 11.0 14.0-18.0 [facility] CenterApczfweBSOXUBOZUP6643-74-11 23:40:00 Test Item Value Reference Range Interpretation Comments RBC (test code = RBC) 3.71 4.70-6.10 [facility] CenterUykdlfgTLZQEILFAR9564-96-50 23:40:00 Test Item Value Reference Range Interpretation Comments Hct (test code = Hct) 32.9 42.0-54.0 [facility] CenterUzgcwixALXGBTDALJ8276-97-02 23:40:00 Test Item Value Reference Range Interpretation Comments PT (test code = PT) 15.4 s 12.0-14.7 [facility] CenterVunlbdlDGEULXDISH1720-12-56 23:40:00 Test Item Value Reference Range Interpretation Comments INR (test code = INR) 1.21 0.85-1.17 [facility] CenterHoliwgnCGYVXFOGEI7367-85-51 23:40:00 Test Item Value Reference Range Interpretation Comments Monocytes (test code = Monocytes) 4.0 2.0-12.0 [facility] CenterRrerzbqAKTPLCRIAP7000-37-88 23:40:00 Test Item Value Reference Range Interpretation Comments Metamyelocytes (test code 2.0 See_Comment [ Automated message] = Metamyelocytes) The system which generated this result transmitted ref erence range: <=1.0. T he reference range was not used to int erpret this result as normal/abnormal . [facility] CenterJuzajyePBXVKSHJFO7526-35-05 23:40:00 Test Item Value Reference Range Interpretation Comments Myelocytes (test code = Myelocytes) 4.0 [facility] CenterUeyroqhQAKZRWNPSR5744-82-82 23:40:00 Test Item Value Reference Range Interpretation Comments Promyelocytes (test code = 1.0 Promyelocytes) [facility] CenterTjppojqYWNKEVTVDL5475-56-87 23:40:00 Test Item Value Reference Range Interpretation Comments Atypical Lymphs (test code = Atypical 2.0 Lymphs) [facility] CenterZomuijmKFOMKLJOLR0266-16-86 23:40:00 Test Item Value Reference Range Interpretation Comments RBC Morph (test code = Normal (04/08/15 6:40 PM) RBC Morph) [facility] CenterXdixczqHAHMQFLTOG0866-25-38 23:40:00 Test Item Value Reference Range Interpretation Comments Plt Morph (test code = Normal (04/08/15 6:40 PM) Plt Morph) [facility] CenterVcpcsdgBMYCXKYJTE2878-13-71 23:40:00 Test Item Value Reference Range Interpretation Comments Toxic Gran (test code Moderate *ABN*(04/08/15 = Toxic Gran) 6:40 PM) [facility] CenterCijwukbHJCFYBQHDF6422-19-54 23:40:00 Test Item Value Reference Range Interpretation Comments Dohle Bodies (test Moderate *ABN*(04/08/15 code = Dohle Bodies) 6:40 PM) [facility] CenterSzyohgoOUCJTIKDFW0266-43-31 23:40:00 Test Item Value Reference Range Interpretation Comments Bands (test code = 11.0 See_Comment [Automat ed message] The Bands) system which ge nerated this result transmit hazel reference range : <=11.0. The reference r marce was not used to interpr et this result as kasey l/abnormal. [facility] CenterYlmjmacCKWMTXLINL7330-20-41 23:40:00 Test Item Value Reference Range Interpretation Comments Monocytes # (test code 1.3 See_Comment [Aut omated message] The = Monocytes #) system which generated this result tra nsmitted reference range : <=0.8. The reference r marce was not used to int erpret this result as normal/abnormal . [facility] CenterNwpmotaPGKYUHNPGL1530-01-47 23:40:00 Test Item Value Reference Range Interpretation Comments Segs (test code = Segs) 70.0 45.0-75.0 [facility] CenterNccitacKHZVKUTBOC7791-44-46 23:40:00 Test Item Value Reference Range Interpretation Comments Lymphocytes # (test code = Lymphocytes 2.6 1.0-5.5 #) [facility] CenterMoxtfbdXZTKTDNSPT6126-44-53 23:40:00 Test Item Value Reference Range Interpretation Comments Lymphocytes (test code = Lymphocytes) 6.0 20.0-40.0 [facility] CenterMmatxmcYAPOOXQZQZ3129-95-08 23:40:00 Test Item Value Reference Range Interpretation Comments Segs-Bands # (test code = Segs-Bands #) 25.8 1.5-8.1 [facility] CenterJntpxzxEZACYDXEGY6535-07-21 23:40:00 Test Item Value Reference Range Interpretation Comments MCV (test code = MCV) 88.6 80.0-94.0 [facility] CenterYhwbkwuDFPBOTGDZI9638-17-07 23:40:00 Test Item Value Reference Range Interpretation Comments MCH (test code = MCH) 29.7 pg 27.0-31.0 [facility] CenterHcbzpkeCEQYXRBZTS5388-18-96 23:40:00 Test Item Value Reference Range Interpretation Comments MCHC (test code = MCHC) 33.5 32.0-36.0 [facility] CenterMaetezoFLIIVAGTTL1463-34-10 23:40:00 Test Item Value Reference Range Interpretation Comments RDW (test code = RDW) 15.7 11.5-14.5 [facility] CenterFlsermkFZWQBGWDFR5414-85-84 23:40:00 Test Item Value Reference Range Interpretation Comments Platelet (test code = Platelet) 224 133-450 [facility] CenterGajasneCJPKRRYGLP7173-53-61 23:40:00 Test Item Value Reference Range Interpretation Comments MPV (test code = MPV) 7.0 7.4-10.4 [facility] CenterSrsakzfOQJORYAYWJ1960-31-29 23:40:00 Test Item Value Reference Range Interpretation Comments WBC (test code = WBC) 31.9 3.7-10.4 [facility] CenterBxgjearIPPYLTAYRW2072-99-74 23:40:00 Test Item Value Reference Range Interpretation Comments Hgb (test code = Hgb) 11.0 14.0-18.0 [facility] CenterGktwavfCZLRDDXKIW1176-47-30 23:40:00 Test Item Value Reference Range Interpretation Comments RBC (test code = RBC) 3.71 4.70-6.10 [facility] CenterVorvnrmDEKAJDODBW3784-60-08 23:40:00 Test Item Value Reference Range Interpretation Comments Hct (test code = Hct) 32.9 42.0-54.0 [facility] CenterGsogqhzOEGKOTIBTP6220-64-52 23:40:00 Test Item Value Reference Range Interpretation Comments PT (test code = PT) 15.4 s 12.0-14.7 [facility] CenterYporbkzYEGACSIDYX5100-25-84 23:40:00 Test Item Value Reference Range Interpretation Comments INR (test code = INR) 1.21 0.85-1.17 [facility]Map[facility] [id number] 05:13:00 Test Item Value Reference Range Interpretation Comments Antibody Scrn (test Negative (04/08/15 12:13 code = Antibody Scrn) AM) [facility] CenterMap[facility]ID [facility] [id number] 05:13:00 Test Item Value Reference Range Interpretation Comments ABO/Rh (test code = ABO/Rh) [facility] [id number] 05:13:00 Test Item Value Reference Range Interpretation Comments Lactic Acid Lvl (test code = Lactic 0.9 0.5-2.2 Acid Lvl) [facility]PdfkdokWYYUZQRSNIOP9334-86-61 05:13:00 Test Item Value Reference Range Interpretation Comments AGAP (test code = AGAP) 11.8 10.0-20.0 [facility]wallMsqblujIKIPFFGYBNZL1384-12-44 05:13:00 Test Item Value Reference Range Interpretation Comments eGFR (test code = eGFR) 67 [facility] HospitalXzbhamsXKCTZYGYKWQR2725-13-30 05:13:00 Test Item Value Reference Range Interpretation Comments Glucose Lvl (test code = Glucose Lvl) 143 70-99 [facility] HospitalKwnvrtsGNLHXCRGOXNU3985-18-36 05:13:00 Test Item Value Reference Range Interpretation Comments Creatinine Lvl (test code = Creatinine 1.2 0.5-1.4 Lvl) [facility] HospitalYbbslicEASWMNGQYMRI4909-43-41 05:13:00 Test Item Value Reference Range Interpretation Comments BUN (test code = BUN) 9 7-22 [facility] HospitalLsvftyeKIDLLSLMLEYM7349-90-73 05:13:00 Test Item Value Reference Range Interpretation Comments Sodium Lvl (test code = Sodium Lvl) 137 135-145 [facility] HospitalSujiaowTWUTYHENEWXI9507-98-17 05:13:00 Test Item Value Reference Range Interpretation Comments Potassium Lvl (test code = Potassium 3.8 3.5-5.1 Lvl) [facility] HospitalPkeewuvXGJEYXZUHDVE4600-53-29 05:13:00 Test Item Value Reference Range Interpretation Comments Calcium Lvl (test code = Calcium Lvl) 8.4 8.5-10.5 [facility] HospitalPuhwhnwNSUEUDXLJHKU0300-24-12 05:13:00 Test Item Value Reference Range Interpretation Comments CO2 (test code = CO2) 27 24-32 [facility] HospitalRasldkyIOWRNKSHSSNW4951-62-14 05:13:00 Test Item Value Reference Range Interpretation Comments Chloride Lvl (test code = Chloride Lvl) 102 95-109 [facility] CenterJaceqfvGWAYEPDRYL1975-57-07 05:13:00 Test Item Value Reference Range Interpretation Comments Plt Morph (test code = Normal (04/08/15 12:13 Plt Morph) AM) [facility] CenterAookobhNUKKDVAPZV9426-70-53 05:13:00 Test Item Value Reference Range Interpretation Comments Anisocyte (test code = 1+ *ABN*(04/08/15 Anisocyte) 12:13 AM) [facility] CenterJnxxedyWRNRYUNRQA5017-58-69 05:13:00 Test Item Value Reference Range Interpretation Comments Tot Cell Ct (test code = Tot Cell Ct) 200 1 [facility] CenterXnvnumlOXDCJMDSIE1490-48-41 05:13:00 Test Item Value Reference Range Interpretation Comments Myelocytes (test code = Myelocytes) 8.0 [facility] CenterXltjxxvLAASDIZSNA1521-09-07 05:13:00 Test Item Value Reference Range Interpretation Comments INR (test code = INR) 1.17 0.85-1.17 [facility] CenterXlhqcmkNVRDWDWQPQ9767-41-44 05:13:00 Test Item Value Reference Range Interpretation Comments PT (test code = PT) 15.0 s 12.0-14.7 [facility]2015-06-07 05:13:00 Test Item Value Reference Range Interpretation Comments UA Uric Ac Angie (test code = UA Many /HPF Uric Ac Angie) [facility]2015-06-07 05:13:00 Test Item Value Reference Range Interpretation Comments UA RBC (test code = 0-2 /HPF See_Comment [Automa hazel message] The UA RBC) system which ge nerated this result tra nsmitted reference range : <=2. The reference range was not used to interpr et this result as kasey l/abnormal. [facility] AND [id number] 05:13:00 Test Item Value Reference Range Interpretation Comments UA WBC (test code = UA WBC) 0-2 /HPF [facility] AND [id number] 05:13:00 Test Item Value Reference Range Interpretation Comments UA Sq Epi (test code = None Seen (04/08/15 12:13 UA Sq Epi) AM) [facility] AND [id number] 05:13:00 Test Item Value Reference Range Interpretation Comments UA Bacteria (test code = UA Few /HPF Bacteria) [facility] AND [id number] 05:13:00 Test Item Value Reference Range Interpretation Comments Micro? (test code = Performed (04/08/15 12:13 Micro?) AM) [facility] AND [id number] 05:13:00 Test Item Value Reference Range Interpretation Comments UA Spec Grav (test code = UA Spec 1.015 1 Grav) [facility] AND [id number] 05:13:00 Test Item Value Reference Range Interpretation Comments UA pH (test code = UA pH) 5.0 1 5.0-8.0 [facility] AND [id number] 05:13:00 Test Item Value Reference Range Interpretation Comments UA Protein (test code Negative (04/08/15 12:13 = UA Protein) AM) [facility] AND [id number] 05:13:00 Test Item Value Reference Range Interpretation Comments UA Glucose (test code Negative (04/08/15 12:13 = UA Glucose) AM) [facility] AND [id number] 05:13:00 Test Item Value Reference Range Interpretation Comments UA Ketones (test code Negative *NA*(04/08/15 = UA Ketones) 12:13 AM) [facility] AND [id number] 05:13:00 Test Item Value Reference Range Interpretation Comments UA Bili (test code = Negative *NA*(04/08/15 UA Bili) 12:13 AM) [facility] AND [id number] 05:13:00 Test Item Value Reference Range Interpretation Comments UA Blood (test code = Trace *ABN*(04/08/15 UA Blood) 12:13 AM) [facility] AND [id number] 05:13:00 Test Item Value Reference Range Interpretation Comments UA Urobilinogen (test code = UA 1.0 0.1-1.0 Urobilinogen) [facility] AND [id number] 05:13:00 Test Item Value Reference Range Interpretation Comments UA Nitrite (test code Negative (04/08/15 12:13 = UA Nitrite) AM) [facility] AND [id number] 05:13:00 Test Item Value Reference Range Interpretation Comments UA Leuk Est (test Negative (04/08/15 12:13 code = UA Leuk Est) AM) [facility] AND [id number] 05:13:00 Test Item Value Reference Range Interpretation Comments UA Color (test code = Yellow *NA*(04/08/15 UA Color) 12:13 AM) [facility] AND [id number] 05:13:00 Test Item Value Reference Range Interpretation Comments UA Turbidity (test code = Clear (04/08/15 12:13 UA Turbidity) AM) [facility] [id number] 05:13:00 Test Item Value Reference Range Interpretation Comments Antibody Scrn (test Negative (04/08/15 12:13 code = Antibody Scrn) AM) [facility] [id number] 05:13:00 Test Item Value Reference Range Interpretation Comments ABO/Rh (test code = ABO/Rh) A POS [facility] [employer])CHEM [id number] 05:13:00 Test Item Value Reference Range Interpretation Comments Lactic Acid Lvl (test code = Lactic 0.9 0.5-2.2 Acid Lvl) [facility]wallZualubbMBLRZJATMOSJ7209-22-84 05:13:00 Test Item Value Reference Range Interpretation Comments AGAP (test code = AGAP) 11.8 10.0-20.0 [facility] CenterZaskgjdPZAFGTZYSQPW3543-55-77 05:13:00 Test Item Value Reference Range Interpretation Comments eGFR (test code = eGFR) 67 [facility] HospitalXnbrkrwJXZDNJJTQMUI3042-82-89 05:13:00 Test Item Value Reference Range Interpretation Comments Glucose Lvl (test code = Glucose Lvl) 143 70-99 [facility] HospitalUjakxzfZRRPVQOYCSUE4441-81-79 05:13:00 Test Item Value Reference Range Interpretation Comments Creatinine Lvl (test code = Creatinine 1.2 0.5-1.4 Lvl) [facility] HospitalDxyqdafEBWNDBIMZDQS1733-01-03 05:13:00 Test Item Value Reference Range Interpretation Comments BUN (test code = BUN) 9 7-22 [facility] HospitalNmqcgwdSOXINCXNMSJJ3827-51-60 05:13:00 Test Item Value Reference Range Interpretation Comments Sodium Lvl (test code = Sodium Lvl) 137 135-145 [facility] HospitalWgjlpulXOFFQKGKRDJR7345-91-65 05:13:00 Test Item Value Reference Range Interpretation Comments Potassium Lvl (test code = Potassium 3.8 3.5-5.1 Lvl) [facility] HospitalZykqvbeSNQZVZUITDTI4292-50-72 05:13:00 Test Item Value Reference Range Interpretation Comments Calcium Lvl (test code = Calcium Lvl) 8.4 8.5-10.5 [facility] HospitalDqesklkUOPLUAQAJXIN9038-26-89 05:13:00 Test Item Value Reference Range Interpretation Comments CO2 (test code = CO2) 27 24-32 [facility] HospitalFobdkrpOWTGNUYGZHCS8900-40-38 05:13:00 Test Item Value Reference Range Interpretation Comments Chloride Lvl (test code = Chloride Lvl) 102 95-109 [facility] CenterTjerjdfCESHZBIWHU5087-85-74 05:13:00 Test Item Value Reference Range Interpretation Comments Plt Morph (test code = Normal (04/08/15 12:13 Plt Morph) AM) [facility] CenterRlegeewVXVOVZJYOH2522-33-27 05:13:00 Test Item Value Reference Range Interpretation Comments Anisocyte (test code = 1+ *ABN*(04/08/15 Anisocyte) 12:13 AM) [facility] CenterEqwfgtiAETNRFOXSX5108-95-90 05:13:00 Test Item Value Reference Range Interpretation Comments Tot Cell Ct (test code = Tot Cell Ct) 200 1 [facility] CenterJojtninPHVHEQJZKV9252-23-10 05:13:00 Test Item Value Reference Range Interpretation Comments Myelocytes (test code = Myelocytes) 8.0 [facility] CenterLhxcuedHHVDYHXUUH0665-02-76 05:13:00 Test Item Value Reference Range Interpretation Comments INR (test code = INR) 1.17 0.85-1.17 [facility] HospitalCekxkyzSAZGYKDPLU2212-86-68 05:13:00 Test Item Value Reference Range Interpretation Comments PT (test code = PT) 15.0 s 12.0-14.7 [facility] AND [id number] 05:13:00 Test Item Value Reference Range Interpretation Comments UA Uric Ac Angie (test code = UA Many /HPF Uric Ac Angie) [facility] [id number] 05:13:00 Test Item Value Reference Range Interpretation Comments UA RBC (test code = 0-2 /HPF See_Comment [Automa hazel message] The UA RBC) system which ge nerated this result tra nsmitted reference range : <=2. The reference range was not used to interpr et this result as kasey l/abnormal. [facility] AND [id number] 05:13:00 Test Item Value Reference Range Interpretation Comments UA WBC (test code = UA WBC) 0-2 /HPF [facility] AND [id number] 05:13:00 Test Item Value Reference Range Interpretation Comments UA Sq Epi (test code = None Seen (04/08/15 12:13 UA Sq Epi) AM) [facility] AND [id number] 05:13:00 Test Item Value Reference Range Interpretation Comments UA Bacteria (test code = UA Few /HPF Bacteria) [facility] AND [id number] 05:13:00 Test Item Value Reference Range Interpretation Comments Micro? (test code = Performed (04/08/15 12:13 Micro?) AM) [facility] AND [id number] 05:13:00 Test Item Value Reference Range Interpretation Comments UA Spec Grav (test code = UA Spec 1.015 1 Grav) [facility] AND [id number] 05:13:00 Test Item Value Reference Range Interpretation Comments UA pH (test code = UA pH) 5.0 1 5.0-8.[address] [facility] AND [id number] 05:13:00 Test Item Value Reference Range Interpretation Comments UA Protein (test code Negative (04/08/15 12:13 = UA Protein) AM) [facility] AND [id number] 05:13:00 Test Item Value Reference Range Interpretation Comments UA Glucose (test code Negative (04/08/15 12:13 = UA Glucose) AM) [facility] AND [id number] 05:13:00 Test Item Value Reference Range Interpretation Comments UA Ketones (test code Negative *NA*(04/08/15 = UA Ketones) 12:13 AM) [facility] AND [id number] 05:13:00 Test Item Value Reference Range Interpretation Comments UA Bili (test code = Negative *NA*(04/08/15 UA Bili) 12:13 AM) [facility] AND [id number] 05:13:00 Test Item Value Reference Range Interpretation Comments UA Blood (test code = Trace *ABN*(04/08/15 UA Blood) 12:13 AM) [facility] AND [id number] 05:13:00 Test Item Value Reference Range Interpretation Comments UA Urobilinogen (test code = UA 1.0 0.1-1.0 Urobilinogen) [facility] AND [id number] 05:13:00 Test Item Value Reference Range Interpretation Comments UA Nitrite (test code Negative (04/08/15 12:13 = UA Nitrite) AM) [facility] AND [id number] 05:13:00 Test Item Value Reference Range Interpretation Comments UA Leuk Est (test Negative (04/08/15 12:13 code = UA Leuk Est) AM) [facility] AND [id number] 05:13:00 Test Item Value Reference Range Interpretation Comments UA Color (test code = Yellow *NA*(04/08/15 UA Color) 12:13 AM) [facility] AND [id number] 05:13:00 Test Item Value Reference Range Interpretation Comments UA Turbidity (test code = Clear (04/08/15 12:13 UA Turbidity) AM) [facility] [id number] 05:13:00 Test Item Value Reference Range Interpretation Comments Antibody Scrn (test Negative (04/08/15 12:13 code = Antibody Scrn) AM) [facility] [id number] 05:13:00 Test Item Value Reference Range Interpretation Comments ABO/Rh (test code = ABO/Rh) A POS [facility]CHE[facility] [id number] 05:13:00 Test Item Value Reference Range Interpretation Comments Lactic Acid Lvl (test code = Lactic 0.9 0.5-2.2 Acid Lvl) [facility] HospitalYkvbazlHXQVOIHXFSXU8884-77-96 05:13:00 Test Item Value Reference Range Interpretation Comments AGAP (test code = AGAP) 11.8 10.0-20.0 [facility] HospitalNfvbbgoAJIPSFENXOCK8171-85-95 05:13:00 Test Item Value Reference Range Interpretation Comments eGFR (test code = eGFR) 67 [facility] HospitalStczmmdZXHANNSQSVTN7251-34-75 05:13:00 Test Item Value Reference Range Interpretation Comments Glucose Lvl (test code = Glucose Lvl) 143 70-99 [facility] HospitalHoswszdJITFXGSPEPKZ8384-51-64 05:13:00 Test Item Value Reference Range Interpretation Comments Creatinine Lvl (test code = Creatinine 1.2 0.5-1.4 Lvl) [facility] HospitalVhoviptHQTPSBESZMJN2812-93-71 05:13:00 Test Item Value Reference Range Interpretation Comments BUN (test code = BUN) 9 7-22 [facility] HospitalJjdyrkjWZYSXAJZZJQI1798-65-35 05:13:00 Test Item Value Reference Range Interpretation Comments Sodium Lvl (test code = Sodium Lvl) 137 135-145 [facility] HospitalXsgpdxnLYEXTQLMEXTE9132-77-92 05:13:00 Test Item Value Reference Range Interpretation Comments Potassium Lvl (test code = Potassium 3.8 3.5-5.1 Lvl) [facility] HospitalArippytCTVKVHBKWRVE9108-66-64 05:13:00 Test Item Value Reference Range Interpretation Comments Calcium Lvl (test code = Calcium Lvl) 8.4 8.5-10.5 [facility] HospitalXfioryuABTEWJFUCZQK9253-45-90 05:13:00 Test Item Value Reference Range Interpretation Comments CO2 (test code = CO2) 27 24-32 [facility] HospitalYxdgfieFKWHEMLTJJAV4482-32-87 05:13:00 Test Item Value Reference Range Interpretation Comments Chloride Lvl (test code = Chloride Lvl) 102 95-109 [facility] CenterIlgixzkFLJUNHCIFQ3358-83-64 05:13:00 Test Item Value Reference Range Interpretation Comments Plt Morph (test code = Normal (04/08/15 12:13 Plt Morph) AM) [facility] CenterLccosdmRBRVCEOQQJ4789-46-55 05:13:00 Test Item Value Reference Range Interpretation Comments Anisocyte (test code = 1+ *ABN*(04/08/15 Anisocyte) 12:13 AM) [facility] CenterYpjvkifFSXNQIZGSQ7378-72-03 05:13:00 Test Item Value Reference Range Interpretation Comments Tot Cell Ct (test code = Tot Cell Ct) 200 1 [facility] CenterLhssyxpIEWSXFDKCH0150-27-50 05:13:00 Test Item Value Reference Range Interpretation Comments Myelocytes (test code = Myelocytes) 8.0 [facility] CenterSfwovdbYHTMYFDUGP9332-89-89 05:13:00 Test Item Value Reference Range Interpretation Comments INR (test code = INR) 1.17 0.85-1.17 [facility] CenterJskehomLHIPOYFXGM5656-10-97 05:13:00 Test Item Value Reference Range Interpretation Comments PT (test code = PT) 15.0 s 12.0-14.7 [facility] AND [id number] 05:13:00 Test Item Value Reference Range Interpretation Comments UA Uric Ac Angie (test code = UA Many /HPF Uric Ac Angie) [facility] AND [id number] 05:13:00 Test Item Value Reference Range Interpretation Comments UA RBC (test code = 0-2 /HPF See_Comment [Automa hazel message] The UA RBC) system which ge nerated this result tra nsmitted reference range : <=2. The reference range was not used to interpr et this result as kasey l/abnormal. [facility] AND [id number] 05:13:00 Test Item Value Reference Range Interpretation Comments UA WBC (test code = UA WBC) 0-2 /HPF [facility] AND [id number] 05:13:00 Test Item Value Reference Range Interpretation Comments UA Sq Epi (test code = None Seen (04/08/15 12:13 UA Sq Epi) AM) [facility] AND [id number] 05:13:00 Test Item Value Reference Range Interpretation Comments UA Bacteria (test code = UA Few /HPF Bacteria) [facility] AND [id number] 05:13:00 Test Item Value Reference Range Interpretation Comments Micro? (test code = Performed (04/08/15 12:13 Micro?) AM) [facility] AND [id number] 05:13:00 Test Item Value Reference Range Interpretation Comments UA Spec Grav (test code = UA Spec 1.015 1 Grav) [facility] AND [id number] 05:13:00 Test Item Value Reference Range Interpretation Comments UA pH (test code = UA pH) 5.0 1 5.0-8.0 [facility] AND [id number] 05:13:00 Test Item Value Reference Range Interpretation Comments UA Protein (test code Negative (04/08/15 12:13 = UA Protein) AM) Formerly [facility] AND [id number] 05:13:00 Test Item Value Reference Range Interpretation Comments UA Glucose (test code Negative (04/08/15 12:13 = UA Glucose) AM) Formerly [facility] AND [id number] 05:13:00 Test Item Value Reference Range Interpretation Comments UA Ketones (test code Negative *NA*(04/08/15 = UA Ketones) 12:13 AM) Formerly [facility] AND [id number] 05:13:00 Test Item Value Reference Range Interpretation Comments UA Bili (test code = Negative *NA*(04/08/15 UA Bili) 12:13 AM) Formerly [facility] AND [id number] 05:13:00 Test Item Value Reference Range Interpretation Comments UA Blood (test code = Trace *ABN*(04/08/15 UA Blood) 12:13 AM) Formerly [facility] AND [id number] 05:13:00 Test Item Value Reference Range Interpretation Comments UA Urobilinogen (test code = UA 1.0 0.1-1.0 Urobilinogen) Formerly [facility] AND [id number] 05:13:00 Test Item Value Reference Range Interpretation Comments UA Nitrite (test code Negative (04/08/15 12:13 = UA Nitrite) AM) Formerly [facility] AND [id number] 05:13:00 Test Item Value Reference Range Interpretation Comments UA Leuk Est (test Negative (04/08/15 12:13 code = UA Leuk Est) AM) Formerly [facility] AND [id number] 05:13:00 Test Item Value Reference Range Interpretation Comments UA Color (test code = Yellow *NA*(04/08/15 UA Color) 12:13 AM) Formerly [facility] AND [id number] 05:13:00 Test Item Value Reference Range Interpretation Comments UA Turbidity (test code = Clear (04/08/15 12:13 UA Turbidity) AM) [facility] [id number] 05:13:00 Test Item Value Reference Range Interpretation Comments Antibody Scrn (test Negative (04/08/15 12:13 code = Antibody Scrn) AM) [facility] [id number] 05:13:00 Test Item Value Reference Range Interpretation Comments ABO/Rh (test code = ABO/Rh) A POS [facility] [employer] [id number] 05:13:00 Test Item Value Reference Range Interpretation Comments Lactic Acid Lvl (test code = Lactic 0.9 0.5-2.2 Acid Lvl) [id number] 05:13:00 Test Item Value Reference Range Interpretation Comments AGAP (test code = AGAP) 11.8 10.0-20.0 [facility] Hosp[id number] 05:13:00 Test Item Value Reference Range Interpretation Comments eGFR (test code = eGFR) 67 [facility] HospitalAxzhbxzTTPHXWOSRSAH6580-59-55 05:13:00 Test Item Value Reference Range Interpretation Comments Glucose Lvl (test code = Glucose Lvl) 143 70-99 [facility] HospitalSeqtwxmJNRRTWUYXUVX3999-87-96 05:13:00 Test Item Value Reference Range Interpretation Comments Creatinine Lvl (test code = Creatinine 1.2 0.5-1.4 Lvl) [facility] [id number] 05:13:00 Test Item Value Reference Range Interpretation Comments Antibody Scrn (test Negative (04/08/15 12:13 code = Antibody Scrn) AM) [facility] [id number] 05:13:00 Test Item Value Reference Range Interpretation Comments ABO/Rh (test code = ABO/Rh) A POS [facility] [employer] [id number] 05:13:00 Test Item Value Reference Range Interpretation Comments Lactic Acid Lvl (test code = Lactic 0.9 0.5-2.2 Acid Lvl) [facility] Hosp[id number] 05:13:00 Test Item Value Reference Range Interpretation Comments AGAP (test code = AGAP) 11.8 10.0-20.0 [facility] HospitalHlbublnRJPTYDZONAQF3754-23-29 05:13:00 Test Item Value Reference Range Interpretation Comments eGFR (test code = eGFR) 67 [facility] HospitalZlacbaoVFYMTCSUQYJL7203-64-72 05:13:00 Test Item Value Reference Range Interpretation Comments Glucose Lvl (test code = Glucose Lvl) 143 70-99 [facility] HospitalPffprfuBRVKIHPLRRUM8083-29-89 05:13:00 Test Item Value Reference Range Interpretation Comments Creatinine Lvl (test code = Creatinine 1.2 0.5-1.4 Lvl) [facility] HospitalKzjziotRXGIVUFKWUQT9969-83-12 05:13:00 Test Item Value Reference Range Interpretation Comments BUN (test code = BUN) 9 7- [facility] HospitalRcivurxDRNTLUZVFORF1877-29-43 05:13:00 Test Item Value Reference Range Interpretation Comments BUN (test code = BUN) 9 7-22 [facility] HospitalZqmevlyHEFLNNLUTKJE5019-71-48 05:13:00 Test Item Value Reference Range Interpretation Comments Sodium Lvl (test code = Sodium Lvl) 137 135-145 [facility] HospitalOwzsywtFEBKMLGJWUNI3057-46-99 05:13:00 Test Item Value Reference Range Interpretation Comments Potassium Lvl (test code = Potassium 3.8 3.5-5.1 Lvl) [facility] HospitalZuotthlCRKCZTVCFBWI1249-45-42 05:13:00 Test Item Value Reference Range Interpretation Comments Calcium Lvl (test code = Calcium Lvl) 8.4 8.5-10.5 [facility] HospitalUleufgmSPJOXZCZJLPY9533-62-53 05:13:00 Test Item Value Reference Range Interpretation Comments CO2 (test code = CO2) 27 24-32 [facility] HospitalJbjgoflBNRTDAXTYBAU6112-66-46 05:13:00 Test Item Value Reference Range Interpretation Comments Chloride Lvl (test code = Chloride Lvl) 102 95-109 [facility] CenterPkulrrwIHWSLBGGBV6510-88-35 05:13:00 Test Item Value Reference Range Interpretation Comments Plt Morph (test code = Normal (04/08/15 12:13 Plt Morph) AM) [facility] [id number] 05:13:00 Test Item Value Reference Range Interpretation Comments Anisocyte (test code = 1+ *ABN*(04/08/15 Anisocyte) 12:13 AM) [facility] CenterSataophPHHKLASLTS6879-33-06 05:13:00 Test Item Value Reference Range Interpretation Comments Tot Cell Ct (test code = Tot Cell Ct) 200 1 [facility]capzzvZCTPBZCCIL2949-72-26 05:13:00 Test Item Value Reference Range Interpretation Comments Myelocytes (test code = Myelocytes) 8.0 [facility]SveflkkSVZXHUIWDK8985-11-01 05:13:00 Test Item Value Reference Range Interpretation Comments INR (test code = INR) 1.17 0.85-1.17 [facility]BkbaqofKYFSZEVQMZUQ2880-38-33 05:13:00 Test Item Value Reference Range Interpretation Comments Sodium Lvl (test code = Sodium Lvl) 137 135-145 [facility] HospitalSojltpvARMUFLWUWY2885-62-43 05:13:00 Test Item Value Reference Range Interpretation Comments PT (test code = PT) 15.0 s 12.0-14.7 [facility]ly [facility] AND [id number] 05:13:00 Test Item Value Reference Range Interpretation Comments UA Uric Ac Angie (test code = UA Many /HPF Uric Ac Angie) Formerly [facility] AND [id number] 05:13:00 Test Item Value Reference Range Interpretation Comments UA RBC (test code = 0-2 /HPF See_Comment [Automa hazel message] The UA RBC) system which ge nerated this result tra nsmitted reference range : <=2. The reference range was not used to interpr et this result as kasey l/abnormal. Formerly [facility] AND [id number] 05:13:00 Test Item Value Reference Range Interpretation Comments UA WBC (test code = UA WBC) 0-2 /HPF [facility]ly [facility] AND [id number] 05:13:00 Test Item Value Reference Range Interpretation Comments UA Sq Epi (test code = None Seen (04/08/15 12:13 UA Sq Epi) AM) [facility] AND [id number] 05:13:00 Test Item Value Reference Range Interpretation Comments UA Bacteria (test code = UA Few /HPF Bacteria) Formerly [facility] AND [id number] 05:13:00 Test Item Value Reference Range Interpretation Comments Micro? (test code = Performed (04/08/15 12:13 Micro?) AM) [facility] AND [id number] 05:13:00 Test Item Value Reference Range Interpretation Comments UA Spec Grav (test code = UA Spec 1.015 1 Grav) [facility] AND [id number] 05:13:00 Test Item Value Reference Range Interpretation Comments UA pH (test code = UA pH) 5.0 1 5.0-8.0 [facility] AND [id number] 05:13:00 Test Item Value Reference Range Interpretation Comments UA Protein (test code Negative (04/08/15 12:13 = UA Protein) AM) [facility] VnstyjgAUFTVYBSUVBA3404-61-46 05:13:00 Test Item Value Reference Range Interpretation Comments Potassium Lvl (test code = Potassium 3.8 3.5-5.1 Lvl) [facility] AND [id number] 05:13:00 Test Item Value Reference Range Interpretation Comments UA Glucose (test code Negative (04/08/15 12:13 = UA Glucose) AM) [facility] AND [id number] 05:13:00 Test Item Value Reference Range Interpretation Comments UA Ketones (test code Negative *NA*(04/08/15 = UA Ketones) 12:13 AM) [facility] AND [id number] 05:13:00 Test Item Value Reference Range Interpretation Comments UA Bili (test code = Negative *NA*(04/08/15 UA Bili) 12:13 AM) [facility] AND [id number] 05:13:00 Test Item Value Reference Range Interpretation Comments UA Blood (test code = Trace *ABN*(04/08/15 UA Blood) 12:13 AM) [facility] AND [id number] 05:13:00 Test Item Value Reference Range Interpretation Comments UA Urobilinogen (test code = UA 1.0 0.1-1.0 Urobilinogen) [facility] AND [id number] 05:13:00 Test Item Value Reference Range Interpretation Comments UA Nitrite (test code Negative (04/08/15 12:13 = UA Nitrite) AM) [facility] AND [id number] 05:13:00 Test Item Value Reference Range Interpretation Comments UA Leuk Est (test Negative (04/08/15 12:13 code = UA Leuk Est) AM) [facility] AND [id number] 05:13:00 Test Item Value Reference Range Interpretation Comments UA Color (test code = Yellow *NA*(04/08/15 UA Color) 12:13 AM) [facility]2015-06-07 05:13:00 Test Item Value Reference Range Interpretation Comments UA Turbidity (test code = Clear (04/08/15 12:13 UA Turbidity) AM) [facility] HospitalGyjbdppDGMUAKNPLQVB2598-10-21 05:13:00 Test Item Value Reference Range Interpretation Comments Calcium Lvl (test code = Calcium Lvl) 8.4 8.5-10.5 [facility] HospitalNlntieyNRHIBEHOTGQG8684-60-83 05:13:00 Test Item Value Reference Range Interpretation Comments CO2 (test code = CO2) 27 24-32 [facility] HospitalKfqwqrmLOUNOIZRAKDB3889-76-74 05:13:00 Test Item Value Reference Range Interpretation Comments Chloride Lvl (test code = Chloride Lvl) 102 95-109 [facility] CenterFpmzjzfRIFFFMSTFZ9543-05-02 05:13:00 Test Item Value Reference Range Interpretation Comments Plt Morph (test code = Normal (04/08/15 12:13 Plt Morph) AM) [facility] CenterYeotbhlHXFWYZYHXW4256-34-10 05:13:00 Test Item Value Reference Range Interpretation Comments Anisocyte (test code = 1+ *ABN*(04/08/15 Anisocyte) 12:13 AM) [facility] CenterIfknxgyWIMHGCPPBM0985-91-15 05:13:00 Test Item Value Reference Range Interpretation Comments Tot Cell Ct (test code = Tot Cell Ct) 200 1 [facility] CenterQvyerdjVTNCLSXBOG1174-08-83 05:13:00 Test Item Value Reference Range Interpretation Comments Myelocytes (test code = Myelocytes) 8.0 [facility] CenterZojjbjzCZGQSDONTN3468-80-19 05:13:00 Test Item Value Reference Range Interpretation Comments INR (test code = INR) 1.17 0.85-1.17 [facility] CenterBjofwinTRYJOAVCIV4111-73-10 05:13:00 Test Item Value Reference Range Interpretation Comments PT (test code = PT) 15.0 s 12.0-14.7 [facility]2015-06-07 05:13:00 Test Item Value Reference Range Interpretation Comments UA Uric Ac Angie (test code = UA Many /HPF Uric Ac Angie) [facility]2015-06-07 05:13:00 Test Item Value Reference Range Interpretation Comments UA RBC (test code = 0-2 /HPF See_Comment [Automa hazel message] The UA RBC) system which ge nerated this result tra nsmitted reference range : <=2. The reference range was not used to interpr et this result as kasey l/abnormal. Formerly [facility] AND [id number] 05:13:00 Test Item Value Reference Range Interpretation Comments UA WBC (test code = UA WBC) 0-2 /HPF [facility] AND [id number] 05:13:00 Test Item Value Reference Range Interpretation Comments UA Sq Epi (test code = None Seen (04/08/15 12:13 UA Sq Epi) AM) [facility] AND [id number] 05:13:00 Test Item Value Reference Range Interpretation Comments UA Bacteria (test code = UA Few /HPF Bacteria) [facility] AND [id number] 05:13:00 Test Item Value Reference Range Interpretation Comments Micro? (test code = Performed (04/08/15 12:13 Micro?) AM) [facility] [place] [id number] 05:13:00 Test Item Value Reference Range Interpretation Comments Antibody Scrn (test Negative (04/08/15 12:13 code = Antibody Scrn) AM) [facility] AND [id number] 05:13:00 Test Item Value Reference Range Interpretation Comments UA Spec Grav (test code = UA Spec 1.015 1 Grav) [facility] [address] [facility] [id number] 05:13:00 Test Item Value Reference Range Interpretation Comments ABO/Rh (test code = ABO/Rh) A POS [facility] [employer]CHEM [id number] 05:13:00 Test Item Value Reference Range Interpretation Comments Lactic Acid Lvl (test code = Lactic 0.9 0.5-2.2 Acid Lvl) [facility] CenterLwvlhjvZQUWCNJWPGUS8435-46-11 05:13:00 Test Item Value Reference Range Interpretation Comments AGAP (test code = AGAP) 11.8 10.0-20.0 [facility]zoswqxYJBWRFZACXRQ7287-40-70 05:13:00 Test Item Value Reference Range Interpretation Comments eGFR (test code = eGFR) 67 [facility] HospitalTxgbcbuZBKHYKWOMZJY0166-55-38 05:13:00 Test Item Value Reference Range Interpretation Comments Glucose Lvl (test code = Glucose Lvl) 143 70-99 [facility] HospitalVczpiyyBZDPFHTJEAAW6165-00-43 05:13:00 Test Item Value Reference Range Interpretation Comments Creatinine Lvl (test code = Creatinine 1.2 0.5-1.4 Lvl) [facility] HospitalPbbbkpsOTLSOGDQIZPF7146-72-89 05:13:00 Test Item Value Reference Range Interpretation Comments BUN (test code = BUN) 9 7-22 [facility] HospitalVtbycihAWZJIUWSPYQD4118-07-78 05:13:00 Test Item Value Reference Range Interpretation Comments Sodium Lvl (test code = Sodium Lvl) 137 135-145 [facility] HospitalXpknmcfIBGJWGVWXAAL7937-21-67 05:13:00 Test Item Value Reference Range Interpretation Comments Potassium Lvl (test code = Potassium 3.8 3.5-5.1 Lvl) [facility] HospitalJzpclbfKVOVEFJOZELA9212-84-19 05:13:00 Test Item Value Reference Range Interpretation Comments Calcium Lvl (test code = Calcium Lvl) 8.4 8.5-10.5 [facility] QAUOW7628-05-06 05:13:00 Test Item Value Reference Range Interpretation Comments UA pH (test code = UA pH) 5.0 1 5.0-8.0 [facility] HospitalSnegspcJWDIZSKDVNRA9663-59-89 05:13:00 Test Item Value Reference Range Interpretation Comments CO2 (test code = CO2) 27 24-32 [facility] HospitalZnihnjkNLVEFQBJTEOY0048-64-95 05:13:00 Test Item Value Reference Range Interpretation Comments Chloride Lvl (test code = Chloride Lvl) 102 95-109 [facility] CenterUvjoyspJGZXITCRNP3256-47-72 05:13:00 Test Item Value Reference Range Interpretation Comments Plt Morph (test code = Normal (04/08/15 12:13 Plt Morph) AM) [facility] CenterJyejlbaCQZNGWKQEW6022-30-02 05:13:00 Test Item Value Reference Range Interpretation Comments Anisocyte (test code = 1+ *ABN*(04/08/15 Anisocyte) 12:13 AM) [facility] CenterGyxaxavOOOOERIQUR3794-38-95 05:13:00 Test Item Value Reference Range Interpretation Comments Tot Cell Ct (test code = Tot Cell Ct) 200 1 [facility] CenterAdaazmgBMJWOTFHEA5254-26-53 05:13:00 Test Item Value Reference Range Interpretation Comments Myelocytes (test code = Myelocytes) 8.0 [facility] CenterEphqrtnJTFTGASNXN2403-74-55 05:13:00 Test Item Value Reference Range Interpretation Comments INR (test code = INR) 1.17 0.85-1.17 [facility] CenterZrwtpqfWVUSIWUUXU1656-13-84 05:13:00 Test Item Value Reference Range Interpretation Comments PT (test code = PT) 15.0 s 12.0-14.7 [facility] AND [id number] 05:13:00 Test Item Value Reference Range Interpretation Comments UA Uric Ac Angie (test code = UA Many /HPF Uric Ac Angie) [facility] AND [id number] 05:13:00 Test Item Value Reference Range Interpretation Comments UA RBC (test code = 0-2 /HPF See_Comment [Automa hazel message] The UA RBC) system which ge nerated this result tra nsmitted reference range : <=2. The reference range was not used to interpr et this result as kasey l/abnormal. [facility] AND [id number] 05:13:00 Test Item Value Reference Range Interpretation Comments UA Protein (test code Negative (04/08/15 12:13 = UA Protein) AM) [facility] AND [id number] 05:13:00 Test Item Value Reference Range Interpretation Comments UA WBC (test code = UA WBC) 0-2 /HPF [facility] AND [id number] 05:13:00 Test Item Value Reference Range Interpretation Comments UA Sq Epi (test code = None Seen (04/08/15 12:13 UA Sq Epi) AM) [facility] AND [id number] 05:13:00 Test Item Value Reference Range Interpretation Comments UA Bacteria (test code = UA Few /HPF Bacteria) [facility] AND [id number] 05:13:00 Test Item Value Reference Range Interpretation Comments Micro? (test code = Performed (04/08/15 12:13 Micro?) AM) [facility] AND [id number] 05:13:00 Test Item Value Reference Range Interpretation Comments UA Spec Grav (test code = UA Spec 1.015 1 Grav) [facility] AND [id number] 05:13:00 Test Item Value Reference Range Interpretation Comments UA pH (test code = UA pH) 5.0 1 5.0-8.0 [facility] AND [id number] 05:13:00 Test Item Value Reference Range Interpretation Comments UA Protein (test code Negative (04/08/15 12:13 = UA Protein) AM) [facility] AND [id number] 05:13:00 Test Item Value Reference Range Interpretation Comments UA Glucose (test code Negative (04/08/15 12:13 = UA Glucose) AM) [facility] AND [id number] 05:13:00 Test Item Value Reference Range Interpretation Comments UA Ketones (test code Negative *NA*(04/08/15 = UA Ketones) 12:13 AM) [facility] AND [id number] 05:13:00 Test Item Value Reference Range Interpretation Comments UA Bili (test code = Negative *NA*(04/08/15 UA Bili) 12:13 AM) [facility] AND [id number] 05:13:00 Test Item Value Reference Range Interpretation Comments UA Glucose (test code Negative (04/08/15 12:13 = UA Glucose) AM) [facility] AND [id number] 05:13:00 Test Item Value Reference Range Interpretation Comments UA Blood (test code = Trace *ABN*(04/08/15 UA Blood) 12:13 AM) [facility] AND [id number] 05:13:00 Test Item Value Reference Range Interpretation Comments UA Urobilinogen (test code = UA 1.0 0.1-1.0 Urobilinogen) [facility] AND [id number] 05:13:00 Test Item Value Reference Range Interpretation Comments UA Nitrite (test code Negative (04/08/15 12:13 = UA Nitrite) AM) [facility] AND [id number] 05:13:00 Test Item Value Reference Range Interpretation Comments UA Leuk Est (test Negative (04/08/15 12:13 code = UA Leuk Est) AM) [facility] AND [id number] 05:13:00 Test Item Value Reference Range Interpretation Comments UA Color (test code = Yellow *NA*(04/08/15 UA Color) 12:13 AM) [facility] AND [id number] 05:13:00 Test Item Value Reference Range Interpretation Comments UA Turbidity (test code = Clear (04/08/15 12:13 UA Turbidity) AM) [facility] [id number] 05:13:00 Test Item Value Reference Range Interpretation Comments UA Ketones (test code Negative *NA*(04/08/15 = UA Ketones) 12:13 AM) [facility] [id number] 05:13:00 Test Item Value Reference Range Interpretation Comments UA Bili (test code = Negative *NA*(04/08/15 UA Bili) 12:13 AM) [facility] AND [id number] 05:13:00 Test Item Value Reference Range Interpretation Comments UA Blood (test code = Trace *ABN*(04/08/15 UA Blood) 12:13 AM) [facility] [id number] 05:13:00 Test Item Value Reference Range Interpretation Comments UA Urobilinogen (test code = UA 1.0 0.1-1.0 Urobilinogen) [facility] AND [id number] 05:13:00 Test Item Value Reference Range Interpretation Comments UA Nitrite (test code Negative (04/08/15 12:13 = UA Nitrite) AM) [facility] [id number] 05:13:00 Test Item Value Reference Range Interpretation Comments UA Leuk Est (test Negative (04/08/15 12:13 code = UA Leuk Est) AM) [facility] AND [id number] 05:13:00 Test Item Value Reference Range Interpretation Comments UA Color (test code = Yellow *NA*(04/08/15 UA Color) 12:13 AM) [facility] AND [id number] 05:13:00 Test Item Value Reference Range Interpretation Comments UA Turbidity (test code = Clear (04/08/15 12:13 UA Turbidity) AM) [employer] [id number] 05:13:00 Test Item Value Reference Range Interpretation Comments Antibody Scrn (test Negative (04/08/15 12:13 code = Antibody Scrn) AM) [employer] [facility] [id number] 05:13:00 Test Item Value Reference Range Interpretation Comments ABO/Rh (test code = ABO/Rh) A POS [facility] [employer] [facility])CHEM [id number] 05:13:00 Test Item Value Reference Range Interpretation Comments Lactic Acid Lvl (test code = Lactic 0.9 0.5-2.2 Acid Lvl) [facility] HospitalBicbittTUURWGFKYWML1254-13-51 05:13:00 Test Item Value Reference Range Interpretation Comments AGAP (test code = AGAP) 11.8 10.0-20.0 [facility] HospitalHixachrIYKHGEBAXERC8639-08-83 05:13:00 Test Item Value Reference Range Interpretation Comments eGFR (test code = eGFR) 67 [facility] HospitalDcuzuntAXOPCYXXVOOZ7042-66-44 05:13:00 Test Item Value Reference Range Interpretation Comments Glucose Lvl (test code = Glucose Lvl) 143 70-99 [facility] HospitalFfhgvjmVHDJINQXMPCU8168-14-29 05:13:00 Test Item Value Reference Range Interpretation Comments Creatinine Lvl (test code = Creatinine 1.2 0.5-1.4 Lvl) [facility] HospitalLgipjivIWZDKUKQUYNW7654-04-78 05:13:00 Test Item Value Reference Range Interpretation Comments BUN (test code = BUN) 9 7-22 [facility] HospitalGlxehgmTISBNVGPZAGZ7695-42-24 05:13:00 Test Item Value Reference Range Interpretation Comments Sodium Lvl (test code = Sodium Lvl) 137 135-145 [facility] HospitalTgmvcjeFXDYFRXRUMZF2158-45-28 05:13:00 Test Item Value Reference Range Interpretation Comments Potassium Lvl (test code = Potassium 3.8 3.5-5.1 Lvl) [facility] HospitalLcvceqfXPEQMEXKOMDQ5084-19-69 05:13:00 Test Item Value Reference Range Interpretation Comments Calcium Lvl (test code = Calcium Lvl) 8.4 8.5-10.5 [facility] HospitalObgmuvmAZCTZSPOABJR3453-97-34 05:13:00 Test Item Value Reference Range Interpretation Comments CO2 (test code = CO2) 27 24-32 [facility] HospitalYsljglpJFGNQDOOEXYP1183-41-88 05:13:00 Test Item Value Reference Range Interpretation Comments Chloride Lvl (test code = Chloride Lvl) 102 95-109 [facility] CenterUujnaolAITYNYELVU4125-77-78 05:13:00 Test Item Value Reference Range Interpretation Comments Plt Morph (test code = Normal (04/08/15 12:13 Plt Morph) AM) [facility] CenterYnuetdzOGIRWZYWRC2022-27-97 05:13:00 Test Item Value Reference Range Interpretation Comments Anisocyte (test code = 1+ *ABN*(04/08/15 Anisocyte) 12:13 AM) [facility] [facility]vjsdbgEBGDRUIMPG2993-51-25 05:13:00 Test Item Value Reference Range Interpretation Comments Tot Cell Ct (test code = Tot Cell Ct) 200 1 [facility] CenterO[id number] 05:13:00 Test Item Value Reference Range Interpretation Comments Myelocytes (test code = Myelocytes) 8.0 [facility] CenterYwkiwddPDVZHOHHZD6864-12-29 05:13:00 Test Item Value Reference Range Interpretation Comments INR (test code = INR) 1.17 0.85-1.17 [facility] CenterDhwacajEQSFFSMKUP5371-76-26 05:13:00 Test Item Value Reference Range Interpretation Comments PT (test code = PT) 15.0 s 12.0-14.7 [facility]ly [facility] AND [id number] 05:13:00 Test Item Value Reference Range Interpretation Comments UA Uric Ac Angie (test code = UA Many /HPF Uric Ac Angie) Formerly [facility] AND [id number] 05:13:00 Test Item Value Reference Range Interpretation Comments UA RBC (test code = 0-2 /HPF See_Comment [Automa hazel message] The UA RBC) system which ge nerated this result tra nsmitted reference range : <=2. The reference range was not used to interpr et this result as kasey l/abnormal. [facility]ly [facility] AND [id number] 05:13:00 Test Item Value Reference Range Interpretation Comments UA WBC (test code = UA WBC) 0-2 /HPF Formerly [facility] AND [id number] 05:13:00 Test Item Value Reference Range Interpretation Comments UA Sq Epi (test code = None Seen (04/08/15 12:13 UA Sq Epi) AM) [facility]ly [facility] AND [id number] 05:13:00 Test Item Value Reference Range Interpretation Comments UA Bacteria (test code = UA Few /HPF Bacteria) [facility]ly [facility] AND [id number] 05:13:00 Test Item Value Reference Range Interpretation Comments Micro? (test code = Performed (04/08/15 12:13 Micro?) AM) [facility]ly [facility] AND [id number] 05:13:00 Test Item Value Reference Range Interpretation Comments UA Spec Grav (test code = UA Spec 1.015 1 Grav) [facility]ly [facility] AND [id number] 05:13:00 Test Item Value Reference Range Interpretation Comments UA pH (test code = UA pH) 5.0 1 5.0-8.0 [facility] AND [id number] 05:13:00 Test Item Value Reference Range Interpretation Comments UA Protein (test code Negative (04/08/15 12:13 = UA Protein) AM) [facility]ly [facility] AND [id number] 05:13:00 Test Item Value Reference Range Interpretation Comments UA Glucose (test code Negative (04/08/15 12:13 = UA Glucose) AM) [facility]ly [facility] AND [id number] 05:13:00 Test Item Value Reference Range Interpretation Comments UA Ketones (test code Negative *NA*(04/08/15 = UA Ketones) 12:13 AM) [facility]ly [facility] AND [id number] 05:13:00 Test Item Value Reference Range Interpretation Comments UA Bili (test code = Negative *NA*(04/08/15 UA Bili) 12:13 AM) [facility]ly [facility] AND [id number] 05:13:00 Test Item Value Reference Range Interpretation Comments UA Blood (test code = Trace *ABN*(04/08/15 UA Blood) 12:13 AM) [facility]ly [facility] AND [id number] 05:13:00 Test Item Value Reference Range Interpretation Comments UA Urobilinogen (test code = UA 1.0 0.1-1.0 Urobilinogen) Formerly [facility] AND [id number] 05:13:00 Test Item Value Reference Range Interpretation Comments UA Nitrite (test code Negative (04/08/15 12:13 = UA Nitrite) AM) [facility]ly [facility] AND [id number] 05:13:00 Test Item Value Reference Range Interpretation Comments UA Leuk Est (test Negative (04/08/15 12:13 code = UA Leuk Est) AM) [facility] AND [id number] 05:13:00 Test Item Value Reference Range Interpretation Comments UA Color (test code = Yellow *NA*(04/08/15 UA Color) 12:13 AM) [facility]ly [facility] AND [id number] 05:13:00 Test Item Value Reference Range Interpretation Comments UA Turbidity (test code = Clear (04/08/15 12:13 UA Turbidity) AM) [facility] [id number] 05:13:00 Test Item Value Reference Range Interpretation Comments Antibody Scrn (test Negative (04/08/15 12:13 code = Antibody Scrn) AM) [facility] CenterVoyageByMeMapMyID [facility] [id number] 05:13:00 Test Item Value Reference Range Interpretation Comments ABO/Rh (test code = ABO/Rh) A POS [facility] CenterVoyageByMeCHEM [id number] 05:13:00 Test Item Value Reference Range Interpretation Comments Lactic Acid Lvl (test code = Lactic 0.9 0.5-2.2 Acid Lvl) [id number] 05:13:00 Test Item Value Reference Range Interpretation Comments AGAP (test code = AGAP) 11.8 10.0-20.0 [facility] HospitalBkpqoqePNBREIZTBUIK6922-05-81 05:13:00 Test Item Value Reference Range Interpretation Comments eGFR (test code = eGFR) 67 [facility] HospitalDfwdsbzSJVMMYOWNFQS0628-67-33 05:13:00 Test Item Value Reference Range Interpretation Comments Glucose Lvl (test code = Glucose Lvl) 143 70-99 [facility] HospitalYemiydtEALXNCMSNWWD9440-82-35 05:13:00 Test Item Value Reference Range Interpretation Comments Creatinine Lvl (test code = Creatinine 1.2 0.5-1.4 Lvl) [facility]NtbfdncDNKJVLYPHDTF7547-78-06 05:13:00 Test Item Value Reference Range Interpretation Comments BUN (test code = BUN) 9 7-22 [facility] HospitalEamhrlyLCPDMBDSIIPX1859-77-49 05:13:00 Test Item Value Reference Range Interpretation Comments Sodium Lvl (test code = Sodium Lvl) 137 135-145 [facility] HospitalMdrvwstIKQDBZWBRAFA4238-53-72 05:13:00 Test Item Value Reference Range Interpretation Comments Potassium Lvl (test code = Potassium 3.8 3.5-5.1 Lvl) [facility] HospitalRdurczfIKZJMSYHZVOM2107-29-09 05:13:00 Test Item Value Reference Range Interpretation Comments Calcium Lvl (test code = Calcium Lvl) 8.4 8.5-10.5 [facility] HospitalCkvrcviUCIUOXUNWTPY9214-85-29 05:13:00 Test Item Value Reference Range Interpretation Comments CO2 (test code = CO2) 27 24-32 [facility] CenterPnqpwbjJXMYELIMYKMT8843-17-96 05:13:00 Test Item Value Reference Range Interpretation Comments Chloride Lvl (test code = Chloride Lvl) 102 95-109 [facility]RiygtktYZHFSFNZXS0428-94-06 05:13:00 Test Item Value Reference Range Interpretation Comments Plt Morph (test code = Normal (04/08/15 12:13 Plt Morph) AM) [facility] CenterVneqxjsXATPCAKBXP1906-71-24 05:13:00 Test Item Value Reference Range Interpretation Comments Anisocyte (test code = 1+ *ABN*(04/08/15 Anisocyte) 12:13 AM) [facility] CenterAwxvtvjVYIXUFIOSQ2995-01-87 05:13:00 Test Item Value Reference Range Interpretation Comments Tot Cell Ct (test code = Tot Cell Ct) 200 1 [facility] CenterEeylaxrQCCEVHAGJK0750-73-55 05:13:00 Test Item Value Reference Range Interpretation Comments Myelocytes (test code = Myelocytes) 8.0 [facility] CenterAbslfflUSKMEBCQXN1203-07-12 05:13:00 Test Item Value Reference Range Interpretation Comments INR (test code = INR) 1.17 0.85-1.17 [facility] CenterYzginkpUGOZKGUXAR7459-88-86 05:13:00 Test Item Value Reference Range Interpretation Comments PT (test code = PT) 15.0 s 12.0-14.7 [facility]2015-06-07 05:13:00 Test Item Value Reference Range Interpretation Comments UA Uric Ac Angie (test code = UA Many /HPF Uric Ac Angie) [facility]2015-06-07 05:13:00 Test Item Value Reference Range Interpretation Comments UA RBC (test code = 0-2 /HPF See_Comment [Automa hazel message] The UA RBC) system which ge nerated this result tra nsmitted reference range : <=2. The reference range was not used to interpr et this result as kasey l/abnormal. [facility]2015-06-07 05:13:00 Test Item Value Reference Range Interpretation Comments UA WBC (test code = UA WBC) 0-2 /HPF [facility]2015-06-07 05:13:00 Test Item Value Reference Range Interpretation Comments UA Sq Epi (test code = None Seen (04/08/15 12:13 UA Sq Epi) AM) [facility] AND [id number] 05:13:00 Test Item Value Reference Range Interpretation Comments UA Bacteria (test code = UA Few /HPF Bacteria) [facility] AND [id number] 05:13:00 Test Item Value Reference Range Interpretation Comments Micro? (test code = Performed (04/08/15 12:13 Micro?) AM) [facility] AND [id number] 05:13:00 Test Item Value Reference Range Interpretation Comments UA Spec Grav (test code = UA Spec 1.015 1 Grav) [facility] AND [id number] 05:13:00 Test Item Value Reference Range Interpretation Comments UA pH (test code = UA pH) 5.0 1 5.0-8.0 [facility] AND [id number] 05:13:00 Test Item Value Reference Range Interpretation Comments UA Protein (test code Negative (04/08/15 12:13 = UA Protein) AM) [facility] AND [id number] 05:13:00 Test Item Value Reference Range Interpretation Comments UA Glucose (test code Negative (04/08/15 12:13 = UA Glucose) AM) [facility] AND [id number] 05:13:00 Test Item Value Reference Range Interpretation Comments UA Ketones (test code Negative *NA*(04/08/15 = UA Ketones) 12:13 AM) [facility] AND [id number] 05:13:00 Test Item Value Reference Range Interpretation Comments UA Bili (test code = Negative *NA*(04/08/15 UA Bili) 12:13 AM) [facility] AND [id number] 05:13:00 Test Item Value Reference Range Interpretation Comments UA Blood (test code = Trace *ABN*(04/08/15 UA Blood) 12:13 AM) [facility] AND [id number] 05:13:00 Test Item Value Reference Range Interpretation Comments UA Urobilinogen (test code = UA 1.0 0.1-1.0 Urobilinogen) [facility] AND [id number] 05:13:00 Test Item Value Reference Range Interpretation Comments UA Nitrite (test code Negative (04/08/15 12:13 = UA Nitrite) AM) [facility] AND [id number] 05:13:00 Test Item Value Reference Range Interpretation Comments UA Leuk Est (test Negative (04/08/15 12:13 code = UA Leuk Est) AM) [facility] AND [id number] 05:13:00 Test Item Value Reference Range Interpretation Comments UA Color (test code = Yellow *NA*(04/08/15 UA Color) 12:13 AM) [facility] AND [id number] 05:13:00 Test Item Value Reference Range Interpretation Comments UA Turbidity (test code = Clear (04/08/15 12:13 UA Turbidity) AM) [facility] CenterVoyageByMeMapMyID [facility] [id number] 05:13:00 Test Item Value Reference Range Interpretation Comments Antibody Scrn (test Negative (04/08/15 12:13 code = Antibody Scrn) AM) [facility] CenterVoyageByMeMapMyID [facility] [id number] 05:13:00 Test Item Value Reference Range Interpretation Comments ABO/Rh (test code = ABO/Rh) A POS [facility] [employer] ([employer])CHEM [id number] 05:13:00 Test Item Value Reference Range Interpretation Comments Lactic Acid Lvl (test code = Lactic 0.9 0.5-2.2 Acid Lvl) [facility] HospitalQhmowjcZNRRVHSDXBYO8416-47-58 05:13:00 Test Item Value Reference Range Interpretation Comments AGAP (test code = AGAP) 11.8 10.0-20.0 [facility]wallRxlknhmHKILOKSBAGBI4431-72-63 05:13:00 Test Item Value Reference Range Interpretation Comments eGFR (test code = eGFR) 67 [facility] HospitalUxzhtgtPWISUXINIURZ7604-42-90 05:13:00 Test Item Value Reference Range Interpretation Comments Glucose Lvl (test code = Glucose Lvl) 143 70-99 [facility] HospitalMsebkoqWOYXUTQCSALO2757-51-07 05:13:00 Test Item Value Reference Range Interpretation Comments Creatinine Lvl (test code = Creatinine 1.2 0.5-1.4 Lvl) [facility] HospitalOdxhfbmWEDGYXEZSUIE4741-62-17 05:13:00 Test Item Value Reference Range Interpretation Comments BUN (test code = BUN) 9 7-22 [facility] HospitalLvgjredFWGCFWUOZDYT4362-08-06 05:13:00 Test Item Value Reference Range Interpretation Comments Sodium Lvl (test code = Sodium Lvl) 137 135-145 [facility] HospitalZddqqxpOEREPVCZVHDN4457-63-84 05:13:00 Test Item Value Reference Range Interpretation Comments Potassium Lvl (test code = Potassium 3.8 3.5-5.1 Lvl) [facility] HospitalXrerireASGDKGUJMEDK9174-04-76 05:13:00 Test Item Value Reference Range Interpretation Comments Calcium Lvl (test code = Calcium Lvl) 8.4 8.5-10.5 [facility] HospitalFcefraxUSUNYHGUDSLF5749-01-35 05:13:00 Test Item Value Reference Range Interpretation Comments CO2 (test code = CO2) 27 24-32 [facility] HospitalIknbhwaITJQIFRCNIGZ0642-50-25 05:13:00 Test Item Value Reference Range Interpretation Comments Chloride Lvl (test code = Chloride Lvl) 102 95-109 [facility] CenterCwjlknrMZEPYYYAYW3437-09-54 05:13:00 Test Item Value Reference Range Interpretation Comments Plt Morph (test code = Normal (04/08/15 12:13 Plt Morph) AM) [facility] CenterBsjcbmpCRSBLAMMKE7526-29-96 05:13:00 Test Item Value Reference Range Interpretation Comments Anisocyte (test code = 1+ *ABN*(04/08/15 Anisocyte) 12:13 AM) [facility] CenterWzkumblZLPZHNWHOS4234-75-27 05:13:00 Test Item Value Reference Range Interpretation Comments Tot Cell Ct (test code = Tot Cell Ct) 200 1 [facility] CenterZhkmtzhROIUDLUUBW6010-11-31 05:13:00 Test Item Value Reference Range Interpretation Comments Myelocytes (test code = Myelocytes) 8.0 [facility] CenterAdofedlKXSNZZPNHR8966-17-99 05:13:00 Test Item Value Reference Range Interpretation Comments INR (test code = INR) 1.17 0.85-1.17 [facility] CenterAxqzykdHGIVRWVQAO6839-19-77 05:13:00 Test Item Value Reference Range Interpretation Comments PT (test code = PT) 15.0 s 12.0-14.7 [facility]2015-06-07 05:13:00 Test Item Value Reference Range Interpretation Comments UA Uric Ac Angie (test code = UA Many /HPF Uric Ac Angie) [facility]2015-06-07 05:13:00 Test Item Value Reference Range Interpretation Comments UA RBC (test code = 0-2 /HPF See_Comment [Automa hazel message] The UA RBC) system which ge nerated this result tra nsmitted reference range : <=2. The reference range was not used to interpr et this result as kasey l/abnormal. [facility] AND [id number] 05:13:00 Test Item Value Reference Range Interpretation Comments UA WBC (test code = UA WBC) 0-2 /HPF [facility] AND [id number] 05:13:00 Test Item Value Reference Range Interpretation Comments UA Sq Epi (test code = None Seen (04/08/15 12:13 UA Sq Epi) AM) [facility] AND [id number] 05:13:00 Test Item Value Reference Range Interpretation Comments UA Bacteria (test code = UA Few /HPF Bacteria) [facility] AND [id number] 05:13:00 Test Item Value Reference Range Interpretation Comments Micro? (test code = Performed (04/08/15 12:13 Micro?) AM) [facility] AND [id number] 05:13:00 Test Item Value Reference Range Interpretation Comments UA Spec Grav (test code = UA Spec 1.015 1 Grav) [facility] AND [id number] 05:13:00 Test Item Value Reference Range Interpretation Comments UA pH (test code = UA pH) 5.0 1 5.0-8.0 [facility] AND [id number] 05:13:00 Test Item Value Reference Range Interpretation Comments UA Protein (test code Negative (04/08/15 12:13 = UA Protein) AM) [facility] AND [id number] 05:13:00 Test Item Value Reference Range Interpretation Comments UA Glucose (test code Negative (04/08/15 12:13 = UA Glucose) AM) [facility] AND [id number] 05:13:00 Test Item Value Reference Range Interpretation Comments UA Ketones (test code Negative *NA*(04/08/15 = UA Ketones) 12:13 AM) [facility] AND [id number] 05:13:00 Test Item Value Reference Range Interpretation Comments UA Bili (test code = Negative *NA*(04/08/15 UA Bili) 12:13 AM) [facility] AND [id number] 05:13:00 Test Item Value Reference Range Interpretation Comments UA Blood (test code = Trace *ABN*(04/08/15 UA Blood) 12:13 AM) [facility] AND [id number] 05:13:00 Test Item Value Reference Range Interpretation Comments UA Urobilinogen (test code = UA 1.0 0.1-1.0 Urobilinogen) [facility] AND [id number] 05:13:00 Test Item Value Reference Range Interpretation Comments UA Nitrite (test code Negative (04/08/15 12:13 = UA Nitrite) AM) [facility] AND [id number] 05:13:00 Test Item Value Reference Range Interpretation Comments UA Leuk Est (test Negative (04/08/15 12:13 code = UA Leuk Est) AM) [facility] AND [id number] 05:13:00 Test Item Value Reference Range Interpretation Comments UA Color (test code = Yellow *NA*(04/08/15 UA Color) 12:13 AM) [facility] AND [id number] 05:13:00 Test Item Value Reference Range Interpretation Comments UA Turbidity (test code = Clear (04/08/15 12:13 UA Turbidity) AM) [facility] CenterPureBr[facility] [id number] 05:13:00 Test Item Value Reference Range Interpretation Comments Antibody Scrn (test Negative (04/08/15 12:13 code = Antibody Scrn) AM) [facility] CenterPure[facility] [id number] 05:13:00 Test Item Value Reference Range Interpretation Comments ABO/Rh (test code = ABO/Rh) A POS [facility] [employer] ([employer])CHEM [id number] 05:13:00 Test Item Value Reference Range Interpretation Comments Lactic Acid Lvl (test code = Lactic 0.9 0.5-2.2 Acid Lvl) [facility] HospitalDzbugnoYSHRFRDWFMOU5124-81-59 05:13:00 Test Item Value Reference Range Interpretation Comments AGAP (test code = AGAP) 11.8 10.0-20.0 [facility] HospitalHkmbmvsFGCVXLOBQOSV3758-05-61 05:13:00 Test Item Value Reference Range Interpretation Comments eGFR (test code = eGFR) 67 [facility] HospitalNlrzwanXIPXXYXYHYSN5066-77-34 05:13:00 Test Item Value Reference Range Interpretation Comments Glucose Lvl (test code = Glucose Lvl) 143 70-99 [facility] HospitalUxgksycSDEAISYTKSJB2985-79-75 05:13:00 Test Item Value Reference Range Interpretation Comments Creatinine Lvl (test code = Creatinine 1.2 0.5-1.4 Lvl) [facility] HospitalConpvjbKGVOWLYBNVRL0145-81-86 05:13:00 Test Item Value Reference Range Interpretation Comments BUN (test code = BUN) 9 7-22 [facility] HospitalJjzutxgVOLDCTRKFXYP8877-04-30 05:13:00 Test Item Value Reference Range Interpretation Comments Sodium Lvl (test code = Sodium Lvl) 137 135-145 [facility] HospitalXpvosfqIWQKDTCHULCI6661-43-25 05:13:00 Test Item Value Reference Range Interpretation Comments Potassium Lvl (test code = Potassium 3.8 3.5-5.1 Lvl) [facility] HospitalZhfxojnUARWFXPSNJJA6282-97-77 05:13:00 Test Item Value Reference Range Interpretation Comments Calcium Lvl (test code = Calcium Lvl) 8.4 8.5-10.5 [facility] HospitalIzxnhowOJEEJKIORBOV7081-97-03 05:13:00 Test Item Value Reference Range Interpretation Comments CO2 (test code = CO2) 27 24-32 [facility] HospitalKmjwqnbSRVBDDPOKCNO7771-33-76 05:13:00 Test Item Value Reference Range Interpretation Comments Chloride Lvl (test code = Chloride Lvl) 102 95-109 [facility] CenterCqgdcdkWSQIEQCSNJ4549-23-29 05:13:00 Test Item Value Reference Range Interpretation Comments Plt Morph (test code = Normal (04/08/15 12:13 Plt Morph) AM) [facility] CenterHbahqtkCLPAHHLFWW6404-56-33 05:13:00 Test Item Value Reference Range Interpretation Comments Anisocyte (test code = 1+ *ABN*(04/08/15 Anisocyte) 12:13 AM) [facility] CenterOhrusljJMNZYFECES9956-49-23 05:13:00 Test Item Value Reference Range Interpretation Comments Tot Cell Ct (test code = Tot Cell Ct) 200 1 [facility] CenterAvslouoGWNFHIMSBW9329-00-56 05:13:00 Test Item Value Reference Range Interpretation Comments Myelocytes (test code = Myelocytes) 8.0 [facility] CenterPudhlbmCADCJNCSTR6517-25-95 05:13:00 Test Item Value Reference Range Interpretation Comments INR (test code = INR) 1.17 0.85-1.17 [facility] CenterRuzfxxpAUHSKQIDLY2734-46-24 05:13:00 Test Item Value Reference Range Interpretation Comments PT (test code = PT) 15.0 s 12.0-14.7 [facility] AND [id number] 05:13:00 Test Item Value Reference Range Interpretation Comments UA Uric Ac Angie (test code = UA Many /HPF Uric Ac Angie) [facility]ly [facility] AND [id number] 05:13:00 Test Item Value Reference Range Interpretation Comments UA RBC (test code = 0-2 /HPF See_Comment [Automa hazel message] The UA RBC) system which ge nerated this result tra nsmitted reference range : <=2. The reference range was not used to interpr et this result as kasey l/abnormal. [facility] AND [id number] 05:13:00 Test Item Value Reference Range Interpretation Comments UA WBC (test code = UA WBC) 0-2 /HPF [facility] AND [id number] 05:13:00 Test Item Value Reference Range Interpretation Comments UA Sq Epi (test code = None Seen (04/08/15 12:13 UA Sq Epi) AM) [facility] AND [id number] 05:13:00 Test Item Value Reference Range Interpretation Comments UA Bacteria (test code = UA Few /HPF Bacteria) [facility] AND [id number] 05:13:00 Test Item Value Reference Range Interpretation Comments Micro? (test code = Performed (04/08/15 12:13 Micro?) AM) [facility] AND [id number] 05:13:00 Test Item Value Reference Range Interpretation Comments UA Spec Grav (test code = UA Spec 1.015 1 Grav) [facility] AND [id number] 05:13:00 Test Item Value Reference Range Interpretation Comments UA pH (test code = UA pH) 5.0 1 5.0-8.0 [facility] AND [id number] 05:13:00 Test Item Value Reference Range Interpretation Comments UA Protein (test code Negative (04/08/15 12:13 = UA Protein) AM) [facility] AND [id number] 05:13:00 Test Item Value Reference Range Interpretation Comments UA Glucose (test code Negative (04/08/15 12:13 = UA Glucose) AM) [facility]ann[facility] AND [id number] 05:13:00 Test Item Value Reference Range Interpretation Comments UA Ketones (test code Negative *NA*(04/08/15 = UA Ketones) 12:13 AM) [facility] AND [id number] 05:13:00 Test Item Value Reference Range Interpretation Comments UA Bili (test code = Negative *NA*(04/08/15 UA Bili) 12:13 AM) [facility] AND [id number] 05:13:00 Test Item Value Reference Range Interpretation Comments UA Blood (test code = Trace *ABN*(04/08/15 UA Blood) 12:13 AM) [facility] [employer] AND [id number] 05:13:00 Test Item Value Reference Range Interpretation Comments UA Urobilinogen (test code = UA 1.0 0.1-1.0 Urobilinogen) [facility] AND [id number] 05:13:00 Test Item Value Reference Range Interpretation Comments UA Nitrite (test code Negative (04/08/15 12:13 = UA Nitrite) AM) [facility] AND [id number] 05:13:00 Test Item Value Reference Range Interpretation Comments UA Leuk Est (test Negative (04/08/15 12:13 code = UA Leuk Est) AM) [facility] AND [id number] 05:13:00 Test Item Value Reference Range Interpretation Comments UA Color (test code = Yellow *NA*(04/08/15 UA Color) 12:13 AM) [facility] AND [id number] 05:13:00 Test Item Value Reference Range Interpretation Comments UA Turbidity (test code = Clear (04/08/15 12:13 UA Turbidity) AM) [facility] [place] [id number] 05:13:00 Test Item Value Reference Range Interpretation Comments Antibody Scrn (test Negative (04/08/15 12:13 code = Antibody Scrn) AM) [facility] [place] [id number] 05:13:00 Test Item Value Reference Range Interpretation Comments ABO/Rh (test code = ABO/Rh) A POS [facility] [place] ([employer])CHEM [id number] 05:13:00 Test Item Value Reference Range Interpretation Comments Lactic Acid Lvl (test code = Lactic 0.9 0.5-2.2 Acid Lvl) [id number] 05:13:00 Test Item Value Reference Range Interpretation Comments AGAP (test code = AGAP) 11.8 10.0-20.0 [id number] 05:13:00 Test Item Value Reference Range Interpretation Comments eGFR (test code = eGFR) 67 [id number] 05:13:00 Test Item Value Reference Range Interpretation Comments Glucose Lvl (test code = Glucose Lvl) 143 70-99 [id number] 05:13:00 Test Item Value Reference Range Interpretation Comments Creatinine Lvl (test code = Creatinine 1.2 0.5-1.4 Lvl) [id number] 05:13:00 Test Item Value Reference Range Interpretation Comments BUN (test code = BUN) 9 7-22 [id number] 05:13:00 Test Item Value Reference Range Interpretation Comments Sodium Lvl (test code = Sodium Lvl) 137 135-145 [id number] 05:13:00 Test Item Value Reference Range Interpretation Comments Potassium Lvl (test code = Potassium 3.8 3.5-5.1 Lvl) [id number] 05:13:00 Test Item Value Reference Range Interpretation Comments Calcium Lvl (test code = Calcium Lvl) 8.4 8.5-10.5 [facility] Hospi[id number] 05:13:00 Test Item Value Reference Range Interpretation Comments CO2 (test code = CO2) 27 24-32 [id number] 05:13:00 Test Item Value Reference Range Interpretation Comments Chloride Lvl (test code = Chloride Lvl) 102 95-109 [id number] 05:13:00 Test Item Value Reference Range Interpretation Comments Plt Morph (test code = Normal (04/08/15 12:13 Plt Morph) AM) [facility] [id number] 05:13:00 Test Item Value Reference Range Interpretation Comments Anisocyte (test code = 1+ *ABN*(04/08/15 Anisocyte) 12:13 AM) [facility] [id number] 05:13:00 Test Item Value Reference Range Interpretation Comments Tot Cell Ct (test code = Tot Cell Ct) 200 1 [facility] CenterGbcrmaoIFHSPCCCZY1917-29-19 05:13:00 Test Item Value Reference Range Interpretation Comments Myelocytes (test code = Myelocytes) 8.0 [facility] [id number] 05:13:00 Test Item Value Reference Range Interpretation Comments INR (test code = INR) 1.17 0.85-1.17 [facility] CenterWmqmyjaZBBFQVTYJX3885-35-18 05:13:00 Test Item Value Reference Range Interpretation Comments PT (test code = PT) 15.0 s 12.0-14.7 [facility] AND [id number] 05:13:00 Test Item Value Reference Range Interpretation Comments UA Uric Ac Angie (test code = UA Many /HPF Uric Ac Angie) [facility] AND [id number] 05:13:00 Test Item Value Reference Range Interpretation Comments UA RBC (test code = 0-2 /HPF See_Comment [Automa hazel message] The UA RBC) system which ge nerated this result tra nsmitted reference range : <=2. The reference range was not used to interpr et this result as kasey l/abnormal. [facility] AND [id number] 05:13:00 Test Item Value Reference Range Interpretation Comments UA WBC (test code = UA WBC) 0-2 /HPF [facility] AND [id number] 05:13:00 Test Item Value Reference Range Interpretation Comments UA Sq Epi (test code = None Seen (04/08/15 12:13 UA Sq Epi) AM) [facility] AND [id number] 05:13:00 Test Item Value Reference Range Interpretation Comments UA Bacteria (test code = UA Few /HPF Bacteria) [facility] AND [id number] 05:13:00 Test Item Value Reference Range Interpretation Comments Micro? (test code = Performed (04/08/15 12:13 Micro?) AM) [facility] AND [id number] 05:13:00 Test Item Value Reference Range Interpretation Comments UA Spec Grav (test code = UA Spec 1.015 1 Grav) [facility] AND [id number] 05:13:00 Test Item Value Reference Range Interpretation Comments UA pH (test code = UA pH) 5.0 1 5.0-8.0 [facility] AND [id number] 05:13:00 Test Item Value Reference Range Interpretation Comments UA Protein (test code Negative (04/08/15 12:13 = UA Protein) AM) [facility] AND [id number] 05:13:00 Test Item Value Reference Range Interpretation Comments UA Glucose (test code Negative (04/08/15 12:13 = UA Glucose) AM) [facility] AND [id number] 05:13:00 Test Item Value Reference Range Interpretation Comments UA Ketones (test code Negative *NA*(04/08/15 = UA Ketones) 12:13 AM) [facility] AND [id number] 05:13:00 Test Item Value Reference Range Interpretation Comments UA Bili (test code = Negative *NA*(04/08/15 UA Bili) 12:13 AM) [facility] AND [id number] 05:13:00 Test Item Value Reference Range Interpretation Comments UA Blood (test code = Trace *ABN*(04/08/15 UA Blood) 12:13 AM) [facility] AND [id number] 05:13:00 Test Item Value Reference Range Interpretation Comments UA Urobilinogen (test code = UA 1.0 0.1-1.0 Urobilinogen) [facility] AND [id number] 05:13:00 Test Item Value Reference Range Interpretation Comments UA Nitrite (test code Negative (04/08/15 12:13 = UA Nitrite) AM) [facility] AND [id number] 05:13:00 Test Item Value Reference Range Interpretation Comments UA Leuk Est (test Negative (04/08/15 12:13 code = UA Leuk Est) AM) [facility] AND [id number] 05:13:00 Test Item Value Reference Range Interpretation Comments UA Color (test code = Yellow *NA*(04/08/15 UA Color) 12:13 AM) [facility] AND [id number] 05:13:00 Test Item Value Reference Range Interpretation Comments UA Turbidity (test code = Clear (04/08/15 12:13 UA Turbidity) AM) [facility] Notes Date/Time Note Provider Source 2015-04-09 08:47:00-00:00 EXAM: ULTRASOUND RIGHT UPPER EXTREMITY VENOUS SYSTEM [facility] DATE: Apr 09, 2015 09:17:00 AM CLINICAL INDICATION: Thoracic oulet syndrome, te sticular cancer COMPARISON: None. TECHNIQUE: Ultrasound was pe rformed of the right deep venous system of the upper extremity using grayscale, color, and spectral Doppler. FINDINGS: There is an occlusive hetero genous thrombus filling the right internal jugular vein, likely subacute. A right-sided Milo catheter is in place. The right subclavian, axill jared, brachial, basilic, and cephalic veins are visualized and are patent. Venous waveforms are normal. There is normal response to compression. IMPRESSION: Occlusive right internal jugular vein thrombus. 2015-04-09 08:47:00-00:00 EXAM: ULTRASOUND RIGHT UPPER EXTREMITY VENOUS SYSTEM [facility] DATE: Apr 09, 2015 09:17:00 AM CLINICAL INDICATION: Thoracic oulet syndrome, te sticular cancer COMPARISON: None. TECHNIQUE: Ultrasound was pe rformed of the right deep venous system of the upper extremity using grayscale, color, and spectral Doppler. FINDINGS: There is an occlusive hetero genous thrombus filling the right internal jugular vein, likely subacute. A right-sided Milo catheter is in place. The right subclavian, axill jared, brachial, basilic, and cephalic veins are visualized and are patent. Venous waveforms are normal. There is normal response to compression. IMPRESSION: Occlusive right internal jugular vein thrombus. 2015-04-09 08:47:00-00:00 EXAM: ULTRASOUND RIGHT UPPER EXTREMITY VENOUS SYSTEM [facility] DATE: Apr 09, 2015 09:17:00 AM CLINICAL INDICATION: Thoracic oulet syndrome, te sticular cancer COMPARISON: None. TECHNIQUE: Ultrasound was pe rformed of the right deep venous system of the upper extremity using grayscale, color, and spectral Doppler. FINDINGS: There is an occlusive hetero genous thrombus filling the right internal jugular vein, likely subacute. A right-sided Milo catheter is in place. The right subclavian, axill jared, brachial, basilic, and cephalic veins are visualized and are patent. Venous waveforms are normal. There is normal response to compression. IMPRESSION: Occlusive right internal jugular vein thrombus. 2015-04-09 08:47:00-00:00 EXAM: ULTRASOUND RIGHT UPPER EXTREMITY VENOUS SYSTEM [facility] DATE: Apr 09, 2015 09:17:00 AM CLINICAL INDICATION: Thoracic oulet syndrome, te sticular cancer COMPARISON: None. TECHNIQUE: Ultrasound was pe rformed of the right deep venous system of the upper extremity using grayscale, color, and spectral Doppler. FINDINGS: There is an occlusive hetero genous thrombus filling the right internal jugular vein, likely subacute. A right-sided Milo catheter is in place. The right subclavian, axill jared, brachial, basilic, and cephalic veins are visualized and are patent. Venous waveforms are normal. There is normal response to compression. IMPRESSION: Occlusive right internal jugular vein thrombus. 2015-04-08 01:46:51-00:00 EXAM: CT of the brain without contrast . [facility] DATE: 04/08/2015 CLINICAL HISTORY: cancer COMPARISON: CT neck 04/07/2015 from outside [facility] al. TECHNIQUE: Axial images of t he brain were obtained in a helical scanner from the skullbase through the vertex without contrast material administration. DISCUSSION: The density of the brain parenchyma is unremarka ble. No midline shift, mass effect, hydrocephalus or hemorrhagic lesions. The visualized portions of t he paranasal sinuses and mastoid air cells are clear No acute bony lesions. IMPRESSION: Limited evaluation for metastatic disease withou t IV contrast administration. No acute intracranial abnormality. 2015-04-08 01:46:51-00:00 EXAM: CT of the brain without contrast . [facility] DATE: 04/08/2015 CLINICAL HISTORY: cancer COMPARISON: CT neck 04/07/2015 from outside [facility] al. TECHNIQUE: Axial images of t he brain were obtained in a helical scanner from the skullbase through the vertex without contrast material administration. DISCUSSION: The density of the brain parenchyma is unremarka ble. No midline shift, mass effect, hydrocephalus or hemorrhagic lesions. The visualized portions of t he paranasal sinuses and mastoid air cells are clear No acute bony lesions. IMPRESSION: Limited evaluation for metastatic disease withou t IV contrast administration. No acute intracranial abnormality. 2015-04-08 01:46:51-00:00 EXAM: CT of the brain without contrast . [facility] DATE: 04/08/2015 CLINICAL HISTORY: cancer COMPARISON: CT neck 04/07/2015 from outside hospit [facility]. TECHNIQUE: Axial images of t he brain were obtained in a helical scanner from the skullbase through the vertex without contrast material administration. DISCUSSION: The density of the brain parenchyma is unremarka ble. No midline shift, mass effect, hydrocephalus or hemorrhagic lesions. The visualized portions of t he paranasal sinuses and mastoid air cells are clear No acute bony lesions. IMPRESSION: Limited evaluation for metastatic disease withou t IV contrast administration. No acute intracranial abnormality. 2015-04-08 01:46:51-00:00 EXAM: CT of the brain without contrast . [facility] DATE: 04/08/2015 CLINICAL HISTORY: cancer COMPARISON: CT neck 04/07/2015 from outside hospit al. TECHNIQUE: Axial images of t he brain were obtained in a helical scanner from the skullbase through the vertex without contrast material administration. DISCUSSION: The density of the brain parenchyma is unremarka ble. No midline shift, mass effect, hydrocephalus or hemorrhagic lesions. The visualized portions of t he paranasal sinuses and mastoid air cells are clear No acute bony lesions.
[2023-06-11 12:42] LABS: Absolute Lymphocytes (CBC) 1.7 K/uL (0.7-4.9); Hematocrit 49.3 % (39.6-49.0); Lymphocytes % 26.8 % (15.3-44.8); MPV 8.5 fL (7.6-11.3); Platelets 142 thou/uL (152-406); RBC Red Blood Cell Count 5.67 M/uL (4.33-5.43)
[2023-06-11 12:50] LABS: Protime INR 1.5
[2023-06-11 13:00] LABS: Troponin High Sensitivity 9.1 pg/mL (<58.9)
[2023-06-11 13:03] LABS: Magnesium 2.1 mg/dL (1.6-2.4); Potassium 3.9 mEq/L (3.5-5.1)
--- NOTE | 2023-06-11 13:04 | RAD REPORT ---
EXAM DESCRIPTION: [facility] Single View06/11/2023 12:48 pm CLINICAL HISTORY: PALPITATIONS COMPARISON: No comparisons TECHNIQUE: Portable AP view of the chest. FINDINGS: The lungs are clear. No pneumothorax or effusion. The cardiomediastinal contours are unrem arkable. IMPRESSION: No acute cardiopulmonary process.
--- NOTE | 2023-06-11 14:04 | RAD REPORT ---
EXAM DESCRIPTION: CT - Chest For Pe Angio - 06/11/2023 1:20 pm CLINICAL HISTORY: dizziness;Palpitations COMPARISON: Chest Single View dated 06/11/2023 TECHNIQUE: Thin axial CT images of the chest were obtained following administration of 100 mL Isovue 370 IV contrast. Multiplanar reconstructions, and maximum intensity projection reconstructions were generated and reviewed. Exam utilizes a protocol for optimal evaluation of pulmonary arterial tree. All CT scans are performed using dose optimization technique as appropriate and may include automated exposure control or mA/KV adjustment according to patient size. FINDINGS: Pulmonary arteries are normal. No emboli or other suspicious finding. No acute or signific ant aorta findings. Prostatic aortic valve. No mass or infiltrate in the lung parenchyma. No pleural thickening or pleural effusion. No pneumotho rax. No abnormal mediastinal or hilar masses or lymphadenopathy seen. No chest wall mass or abnormal axill iary lymphadenopathy. IMPRESSION: No evidence of acute central pulmonary emboli. No other acute pulmonary process.
--- NOTE | 2023-06-11 14:09 | RAD REPORT ---
EXAM DESCRIPTION: CT - Head Brain Wo Cont - 06/11/2023 1:18 pm CLINICAL HISTORY: Dizzines COMPARISON: No comparisons TECHNIQUE: Noncontrast head CT images were obtained without IV contrast. Multiplanar reformats were generated and reviewed. All CT scans are performed using dose optimization technique as appropriate and may include automated exposure control or mA/KV adjustment according to patient size. FINDINGS: No intracranial hemorrhage, mass, or edema. Partially empty sella is incidentally noted. M idline structures are otherwise unremarkable. Normal ventricular caliber for age. Delatorre-white matter differentiation is preserved, without evidence of acute infarct. No abnormal extra- axial fluid collections. Mastoid air cells and visualized portions of the paranasal sinuses are clear. No acute bony findings. IMPRESSION: No evidence of an acute intracranial process.
--- NOTE | 2023-06-11 14:52 | EDPHYS ---
Physician Documentation [facility] Name: Gonzalo Wilson Age: 62 yrs Sex: Male : 1960 Arrival Date: 06/11/2023 Time: 11:56 Bed 5 Private MD: ED Physician Jimmie Corey HPI: 06/11 12:18 This 62 yrs old Male presents to ER via Ambulatory with complaints of Heart Irr., High rn Blood Pressure. 12:18 The patient presents with a history of irregular heart beat. Context: The symptoms rn occur at rest. Onset: The symptoms/episode began/occurred today. Duration: The patient or guardian reports a single episode, that is now resolved. Modifying factors: The symptoms are aggravated by nothing. The symptoms are alleviated by nothing. Severity of symptoms: At their worst the symptoms were mild in the emergency department the symptoms have improved. The patient has experienced a previous episode. The patient has not recently seen a physician. Pt reports at work, at rest, felt "fluttering" in chest, lasted for a few seconds, and went away, followed by dizziness. Feels better but has not completely resolved. No fever. NO chest pain. No abd pain/cough/fever/illness/abd pain/vomiting/diarrhea. No medication changes.. Historical: - Allergies: 12:13 No Known Allergies; mb9 - Home Meds: 12:13 metoprolol tartrate 50 mg Oral tablet once [Active]; lisinopril 10 mg Oral tablet once mb9 [Active]; Xarelto 20 mg oral tablet daily [Active]; - PMHx: 12:13 Hypertensive disorder; Sarcoma; mb9 - PSHx: 12:13 Aortic valve replacement; right knee; mass removal on back; mb9 - Immunization history:: Adult Immunizations up to date. - Social history:: Smoking status: Patient denies any tobacco usage or history of. - Family history:: not pertinent. - Hospitalizations: : No recent hospitalization is reported. ROS: 12:18 Constitutional: Negative for fever, chills, and weight loss, Eyes: Negative for injury, rn pain, redness, and discharge, Neck: Negative for injury, pain, and swelling, Cardiovascular: Negative for chest pain, and edema, Respiratory: Negative for shortness of breath, cough, wheezing, and pleuritic chest pain, Abdomen/GI: Negative for abdominal pain, nausea, vomiting, diarrhea, and constipation, MS/Extremity: Negative for injury and deformity, Skin: Negative for injury, rash, and discoloration, Neuro: Negative for headache, numbness, tingling, and seizure. Exam: 12:18 Constitutional: This is a well developed, well nourished patient who is awake, alert, rn and in no acute distress. Head/Face: Normocephalic, atraumatic. ENT: dry MM Neck: Trachea midline, no masses palpated, and no cervical lymphadenopathy. Supple, full range of motion without nuchal rigidity, or vertebral point tenderness. No Meningismus. Cardiovascular: Regular rate and rhythm. No pulse deficits. Respiratory: No increased work of breathing, no retractions or nasal flaring. Abdomen/GI: Soft, non-tender Skin: Warm, dry MS/ Extremity: Pulses equal, no cyanosis. Neuro: Awake and alert, GCS 15, oriented to person, place, time, and situation. Cranial nerves II-XII grossly intact. Motor strength 5/5 in all extremities. Sensory grossly intact. Cerebellar exam normal. Normal gait. 14:21 ECG was reviewed by the Attending Physician. rn Vital Signs: 12:11 BP 131 / 87; Pulse 54; Resp 14; Temp 98.2; Pulse Ox 98% on R/A; Weight 131.54 kg; mb9 Height 6 ft. 0 in. ; Pain 0/10; 12:11 Body Mass Index 39.33 (131.54 kg, 182.88 cm) mb9 12:11 Pain Scale: Adult mb9 MDM: 12:05 Patient medically screened. rn 14:50 Differential diagnosis: arrythmia, dehydration, stress disorder, anxiety, dehydration, rn vertigo, ME, electrolyte disturbance. Data reviewed: vital signs, nurses notes, lab test result(s), EKG, radiologic studies, CT scan, plain films, and as a result, I will discharge patient. Care significantly affected by the following chronic conditions: Hypertension. Counseling: I had a detailed discussion with the patient and/or guardian regarding: the historical points, exam findings, and any diagnostic results supporting the discharge/admit diagnosis, lab results, radiology results, the need for outpatient follow up, to return to the emergency department if symptoms worsen or persist or if there are any questions or concerns that arise at home. Response to treatment: the patient's symptoms have markedly improved after treatment, and as a result, I will discharge patient. Special discussion: I discussed with the patient/guardian in detail that at this point there is no indication for admission to the hospital. It is understood, however, that if the symptoms persist or worsen the patient needs to return immediately for re-evaluation. Based on the history and exam findings, there is no indication for further emergent testing or inpatient evaluation. I discussed with the patient/guardian the need to see the neck pinner for further evaluation of the symptoms. I discussed with the patient/guardian the need to see the primary care provider for further evaluation of the symptoms. 06/11 12:10 Order name: Basic Metabolic Panel; Complete Time: :06/11 12:10 Order name: CBC with Diff; Complete Time: :06/11 12:10 Order name: Magnesium; Complete Time: :06/11 12:10 Order name: NT PRO-BNP; Complete Time: :06/11 12:10 Order name: PT-INR; Complete Time: 13:06/11 12:10 Order name: Troponin HS; Complete Time: 13:06/11 14:10 Order name: Troponin High Sensitivity; Complete Time: 14:50 06/11 12:10 Order name: XRAY Chest (1 view); Complete Time: 13:06/11 12:10 Order name: CT Head Brain wo Cont; Complete Time: 14:10 rn 06/11 12:10 Order name: CT Chest For PE Angio; Complete Time: 14:06/11 12:10 Order name: EKG; Complete Time: 12:11 06/11 12:10 Order name: Cardiac monitoring; Complete Time: 13:02 06/11 12:10 Order name: EKG - Nurse/Tech; Complete Time: 12:24 rn 06/11 12:10 Order name: IV Saline Lock; Complete Time: 13:06/11 12:10 Order name: Labs collected and sent; Complete Time: 13:06/11 12:10 Order name: O2 Per Protocol; Complete Time: 13:06/11 12:10 Order name: O2 Sat Monitoring; Complete Time: 13: rn EC:21 Rate is 50 beats/min. Rhythm is regular. QRS [place] is Normal. NH interval is prolonged rn at 220 msec. QRS interval is normal. No Q waves. T waves are Normal. No ST changes noted. Clinical impression: 1st degree heart block and Sinus bradycardia. Interpreted by me. Reviewed by me. Administered Medications: No medications were administered Disposition Summary: 06/11/23 14:51 Discharge Ordered Location: Home rn Problem: new rn Symptoms: have improved rn Condition: Stable rn Diagnosis - Palpitations rn - Dizziness and giddiness rn - Essential (primary) hypertension rn Followup: rn - With: Private Physician - When: As needed - Reason: Recheck today's complaints, Re-evaluation by your physician Discharge Instructions: - Discharge Summary Sheet rn - Dizziness rn - Hypertension, Adult rn - Palpitations rn - Managing Your Hypertension rn Forms: - Medication Reconciliation Form rn - Thank You Letter rn - Antibiotic manager furniture - Prescription Opioid Use rn - Patient Portal Instructions rn - Work release form bp Signatures: Dispatcher [employer] Jimmie Charles MD MD rn Breneman, Mary Beth, RN RN mb9
--- NOTE | 2023-06-11 14:52 | ER ---
Nurse's Notes [facility] Name: Gonzalo Wilson Age: 62 yrs Sex: Male : 1960 Arrival Date: 06/11/2023 Time: 11:56 Bed 5 Private MD: Diagnosis: Palpitations;Dizziness and giddiness;Essential (primary) hypertension Presentation: 06/11 12:11 Chief complaint: Patient states: "I felt a flutter in my heart while sitting at work mb9 and I'm lightheaded. I just want to make sure I'm not having a heart attack or anything." Pt denies SOB/N/V/chest pain. Coronavirus screen: Vaccine status: Patient reports being unvaccinated. Ebola Screen: No symptoms or risks identified at this time. Initial Sepsis Screen: Does the patient meet any 2 criteria? No. Patient's initial sepsis screen is negative. Does the patient have a suspected source of infection? No. Patient's initial sepsis screen is negative. Risk Assessment: Do you want to hurt yourself or someone else? Patient reports no desire to harm self or others. Onset of symptoms was June 11, 2023. 12:11 Method Of Arrival: Ambulatory mb9 12:11 Acuity: PERFECTO 3 mb9 Triage Assessment: 12:15 General: Appears in no apparent distress. Behavior is cooperative. Pain: Denies pain. mb9 Neuro: Jack Agitation-Sedation Scale (RASS): 0 - Alert and Calm Level of Consciousness is awake, alert, obeys commands, Oriented to person, place, time, situation, Appropriate for age Reports dizziness. Cardiovascular: Reports flutter in heart Denies chest pain, shortness of breath. Respiratory: Airway is patent Respiratory effort is even, unlabored, Respiratory pattern is regular, symmetrical. GI: Patient currently denies nausea. Derm: Skin is pink, warm \\T\\ dry. Musculoskeletal: Range of motion: intact in all extremities. Historical: - Allergies: 12:13 No Known Allergies; mb9 - Home Meds: 12:13 metoprolol tartrate 50 mg Oral tablet once [Active]; lisinopril 10 mg Oral tablet once mb9 [Active]; Xarelto 20 mg oral tablet daily [Active]; - PMHx: 12:13 Hypertensive disorder; Sarcoma; mb9 - PSHx: 12:13 Aortic valve replacement; right knee; mass removal on back; mb9 - Immunization history:: Adult Immunizations up to date. - Social history:: Smoking status: Patient denies any tobacco usage or history of. - Family history:: not pertinent. - Hospitalizations: : No recent hospitalization is reported. Screenin:36 [facility] ED Fall Risk Assessment (Adult) History of falling in the last 3 months, ss including since admission No falls in past 3 months (0 pts). Abuse screen: Denies threats or abuse. Denies injuries from another. Nutritional screening: No deficits noted. Tuberculosis screening: Never had TB. Assessment: 12:36 General: Appears in no apparent distress. comfortable, well groomed, well developed, ss emaciated, Behavior is calm, cooperative. Pain: Denies pain. Neuro: Level of Consciousness is awake, alert, obeys commands, Oriented to person, place, time, situation, Rod Greaser are equal bilaterally. Cardiovascular: Rhythm is sinus bradycardia. Respiratory: Airway is patent Respiratory effort is even, unlabored, Respiratory pattern is regular, symmetrical. GI: No signs and/or symptoms were reported involving the gastrointestinal system. Derm: Skin is intact, is healthy with good turgor, Skin is dry, Skin is pink, warm \\T\\ dry. normal. Vital Signs: 12:11 BP 131 / 87; Pulse 54; Resp 14; Temp 98.2; Pulse Ox 98% on R/A; Weight 131.54 kg; mb9 Height 6 ft. 0 in. ; Pain 0/10; 12:11 Body Mass Index 39.33 (131.54 kg, 182.88 cm) mb9 12:11 Pain Scale: Adult mb9 ED Course: 11:59 Patient arrived in ED. mg5 12:05 Jimmie Corey MD is Attending Physician. rn 12:11 Arm band placed on. mb9 12:13 Triage completed. mb9 12:16 Placed in gown. Bed in low position. Call light in reach. Side rails up X 1. Client mb9 placed on continuous cardiac and pulse oximetry monitoring. NIBP monitoring applied. lunchroom monitor on. 12:24 EKG done, by ED staff. aw1 12:36 Jonelle Petersen, RN is Primary Nurse. ss 12:36 Inserted saline lock: 20 gauge in right antecubital area, using aseptic technique. ss Blood collected. 12:50 XRAY Chest (1 view) In Process Unspecified. EDMS 13:20 CT Head Brain wo Cont In Process Unspecified. EDMS 13:22 CT Chest For PE Angio In Process Unspecified. EDMS 15:11 No provider procedures requiring assistance completed. IV discontinued, intact, ss bleeding controlled, No redness/swelling at site. Pressure dressing applied. Administered Medications: No medications were administered Medication: 12:36 VIS not applicable for this client. ss Outcome: 14:51 Discharge ordered by . rn 15:11 Discharged to home ambulatory. ss 15:11 Condition: good 15:11 Discharge instructions given to patient, Instructed on discharge instructions, follow up and referral plans. Demonstrated understanding of instructions, follow-up care. 15:12 Patient left the ED. ss Signatures: Dispatcher [employer] EDMS Jimmie Corey MD MD rn Blanchard, Shelby, RN RN Laura Jo RN RN mb9 Ashlyn Currie aw1 Desi Parker mg5
[2023-06-11 15:24] VITALS: BP 131/87; TEMP 98.2; O2SAT 98
--- NOTE | 2023-06-14 15:36 | EKG ---
Test Date: 2023-06-11 Test Time: 12:21:52 Community Facilitator: JOSE MEASUREMENT RESULTS: Intervals: Rate: 50 KS: 220 QRSD: 98 QT: 560 QTc: 510 Mitchell: P: 60 KS: 220 QRS: 2 T: 92 INTERPRETIVE STATEMENTS: Sinus bradycardia with 1st degree AV block Prolonged QT Abnormal ECG No previous ECG available for comparison Electronically Signed On 06-14-23 15:32:28 CDT by Macario Rodriguez
== END 2023-06-11 15:12 | disposition home or self-care (01) ==
LOC: ER 11:56
DX: R00.2 Palpitations (principal); R42 Dizziness and giddiness; I10 Essential (primary) hypertension; Z95.2 Presence of prosthetic heart valve; Z79.01 Long term (current) use of anticoagulants
CPT/HCPCS: 93005; 85025; 80048; 36415; 83735; 85610; 84484 ×2; 83880; 70450; 71275; 71045; 99284; Q9967

== ENCOUNTER 2023-09-15 09:04 | Emergency (ER) | payer OTHER ==
--- OUTSIDE RECORDS SUMMARY | 2023-09-15 09:09 | XMS REPORT | Continuity of Care Document ---
:1960 Author Organization [facility] t Address [address] [place] [address] Care Team Providers Name Role Phone NATHALIA HARRIS Attending Clinician Unavailable TIM BARDALES Attending Clinician Unavailable SCOTT VALLE Attending Clinician Unavailable ANDREW SWIFT Attending Clinician Unavailable DARIO GAMEZ Attending Clinician Unavailable JORGE HANSON Attending Clinician Unavailable BETHANY PORTILLO Attending Clinician Unavailable LAB90 Attending Clinician Unavailable MD REYNA Attending Clinician Unavailable CATRACHO VALADEZ Attending Clinician Unavailable FREDRICK CAMACHO Attending Clinician Unavailable IJEOMA VIZCARRA Attending Clinician Unavailable TRED45 Attending Clinician Unavailable NERET Attending Clinician Unavailable Myrna Rucker Attending Clinician Movva, Maximiliano Attending Clinician NERET Admitting Clinician Unavailable Movva, Maximiliano Admitting Clinician Payers Payer Name Policy Type Policy Number Effective Date Expiration Date S ource [facility] 2 [id number] 2023 DEGREE BENEFITS 00:00:00 [place] AETVINOD MP CVS 9 [id number] 2022 BRONZE: HMO ON 00:00:00 [id number] 2016 [place] (PP[place]) 00:00:00 [facility] [place] [id number] Problems Condition Condition Condition Status Onset Resolution [...] hypertensi 2-20 Se ybold on on 00:00: 00 Externa l Seasonal Seasonal Disease Active [...] Dermatitis 2-24 da 00:00: Medical 00 Group NECK NECK Diagnosis Active 2015-04-08 Mem oriyoni ABCESS ABCESS 04-07 00:45:00 l Active 00:00: Roland 04/07/2015 00 [facility] SEPTIC SEPTIC Diagnosis Active 2015-04-13 Me moria THROMBOPHL THROMBOPHL 04-07 21:58:00 l EBITIS EBITIS 00:00: Roland Active 00 04/07/2015 [facility] History of History of Disease Active Overview : Taty surgical surgical 11-02 Oliverio ibarra removal of removal of 00:00: g of this - testicle testicle 00 note Newsagent a might be l different from the original. 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 Problem 04/27/2020 [facility] THROMBOPHL THROMBOPH Diagnosis Active 2015-04-13 Memoria EBITIS NOS LEBITIS 21:58:00 l NOS Active Calderon n [facility] Allergies, Adverse Reactions, Alerts Allergy Allergy Status Severity Reaction(s) Onset Inactive Treating Comm ents Source Name Type Date Date Clinician Adhesive Propensi Active Rash Taty ty to 6-30 Seybold adverse 00:00: - reaction 00 Externa s l Buspiron Propensi Active Itching Kelse y e ty to 3-09 Seybold adverse 00:00: - reaction 00 Externa s l No Known No Known Active Memori a Medicati Medicati l on on Danie Allergie Allergie s s Social History Social Habit Start Date Stop Date Quantity Comments Source History SDOH Taty gaytan Alcohol Binge - External Gender identity Taty Dupont ybjoshua - External Sexual orientation Taty liza - External History of tobacco Snuff User Taty Aminjoshua use - External History SDOH Taty gaytan Alcohol Frequency - Exter nal History SDOH Taty Kinza gaytan Alcohol Std Drinks - Exte rnal Alcohol intake 2023-09-14 2023-09-14 Current drinker Sonya Smith 00:00:00 00:00:00 of alcohol - External (finding) History of Social 2023-07-20 2023-07-20 Taty Eloisajoshua function 00:00:00 00:00:00 - External Alcohol Comment 2022-12-22 2022-12-22 rarely Taty de jesus 00:00:00 00:00:00 - External Education - What is 2022-12-22 2022-12-22 Associate degree: Taty Smith the highest level 00:00:00 00:00:00 occupational, - Ex ternal of school you have technical, or completed or the vocational highest degree you program have received? Tobacco use and 2022-12-22 2022-12-22 User of smokeless Ke kyle Smith exposure 00:00:00 00:00:00 tobacco - External Social History 2015-04-08 2015-04-08 [facility] 09:53:15 09:53:15 Roland Sex Ass[birth year] At [birth year] Taty de jesus 00:00:00 00:00:00 - External Smoking Status Start Date Stop Date Source Never smoked tobacco Tatymansi Amin joshua - External Medications Ordered Filled Start Stop Current Ordering Indication Dosage Frequency Signature Comments Components Source Medication Medication Date Date Medication? Clinician (SIG) Name Name Triamcinolo 2022-11 Yes triamcinol Taty bryan - one Luis Acetonide 14:35: acetonide - 0.1 % apply 08 0.1 % Externa externally topical l Cream cream Multiple 2022-11 Yes 1{tbl} Take 1 Kelse y Vitamin 1-09 tablet by Luis (Daily 14:35: mouth - Vites) oral 08 daily. Newsagent a Tablet l Rivaroxaban 2022-11 Yes 20mg Take 1 Sally ey (Xarelto) 1-09 tablet (20 Seyb old 20 MG oral 14:35: mg total) - Tablet 08 by mouth Externa daily. l Triamcinolo 2022-11 Yes triamcinol Taty ne 1-09 one Seybold Acetonide 14:35: acetonide - 0.1 % apply 08 0.1 % Externa externally topical l Cream cream Multiple 2022-11 Yes 1{tbl} Take 1 Kelse y Vitamin 1-09 tablet by Seybold (Daily 14:35: mouth - Vites) oral 08 daily. Newsagent a Tablet l Rivaroxaban 2022-11 Yes 20mg Take 1 Sally ey (Xarelto) 1-09 tablet (20 Seyb old 20 MG oral 14:35: mg total) - Tablet 08 by mouth Externa daily. l methylPREDN 2022-11 Yes [id number] 1{jesus alberto} Take 1 jesus alberto Taty ISolone 4 1-09 by mouth Seybol d MG oral 00:00: See Admin - Tablet 00 Instructio Externa Therapy ns Use as l Pack directed. Pseudoeph-B 2022-11 Yes [id number] 10mL Q.25D Take 10 mL Taty romphen-DM 1-09 by mouth 4 Sey bold 00:00: times - MG/5ML oral 00 daily as Exte rna Syrup needed. l Albuterol 2022-11 Yes [id number] 2{puff} Q.25D Inhale 2 Taty HFA 108 (90 1-09 puffs into Se ybold Base) 00:00: the lungs - MCG/ACT IN 00 every 6 Newsagent a AERS hours as l needed for wheezing. methylPREDN 2022-11 Yes [id number] 1{jesus alberto} Take 1 jesus alberto Taty ISolone 4 1-09 by mouth Seybol d MG oral 00:00: See Admin - Tablet 00 Instructio Externa Therapy ns Use as l Pack directed. Pseudoeph-B 2022-11 Yes [id number] 10mL Q.25D Take 10 mL Taty romphen-DM 1-09 by mouth 4 Sey bold 30-2- 00:00: times - MG/5ML oral 00 daily as Exte rna Syrup needed. l Albuterol 2022-11 Yes [id number] 2{puff} Q.25D Inhale 2 Taty HFA 108 (90 1-09 puffs into Se ybold Base) 00:00: the lungs - MCG/ACT IN 00 every 6 Newsagent a AERS hours as l needed for wheezing. Triamcinolo 2022-11 Yes triamcinol Taty ne 0-30 one Seybold Acetonide 13:36: acetonide - 0.1 % apply 42 0.1 % Externa externally topical l Cream cream Multiple 2022-11 Yes 1{tbl} Take 1 Kelse y Vitamin 0-30 tablet by Seybold (Daily 13:36: mouth - Vites) oral 42 daily. Newsagent a Tablet l Rivaroxaban 2022-11 Yes 20mg Take 1 Sally ey (Xarelto) 0-30 tablet (20 Seyb old 20 MG oral 13:36: mg total) - Tablet 42 by mouth Externa daily. l Amoxicillin 2022-11 Yes [id number] 1{tbl} Take 1 Taty -Pot 0-30 tablet by Seybold Clavulanate 00:00: mouth 2 - 875-125 MG 00 times Externa oral Tablet daily. l Mupirocin 2022-11 Yes [id number] Apply 1 Taty (BACTROBAN) 0-30 applicatio Se ybold 2 % apply 00:00: n. - externally 00 topically Exte rna Ointment 3 times l daily. Mupirocin 2022-11 Yes [id number] Apply 1 Taty (BACTROBAN) 0-30 applicatio Se ybold 2 % apply 00:00: n. - externally 00 topically Exte rna Ointment 3 times l daily. Mupirocin 2022-11 Yes [id number] Apply 1 Taty (BACTROBAN) 0-30 applicatio Se ybold 2 % apply 00:00: n. - externally 00 topically Exte rna Ointment 3 times l daily. Amoxicillin 2022-11- No [id number] 1{tbl} Take 1 Taty -Pot 0-30 11-09 tablet by Seybold Clavulanate 00:00: 00:00 mouth 2 - 875-125 MG 00 :00 times Externa oral Tablet daily. l Naproxen Yes 500mg Take 1 Taty 500 MG oral 9-22 tablet Seybol d Tablet 00:00: (500 mg - 00 total) by Externa mouth l every 12 hours. Naproxen 0 Yes 500mg Take 1 Taty 500 MG oral 9-22 tablet Seybol d Tablet 00:00: (500 mg - 00 total) by Externa mouth l every 12 hours. Naproxen 2022-0 Yes 500mg Take 1 Taty 500 MG oral 9-22 tablet Seybol d Tablet 00:00: (500 mg - 00 total) by Externa mouth l every 12 hours. Rivaroxaban Yes 20mg Take 1 Sally ey (Xarelto) 9-11 tablet (20 Seyb old 20 MG oral 09:03: mg total) - Tablet 03 by mouth Externa daily. l Desoximetas Yes desoximeta Taty one 0.05 % 07-13 sone 0.05 Seyb old apply 09:02: % topical - externally 37 gel Apply Exte rna Gel 1 l applicatio n twice a day by topical route as directed for 30 days. Triamcinolo Yes triamcinol Taty ne - one Seybold Acetonide 09:02: acetonide - 0.1 % apply 37 0.1 % Externa externally topical l Cream cream Multiple Yes 1{tbl} Take 1 Kelse y Vitamin 9-11 tablet by Seybold (Daily 09:02: mouth - Vites) oral 37 daily. Newsagent a Tablet l Loratadine 2022- No daily Kelse y (CLARITIN) 07-13 Seybold 10 MG oral 09:01: 00:00 - tablet 38 :00 Externa l FLUTICASONE 2022- No 50ug QD Use 1 Sally ey PROPIONATE, 07-13 spray (50 Se ybold NASAL, 50 09:01: 00:00 mcg total) - MCG/ACT 28 :00 in each Externa nasal nostril l Suspension daily as needed Pseudoeph-B Yes [id number] 10mL Q.25D Take 10 mL Taty romphen-DM 9-11 by mouth 4 Sey bold 30-2-10 00:00: times - MG/5ML oral 00 daily as Exte rna Syrup needed. l methylPREDN Yes [id number] 1{jesus alberto} Take 1 jesus alberto Taty ISolone 4 9-11 by mouth Seybol d MG oral 00:00: See Admin - Tablet 00 Instructio Externa Therapy ns Use as l Pack directed. Pseudoeph-B Yes [id number] 10mL Q.25D Take 10 mL Taty romphen-DM 9-11 by mouth 4 Sey bold 30-2-10 00:00: times - MG/5ML oral 00 daily as Exte rna Syrup needed. l methylPREDN Yes [id number] 1{jesus alberto} Take 1 jesus alberto Taty ISolone 4 9-11 by mouth Seybol d MG oral 00:00: See Admin - Tablet 00 Instructio Externa Therapy ns Use as l Pack directed. Pseudoeph-B 2022- No [id number] 10mL Q.25D Take 10 mL Taty romphen-DM 9-11 11-09 by mouth 4 Se ybold 30-2-10 00:00: 00:00 times - MG/5ML oral 00 :00 daily as Exte rna Syrup needed. l methylPREDN 2022- No [id number] 1{jesus alberto} Take 1 jesus alberto Costaone 4 9-11 11- by mouth Seybo ld MG oral 00:00: 00:00 See Admin - Tablet 00 :00 Instructio Externa Therapy ns Use as l Pack directed. Azithromyci 2022- Yes [id number] Take 2 Taty n 250 MG 9-09 10-17 tablets by Seyb old oral Tablet 00:00: 04:59 mouth on - 00 :00 day 1 then Externa 1 tablet l by mouth daily for 4 days thereafter .. Na 2022- No [id number] Instructio K elsey Sulfate-K 05-29 09-11 ns Seybold Sulfate-Mg 00:00: 00:00 provided - Sulf 00 :00 to Externa (SUPREP patient. l BOWEL PREP Follow KIT) instructio 17.5-3.13-1 ns .6 GM/177ML provided oral by Solution provider. Metoprolol Yes 50mg Take 1 Kelse y Tartrate 7-14 tablet (50 Seybo ld (LOPRESSOR) 00:00: mg total) - 50 MG oral 00 by mouth 2 Ext liana Tablet times l daily. Metoprolol 2023-0 Yes 50mg Take 1 Kelse y Tartrate 7-14 tablet (50 Seybo ld (LOPRESSOR) 00:00: mg total) - 50 MG oral 00 by mouth 2 Ext liana Tablet times l daily. Metoprolol 2023-0 Yes 50mg Take 1 Kelse y Tartrate 7-14 tablet (50 Seybo ld (LOPRESSOR) 00:00: mg total) - 50 MG oral 00 by mouth 2 Ext liana Tablet times l daily. Metoprolol 2023-0 Yes 50mg Take 1 Kelse y Tartrate 7-14 tablet (50 Seybo ld (LOPRESSOR) 00:00: mg total) - 50 MG oral 00 by mouth 2 Ext liana Tablet times l daily. Azelastine 2022-0 Yes [id number] azelastine Taty HCl 0.1 % 7-05 137 mcg Seybold nasal 00:00: (0.1 %) - Solution 00 nasal Externa spray l aerosol [place] 2 sprays twice a day by intranasal route. Azelastine 2022-0 Yes [id number] azelastine Taty HCl 0.1 % 7-05 137 mcg Seybold nasal 00:00: (0.1 %) - Solution 00 nasal Externa spray l aerosol [place] 2 sprays twice a day by intranasal route. Azelastine 2022-0 Yes [id number] azelastine Taty HCl 0.1 % 7-05 137 mcg Seybold nasal 00:00: (0.1 %) - Solution 00 nasal Externa spray l aerosol [place] 2 sprays twice a day by intranasal route. Azelastine 3-0 Yes [id number] azelastine Taty HCl 0.1 % 7-05 137 mcg Seybold nasal 00:00: (0.1 %) - Solution 00 nasal Externa spray l aerosol [place] 2 sprays twice a day by intranasal route. Azelastine 2022-0 2023- No azelastine Taty HCl 0.1 % 7-03 07-03 137 mcg Seybol d nasal 13:50: 00:00 (0.1 %) - Solution 47 :00 nasal Externa spray l aerosol [place] 2 sprays twice a day by intranasal route. FLUTICASONE Yes 50ug QD Use 1 Kelse y PROPIONATE, 7-03 spray (50 Sey bold NASAL, 50 13:25: [...] 30 days. Triamcinolo Yes triamcinol Taty ne 03 one Seybold Acetonide 13:25: acetonide - 0.1 % apply 40 0.1 % Externa externally topical l Cream cream Multiple Yes 1{tbl} Take 1 Kelse y Vitamin - tablet by Seybold (Daily 13:25: mouth - Vites) oral 40 daily Externa Tablet l Loratadine Yes daily Taty (CLARITIN) 05-04 Seybold 10 MG oral 13:25: - tablet 40 Externa l Amoxicillin Yes [id number] 1{tbl} Take 1 Taty -Pot - tablet by Seybold Clavulanate 00:00: mouth 2 - 875-125 MG 00 times Externa oral Tablet daily l Azelastine Yes [id number] azelastine Taty HCl 0.1 % 05-04 137 mcg Seybold nasal 00:00: (0.1 %) - Solution 00 nasal Externa spray l aerosol [place] 2 sprays twice a day by intranasal route. Amoxicillin 2022- No [id number] 1{tbl} Take 1 Taty -Pot 7-03 09-11 tablet by Seybold Clavulanate 00:00: 00:00 mouth 2 - 875-125 MG 00 :00 times Externa oral Tablet daily l FLUTICASONE Yes 50ug QD Use 1 Kelse y PROPIONATE, 6-26 spray (50 Sey bold NASAL, 50 13:38: mcg total) - MCG/ACT 44 in each Externa nasal nostril l Suspension daily as needed Azelastine Yes azelastine K elsey HCl 0.1 % 04-27 137 mcg Seybold nasal 13:38: (0.1 %) - Solution 44 nasal Externa spray l aerosol [place] 2 sprays twice a day by intranasal route. Desoximetas Yes desoximeta Taty one 0.05 % 04-27 sone 0.05 Seyb old apply 13:38: % topical - externally 44 gel Apply Exte rna Gel 1 l applicatio n twice a day by topical route as directed for 30 days. Triamcinolo Yes triamcinol Taty ne - one Seybold Acetonide 13:38: acetonide - 0.1 % apply 44 0.1 % Externa externally topical l Cream cream Multiple Yes 1{tbl} Take 1 Kelse y Vitamin 6-26 tablet by Seybold (Daily 13:38: mouth - Vites) oral 44 daily Externa Tablet l Loratadine Yes daily Taty (CLARITIN) 04-27 Seybold 10 MG oral 13:38: - tablet 44 Externa l Testosteron 2022- No [id number] 200mg Taty e Cypionate 04-01 Seybold (DEPO-TESTO 19:45: 20:44 - STERONE) 00 :00 Externa 200 mg/mL - l Every 14 Days Testosteron 2022- No [id number] 200mg Taty e Cypionate 04-01 Seybold (DEPO-TESTO 19:45: 20:44 - STERONE) 00 :00 Externa 200 mg/mL - l Every 14 Days Testosteron 2022- No [id number] 200mg 200 mg, Taty e Cypionate 04-01 intramuscu S eybold (DEPO-TESTO 19:45: 20:44 lar, EVERY - STERONE) 00 :00 14 DAYS, Externa 200 mg/mL - 15 doses, l Every 14 First dose Days on Thu04/01/23 at 1445, Last dose on Thu10/14/23 at 1445 Testosteron 2022- No [id number] 200mg Taty e Cypionate 04-01 Seybold (DEPO-TESTO 19:45: 20:44 - STERONE) 00 :00 Externa 200 mg/mL - l Every 14 Days Testosteron 2022- No [id number] 200mg Taty e Cypionate 04-01 Seybold (DEPO-TESTO 19:45: 20:44 - STERONE) 00 :00 Externa 200 mg/mL - l Every 14 Days Testosteron 2022- No [id number] 200mg Taty e Cypionate 04-01 Seybold (DEPO-TESTO 19:45: 20:35 - STERONE) 00 :28 Externa 200 mg/mL - l Every 14 Days FLUTICASONE Yes 50ug QD Use 1 Kelse y PROPIONATE, - spray (50 Sey bold NASAL, 50 13:37: mcg total) - MCG/ACT 48 in each Externa nasal nostril l Suspension daily as needed Triamcinolo Yes triamcinol Taty ne 04-01 one Seybold Acetonide 13:37: acetonide - 0.1 % apply 48 0.1 % Externa externally topical l Cream cream Multiple Yes 1{tbl} Take 1 Kelse y Vitamin -31 tablet by Luis (Daily 13:37: mouth - Vites) oral 48 daily Externa Tablet l Loratadine Yes daily Taty (CLARITIN) 04-01 Seybold 10 MG oral 13:37: - tablet 48 Externa l Azelastine Yes azelastine K elsey HCl 0.1 % 04-01 137 mcg Seybold nasal 13:37: (0.1 %) - Solution 47 nasal Externa spray l aerosol [place] 2 sprays twice a day by intranasal route. Desoximetas Yes desoximeta Taty one 0.05 % 04-01 sone 0.05 Seyb old apply 13:37: % topical - externally 47 gel Apply Exte rna Gel 1 l applicatio n twice a day by topical route as directed for 30 days. LISINOPRIL- Yes 1{tbl} Take 1 Ke lsey HCTZ 4-14 tablet by Seybold 10-12.5 MG 00:00: mouth - oral Tablet 00 daily Exte rna DIRECTED l Metoprolol 2023-0 Yes 25mg Take 1 Kelse y Tartrate 4-14 tablet (25 Seybo ld (LOPRESSOR) 00:00: mg total) - 25 MG oral 00 by mouth 2 Ext liana Tablet times l daily LISINOPRIL- 2023-0 Yes 1{tbl} Take 1 Ke lsey HCTZ 4-14 tablet by Seybold 10-12.5 MG 00:00: mouth - oral Tablet 00 daily Exte rna DIRECTED l Metoprolol 2023-0 Yes 25mg Take 1 Kelse y Tartrate 4-14 tablet (25 Seybo ld (LOPRESSOR) 00:00: mg total) - 25 MG oral 00 by mouth 2 Ext liana Tablet times l daily LISINOPRIL- 2023-0 Yes 1{tbl} Take 1 Ke lsey HCTZ 4-14 tablet by Seybold 10-12.5 MG 00:00: mouth - oral Tablet 00 daily Exte rna DIRECTED l LISINOPRIL- 2023-0 Yes 1{tbl} Take 1 Ke lsey HCTZ 4-14 tablet by Seybold 10-12.5 MG 00:00: mouth - oral Tablet 00 daily Exte rna DIRECTED l LISINOPRIL- 2023-0 Yes 1{tbl} Take 1 Ke lsey HCTZ 4-14 tablet by Seybold 10-12.5 MG 00:00: mouth - oral Tablet 00 daily Exte rna DIRECTED l LISINOPRIL- 2023-0 Yes 1{tbl} Take 1 Ke lsey HCTZ 4-14 tablet by Seybold 10-12.5 MG 00:00: mouth - oral Tablet 00 daily Exte rna DIRECTED l LISINOPRIL- 2023-0 Yes 1{tbl} Take 1 Ke lsey HCTZ 4-14 tablet by Seybold 10-12.5 MG 00:00: mouth - oral Tablet 00 daily Exte rna DIRECTED l Metoprolol 2023-0 Yes 25mg Take 1 Kelse y Tartrate 4-14 tablet (25 Seybo ld (LOPRESSOR) 00:00: mg total) - 25 MG oral 00 by mouth 2 Ext liana Tablet times l daily Metoprolol 2023-0 2023- No 25mg Take 1 Sally ey Tartrate 4-14 09-11 tablet (25 Seyb old (LOPRESSOR) 00:00: 00:00 mg total) - 25 MG oral 00 :00 by mouth 2 Ext liana Tablet times l daily FLUTICASONE Yes 50ug QD Use 1 Kelse y PROPIONATE, 4-07 spray (50 Sey bold NASAL, 50 11:01: mcg total) - MCG/ACT 32 in each Externa nasal nostril l Suspension daily as needed Alprazolam 2022- No .25mg Take 0.25 Taty 0.25 MG 2-20 02-20 mg by Seybold oral Tablet 15:01: 00:00 mouth as - 06 :00 needed for Externa sleep Take l 1 tablet by mouth as needed. FLUTICASONE Yes 1{spray QD Use 1 Ke lsey PROPIONATE, 2-20 } spray in Seyb old NASAL, 50 14:53: each - MCG/ACT 08 nostril Externa nasal daily as l Suspension needed Rivaroxaban Yes [id number] 20mg Take 1 Taty 20 MG oral 2-20 tablet (20 Sey bold Tablet 00:00: mg total) - 00 by mouth Externa daily l Rivaroxaban 0 Yes [id number] 20mg Take 1 Taty 20 MG oral 2-20 tablet (20 Sey bold Tablet 00:00: mg total) - 00 by mouth Externa daily l Rivaroxaban 0 Yes [id number] 20mg Take 1 Taty 20 MG oral 2-20 tablet (20 Sey bold Tablet 00:00: mg total) - 00 by mouth Externa daily l Rivaroxaban 0 Yes [id number] 20mg Take 1 Taty 20 MG oral 2-20 tablet (20 Sey bold Tablet 00:00: mg total) - 00 by mouth Externa daily l Rivaroxaban 0 Yes [id number] 20mg Take 1 Taty 20 MG oral 2-20 tablet (20 Sey bold Tablet 00:00: mg total) - 00 by mouth Externa daily l Rivaroxaban 0 2022- No [id number] 20mg Take 1 Taty 20 MG oral 2-20 09-11 tablet (20 Se ybold Tablet 00:00: 00:00 mg total) - 00 :00 by mouth Externa daily l LISINOPRIL- 2022-0 Yes 1{tbl} Take 1 Ke lsey HCTZ 2-03 tablet by Seybold 10-12.5 MG 00:00: mouth - oral Tablet 00 daily Exte rna DIRECTED l LISINOPRIL- 2022-0 Yes 1{tbl} Take 1 Ke lsey HCTZ 2-03 tablet by Seybold 10-12.5 MG 00:00: mouth - oral Tablet 00 daily Exte rna DIRECTED l Metoprolol 2022-0 Yes 1{tbl} Take 1 Sukhdev sey Tartrate 1-31 tablet by Seybol d (LOPRESSOR) 00:00: mouth 2 - 50 MG oral 00 times Externa Tablet daily l Metoprolol 0 Yes 50mg Take 1 Kelse y Tartrate 1-31 tablet (50 Seybo ld (LOPRESSOR) 00:00: mg total) - 50 MG oral 00 by mouth 2 Ext liana Tablet times l daily Rivaroxaban 2022- No 20mg Take 20 mg Taty 20 MG oral -03 02-20 by mouth Seyb old Tablet 00:00: 00:00 daily - 00 :00 Externa l Testosteron 2021-11 Yes deon reyes Cypionate 1-17 ne Seybold (DEPO-TESTO 00:00: cypionate - STERONE) 00 200 mg/mL Newsagent a 200 MG/ML intramuscu l intramuscul lar oil ar Solution INJECT 0.5 ML IN THE MUSCLE EVERY WEEK DIRECTED FOR 30 DAYS 2021-11 Yes deon reyes Cypionate 1-17 ne Seybold (DEPO-TESTO 00:00: cypionate - STERONE) 00 200 mg/mL Newsagent a 200 MG/ML intramuscu l intramuscul lar oil ar Solution INJECT 0.5 ML IN THE MUSCLE EVERY WEEK DIRECTED FOR 30 DAYS 2021-11 Yes deon Posey e Cypionate 1-17 ne Seybold (DEPO-TESTO 00:00: cypionate - STERONE) 00 200 mg/mL Newsagent a 200 MG/ML intramuscu l intramuscul lar oil ar Solution INJECT 0.5 ML IN THE MUSCLE EVERY WEEK DIRECTED FOR 30 DAYS 2021-11 Yes deon reyes Cypionate 1-17 ne Seybold (DEPO-TESTO 00:00: cypionate - STERONE) 00 200 mg/mL Newsagent a 200 MG/ML intramuscu l intramuscul lar oil ar Solution INJECT 0.5 ML IN THE MUSCLE EVERY WEEK DIRECTED FOR 30 DAYS Test2021-11 Yes deon reyes Cypionate 1-17 ne Seybold (DEPO-TESTO 00:00: cypionate - STERONE) 00 200 mg/mL Newsagent a 200 MG/ML intramuscu l intramuscul lar oil ar Solution INJECT 0.5 ML IN THE MUSCLE EVERY WEEK DIRECTED FOR 30 DAYS 2021-11 Yes deon reyes Cypionate 1-17 ne Seybold (DEPO-TESTO 00:00: cypionate - STERONE) 00 200 mg/mL Newsagent a 200 MG/ML intramuscu l intramuscul lar oil ar Solution INJECT 0.5 ML IN THE MUSCLE EVERY WEEK DIRECTED FOR 30 DAYS 2021-11 Yes deon reyes Cypionate 1-17 ne Seybold (DEPO-TESTO 00:00: cypionate - STERONE) 00 200 mg/mL Newsagent a 200 MG/ML intramuscu l intramuscul lar [...] drop at Taty lone 0.1 % 0-17 bedtime. Seybo ld ophthalmic 00:00: - Suspension 00 Externa l Fluorometho 2021-11 Yes 1[drp] 1 drop at Taty lone 0.1 % 0-17 bedtime. Seybo ld ophthalmic 00:00: - Suspension 00 Externa l Fluorometho 2021-11 Yes 1[drp] 1 drop at Taty lone 0.1 % 0-17 bedtime. Seybo ld ophthalmic 00:00: - Suspension 00 Externa l Fluorometho 2021-11 Yes 1[drp] 1 drop at Taty lone 0.1 % 0-17 bedtime. Seybo ld ophthalmic 00:00: - Suspension 00 Externa l [...] tablet - 00 Externa l Meclizine 0 2022- No meclizine Ke lsey HCl 25 MG 4-26 09-11 25 mg Seybold oral Tablet 00:00: 00:00 tablet - 00 :00 Externa l Ciprofloxac Yes 4 drp, Danis steve in 3 MG/ML 6-24 Each l / 21:38: Affected Danie Dexamethaso 00 Ear, Q12H, ne 1 MG/ML X 5 day, # Otic 1 ea, 0 Suspension Refill(s), Pharmacy: [id number], 182.88, cm, 04/25/20 13:07:00 CDT, Height, 122.727, kg, 04/25/20 13:22:00 CDT, Weight Fluticasone Yes NASAL, Danis steve propionate 6-24 Daily, 0 l 0.05 18:17: Refill(s) Roland MG/ACTUAT 00 Metered Dose Nasal [place] [Flonase] heparin, No Notes: Memoria porcine - (Same as: l 21:23: Heparin Roland 00 Lock Flush) {42 Yes Special Memoria (rivaroxaba 04-10 Instructio l n 15 MG 20:15: ns: Take Calderon n Oral Tablet 00 15 mg [Xarelto]) tablets / 9 twice (rivaroxaba daily with n 20 MG food for Oral Tablet 21 days. [Xarelto]) Beginning } day [Xarelto 22,take Kit] one 20 mg tablet daily with food for the remainder of therapy. Amoxicillin Yes 875 mg = 1 Memoria 875 MG / 609 tab, PO, l Clavulanate 20:15: Q12H, X 14 Danie 125 MG Oral 00 day, # 28 Tablet tab, 0 [Augmentin Refill(s) 875-mg] Protonix No Notes: Memoria - Tablet l 16:30: should not Danie 00 be chewed or crushed. (Same as: Protonix) heparin No Route: Memoria sodium, 04-08 IVP, PRN, l porcine 23:13: 3,700 Danie 1000 UNT/ML 00 unit, 3.7 Injectable mL, Drug Solution form: INJ, PRN, Heparin Protocol, Start date: 04/08/15 18:13:00 Stop date: 05/08/15 18:12:00, 30 day heparin No 500 mL, Memoria additive 04-08 Rate: l 25,000 unit 23:13: 33.65 Shaina nn [18 00 ml/hr, unit/kg/hr] Infuse + Premix over: 14.9 Diluent hr, Route: Dextrose 5% IV, Dosing 500 mL Weight 93.47 kg, Total Volume: 500 mL, Start date: 04/08/15 18:13:00, Duration: 30 day, Stop date: 05/08/15 18:12:00 lisinopril Yes 5 mg = 1 Mem oria 5 mg oral 07 tab, PO, l tablet 17:53: Daily, # Danie 00 30 tab, 0 Refill(s) cephalexin No 250 mg = 1 M emoria 250 mg oral 6 cap, PO, l capsule 17:53: QID, # 56 Shaina nn 00 cap, 0 Refill(s) Hydrochloro Yes 25 mg, PO, Memoria thiazide 6-07 Daily, 0 l 17:53: Refill(s) Roland 00 Simethicone No Notes: Danis steve 6- (Same as: l 15:33: Mylicon, Roland 00 Phazyme, Genasyme) Codeine No Notes: Memoria Phosphate 2 04-08 (Same As: l MG/ML / 15:33: Robitussin Herm césar Guaifenesin 00 AC) 20 MG/ML Oral Solution Diphenhydra No Notes: Danis steve mine 07 (Same as: l 15:33: Benadryl) Temazepam No Notes: Memori a 07 (Same As: l 15:33: Restoril) Milk of No Notes: Memoria Magnesia 04-08 (Same as: l 15:33: Milk of Magnesia, MOM) Zofran No 4 mg, Memoria 04-08 Route: IV, l 15:32: Drug form: Roland 00 INJ, Q8H, Dosing Weight 117.273, kg, PRN Nausea, Start date: 04/08/15 10:32:00, Duration: 30 day, Stop date: 05/08/15 10:31:00 Morphine No Notes: Memoria 6 (Same l 15:16: as:MORPhin Danie 00 e Sulfate) Zosyn No = 20 Memoria 6-07 ml/min l 15:00: infuse Danie 00 over 4 hours, Start date: 04/08/15 10:00:00, Duration: 30 day, Stop date: 05/08/15 2:00:00 Acetaminoph No Notes: Do M emoria en 325 MG / 6 not exceed l Hydrocodone 13:26: 4gm/day of Danie Bitartrate 00 acetaminop 10 MG Oral hen. (Same Tablet as: [place] [[place] 325/10) 10325] heparin No Notes: Memoria 6-07 porcine l 13:00: heparin vancomycin No 2001 mg: Me moria 6-07 infuse l 13:00: over 2.5 Roland 00 hours methylPREDN No Notes: Danis steve ISolone 6-07 (Same l SODium 13:00: as:Solu-ME Shaina nn SUCCinate 00 DROL, A-Methapre d) normal No 1,000 mL, Memori a saline 0.9% 04-08 Rate: 125 l IV 1,000 mL 09:20: [...] steve 04-08 (Same as: l 08:36: Zofran) Roland 00 MEDICATION WASTE Product Size: 4 mg Product Wasted: ___ mg Docusate No Notes: Memoria 04-08 (Same as: l 08:36: Colace) Roland 00 (Do Not Crush) Zofran No Notes: Memoria 04-08 (Same as: l 07:06: Zofran) Roland 00 MEDICATION WASTE Product Size: 4 mg Product Wasted: ___ mg Acetaminoph No 2 tab, Danis steve en 325 MG / 04-08 Route: PO, l Hydrocodone 06:46: Dosing Herm césar Bitartrate 00 Weight 5 MG Oral 118.182, Tablet kg, ONCE, [[place] Start 5/325] date: 04/08/15 1:46:00, Stop date: 04/08/15 1:46:00 Vancomycin No 2000 mg: Me moria 04-08 infuse l 05:56: over 2.5 Danie 00 hours MEDICATION WASTE Product Size: 1000 mg Product Wasted: ___ mg Zosyn No Notes: Memoria 04-08 (Same as: l 05:55: Zosyn) Roland Dosing based on Piperacill in component MEDICATION WASTE Product Size: 4500 mg Product Wasted: ___ mg Zofran No 4 mg, Memoria 04-08 Route: l 04:48: IVP, Drug Danie 00 [...] days. days. for 90 days. Immunizations Ordered Filled Immunization Date Status Comments [facility] e Immunization Name Name Tdap- (Boostrix, 2013-08-02 Completed Taty fulton Adacel) 00:00:00 - External Tdap- (Boostrix, 2013-08-02 Completed Taty fulton Adacel) 00:00:00 - External Tdap- (Boostrix, 2013-08-02 Completed Taty fulton Adacel) 00:00:00 - External Tdap- (Boostrix, Unknown Completed Taty fulton Adacel) - External Tdap- (Boostrix, Unknown Completed Taty fulton Adacel) - External Tdap- (Boostrix, Unknown Completed Taty fulton Adacel) - External Vital Signs Vital Name Observation Time Observation Value Comments Source Systolic blood 2023-09-14 16:38:00 151 mm[Hg] Taty Smith - pressure External Diastolic blood 2023-09-14 16:38:00 88 mm[Hg] Sonya Smith - pressure External Heart rate 2023-09-14 16:38:00 49 /min Taty fulton - External Respiratory rate 2023-09-14 16:38:00 20 /min Sally Smith - External Body height 2023-09-14 16:38:00 182.9 cm Taty fulton - External Body weight 2023-09-14 16:38:00 131.09 kg Taty Rodriguez eybold - External BMI 2023-09-14 16:38:00 39.20 kg/m2 Taty Rodriguez eybold - External Oxygen saturation in 2023-09-14 16:38:00 99 /min Taty Seybold - Arterial blood by External Pulse oximetry Systolic blood 2023-09-10 20:31:00 140 mm[Hg] Taty Seybold - pressure External Diastolic blood 2023-09-10 20:31:00 88 mm[Hg] Kelse y Seybold - pressure External Heart rate 2023-09-10 20:31:00 62 /min Taty S eybold - External Body temperature 2023-09-10 20:31:00 36.33 Olga Sally ey Seybold - External Respiratory rate 2023-09-10 20:31:00 15 /min Sally ey Seybold - External Body height 2023-09-10 20:31:00 182.9 cm Taty S eybold - External Body weight 2023-09-10 20:31:00 132.904 kg Taty S eybold - External BMI 2023-09-10 20:31:00 39.74 kg/m2 Taty Rodriguez eybold - External Systolic blood 2023-08-31 19:01:00 130 mm[Hg] Taty Seybold - pressure External Diastolic blood 2023-08-31 19:01:00 78 mm[Hg] Sukhdevse y Seybold - pressure External Heart rate 2023-08-31 18:35:00 54 /min Taty S eybold - External Body temperature 2023-08-31 18:35:00 36.61 Olga Sally ey Seybold - External Respiratory rate 2023-08-31 18:35:00 20 /min Sally ey Seybold - External Body height 2023-08-31 18:35:00 182.9 cm Taty S eybold - External Body weight 2023-08-31 18:35:00 129.275 kg Taty S eybold - External BMI 2023-08-31 18:35:00 38.65 kg/m2 Taty S eybold - External Oxygen saturation in 2023-08-31 18:35:00 99 /min Taty Seybold - Arterial blood by External Pulse oximetry Systolic blood 2023-07-13 13:57:00 122 mm[Hg] Taty Seybold - pressure External Diastolic blood 2023-07-13 13:57:00 80 mm[Hg] Sukhdevse y Seybold - pressure External Heart rate 2023-07-13 13:57:00 67 /min Taty S eybold - External Body temperature 2023-07-13 13:57:00 36.33 Olga Sally ey Seybold - External Respiratory rate 2023-07-13 13:57:00 15 /min Sally ey Seybold - External Body height 2023-07-13 13:57:00 182.9 cm Taty Rodriguez eybold - External Body weight 2023-07-13 13:57:00 130.636 kg Taty Rodriguez eybold - External BMI 2023-07-13 13:57:00 39.06 kg/m2 Taty S eybold - External Systolic blood 2023-05-04 18:23:00 112 mm[Hg] Taty Seybold - pressure External Diastolic blood 2023-05-04 18:23:00 64 mm[Hg] Sonya y Seybold - pressure External Heart rate 2023-05-04 18:23:00 56 /min Taty Rodriguez eybold - External Body temperature 2023-05-04 18:23:00 36.28 Olga Sally ey Seybold - External Respiratory rate 2023-05-04 18:23:00 15 /min Sally ey Seybold - External Body height 2023-05-04 18:23:00 182.9 cm Taty Rodriguez eybold - External Body weight 2023-05-04 18:23:00 136.986 kg Taty Rodriguez eybold - External BMI 2023-05-04 18:23:00 40.96 [...] Body height 2023-04-27 18:43:00 182.9 cm Taty Rodriguez eybold - External Body weight 2023-04-27 18:43:00 132.904 kg Taty Rodriguez eybold - External BMI 2023-04-27 18:43:00 39.74 kg/m2 Taty S eybold - External Heart rate 2023-04-01 18:32:00 72 /min Taty Rodriguez eybold - External Body temperature 2023-04-01 18:32:00 36.61 Olga Sally ey Seybold - External Respiratory rate 2023-04-01 18:32:00 20 /min Sally crawford Seybold - External Body height 2023-04-01 18:32:00 182.9 cm Taty Rodriguez eybold - External Body weight 2023-04-01 18:32:00 131.09 kg Taty Rodriguez eybold - External BMI 2023-04-01 18:32:00 39.20 kg/m2 Taty Rodriguez eybold - External Systolic blood 2023-04-01 18:32:00 130 mm[Hg] Taty Seybold - pressure External Diastolic blood 2023-04-01 18:32:00 64 mm[Hg] Sonya y Seybold - pressure External Systolic blood 2023-02-06 16:49:00 124 mm[Hg] Taty Seybold - pressure External Diastolic blood 2023-02-06 16:49:00 78 mm[Hg] Sukhdevse y Seybold - pressure External Heart rate 2023-02-06 16:01:00 51 /min Taty Rodriguez eybold - External Body temperature 2023-02-06 16:01:00 [...] saturation in 2023-02-06 16:01:00 98 /min Taty Luis - Arterial blood by External Pulse oximetry Systolic blood 2022-12-22 20:50:00 118 mm[Hg] Taty Seybold - pressure External Diastolic blood 2022-12-22 20:50:00 58 mm[Hg] Sonya y Seybold - pressure External Heart rate 2022-12-22 20:50:00 60 /min Taty Rodriguez eybold - External Body temperature 2022-12-22 20:50:00 36.44 Olga Sally crawford Seybold - External Respiratory rate 2022-12-22 20:50:00 20 /min Sally crawford Seybold - External Body height 2022-12-22 20:50:00 182.9 cm Taty S eybold - External Body weight 2022-12-22 20:50:00 135.444 kg Taty Rodriguez eybold - External BMI 2022-12-22 20:50:00 40.50 kg/m2 Taty crawfordbold - External Oxygen saturation in 2022-12-22 20:50:00 97 /min Taty Luis - Arterial blood by External Pulse oximetry BP Diastolic 2019-05-19 00:00:00 80 mm[Hg] [facility] Height 2019-05-19 00:00:00 72 [in_i] [facility] BMI (Body Mass 2019-05-19 00:00:00 37.6 kg/m2 [facility]) [facility] BP Systolic 2019-05-19 00:00:00 139 mm[Hg] [facility] Body Weight 2019-05-19 00:00:00 277 [lb_av] [facility] Height 2018-08-26 00:00:00 72 [in_i] [facility] BMI (Body Mass 2018-08-26 00:00:00 37.6 kg/m2 [facility] attendant Medical Index) Group Body Weight 2018-08-26 00:00:00 277 [lb_av] [facility] Systolic (mm Hg) 2020-04-25 18:07:00 Danis rial Roland Diastolic (mm Hg) 2020-04-25 18:07:00 Mem orial Roland Heart Rate 2020-04-25 18:07:00 [facility] Danie Height 2020-04-25 18:07:00 182.88 cm [facility] Danie Weight 2020-04-25 18:07:00 [facility] Danie BMI Calculated 2020-04-25 18:07:00 Memori al Danie Weight 2018-12-13 19:20:00 [facility] Roland Height 2018-12-13 19:20:00 182.88 cm [facility] Roland Heart Rate 2018-12-13 19:20:00 [facility] Roland Temperature Oral (F) 2018-12-13 19:20:00 98.1 F [facility] Roland Systolic (mm Hg) 2018-12-13 19:20:00 Danis rial Roland Diastolic (mm Hg) 2018-12-13 19:20:00 Mem orial Roland BMI Calculated 2018-12-13 19:20:00 Memori al Roland Heart Rate 2015-04-10 20:58:00 [facility] Roland Temperature Oral (F) 2015-04-10 20:58:00 97.6 F [facility] Roland Respitory Rate 2015-04-10 20:58:00 Memori al Roland Systolic (mm Hg) 2015-04-10 20:58:00 Danis rial Roland Diastolic (mm Hg) 2015-04-10 20:58:00 Mem orial Roland Respitory Rate 2015-04-10 17:15:00 Memori al Roland Temperature Oral (F) 2015-04-10 17:15:00 97 F [facility] Roland Systolic (mm Hg) 2015-04-10 17:15:00 Danis rial Danie Diastolic (mm Hg) 2015-04-10 17:15:00 Mem orial Danie Heart Rate 2015-04-10 17:15:00 [facility] Roland Heart Rate 2015-04-10 13:00:00 [facility] Roland Respitory Rate 2015-04-10 13:00:00 Memori al Danie Systolic (mm Hg) 2015-04-10 13:00:00 Dnais rial Roland Diastolic (mm Hg) 2015-04-10 13:00:00 Mem orial Roland Temperature Oral (F) 2015-04-10 13:00:00 97.6 F [facility] Danie Height 2015-04-08 09:12:00 182.88 cm [facility] Danie Weight 2015-04-08 09:12:00 [facility] Danie Height 2015-04-08 08:58:00 182.88 cm [facility] Danie Weight 2015-04-08 08:57:00 [facility] Danie BMI Calculated 2015-04-08 08:57:00 Memori al Danie Height 2015-04-08 08:57:00 182.88 cm [facility] Danie BMI Calculated 2015-04-08 04:19:00 Memori al Danie Weight 2015-04-08 04:19:00 [facility] Danie Procedures Procedure Date / Time Performed Performing Clinician Sourc e Tympanostomy (requiring 2020-04-25 19:35:00 Danis rial Roland insertion of ventilating tube), local or topical anesthesia Encounters Start End Encounter Admission Attending Care Care Encounter Source Date/Time Date/Time Type Type Clinicians Facility Department ID 2023-10-19 2023-10-19 Outpatient TATY HARRIS [id number] Taty 10:00:00 10:00:00 NATHALIA Seybol d 2023-10-02 2023-10-02 Outpatient TATY BARDALES [id number] Taty 11:20:00 11:20:00 TIM Seybo ld 2023-10-01 2023-10-01 Outpatient TATY VALLE [id number] Taty 14:00:00 14:00:00 SCOTT Seybo ld 2023-09-21 2023-09-21 Outpatient TATY SWIFT [id number] Taty 08:00:00 08:00:00 ANDREW Seybol d 2023-09-14 2023-09-14 Outpatient TATY SWIFT [id number] Taty 11:00:00 11:00:00 ANDREW Seybol d 2023-09-10 2023-09-10 Outpatient TATY GAMEZ [id number] Taty 15:00:00 15:00:00 DARIO Seybol d 2023-08-31 2023-08-31 Outpatient TATY SWIFT [id number] Taty 13:30:00 13:30:00 ANDREW Seybol d 2023-08-21 2023-08-21 Outpatient PREBEAR TATY POSEY [id number] Taty 00:00:00 00:00:00 JORGE Seybol d 2023-08-10 2023-08-10 Outpatient BETHANY PORTILLO TATY POSEY [id number] Taty 09:00:00 09:00:00 Seybol d 2023-08-06 2023-08-06 Outpatient KIMBERLY TATY POSEY [id number] Taty 15:00:00 15:00:00 NATHALIA Seybol d 2023-07-27 2023-07-27 Outpatient BETHANY PORTILLO TATY POSEY [id number] Taty 09:00:00 09:00:00 Seybol d 2023-07-23 2023-07-23 Outpatient MARGIE TATY POSEY [id number] Taty 00:00:00 00:00:00 JORGE Seybol d 2023-07-23 2023-07-23 Outpatient TATY HANSON [id number] Taty 00:00:00 00:00:00 JORGE Seybol d 2023-07-13 2023-07-13 Outpatient TATY POSEY [id number] Taty 11:00:00 11:00:00 Seybol d 2023-07-13 2023-07-13 Outpatient TATY GAMEZ [id number] Taty 09:30:00 09:30:00 DARIO Seybol d 2023-07-13 2023-07-13 Outpatient LAB90 TATY POSEY [id number] Taty 08:55:00 08:55:00 Seybol d 2023-07-13 2023-07-13 Outpatient TATY VALLE [id number] Taty 00:00:00 00:00:00 SCOTT Seybo ld 2023-06-29 2023-06-29 Outpatient TATY POSEY [id number] Taty 11:00:00 11:00:00 Seybol d 2023-06-22 2023-06-22 Outpatient TATY POSEY [id number] Taty 11:00:00 11:00:00 Seybol d 2023-06-22 2023-06-22 Outpatient LAB90 TATY POSEY [id number] Taty 11:00:00 11:00:00 Seybol d 2023-06-11 2023-06-11 Outpatient TATY HANSON [id number] Taty 00:00:00 00:00:00 JOREG Seybol d 2023-06-01 2023-06-01 Outpatient TATY HANSON [id number] Taty 00:00:00 00:00:00 JORGE Seybol d 2023-05-29 2023-05-29 Outpatient JULIETAADENIKE TATY POSEY [id number] Taty 00:00:00 00:00:00 MD KAREN Seybol d 2023-05-18 2023-05-18 Outpatient BETHANY PORTILLO [id number] Taty 10:00:00 10:00:00 Seybol d 2023-05-04 2023-05-04 Outpatient TATY VALADEZ [id number] Atty 14:00:00 14:00:00 CATRACHO Seybol d 2023-05-04 2023-05-04 Outpatient TATY HANSON [id number] Taty 00:00:00 00:00:00 JORGE Seybol d 2023-04-27 2023-04-27 Outpatient TATY CAMACHO [id number] Taty 13:45:00 13:45:00 FREDRICK Seybol d 2023-04-01 2023-04-01 Outpatient TATY VALLE [id number] Taty 13:45:00 13:45:00 SCOTT Seybo ld 2023-02-23 2023-02-23 Outpatient TATY POSEY [id number] Taty 14:30:00 14:30:00 Seybol d 2023-02-16 2023-02-16 Outpatient TATY VIZCARRA [id number] Taty 00:00:00 00:00:00 JINU Seybol d 2023-02-13 2023-02-13 Outpatient TRED45 TATY POSEY [id number] Taty 14:30:00 14:30:00 Seybol d 2023-02-13 2023-02-13 Outpatient TATY VIZCARRA [id number] Taty 13:00:00 13:00:00 JINU Seybol d 2023-02-06 2023-02-06 Outpatient LAB90 TATY POSEY [id number] Taty 13:45:00 13:45:00 Seybol d 2023-02-06 2023-02-06 Outpatient KIMBERLY, TATY POSEY [id number] Taty 11:00:00 11:00:00 NATHALIA Seybol d 2023-02-03 2023-02-03 Outpatient PRETATY SIFUENTES [id number] Taty 00:00:00 00:00:00 JORGE Seybol d 2023-01-05 2023-01-05 Outpatient PREZATATY Rodriguez [id number] Taty 00:00:00 00:00:00 JORGE Seybol d 2022-12-29 2022-12-29 Outpatient MYKELSEYONL TATY POSEY [id number] Taty 00:00:00 00:00:00 MD KAREN Seybol d 2022-12-26 2022-12-26 Outpatient PREZAJennifer, TATY POSEY [id number] Taty 00:00:00 00:00:00 JORGE Seybol d 2022-12-25 2022-12-25 Outpatient LAB90 TATY POSEY [id number] Taty 09:35:00 09:35:00 Seybol d 2022-12-22 2022-12-22 Outpatient PREZATATY Rodriguez [id number] Taty 15:00:00 15:00:00 JORGE Seybol d 2021-08-03 2021-08-03 Outpatient PRIV PRIV [id number] [facility] 00:[facility] 00:00:00 [id number] Med[facility] 2021-08-03 2021-08-03 Outpatient PRIV PRIV [id number] [facility] 00:00:00 00:00:00 [id number] Medica l 2021-08-03 2021-08-03 Outpatient PRIV PRIV [id number] [facility] 00:00:00 00:00:00 [id number] Medica l 2020-09-19 2020-09-19 [facility] [id number] [facility] 02:33:00 02:33:00 [id number] 2020-05-28 2020-05-28 Outpatient MHIE MHIE [id number] Memoria 13:15:00 13:15:00 04 l Roland 2020-04-25 2020-04-26 Outpatient nullFlavo [facility] [id number] Memoria 18:45:00 04:59:59 r Otolaryngol 03 l ogy Sugar Calderon n [facility] 2020-04-25 2020-04-26 Outpatient nullFlavo [facility] [id number] Memoria 18:15:00 04:59:59 r Otolaryngol 02 l ogy Sugar Calderon n [facility] 2020-04-25 2020-04-25 [place] [id number] 13:45:00 23:59:59 Sreekrishna 03 [facility] 2020-04-25 2020-04-25 [place] [id number] 13:15:00 23:59:59 Sreekrishna 02 [facility] 2020-04-25 2020-04-25 Outpatient MHIE MHIE [id number] Memoria 13:45:00 13:45:00 03 l Roland 2020-04-25 2020-04-25 Outpatient MHIE MHIE [id number] Memoria 13:15:00 13:15:00 02 l Roland 2019-05-19 2019-05-19 [facility] [place] - [id number] M atagor 00:00:00 00:00:00 Discovery sancho Ellison MD: [address] [facility] [place] [address] [address], [place] [address] , Ph. 2018-12-30 2018-12-30 [place] [id number] Memoria 20:30:00 20:30:00 Pre-Reg r Otolaryngol 01 l ogy Arik Diamante lindsey 2018-12-30 2018-12-30 Outpatient MHIE [facility] [id number] Memoria 14:30:00 14:30:00 01 l Danie 2018-12-30 2018-12-30 [place] [id number] 14:30:00 14:30:00 Sreekrishna 01 [facility] 2018-12-13 2018-12-14 Outpatient nullFlavo [facility] [id number] Memoria 20:00:00 05:59:59 r Otolaryngol 00 l gloria Elise Diamante lindsey 2018-12-13 2018-12-13 Outpatient Alka [facility] [id number] 14:00:00 23:59:59 Sreekrishna 00 Arely 2018-12-13 2018-12-13 Outpatient IE [facility] [id number] Memoria 14:00:00 14:00:00 00 l Danie 2018-08-26 2018-08-26 [facility] [place] - [id number] M atagor 00:00:00 00:00:00 Discovery sancho Ellison MD: [address] [place] [address] Group [facility] [address], [place] [address] , Ph. 2015-04-08 2015-04-[address] [facility] [id number] Memoria 04:19:00 22:15:00 r Danie 55 l [facility] 2015-04-07 2015-04-10 Outpatient Movva, [id number] 23:19:00 17:15:00 Maximiliano [id number] Results Test Description Test Time Test Comments Results Result Comments Source ELECTROLYTES 2015-04-10 08:31:00 Test Item Value Reference Range Interpretation Comme nts AGAP (test code = AGAP) 12.2 10.0-20.0 [id number] 08:31:00 Test Item Value Reference Range Interpretation Comments A/G Ratio (test code = A/G Ratio) 0.6 0.7-1.6 [facility][id number] 08:31:00 Test Item Value Reference Range Interpretation Comments Globulin (test code = Globulin) 3.6 2.0-4.0 [facility]izrqrbTUOJXQTNWQDX7636-51-66 08:31:00 Test Item Value Reference Range Interpretation Comments B/C Ratio (test code = B/C Ratio) 14 -25 [facility][id number] 08:31:00 Test Item Value Reference Range Interpretation Comments eGFR (test code = eGFR) 84 [id number] 08:31:00 Test Item Value Reference Range Interpretation Comments Bili Total (test code = Bili Total) 0.3 0.2-1.3 [facility] HospitalZpxurieFHSFTAZIXPDQ2866-95-91 08:31:00 Test Item Value Reference Range Interpretation Comments Alk Phos (test code = Alk Phos) 88 39-136 [facility]AfsuqckVTRBNFSWPLSL4190-71-65 08:31:00 Test Item Value Reference Range Interpretation Comments Albumin Lvl (test code = Albumin Lvl) 2.2 3.5-5.0 [facility] Hospital[id number] 08:31:00 Test Item Value Reference Range Interpretation Comments Total Protein (test code = Total 5.8 6.4-8.4 Protein) [facility] HospitalRsnxbbfIUTWOTKEJYXV2523-60-40 08:31:00 Test Item Value Reference Range Interpretation Comments AST (test code = AST) 17 <=37 [facility] Hospital[id number] 08:31:00 Test Item Value Reference Range Interpretation Comments ALT (test code = ALT) 20 <=65 [facility] HospitalRyqkhatUQEQPEKHVGLP9540-73-63 08:31:00 Test Item Value Reference Range Interpretation Comments Sodium Lvl (test code = Sodium Lvl) 138 135-145 [facility]NogjwxpIJHVAEXZXSCQ0391-11-78 08:31:00 Test Item Value Reference Range Interpretation Comments Creatinine Lvl (test code = Creatinine 1.0 0.5-1.4 Lvl) [facility][id number] 08:31:00 Test Item Value Reference Range Interpretation Comments Calcium Lvl (test code = Calcium Lvl) 8.5 8.5-10.5 [facility]CphjvxvNXGUGQHFKOTS5584-02-68 08:31:00 Test Item Value Reference Range Interpretation Comments CO2 (test code = CO2) 25 24-32 [facility]IsrmtqkUULHKANSCWTP7802-82-54 08:31:00 Test Item Value Reference Range Interpretation Comments Chloride Lvl (test code = Chloride Lvl) 105 95-109 [facility] HospitalFmnhfdsGTBZQKSIOIMU8284-94-03 08:31:00 Test Item Value Reference Range Interpretation Comments Potassium Lvl (test code = Potassium 4.2 3.5-5.1 Lvl) [facility] HospitalZoewctlXTPDRRUIWTZJ0701-04-20 08:31:00 Test Item Value Reference Range Interpretation Comments BUN (test code = BUN) 14 7-22 [facility] Hospital[id number] 08:31:00 Test Item Value Reference Range Interpretation Comments Glucose Lvl (test code = Glucose Lvl) 159 70-99 [facility]FvotcacKLPBETBIZV2604-79-78 08:31:00 Test Item Value Reference Range Interpretation Comments RBC Morph (test code = Normal (04/10/15 3:31 AM) RBC Morph) [facility] HospitalXbiwsvtFGTDWANAKB2116-03-56 08:31:00 Test Item Value Reference Range Interpretation Comments Plt Morph (test code = Normal (04/10/15 3:31 AM) Plt Morph) [facility] HospitalGsfibarWKZKHUFNVT2065-97-38 08:31:00 Test Item Value Reference Range Interpretation Comments Metamyelocytes (test code = 3.0 <=1.0 Metamyelocytes) [facility] HospitalJdyqenyVFUIJHPCTV3196-93-30 08:31:00 Test Item Value Reference Range Interpretation Comments Atypical Lymphs (test code = Atypical 0.0 Lymphs) [facility] HospitalDjymywpYXGUUVXXJM7005-40-27 08:31:00 Test Item Value Reference Range Interpretation Comments Monocytes (test code = Monocytes) 8.0 2.0-12.0 [facility] HospitalOfolcisEURGZAYOZV4965-12-94 08:31:00 Test Item Value Reference Range Interpretation Comments Lymphocytes (test code = Lymphocytes) 2.0 20.0-40.0 [facility] HospitalLpgeuttUTLUNIQPTI9571-77-62 08:31:00 Test Item Value Reference Range Interpretation Comments Monocytes # (test code = Monocytes #) 2.5 <=0.8 [facility] HospitalEyclurjTCJRVSMYTE8765-67-36 08:31:00 Test Item Value Reference Range Interpretation Comments Lymphocytes # (test code = Lymphocytes 0.6 1.0-5.5 #) [facility] Hospit[id number] 08:31:00 Test Item Value Reference Range Interpretation Comments Segs-Bands # (test code = Segs-Bands #) 27.3 1.5-8.1 [facility] HospitalRryzblpHKOQQAHPTG0911-05-68 08:31:00 Test Item Value Reference Range Interpretation Comments Bands (test code = Bands) 6.0 <=11.0 [facility]G[id number] 08:31:00 Test Item Value Reference Range Interpretation Comments Segs (test code = Segs) 81.0 45.0-75.0 [facility]YdqqqvuDIQWVMHWWT0318-73-70 08:31:00 Test Item Value Reference Range Interpretation Comments MPV (test code = MPV) 7.4 7.4-10.4 [facility]LthqiklLCWFPCGZQT3525-62-29 08:31:00 Test Item Value Reference Range Interpretation Comments Hct (test code = Hct) 33.3 42.0-54.0 [facility] HospitalDoxmtdxUAFENGEAHO9610-35-23 08:31:00 Test Item Value Reference Range Interpretation Comments Platelet (test code = Platelet) 227 133-450 [facility] HospitalNksmmjeKIUNRNSJFI1329-81-69 08:31:00 Test Item Value Reference Range Interpretation Comments Hgb (test code = Hgb) 11.3 14.0-18.0 [facility] HospitalYrhmmjxFWETWVLPZU3207-92-41 08:31:00 Test Item Value Reference Range Interpretation Comments RBC (test code = RBC) 3.71 4.70-6.10 [facility] HospitalUuuffjsGBJGABHAOM3515-67-24 08:31:00 Test Item Value Reference Range Interpretation Comments WBC (test code = WBC) 31.4 3.7-10.4 [facility] HospitalQtpyrugPXZRUSFUBX3648-12-38 08:31:00 Test Item Value Reference Range Interpretation Comments MCH (test code = MCH) 30.4 pg 27.0-31.0 [facility] HospitalFirovyhDZVZXYIOTO7992-42-51 08:31:00 Test Item Value Reference Range Interpretation Comments MCHC (test code = MCHC) 33.9 32.0-36.0 [facility] HospitalLkxzajuZEFJLRXAFX8779-64-78 08:31:00 Test Item Value Reference Range Interpretation Comments MCV (test code = MCV) 89.7 80.0-94.0 [facility]CarlkjtCVACOOFWRI1648-18-48 08:31:00 Test Item Value Reference Range Interpretation Comments RDW (test code = RDW) 15.6 11.5-14.5 [facility] HospitalPcuynfiNSCFQQXDNK9871-82-12 08:31:00 Test Item Value Reference Range Interpretation Comments PTT (test code = PTT) 66.8 s 22.9-35.8 [facility]eh[facility]io[facility]HSQQPBLDM1806-92-69 23:31:00 Test Item Value Reference Range Interpretation Comments Vanco Tr TND (test code = Vanco Tr TND) [address] [id number] 23:31:00 Test Item Value Reference Range Interpretation Comments Vanco Tr (test code = Vanco Tr) 9.2 [place] [id number] 13:55:00 Test Item Value Reference Range Interpretation Comments Vanco Tr (test code = Vanco Tr) 12.4 [facility] HospitalDfjvkzkSPEYZHAACK0485-55-32 13:55:00 Test Item Value Reference Range Interpretation Comments INR (test code = INR) 1.23 0.85-1.17 [facility] HospitalUwujmjgMYPTVZISPY7108-48-28 13:55:00 Test Item Value Reference Range Interpretation Comments PT (test code = PT) 15.6 s 12.0-14.7 [facility] HospitalMjluiozUNZCVTMUQR9977-37-94 13:55:00 Test Item Value Reference Range Interpretation Comments PTT (test code = PTT) 71.6 s 22.9-35.8 [place] [id number] 13:55:00 Test Item Value Reference Range Interpretation Comments Alexo Tr TND (test code = Vanco Tr TND) 07:30 [facility]2015-06-08 07:19:00 Test Item Value Reference Range Interpretation Comments Globulin (test code = Globulin) 3.9 2.0-4.0 [facility]2015-06-08 07:19:00 Test Item Value Reference Range Interpretation Comments AGAP (test code = AGAP) 13.9 10.0-20.0 [facility]2015-06-08 07:19:00 Test Item Value Reference Range Interpretation Comments B/C Ratio (test code = B/C Ratio) 12 6-25 [facility]2015-06-08 07:19:00 Test Item Value Reference Range Interpretation Comments A/G Ratio (test code = A/G Ratio) 0.6 0.7-1.6 [facility]2015-06-08 07:19:00 Test Item Value Reference Range Interpretation Comments eGFR (test code = eGFR) 75 [facility]2015-06-08 07:19:00 Test Item Value Reference Range Interpretation Comments Bili Total (test code = Bili Total) 0.5 0.2-1.3 [facility]2015-06-08 07:19:00 Test Item Value Reference Range Interpretation Comments Alk Phos (test code = Alk Phos) 109 39-136 [facility]2015-06-08 07:19:00 Test Item Value Reference Range Interpretation Comments ALT (test code = ALT) 18 <=65 [facility]2015-06-08 07:19:00 Test Item Value Reference Range Interpretation Comments AST (test code = AST) 13 <=37 [facility]2015-06-08 07:19:00 Test Item Value Reference Range Interpretation Comments Total Protein (test code = Total 6.4 6.4-8.4 Protein) [facility]2015-06-08 07:19:00 Test Item Value Reference Range Interpretation Comments Albumin Lvl (test code = Albumin Lvl) 2.5 3.5-5.0 [facility]2015-06-08 07:19:00 Test Item Value Reference Range Interpretation Comments Chloride Lvl (test code = Chloride Lvl) 103 95-109 [facility]2015-06-08 07:19:00 Test Item Value Reference Range Interpretation Comments CO2 (test code = CO2) 27 24-32 [facility]2015-06-08 07:19:00 Test Item Value Reference Range Interpretation Comments Calcium Lvl (test code = Calcium Lvl) 8.5 8.5-10.5 [facility]2015-06-08 07:19:00 Test Item Value Reference Range Interpretation Comments BUN (test code = BUN) 13 7-22 [facility]2015-06-08 07:19:00 Test Item Value Reference Range Interpretation Comments Glucose Lvl (test code = Glucose Lvl) 165 70-99 [facility]2015-06-08 07:19:00 Test Item Value Reference Range Interpretation Comments Creatinine Lvl (test code = Creatinine 1.1 0.5-1.4 Lvl) [facility]2015-06-08 07:19:00 Test Item Value Reference Range Interpretation Comments Potassium Lvl (test code = Potassium 3.9 3.5-5.1 Lvl) [facility]2015-06-08 07:19:00 Test Item Value Reference Range Interpretation Comments Sodium Lvl (test code = Sodium Lvl) 140 135-145 [facility] HospitalTpvfhpbRFZMOEVSAT8539-61-81 07:19:00 Test Item Value Reference Range Interpretation Comments Atypical Lymphs (test code = Atypical 0.0 Lymphs) [facility] HospitalXiojudhTVZMQTEFMT3881-75-96 07:19:00 Test Item Value Reference Range Interpretation Comments Polychrom (test code = Polychrom) Slight [facility] HospitalBvuwyhsJBDUJMHJLU7807-99-33 07:19:00 Test Item Value Reference Range Interpretation Comments Segs-Bands # (test code = Segs-Bands #) 26.2 1.5-8.1 [facility] HospitalTcbbiwrRICCCLRVUW0535-43-30 07:19:00 Test Item Value Reference Range Interpretation Comments Myelocytes (test code = Myelocytes) 2.0 [facility] HospitalGnzprmdZVEDSKVEJH8917-04-26 07:19:00 Test Item Value Reference Range Interpretation Comments Metamyelocytes (test code = 4.0 <=1.0 Metamyelocytes) [facility] HospitalFtwxayvBFGLEIAGPY9680-24-13 07:19:00 Test Item Value Reference Range Interpretation Comments Lymphocytes # (test code = Lymphocytes 1.7 1.0-5.5 #) [facility] HospitalPaiczqjAGSIEJIGVD1484-76-89 07:19:00 Test Item Value Reference Range Interpretation Comments Monocytes (test code = Monocytes) 12.0 2.0-12.0 [facility] HospitalJkledwnFVQFKYUIMV3148-57-15 07:19:00 Test Item Value Reference Range Interpretation Comments Lymphocytes (test code = Lymphocytes) 5.0 20.0-40.0 [facility] HospitalYymjobwHHUUTDSTJL9171-67-38 07:19:00 Test Item Value Reference Range Interpretation Comments Bands (test code = Bands) 3.0 <=11.0 [facility] HospitalVijhexsMFWIIMTCJL3058-22-38 07:19:00 Test Item Value Reference Range Interpretation Comments Segs (test code = Segs) 74.0 45.0-75.0 [facility] HospitalKsqmsrrQMSYBJOUPP7683-94-52 07:19:00 Test Item Value Reference Range Interpretation Comments Monocytes # (test code = Monocytes #) 4.1 <=0.8 [facility] HospitalGpwelkhITNIAYUQKU2474-86-85 07:19:00 Test Item Value Reference Range Interpretation Comments PTT (test code = PTT) 85.8 s 22.9-35.8 [place] [id number] 07:19:00 Test Item Value Reference Range Interpretation Comments MCV (test code = MCV) 89.5 80.0-94.0 [facility] HospitalYjwzkejODPZUQVRJE0534-92-26 07:19:00 Test Item Value Reference Range Interpretation Comments RBC (test code = RBC) 3.70 4.70-6.10 [facility] HospitalZcilwxmZJORHKVWYB1655-87-66 07:19:00 Test Item Value Reference Range Interpretation Comments Hct (test code = Hct) 33.1 42.0-54.0 [facility] HospitalKbafcekWGANMPZULC7201-09-10 07:19:00 Test Item Value Reference Range Interpretation Comments WBC (test code = WBC) 34.0 3.7-10.4 [facility] HospitalOmktcmlURJLXUTVJU2067-47-31 07:19:00 Test Item Value Reference Range Interpretation Comments Hgb (test code = Hgb) 11.2 14.0-18.0 [facility] HospitalInyzyghRSMOSDEGMR1976-59-90 07:19:00 Test Item Value Reference Range Interpretation Comments MPV (test code = MPV) 7.4 7.4-10.4 [facility] HospitalGngiobvQWAOPKYWYU8009-28-44 07:19:00 Test Item Value Reference Range Interpretation Comments MCH (test code = MCH) 30.3 pg 27.0-31.0 [facility] HospitalAgkhzddZXRYMQBLMP6058-56-00 07:19:00 Test Item Value Reference Range Interpretation Comments MCHC (test code = MCHC) 33.9 32.0-36.0 [facility] HospitalKioztnaAWJGTESLGL5876-18-48 07:19:00 Test Item Value Reference Range Interpretation Comments RDW (test code = RDW) 15.6 11.5-14.5 [facility] HospitalXxnkmpmGRZIYLIBJD2304-00-99 07:19:00 Test Item Value Reference Range Interpretation Comments Platelet (test code = Platelet) 244 133-450 [facility] HospitalHuwriqqFVPSVYLHDD8861-54-37 23:40:00 Test Item Value Reference Range Interpretation Comments Monocytes (test code = Monocytes) 4.0 2.0-12.0 [facility] HospitalTmjxadvDJZGCEMCNR0248-68-24 23:40:00 Test Item Value Reference Range Interpretation Comments Metamyelocytes (test code = 2.0 <=1.0 Metamyelocytes) [facility] HospitalIcfzzbaJKQCSWOMHO8394-29-63 23:40:00 Test Item Value Reference Range Interpretation Comments Myelocytes (test code = Myelocytes) 4.0 [facility] HospitalLpjhjtgNRBZGYVWIQ2615-21-24 23:40:00 Test Item Value Reference Range Interpretation Comments Promyelocytes (test code = 1.0 Promyelocytes) [facility] HospitalTtteurbWSMOADBWJA7933-39-24 23:40:00 Test Item Value Reference Range Interpretation Comments Atypical Lymphs (test code = Atypical 2.0 Lymphs) [facility] HospitalZijcvtaEWAZPBJBVN9191-27-77 23:40:00 Test Item Value Reference Range Interpretation Comments RBC Morph (test code = Normal (04/08/15 6:40 PM) RBC Morph) [facility] HospitalCalkpsxEQUWKEQSWR8966-62-80 23:40:00 Test Item Value Reference Range Interpretation Comments Plt Morph (test code = Normal (04/08/15 6:40 PM) Plt Morph) [facility] HospitalZidhzzxRHHPYZOHRO0301-20-55 23:40:00 Test Item Value Reference Range Interpretation Comments Toxic Gran (test code Moderate *ABN*(04/08/15 = Toxic Gran) 6:40 PM) [facility] HospitalXyoxifaGIRJEXTUBM6097-18-35 23:40:00 Test Item Value Reference Range Interpretation Comments Dohle Bodies (test Moderate *ABN*(04/08/15 code = Dohle Bodies) 6:40 PM) [facility] HospitalLorvagrDOKHZGMGUQ0087-04-55 23:40:00 Test Item Value Reference Range Interpretation Comments Bands (test code = Bands) 11.0 <=11.0 [facility] HospitalNvfbxjfGHDNUIDIGD6232-27-53 23:40:00 Test Item Value Reference Range Interpretation Comments Monocytes # (test code = Monocytes #) 1.3 <=0.8 [facility] HospitalXxybmwsTRODOZLJDQ9123-33-93 23:40:00 Test Item Value Reference Range Interpretation Comments Segs (test code = Segs) 70.0 45.0-75.0 [facility] HospitalZyudsixFQOULCRQXJ1770-37-32 23:40:00 Test Item Value Reference Range Interpretation Comments Lymphocytes # (test code = Lymphocytes 2.6 1.0-5.5 #) [facility] HospitalVyzxpzdWYXRSMPPQM6136-71-24 23:40:00 Test Item Value Reference Range Interpretation Comments Lymphocytes (test code = Lymphocytes) 6.0 20.0-40.0 [facility] HospitalKdmnftyJNFZLLGRCU9204-06-30 23:40:00 Test Item Value Reference Range Interpretation Comments Segs-Bands # (test code = Segs-Bands #) 25.8 1.5-8.1 [facility] HospitalKioyywwYRVAKMFKAX2841-94-41 23:40:00 Test Item Value Reference Range Interpretation Comments MCV (test code = MCV) 88.6 80.0-94.0 [facility] HospitalXxbfiwuGGJHCVBGJZ2949-86-74 23:40:00 Test Item Value Reference Range Interpretation Comments MCH (test code = MCH) 29.7 pg 27.0-31.0 [facility] HospitalPvwrzpbYGFWBDNLJP2358-10-14 23:40:00 Test Item Value Reference Range Interpretation Comments MCHC (test code = MCHC) 33.5 32.0-36.0 [facility] HospitalPmbznheASQAHUSIYR8418-11-58 23:40:00 Test Item Value Reference Range Interpretation Comments RDW (test code = RDW) 15.7 11.5-14.5 [facility] HospitalIftzkksUOPUZKSWWB5432-51-33 23:40:00 Test Item Value Reference Range Interpretation Comments Platelet (test code = Platelet) 224 133-450 [facility] HospitalWrgnxecDTJBKWVOYL3709-82-94 23:40:00 Test Item Value Reference Range Interpretation Comments MPV (test code = MPV) 7.0 7.4-10.4 [facility] HospitalWgpuklvKALBDDAHGA7594-25-55 23:40:00 Test Item Value Reference Range Interpretation Comments WBC (test code = WBC) 31.9 3.7-10.4 [facility] HospitalNudqpseCHWKUHJVRH3812-90-40 23:40:00 Test Item Value Reference Range Interpretation Comments Hgb (test code = Hgb) 11.0 14.0-18.0 [facility] HospitalAetasguTLUXPLZIWV4889-58-38 23:40:00 Test Item Value Reference Range Interpretation Comments RBC (test code = RBC) 3.71 4.70-6.10 [facility] HospitalTtgambzKAZDHVQXEH1621-90-79 23:40:00 Test Item Value Reference Range Interpretation Comments Hct (test code = Hct) 32.9 42.0-54.0 [facility] HospitalEtoraijZQJVEQHUVD2538-29-74 23:40:00 Test Item Value Reference Range Interpretation Comments PT (test code = PT) 15.4 s 12.0-14.7 [facility] HospitalWzasyevJUAOPQTWYG8490-97-83 23:40:00 Test Item Value Reference Range Interpretation Comments INR (test code = INR) 1.21 0.85-1.17 [facility] XRDCXWI3246-31-06 05:13:00 Test Item Value Reference Range Interpretation Comments Antibody Scrn (test Negative (04/08/15 12:13 code = Antibody Scrn) AM) [facility] SWQIIAO1636-53-74 05:13:00 Test Item Value Reference Range Interpretation Comments ABO/Rh (test code = ABO/Rh) A POS [facility]Talk[facility]CHE[facility] WHZFN4915-59-56 05:13:00 Test Item Value Reference Range Interpretation Comments Lactic Acid Lvl (test code = Lactic 0.9 0.5-2.2 Acid Lvl) [facility]XhnafmmEIPAGIMDCZCI2570-38-40 05:13:00 Test Item Value Reference Range Interpretation Comments AGAP (test code = AGAP) 11.8 10.0-20.0 [facility] HospitalEpmbvusOJUDEHSOXHCJ1856-25-96 05:13:00 Test Item Value Reference Range Interpretation Comments eGFR (test code = eGFR) 67 [facility]KhxgjptMJWCXRHKWGLS1024-55-75 05:13:00 Test Item Value Reference Range Interpretation Comments Glucose Lvl (test code = Glucose Lvl) 143 70-99 [facility] HospitalCwvbhwcTVUOTKZTNHJW2510-64-09 05:13:00 Test Item Value Reference Range Interpretation Comments Creatinine Lvl (test code = Creatinine 1.2 0.5-1.4 Lvl) [facility] HospitalOcgvtgkBJNOCHQNUMKO5342-37-10 05:13:00 Test Item Value Reference Range Interpretation Comments BUN (test code = BUN) 9 7-22 [facility] HospitalAimizmpMCTMUCTMJNGV6272-14-71 05:13:00 Test Item Value Reference Range Interpretation Comments Sodium Lvl (test code = Sodium Lvl) 137 135-145 [facility] HospitalHoltnmsBSKGKRSNSLQO6467-85-81 05:13:00 Test Item Value Reference Range Interpretation Comments Potassium Lvl (test code = Potassium 3.8 3.5-5.1 Lvl) [facility] HospitalLajhgonDDLBEXKKZVOO1107-33-87 05:13:00 Test Item Value Reference Range Interpretation Comments Calcium Lvl (test code = Calcium Lvl) 8.4 8.5-10.5 [facility] HospitalGynidunFWVNSRHNHGVD7643-99-46 05:13:00 Test Item Value Reference Range Interpretation Comments CO2 (test code = CO2) 27 24-32 [facility]aMmdyovxODLZPUGCSAEU1845-13-83 05:13:00 Test Item Value Reference Range Interpretation Comments Chloride Lvl (test code = Chloride Lvl) 102 95-109 [facility]WzknzovQNBJWVJGKY5636-98-80 05:13:00 Test Item Value Reference Range Interpretation Comments Plt Morph (test code = Normal (04/08/15 12:13 Plt Morph) AM) [facility]inteKsyrahiKNMCAQMMON7450-95-94 05:13:00 Test Item Value Reference Range Interpretation Comments Anisocyte (test code = 1+ *ABN*(04/08/15 Anisocyte) 12:13 AM) [facility]inteCqktjulYAMZHBSIUW5444-95-88 05:13:00 Test Item Value Reference Range Interpretation Comments Tot Cell Ct (test code = Tot Cell Ct) 200 1 [facility]inteYaiekwtOMRHCWQGUC1505-86-83 05:13:00 Test Item Value Reference Range Interpretation Comments Myelocytes (test code = Myelocytes) 8.0 [facility] HospitalPgjqsfxDPGFKYVVFJ2559-96-63 05:13:00 Test Item Value Reference Range Interpretation Comments INR (test code = INR) 1.17 0.85-1.17 [facility] HospitalRdykfbbYKSLGTXZIR9869-63-38 05:13:00 Test Item Value Reference Range Interpretation Comments PT (test code = PT) 15.0 s 12.0-14.7 [facility] AND [id number] 05:13:00 Test Item Value Reference Range Interpretation Comments UA Uric Ac Angie (test code = UA Many /HPF Uric Ac Angie) [facility] AND IEQHL1154-31-29 05:13:00 Test Item Value Reference Range Interpretation Comments UA RBC (test code = UA RBC) 0-2 /HPF <=2 [facility] AND [id number] 05:13:00 Test Item Value Reference Range Interpretation Comments UA WBC (test code = UA WBC) 0-2 /HPF [facility] AND [id number] 05:13:00 Test Item Value Reference Range Interpretation Comments UA Sq Epi (test code = None Seen (04/08/15 12:13 UA Sq Epi) AM) [facility] AND [id number] 05:13:00 Test Item Value Reference Range Interpretation Comments UA Bacteria (test code = UA Few /HPF Bacteria) [facility] AND [id number] 05:13:00 Test Item Value Reference Range Interpretation Comments Micro? (test code = Performed (04/08/15 12:13 Micro?) AM) [facility] AND [id number] 05:13:00 Test Item Value Reference Range Interpretation Comments UA Spec Grav (test code = UA Spec 1.015 1 Grav) [facility] AND [id number] 05:13:00 Test Item Value Reference Range Interpretation Comments UA pH (test code = UA pH) 5.0 1 5.0-8.0 [facility] AND [id number] 05:13:00 Test Item Value Reference Range Interpretation Comments UA Protein (test code Negative (04/08/15 12:13 = UA Protein) AM) [facility] AND [id number] 05:13:00 Test Item Value Reference Range Interpretation Comments UA Glucose (test code Negative (04/08/15 12:13 = UA Glucose) AM) [facility] AND [id number] 05:13:00 Test Item Value Reference Range Interpretation Comments UA Ketones (test code Negative *NA*(04/08/15 = UA Ketones) 12:13 AM) [facility] AND [id number] 05:13:00 Test Item Value Reference Range Interpretation Comments UA Bili (test code = Negative *NA*(04/08/15 UA Bili) 12:13 AM) [facility] AND [id number] 05:13:00 Test Item Value Reference Range Interpretation Comments UA Blood (test code = Trace *ABN*(04/08/15 UA Blood) 12:13 AM) [facility] AND [id number] 05:13:00 Test Item Value Reference Range Interpretation Comments UA Urobilinogen (test code = UA 1.0 0.1-1.0 Urobilinogen) [facility] AND [id number] 05:13:00 Test Item Value Reference Range Interpretation Comments UA Nitrite (test code Negative (04/08/15 12:13 = UA Nitrite) AM) [facility] AND [id number] 05:13:00 Test Item Value Reference Range Interpretation Comments UA Leuk Est (test Negative (04/08/15 12:13 code = UA Leuk Est) AM) Jacey Calero AND [id number] 05:13:00 Test Item Value Reference Range Interpretation Comments UA Color (test code = Yellow *NA*(04/08/15 UA Color) 12:13 AM) Jacey Calero AND [id number] 05:13:00 Test Item Value Reference Range Interpretation Comments UA Turbidity (test code = Clear (04/08/15 12:13 UA Turbidity) AM) Jacey Helton
[2023-09-15 09:31] LABS: Absolute Lymphocytes (CBC) 2.5 K/uL (0.7-4.9); Hematocrit 53.5 % (39.6-49.0); Lymphocytes % 24.7 % (15.3-44.8); MPV 8.2 fL (7.6-11.3); Platelets 181 thou/uL (152-406); RBC Red Blood Cell Count 6.14 M/uL (4.33-5.43)
[2023-09-15 09:49] LABS: Potassium 3.9 mEq/L (3.5-5.1); Troponin High Sensitivity 13.7 pg/mL (<58.9)
--- NOTE | 2023-09-15 10:26 | RAD REPORT ---
EXAM DESCRIPTION: RAD - Chest Single View - 09/15/2023 10:22 am CLINICAL HISTORY: CHEST PAIN COMPARISON: Chest Single View dated 06/11/2023 FINDINGS: Lines: None. Lungs: No evidence of edema or pneumonia. Pleural: No significant pleural effusions or pneumothorax. Cardiac: The heart size is within normal limits. Mediastinum: Within normal limits. Bones: No acute fractures. Sternotomy . Other: None IMPRESSION: No acute cardiopulmonary disease.
--- NOTE | 2023-09-15 10:42 | ER ---
Nurse's Notes [facility] Name: Gonzalo Wilson Age: 63 yrs Sex: Male : 1960 Arrival Date: 09/15/2023 Time: 09:04 Bed 16 Private MD: Diagnosis: Essential (primary) hypertension;Chest pain, unspecified Presentation: 09/15 09:14 Chief complaint: Patient states: he was getting ready for work this morning, when he ap3 started feeling a "knocking" on his chest. Patient took his blood pressure and reports his systolic reading was in the 180s. Coronavirus screen: At this time, the client does not indicate any symptoms associated with coronavirus-19. Ebola Screen: No symptoms or risks identified at this time. Initial Sepsis Screen: Does the patient meet any 2 criteria? No. Patient's initial sepsis screen is negative. Does the patient have a suspected source of infection? No. Patient's initial sepsis screen is negative. Risk Assessment: Do you want to hurt yourself or someone else? Patient reports no desire to harm self or others. Onset of symptoms was September 15, 2023. 09:14 Method Of Arrival: Ambulatory ap3 09:14 Acuity: PERFECTO 2 ap3 Triage Assessment: 09:17 General: Appears in no apparent distress. Behavior is calm, cooperative, appropriate ap3 for age. Pain: Denies pain. Neuro: Level of Consciousness is awake, alert, obeys commands, Oriented to person, place, time, situation, Appropriate for age. Cardiovascular: Reports palpitations, Patient's skin is warm and dry. Respiratory: Airway is patent Respiratory effort is even, unlabored, Respiratory pattern is regular, symmetrical. 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 Flu vaccine is not up to date. - Social history:: Smoking status: Patient reports use of chewing tobacco. Screenin:18 [facility] ED Fall Risk Assessment (Adult) History of falling in the last 3 months, ap3 including since admission No falls in past 3 months (0 pts). Abuse screen: Denies threats or abuse. Nutritional screening: No deficits noted. Tuberculosis screening: No symptoms or risk factors identified. Assessment: 09:20 General: Appears in no apparent distress. uncomfortable, Behavior is calm, cooperative, eh3 appropriate for age. Pain: Denies pain. Neuro: Level of Consciousness is awake, alert, obeys commands, Oriented to person, place, time, situation. Cardiovascular: Reports palpitations, Capillary refill < 3 seconds Patient's skin is warm and dry. Respiratory: Airway is patent Respiratory effort is even, unlabored, Respiratory pattern is regular, symmetrical. GI: Abdomen is round non-distended. Derm: Skin is pink, warm \\T\\ dry. Musculoskeletal: Circulation, motion, and sensation intact. Range of motion: intact in all extremities. 10:20 Reassessment: Patient appears in no apparent distress at this time. Patient and/or eh3 family updated on plan of care and expected duration. Pain level reassessed. Patient is alert, oriented x 3, equal unlabored respirations, skin warm/dry/pink. Vital Signs: 09:14 BP 194 / 104; Pulse 52; Resp 18; Pulse Ox 98% ; Weight 129.27 kg; ap3 09:24 BP 171 / 98; Pulse 54; ec2 09:45 BP 137 / 85; Pulse 46; Resp 16; Pulse Ox 96% on R/A; eh3 09:50 BP 152 / 86; Pulse 50; ec2 10:20 BP 130 / 86; Pulse 46; Resp 16; Pulse Ox 95% on R/A; eh3 10:35 BP 130 / 86; Pulse 46; ec2 10:45 BP 135 / 92; Pulse 50; Resp 17; Pulse Ox 95% on R/A; eh3 ED Course: 09:06 Patient arrived in ED. rg4 09:06 Israel De Leon MD is Attending Physician. ec2 09:10 Marisol Myers, RITU is Primary Nurse. eh3 09:16 Triage completed. ap3 09:18 Arm band placed on right wrist. ap3 09:18 Patient has correct armband on for positive identification. Bed in low position. Call ap3 light in reach. Side rails up X 1. 09:20 Provided Education on: use of call benito. Client placed on continuous cardiac and pulse eh3 oximetry monitoring. NIBP monitoring applied. Door closed. Noise minimized. Lights dimmed. Pillow given. 09:23 Inserted saline lock: 20 gauge in left antecubital area, using aseptic technique. Blood eh3 collected. 10:24 XRAY Chest (1 view) In Process Unspecified. EDMS 10:58 No provider procedures requiring assistance completed. IV discontinued, intact, eh3 bleeding controlled, No redness/swelling at site. Pressure dressing applied. Administered Medications: No medications were administered Medication: 09:19 VIS not applicable for this client. ap3 Outcome: 10:41 Discharge ordered by . ec2 10:58 Discharged to home ambulatory, eh3 10:58 Condition: stable 10:58 Discharge instructions given to patient, Instructed on discharge instructions, follow up and referral plans. Demonstrated understanding of instructions, follow-up care, 11:12 Patient left the ED. eh3 Signatures: Dispatcher [employer] Desiree Wilcox rg4 Yazmin Maxwell, RN RN ap3 Marisol Myers RN RN eh3 Israel De Leon MD MD ec2
--- NOTE | 2023-09-15 10:42 | EDPHYS ---
Physician Documentation [facility] Name: Gonzalo Wilson Age: 63 yrs Sex: Male : 1960 Arrival Date: 09/15/2023 Time: 09:04 Bed 16 Private MD: ED Physician Israel De Leon HPI: 09/15 09:22 This 63 yrs old Male presents to ER via Ambulatory with complaints of High ec2 Blood Pressure. 09:22 Patient arrives today for evaluation of chest pain and high blood pressure. States that ec2 he had noted what he describes as a knocking in his chest earlier this morning which will prompted evaluation. States that he took the blood pressure and noted to be elevated with systolics in the 180s. Patient reports no difficulty breathing, and electrolyte. States he is on lisinopril metoprolol and Xarelto. Also reports a history of aortic valve replacement.. 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 Flu vaccine is not up to date. - Social history:: Smoking status: Patient reports use of chewing tobacco. ROS: 09:22 Constitutional: as per hpi ec2 Exam: 09:22 Constitutional: GEN: NAD Head: atraumatic Eyes: EOMI Ears: External ears are ec2 normal. CV: regular rate LUNGS: no respiratory distress ABD: non-distended SKIN: no evidence of rashes MSK: no evidence of trauma NEURO: moves all extremities equally Vital Signs: 09:14 BP 194 / 104; Pulse 52; Resp 18; Pulse Ox 98% ; Weight 129.27 kg; ap3 09:24 BP 171 / 98; Pulse 54; ec2 09:45 BP 137 / 85; Pulse 46; Resp 16; Pulse Ox 96% on R/A; eh3 09:50 BP 152 / 86; Pulse 50; ec2 10:20 BP 130 / 86; Pulse 46; Resp 16; Pulse Ox 95% on R/A; eh3 10:35 BP 130 / 86; Pulse 46; ec2 10:45 BP 135 / 92; Pulse 50; Resp 17; Pulse Ox 95% on R/A; eh3 MDM: 09:06 Patient medically screened. ec2 09:22 ED course: Patient arrives today for evaluation of elevated blood pressure and chest ec2 pain. Examination remarkable for well-appearing nontoxic individual is otherwise in no acute distress. Will obtain lab work, EKG, chest x-ray for further assessment of the patient complaint. Currently considering ACS, low suspicion for PE or dissection, low suspicion for other process such as pulmonary edema or acute renal failure. . 09:24 ED course: EKG independently reviewed and interpreted by me, shows normal sinus rhythm, ec2 rate of 48, no acute ST segment elevations, PVC noted. Intervals are nonconcerning.. 09:50 ED course: Lab work is remarkable for reassuring electrolytes on the metabolic profile, ec2 reassuring renal function. CBC with appropriate blood counts, troponin is within normal ranges. . 10:34 Data reviewed: vital signs. ED course: Chest x-ray independently reviewed and ec2 interpreted by me, shows no acute intrathoracic process.. 10:41 ED course: On reassessment patient is well-appearing in no acute distress. Will ec2 discharge home, return precautions given. 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 09/15 09:16 Order name: Basic Metabolic Panel; Complete Time: 09:49 ec2 09/15 09:16 Order name: CBC with Diff; Complete Time: : ec2 09/15 09:16 Order name: Troponin HS; Complete Time: : ec2 09/15 09:16 Order name: XRAY Chest (1 view); Complete Time: 10:34 ec2 09/15 09:16 Order name: EKG; Complete Time: 09:17 ec2 09/15 09:16 Order name: Cardiac monitoring; Complete Time: : ec2 09/15 09:16 Order name: EKG - Nurse/Tech; Complete Time: : ec2 09/15 09:16 Order name: IV Saline Lock; Complete Time: : ec2 09/15 09:16 Order name: Labs collected and sent; Complete Time: : ec2 09/15 09:16 Order name: O2 Per Protocol; Complete Time: : ec2 09/15 09:16 Order name: O2 Sat Monitoring; Complete Time: ec2 Administered Medications: No medications were administered Disposition Summary: 09/15/23 10:41 Discharge Ordered Notes: Location: Home ec2 Condition: Stable ec2 Diagnosis - Essential (primary) hypertension ec2 - Chest pain, unspecified ec2 Discharge Instructions: - Discharge Summary Sheet ec2 - Nonspecific Chest Pain, Adult ec2 Forms: - Work release form as - Medication Reconciliation Form ec2 - Thank You Letter ec2 - Antibiotic Education ec2 - Prescription Opioid Use ec2 - Patient Portal Instructions ec2 - Leadership Thank You Letter ec2 Signatures: Dispatcher [employer] Yazmin Chanel RN RN ap3 Israel De Leon MD MD ec2
[2023-09-15 11:39] VITALS: O2SAT 95
[2023-09-15 11:41] VITALS: BP 135/92
--- NOTE | 2023-09-16 17:25 | EKG ---
Test Date: 2023-09-15 Test Time: 09:21:32 Front Desk Administrator: BEVERLEY MEASUREMENT RESULTS: Intervals: Rate: 48 GA: 204 QRSD: 96 QT: 524 QTc: 468 [place]: P: 61 GA: 204 QRS: -7 T: 91 INTERPRETIVE STATEMENTS: Sinus bradycardia with occasional premature ventricular complexes Left ventricular hypertrophy with repolarization abnormality Abnormal ECG Compared to ECG 06/11/2023 12:21:52 Ventricular premature complex(es) now present Left ventricular hypertrophy now present Early repolarization now present First degree AV block no longer present Prolonged QT interval no longer present Electronically Signed On 09-16-23 17:21:17 SHEAR ASSEMBLER by Macario Rodriguez
== END 2023-09-15 11:12 | disposition home or self-care (01) ==
LOC: ER 09:04
DX: I10 Essential (primary) hypertension (principal); Z72.0 Tobacco use; Z95.2 Presence of prosthetic heart valve; Z79.01 Long term (current) use of anticoagulants
CPT/HCPCS: 36415; 71045; 80048; 84484; 85025; 93005; 99284

== ENCOUNTER 2024-11-07 09:25 | Emergency (ER) | payer OTHER ==
[2024-11-07 10:06] LABS: Absolute Basophils 0.1 K/uL (0-0.5); Absolute Eosinophils 0.4 K/uL (0-0.5); Absolute Lymphocytes (CBC) 1.6 K/uL (0.7-4.9); Absolute Monocytes 0.7 K/uL (0.1-1.3); Absolute Neutrophil 4.2 K/uL (1.8-8.0); Basophils % 1.2 % (0-1.3); Eosinophils % 5.7 % (0-4.4); Hematocrit 49.1 % (39.6-49.0); Hemoglobin 16.3 g/dL (13.6-17.9); Lymphocytes % 23.1 % (15.3-44.8); MCHC 33.3 g/dL (32.0-36.0); MPV 8.8 fL (7.6-11.3); Monocytes % 9.9 % (3.3-12.3); Neutrophils % 60.1 % (41.7-73.7); Nucleated Red Blood Cells % 0.2 % (0-0); Platelets 166 thou/uL (152-406); RBC Red Blood Cell Count 5.64 M/uL (4.33-5.43); Red Cell Distribution Width 14.2 % (12.1-15.2)
[2024-11-07 10:25] LABS: Anion Gap 7.6 mEq/L (5.0-15.0); Potassium 3.6 mEq/L (3.5-5.1); Troponin High Sensitivity 10.3 pg/mL (<58.9)
--- NOTE | 2024-11-07 10:27 | RAD REPORT ---
EXAMINATION: ONE VIEW CHEST XR CLINICAL INDICATION: Male, 64 years old.,PAIN TECHNIQUE: Frontal chest projection is submitted. Examination is limited by patient positioning and t echnique. COMPARISON: 09/15/2023 FINDINGS: The lungs are well inflated and clear. No pneumothorax or sizable effusion. The heart is normal in s ize. Mediastinal contours are unremarkable. IMPRESSION: No acute intrathoracic abnormalities.
--- NOTE | 2024-11-07 10:31 | RAD REPORT ---
EXAM: CT Head Brain Wo Cont HISTORY: HEADACHE COMPARISON: 06/11/2023 TECHNIQUE: Multiple contiguous axial images were obtained for a CT of the brain without contrast. Sag ittal and coronal reformats were performed. One or more of the following dose reduction techniques were used: Automated exposure control, adjus tment of the mA and kV according to patient size, and iterative reconstruction. Unless otherwise specified, incidental findings do not require dedicated imaging follow-up. FINDINGS: No evidence of hydrocephalus, intracranial hemorrhage, or extra-axial fluid collection. The brain is normal in morphology. The calvarium is intact. The visualized paranasal sinuses and mastoid air cells are essentially clear . IMPRESSION: No evidence of acute intracranial abnormality.
--- NOTE | 2024-11-07 11:24 | ER ---
Nurse's Notes [facility] Name: Gonzalo Wilson Age: 64 yrs Sex: Male : 1960 Arrival Date: 11/07/2024 Time: 09:25 Bed 20 Private MD: Diagnosis: Headache;Essential (primary) hypertension Presentation: 11/07 09:39 Chief complaint: Patient states: "I was going out of town and I started to get a ss headache, so I checked my blood pressure and it was reading 175/105" Pt reports his headache has gone away quite a bit since he arrived to the ED. Coronavirus screen: Client denies travel out of the [place] in the last 14 days. Ebola Screen: Patient denies exposure to infectious person. Patient denies travel to an Ebola-affected area in the 21 days before illness onset. Initial Sepsis Screen: Does the patient meet any 2 criteria? No. Patient's initial sepsis screen is negative. Does the patient have a suspected source of infection? No. Patient's initial sepsis screen is negative. Risk Assessment: Do you want to hurt yourself or someone else? Patient reports no desire to harm self or others. Onset of symptoms was November 07, 2024. 09:39 Method Of Arrival: Ambulatory ss 09:39 Acuity: PERFECTO 3 ss Triage Assessment: 11:36 Pain: Also complains of. ap3 11:36 Headache History: The patient has had previous headaches. ap3 11:37 Pain: Pain currently is 2 out of 10 on a pain scale. ap3 Historical: - Allergies: 09:41 No Known Allergies; ss - PMHx: 09:41 Hypertensive disorder; sarcoma; ss - PSHx: 09:41 Aortic valve replacement; mass removal on back; right knee; ss - Immunization history:: Adult Immunizations up to date. - Infectious Disease History:: Denies. - Social history:: Smoking status: unknown. Screenin:03 [facility] ED Fall Risk Assessment (Adult) History of falling in the last 3 months, ap3 including since admission Yes- single mechanical fall (1 pt) Confusion or Disorientation No (0 pts) Intoxicated or Sedated No (0 pts) Impaired Gait No (0 pts) Mobility Assist Device Used No (0 pt) Altered Elimination No (0 pt) Score/Fall Risk Level 0 - 2 = Low Risk Oriented to surroundings, Maintained a safe environment, Educated pt \\T\\ family on fall prevention, incl call for assistance when getting out of bed, Assessed \\T\\ reinforced patient's understanding of fall precautions, Hourly rounding (assess needs \\T\\ fall precautionary measures) done, Used ambulatory aids as needed (educated on \\T\\ assisted with), Used gait belt as appropriate. Abuse screen: Denies threats or abuse. Nutritional screening: No deficits noted. Tuberculosis screening: No symptoms or risk factors identified. Assessment: 09:43 General: Appears in no apparent distress. Behavior is calm, cooperative, appropriate ap3 for age. Pain: Complains of pain in head Pain began suddenly, 929, but has improved. Neuro: Level of Consciousness is awake, alert, obeys commands, Oriented to person, place, time, situation, Appropriate for age Moves all extremities. Gait is steady, Speech is normal, Facial symmetry appears normal. Cardiovascular: Patient's skin is warm and dry. Respiratory: Airway is patent Respiratory effort is even, unlabored, Respiratory pattern is regular, symmetrical. 11:20 Reassessment: Patient and/or family updated on plan of care and expected duration. Pain ap3 level reassessed. Patient is alert, oriented x 3, equal unlabored respirations, skin warm/dry/pink. Vital Signs: 09:39 Weight 124.74 kg; Height 6 ft. 0 in. ; Pain 0/10; ss 09:43 BP 148 / 88; Pulse 54; Resp 17; Temp 97.7; Pulse Ox 100% ; ap3 11:35 BP 115 / 80; Pulse 52; Resp 17; Pulse Ox 100% on R/A; ap3 09:39 Body Mass Index 37.30 (124.74 kg, 182.88 cm) ss 09:39 Pain Scale: Adult ss ED Course: 09:29 Patient arrived in ED. im 09:31 Sun Salazar MD is Attending Physician. ec2 09:40 Triage completed. ss 09:41 Arm band placed on right wrist. ss 09:44 Placed in gown. Bed in low position. Call light in reach. Client placed on continuous ap3 cardiac and pulse oximetry monitoring. NIBP monitoring applied. environmental monitoring technician on. Pulse ox on. NIBP on. 10:02 Yazmin Maxwell RN is Primary Nurse. ap3 10:02 Basic Metabolic Panel Sent. kb4 10:02 CBC with Diff Sent. kb4 10:02 Troponin HS Sent. kb4 10:02 Inserted saline lock: 20 gauge in left antecubital area, using aseptic technique. Blood kb4 collected. Flushed with 10 mL NS. 10:02 Initial lab(s) drawn, by me, sent to lab. kb4 10:05 CT Head Brain wo Cont In Process Unspecified. EDMS 10:08 XRAY Chest (1 view) In Process Unspecified. EDMS 11:23 Macario Rodriguez MD is Referral Physician. gb1 11:35 No provider procedures requiring assistance completed. IV discontinued, intact, ap3 bleeding controlled, No redness/swelling at site. Pressure dressing applied. 11:36 Provided Education on: call light education. ap3 Administered Medications: No medications were administered Medication: 11:36 VIS not applicable for this client. ap3 Outcome: 11:24 Discharge ordered by MD. gb1 11:36 Discharged to home ambulatory, ap3 11:36 Condition: good 11:36 Discharge instructions given to patient, Instructed on discharge instructions, follow up and referral plans. medication usage, Demonstrated understanding of instructions, follow-up care, medications, Prescriptions given X 1, 11:37 Patient left the ED. ap3 Signatures: Dispatcher [employer] EDMS Jonelle Petersen RN RN ss Prokisch, Amanda, RN RN ap3 Yany Brown Edwin, MD MD ec2 Sun Salazar MD MD gb1 Portia Gore kb4
--- NOTE | 2024-11-07 11:24 | EDPHYS ---
Physician Documentation [facility] Name: Gonzalo Wilson Age: 64 yrs Sex: Male : 1960 Arrival Date: 11/07/2024 Time: 09:25 Bed 20 Private MD: ED Physician Sun Salazar HPI: 11/07 09:51 This 64 yrs old Male presents to ER via Ambulatory with complaints of High gb1 Blood Pressure, Headache. 09:51 Mr. Wilson is a very pleasant 64-year-old male who got up this morning feeling gb1 fine and went in to get some gas and all of a sudden got a very sudden very sharp headache after he was pumping gas into his truck. Patient was headed out of town to the [facility] in [place], [place]. He has a history of hypertension and sarcoma. He also has a history of a aortic valve repair for which he is post to be on Xarelto but cannot afford the medication due to an insurance switch so he has been out of the medication for about 4 months. Patient does dip tobacco and drinks socially. He denies any chest pain or shortness of breath he denies any fever chills or recent URI illnesses. He denies any back pain or any neck pain. He denies any trauma or falls.. 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 - Infectious Disease History:: Denies. - Social history:: Smoking status: unknown. Exam: 09:51 Constitutional: This is a well developed, well nourished patient who is awake, alert, gb1 and in no acute distress. Head/Face: Normocephalic, atraumatic. Eyes: Pupils equal round and reactive to light, extra-ocular motions intact. Lids and lashes normal. Conjunctiva and sclera are non-icteric and not injected. Cornea within normal limits. Periorbital areas with no swelling, redness, or edema. ENT: Nares patent. No nasal discharge, no septal abnormalities noted. Tympanic membranes are normal and external auditory canals are clear. Oropharynx with no redness, swelling, or masses, exudates, or evidence of obstruction, uvula midline. Mucous membranes moist. Neck: Trachea midline, no thyromegaly or masses palpated, and no cervical lymphadenopathy. Supple, full range of motion without nuchal rigidity, or vertebral point tenderness. No Meningismus. Chest/axilla: Normal chest wall appearance and motion. Nontender with no deformity. No lesions are appreciated. Cardiovascular: Regular rate and rhythm with a normal S1 and S2. No gallops, murmurs, or rubs. Normal PMI, no JVD. No pulse deficits. Respiratory: Lungs have equal breath sounds bilaterally, clear to auscultation and percussion. No rales, rhonchi or wheezes noted. No increased work of breathing, no retractions or nasal flaring. Abdomen/GI: Soft, non-tender, with normal bowel sounds. No distension or tympany. No guarding or rebound. No evidence of tenderness throughout. Skin: Warm, dry with normal turgor. Normal color with no rashes, no lesions, and no evidence of cellulitis. MS/ Extremity: Pulses equal, no cyanosis. Neurovascular intact. Full, normal range of motion. Neuro: Awake and alert, GCS 15, oriented to person, place, time, and situation. Cranial nerves II-XII grossly intact. Motor strength 5/5 in all extremities. Sensory grossly intact. Cerebellar exam normal. Normal gait. Vital Signs: 09:39 Weight 124.74 kg; Height 6 ft. 0 in. ; Pain 0/10; ss 09:43 BP 148 / 88; Pulse 54; Resp 17; Temp 97.7; Pulse Ox 100% ; ap3 11:35 BP 115 / 80; Pulse 52; Resp 17; Pulse Ox 100% on R/A; ap3 09:39 Body Mass Index 37.30 (124.74 kg, 182.88 cm) ss 09:39 Pain Scale: Adult ss MDM: 09:43 Medical Screening Exam initiated gb1 09:51 Differential diagnosis: hypertensive crisis, Malignant HTN, CVA, intracerebral gb1 hemorrhage. Data reviewed: vital signs, nurses notes, lab test result(s). 09:51 ED course: 64-year-old male with history of hypertension and status post gb1 aortic valve replacement some 10 years ago not taking his Xarelto as he is noncompliant presents with a first, sudden, maximal and worst headache that struck him around 0 830. Patient now feels clinically improved. Concern for subarachnoid hemorrhage versus intracranial hemorrhage secondary to hypertensive emergency.. 11:22 ED course: Patient has clinically improved within arrival to the emergency department. gb1 His CT the brain does not show any signs of intracranial hemorrhage or subarachnoid hemorrhage. He is awake alert and has no complaints at time of discharge. I did give him a coupon for the Xarelto that he is currently taking at 20 mg daily. I have also recommended Dr. Gilliland for banquet captain for him to follow-up with outpatient. Patient's lab work also looks benign troponin is negative and I doubt that he has a TIA or CVA at this time. I have discharged him with explicit return precautions which is compliant with prior discharge home today.. 11:25 ED course: Of note, patient did have sinus bradycardia on the basin cleaner in the gb1 room. Patient has a history of bradycardic heart rate anywhere between 50 and 60 bpm. Patient is currently on metoprolol 50 mg twice daily. I did ask him to review and do a medication reconciliation with the outpatient banquet captain to be considered for possible decrease in his metoprolol dosing.. 11/07 09:46 Order name: Basic Metabolic Panel; Complete Time: 10:35 gb11/07 09:46 Order name: CBC with Diff; Complete Time: 10:35 gb11/07 09:46 Order name: Troponin HS; Complete Time: 10:35 gb11/07 09:47 Order name: BNP; Complete Time: 10:35 gb11/07 09:46 Order name: CT Head Brain wo Cont; Complete Time: 10:35 gb11/07 09:46 Order name: XRAY Chest (1 view); Complete Time: 10:35 gb11/07 09:46 Order name: Cardiac monitoring; Complete Time: 09:54 gb11/07 09:46 Order name: EKG - Nurse/Tech; Complete Time: 10:02 11/07 09:46 Order name: IV Saline Lock; Complete Time: 10:02 gb11/07 09:46 Order name: Labs collected and sent; Complete Time: 10:02 gb11/07 09:46 Order name: O2 Per Protocol; Complete Time: 09:54 gb11/07 09:46 Order name: O2 Sat Monitoring; Complete Time: 09:54 gb1 Administered Medications: No medications were administered Disposition Summary: 11/07/24 11:24 Discharge Ordered Notes: Location: Home gb1 Condition: Stable gb1 Diagnosis - Headache gb1 - Essential (primary) hypertension gb1 Followup: gb1 - With: Macario Rodriguez MD - When: - Reason: Further diagnostic work-up Discharge Instructions: - Discharge Summary Sheet gb1 - Hypertension, Adult gb1 Forms: - Work release form gb1 - Medication Reconciliation Form gb1 - Antibiotic Education gb1 - Prescription Opioid Use gb1 - Patient Portal Instructions gb1 - Leadership Thank You Letter gb1 Prescriptions: - Xarelto 20 mg Oral tablet - take 1 tablet ORAL route once daily; 30 tablet; Refills: 0, Product Selection gb1 Permitted Signatures: Dispatcher [employer] EDJonelle Obrien RN RN Yazmin Alfaro RN RN ap3 Sun Salazar MD MD gb1 Corrections: (The following items were deleted from the chart) 09:47 09:47 BASIC METABOLIC PANEL+C.LAB.BRZ ordered. EDMS EDMS 09:47 09:47 CBC+H.LAB.BRZ ordered. EDMS EDMS 09:47 09:47 Troponin High Sensitivity+C.LAB.BRZ ordered. EDMS EDMS 09:47 09:47 Chest Single View+RAD.RAD.BRZ ordered. EDMS EDMS 09:47 09:47 PROBNP+C.LAB.BRZ ordered. EDMS EDMS
[2024-11-07 12:01] VITALS: TEMP 97.7; O2SAT 100
[2024-11-07 12:02] VITALS: BP 115/80
--- NOTE | 2024-11-14 11:10 | EKG ---
Test Date: 2024-11-07 Test Time: 10:12:50 Rehabilitation Aide/Scheduler: MARISSA MEASUREMENT RESULTS: Intervals: Rate: 53 DC: 216 QRSD: 96 QT: 530 QTc: 497 [place]: P: 61 DC: 216 QRS: 0 T: 94 INTERPRETIVE STATEMENTS: Sinus bradycardia with 1st degree AV block Septal infarct, age undetermined Abnormal ECG Compared to ECG 09/15/2023 09:21:32 First degree AV block now present Myocardial infarct finding now present Ventricular premature complex(es) no longer present Left ventricular hypertrophy no longer present Early repolarization no longer present Electronically Signed On 11-14-24 11:00:24 COMPENSATION AGENT by Parvez Perea
== END 2024-11-07 11:37 | disposition home or self-care (01) ==
LOC: ER 09:25
DX: R51.9 Headache, unspecified (principal); I10 Essential (primary) hypertension; C49.9 Malignant neoplasm of connective and soft tissue, unspecified; Z95.2 Presence of prosthetic heart valve
CPT/HCPCS: 36415; 70450; 71045; 80048; 83880; 84484; 85025; 93005; 99284